=== PATIENT | female | born 1970 | race Two or more races ===

== ENCOUNTER 2017-07-06 12:29 | Emergency (ER) | payer BC, SELFPAY | END 2017-07-06 18:27 | disposition home or self-care (01) | PROVIDERS: Emergency Provider Emergency Medicine; Visit Provider Emergency Medicine | DX: R11.2 Nausea with vomiting, unspecified (principal); D64.9 Anemia, unspecified; K21.0 Gastro-esophageal reflux disease with esophagitis; I10 Essential (primary) hypertension; K44.9 Diaphragmatic hernia without obstruction or gangrene | CPT/HCPCS: 74176; 80053; 83690; 85025; 96374; 96375; 99284 ==

== ENCOUNTER 2017-07-18 12:38 | Day surgery (SDC) | payer BC, SELFPAY ==
[2017-07-15 12:12] VITALS: BMI 39.1
[2017-07-18] VITALS (9 sets, daily range): BP systolic 90–124; BP diastolic 47–79; PULSE 59–74; RESP 12–20; TEMP 36.7; O2SAT 95–100
--- NOTE | 2017-07-18 13:54 | P.PCN_ITS ---
- Procedure: Date: 07/18/17 Patient Date of :: 1970 Procedure Performed:: Esophagogastroduodenoscopy with cold biopsies and TTS balloon dilation Equipment: Olympus GIF 180 standard upper endoscope Indications:: Mrs. Perkins is a 46-year-old female with dysphagia and dyspepsia. She has a known hiatal hernia. She was having symptoms of heartburn which is well controlled with omeprazole. She reports epigastric and retrosternal abdominal pain and some left upper quadrant pain. She has noted bloating, belching, nausea and early satiety. She has some regurgitation and vomiting. Her weight is fluctuating. She does have alternating constipation with regular bowel movements and does have the feeling of incomplete bowel evacuation. The patient does state that her maternal aunt had stomach cancer. The patient also reports dysphagia to solids and sometimes liquid in the lower retrosternal region. Performing Provider:: Jessee Lester MD Referring Provider:: Naveed Reece MD/Will Rodriguez MD Sedation:: Fentanyl 200 mg IV/ Versed 9 mg IV Procedure:: Prior to the procedure, a history and physical exam was performed, and patient' s medications and allergies were reviewed. The risks, benefits and alternatives of the sedation and procedure were discussed with the patient. All questions were answered and informed consent was obtained. The patient was brought to the procedure room. Patient identification and proposed procedure were verified by the physician and the nurse. The patient was placed in a left lateral decubitus position and the scope was passed under direct vision. Throughout the procedure, the patient's blood pressure, pulse, and oxygen saturations were monitored continuously. The upper GI endoscopy was accomplished without difficulty. The patient tolerated the procedure well. Findings:: The scope was passed directly into the upper esophagus and advanced to the third portion of the duodenum. The post bulbar duodenum and duodenal bulb were normal with normal mucosa and conniventes. The scope was withdrawn through a normal duodenal bulb and pylorus into the stomach. The antrum and body of the stomach were normal. Upon retroflexion there was a very large 7-8 cm paraesophageal hernia/large hiatal hernia with long linear Carl's erosions/ Carl's ulcerations. There was some atrophy of the body of the stomach. Initially, it appeared that there was an organoaxial gastric volvulus tended to slide which was decompressed with the endoscope. After decompression, even the hernia itself lessened in size and was sliding to some degree. Cold biopsies were taken of the proximal body/greater curvature for histology. The scope was then withdrawn into the esophagus. There was a distal Schatzki's ring that did not appear to be too significant. There was mild tertiary contractions. There was no evidence of reflux esophagitis or Patel's. The entire esophagus was dilated to 60/20 mm TTS hydrostatic balloon. There was minimal resistance. The remainder of the esophageal mucosa was normal. Impression: 1. Large paraesophageal hiatal hernia (7 -8 cm) with initial appearance of organoaxial gastric volvulus status post endoscopic decompression 2. Long linear Carl's ulcerations/erosions related to the hiatal hernia 3. Mild esophageal dysmotility status post dilation to 20 mm Recommendations:: Plan: Based upon the endoscopic findings, the patient will require minimally invasive hiatal hernia repair. I would encourage a fiber bowel regimen and dietary measures. I would continue the omeprazole. Complications:: None Estimated blood obtained (mL): 0
== END 2017-07-18 14:30 | disposition hospice, home (50) ==
LOC: OUTP 12:39
PROVIDERS: PCP Nurse Practitioner Family; Visit Provider Internal Medicine Gastroenterology
PROC: 0DJ08ZZ Inspection of Upper Intestinal Tract, Via Natural or Artificial Opening Endoscopic (ICD-10-PCS; CPT 43235; principal; 2017-07-18 13:30)
DX: K44.9 Diaphragmatic hernia without obstruction or gangrene; K22.10 Ulcer of esophagus without bleeding; K22.4 Dyskinesia of esophagus
CPT/HCPCS: 43239; 43249; 99152; C1726

== ENCOUNTER → 2018-05-08 18:15 | Outpatient (CLI) | payer BC, SELFPAY | PROVIDERS: Visit Provider Nurse Practitioner Family | DX: R11.2 Nausea with vomiting, unspecified (principal) ==

== ENCOUNTER → 2018-05-10 08:22 | Outpatient (CLI) | payer BC, SELFPAY ==
[2018-05-10 09:21] LABS: Basophils % 0.7 % (0.1-2.0); Eosinophils # 0.2 K/mm3 (0.0-0.4); Eosinophils % 4.6 % (0.1-12.0); Hematocrit 33.3 % (37.0-47.0); Hemoglobin 10.5 g/dL (12.2-16.2); Lymphocytes # 1.2 K/mm3 (0.7-4.5); Lymphocytes % 32.9 K/mm3 (10-50); Mean Corpuscular HGB Conc 31.4 g/dL (31.8-35.4); Mean Corpuscular Hemoglobin 25.9 pg (27.0-31.2); Mean Corpuscular Volume 82.5 fl (81-99); Mean Platelet Volume 9.2 fl (7.4-10.4); Monocytes # 0.2 K/mm3 (0.1-1.0); Monocytes % 5.8 % (1.7-9.3); Neutrophils # 2.1 K/mm3 (1.8-7.8); Platelet Count 184 K/mm3 (142-424); Red Blood Count 4.04 M/mm3 (4.20-5.40); Red Cell Distribution Width 17.4 % (11.5-17.5); White Blood Count 3.7 K/mm3 (4.8-10.8)
[2018-05-10 09:53] LABS: Alanine Aminotransferase 20 U/L (12-78); Albumin Level 3.5 gm/dL (3.4-5.0); Alkaline Phosphatase 98 U/L (46-116); Anion Gap 12.2 mEq/L (5-15); Aspartate Amino Transferase 15 U/L (15-37); Bilirubin,Total 0.4 mg/dL (0.2-1.0); Blood Urea Nitrogen 15 mg/dL (7-18); Calcium 8.5 mg/dL (8.5-10.1); Carbon Dioxide 27 mmol/L (21.0-32.0); Chloride 107 mmol/L (98-107); Creatinine,Serum 1.01 mg/dL (0.55-1.02); Estimated Glomerular Filt Rate 59 ml/min (>60); GFR (African American) 71 ML/MIN (>60); Globulin 3.5 gm/dl (1.3-3.2); Glucose 90 mg/dL (74-106); Potassium 4.2 mmoL/L (3.5-5.1); Sodium 142 mmol/L (136-145); T4 (Thyroxine) 5.3 ug/dl (4.7-13.3); Thyroid Stimulating Hormone 11.92 uIU/ml (0.358-3.740)
== END ==
PROVIDERS: Visit Provider Nurse Practitioner Family
DX: E03.9 Hypothyroidism, unspecified (principal); R11.2 Nausea with vomiting, unspecified
CPT/HCPCS: 36415; 80053; 84436; 84443; 85025

== ENCOUNTER → 2018-05-19 11:35 | Outpatient (CLI) | payer BC, SELFPAY ==
[2018-05-19 15:18] LABS: Ferritin 5 ng/mL (8-388)
[2018-05-20 08:28] LABS: Iron 48 ug/dL (27-159); UIBC 432 ug/dL (131-425)
[2018-05-20 12:16] LABS: Folate 8.4 ng/mL (>3.0); Iron Saturation 10 % (15-55); Vitamin B12 223 pg/mL (232-1245)
== END ==
PROVIDERS: Nurse Practitioner Family; Visit Provider Emergency Medicine
DX: D64.9 Anemia, unspecified (principal)
CPT/HCPCS: 36415; 82607; 82652; 82728; 82746; 83540; 83550

== ENCOUNTER → 2018-05-19 17:46 | Outpatient (CLI) | payer BC, SELFPAY | PROVIDERS: Visit Provider Nurse Practitioner Family | DX: N39.0 Urinary tract infection, site not specified (principal); R30.9 Painful micturition, unspecified | CPT/HCPCS: 87086; 87088; 87186 ==

== ENCOUNTER → 2018-06-15 10:45 | Outpatient (CLI) | payer BC, SELFPAY ==
--- NOTE | 2018-06-15 10:47 | MM_ITS ---
MM Dig screening mamm BI w/CAD CAD Screening COMPARISON: Digital mammograms with CAD 07/07/2015 INDICATION: There is a history of breast cancer patient maternal aunt diagnosed at age 46 and another maternal aunt diagnosed at age 50 TECHNIQUE: Standard CC and MLO images were obtained. R2 CAD reviewed. FINDINGS: Moderate diffuse breast density is seen in each breast and the findings are bilateral and symmetrical. There is no suspicious lesion and there are no suspicious microcalcifications. There are couple of normal-appearing nodes in each axilla. IMPRESSION: Moderate breast density with no suspicious lesion seen BI-RADS Category: 1 Negative RECOMMENDED FOLLOW-UP: 1YR - 1 YEAR FOLLOW-UP (A letter has been sent to the patient regarding results of the study.)
== END ==
PROVIDERS: PCP Nurse Practitioner Family; Visit Provider Nurse Practitioner Family
DX: Z12.31 Encounter for screening mammogram for malignant neoplasm of breast (principal)
CPT/HCPCS: 77067

== ENCOUNTER → 2018-06-22 10:29 | Outpatient (CLI) | payer BC, SELFPAY ==
--- NOTE | 2018-06-22 10:32 | CT_ITS ---
CT abdomen wo/w con CLINICAL INDICATION: Follow-up adrenal mass ITS.REASON: adrenal gland protocol ORDERING PHYSICIAN: Radha Zavala PATIENT AGE: 47 years COMPARISON: 06/29/1717 TECHNIQUE: Axial images obtained without and with contrast. Unenhanced, 60 seconds postenhanced, and 15 minute delayed images are obtained Sagittal and coronal reformats. All CT scans at the facility use one or more dose reduction, viz: automated exposure control, ma/kV adjustment per patient size (including targeted exams where dose is matched to indication, i.e. head), or iterative reconstruction technique. PROCEDURE: Oral Contrast: None IV Contrast: 75 mL of Isovue-370. FINDINGS: No acute finding in the lung bases. There is a 9 mm isodensity in the right hepatic lobe and may represent hepatic cysts not significantly changed. There is a small hiatal hernia. There is a 1.6 cm right adrenal nodule. This measures negative Hounsfield units on the unenhanced exam 24 Hounsfield units on the immediate postenhanced images and 3 Hounsfield units on the washout images. This is consistent with an adenoma. This is unchanged in size 07/06/2017. The spleen, left adrenal gland, pancreas, and kidneys have an unremarkable appearance. There is some lobulation of the left kidney has a normal variant. No intestinal obstruction or free air. There is a small umbilical hernia containing fat. Mild amount of retained colonic feces. The colon. No acute bony anomalies are evident. IMPRESSION: 1. No change 1.6 cm right adrenal nodule consistent with an adenoma. 2. Probable hepatic cyst. 3. Hiatal hernia. 4. Constipation
--- NOTE | 2018-06-22 11:05 | HMH.ITSHM ---
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 []ASPIRIN,VIT D,LEVOTHYROXINE,
== END ==
PROVIDERS: PCP Emergency Medicine; Visit Provider Nurse Practitioner Family
DX: E27.9 Disorder of adrenal gland, unspecified (principal)
CPT/HCPCS: 74170; Q9967

== ENCOUNTER → 2019-05-09 14:10 | Outpatient (CLI) | payer BC, SELFPAY ==
[2019-05-09 14:24] LABS: Basophils % 0.4 % (0.1-2.0); Eosinophils # 0.2 K/mm3 (0.0-0.4); Eosinophils % 3.3 % (0.1-12.0); Hematocrit 40.1 % (37.0-47.0); Hemoglobin 13.1 g/dL (12.2-16.2); Lymphocytes # 1.6 K/mm3 (0.7-4.5); Lymphocytes % 31.9 % (10-50); Mean Corpuscular HGB Conc 32.6 g/dL (31.8-35.4); Mean Corpuscular Hemoglobin 29.6 pg (27.0-31.2); Mean Corpuscular Volume 90.9 fl (81-99); Mean Platelet Volume 10.6 fl (7.4-10.4); Monocytes # 0.2 K/mm3 (0.1-1.0); Monocytes % 4.4 % (1.7-9.3); Neutrophils # 2.9 K/mm3 (1.8-7.8); Neutrophils % 60.1 % (37.0-80.0); Platelet Count 212 K/mm3 (142-424); Red Blood Count 4.41 M/mm3 (4.20-5.40); Red Cell Distribution Width 14.7 % (11.5-17.5); White Blood Count 4.9 K/mm3 (4.8-10.8)
[2019-05-09 14:37] LABS: Alanine Aminotransferase 25 U/L (12-78); Albumin Level 3.9 gm/dL (3.4-5.0); Albumin/Globulin Ratio 1.1 (1.1-1.8); Alkaline Phosphatase 95 U/L (46-116); Anion Gap 12.4 mEq/L (5-15); Aspartate Amino Transferase 13 U/L (15-37); Bilirubin,Total 0.4 mg/dL (0.2-1.0); Blood Urea Nitrogen 26 mg/dL (7-18); Calcium 8.4 mg/dL (8.5-10.1); Carbon Dioxide 24 mmol/L (21.0-32.0); Chloride 109 mmol/L (98-107); Estimated Glomerular Filt Rate 59 ml/min (>60); Free T4 (Free Thyroxine) 0.81 ng/dl (0.76-1.46); GFR (African American) 72 ML/MIN (>60); Globulin 3.4 gm/dl (1.3-3.2); Glucose 81 mg/dL (74-106); Potassium 4.4 mmoL/L (3.5-5.1); Sodium 141 mmol/L (136-145); Thyroid Stimulating Hormone 8.77 uIU/ml (0.358-3.740); Total Protein,Serum 7.3 gm/dL (6.4-8.2)
[2019-05-09 14:42] LABS: Erythrocyte Sedimentation Rate 90 mm/hr (0-20)
[2019-05-09 17:27] LABS: Hemoglobin A1C 5.7 % (0.0-7.0)
== END ==
PROVIDERS: Visit Provider Emergency Medicine
DX: D64.9 Anemia, unspecified (principal); R11.2 Nausea with vomiting, unspecified; E03.9 Hypothyroidism, unspecified; E55.9 Vitamin D deficiency, unspecified
CPT/HCPCS: 80053; 82652; 83036; 84439; 84443; 85025; 85651

== ENCOUNTER 2019-05-17 20:15 | Observation (INO) ==
[2019-05-17 20:29] LABS: Basophils % 0.4 % (0.1-2.0); Eosinophils # 0.1 K/mm3 (0.0-0.4); Hemoglobin 13.3 g/dL (12.2-16.2); Lymphocytes # 1.4 K/mm3 (0.7-4.5); Lymphocytes % 17.8 % (10-50); Mean Corpuscular HGB Conc 31.8 g/dL (31.8-35.4); Mean Corpuscular Volume 93.1 fl (81-99); Mean Platelet Volume 9.6 fl (7.4-10.4); Monocytes # 0.2 K/mm3 (0.1-1.0); Neutrophils % 77.8 % (37.0-80.0); Platelet Count 208 K/mm3 (142-424); Red Blood Count 4.51 M/mm3 (4.20-5.40); Red Cell Distribution Width 14.6 % (11.5-17.5); White Blood Count 7.6 K/mm3 (4.8-10.8)
[2019-05-17 20:35] LABS: INR 0.92 (0.9-1.1); Prothrombin Time 9.6 seconds (9.4-11.8)
[2019-05-17 20:41] LABS: Anion Gap 13.9 mEq/L (5-15); Blood Urea Nitrogen 27 mg/dL (7-18); Calcium 8.5 mg/dL (8.5-10.1); Carbon Dioxide 25 mmol/L (21.0-32.0); Chloride 105 mmol/L (98-107); Glucose 160 mg/dL (74-106); Sodium 140 mmol/L (136-145)
--- NOTE | 2019-05-17 21:11 | Emergency Department Note ---
ED Disposition Clinical Impression: Obesity (BMI 30.0-34.9) Chest pain Qualifiers: Chest pain type: precordial pain Qualified Code(s): R07.2 - Precordial pain Disposition: Admitted as Observation Condition on Discharge: Good - Critical Care Critical Care Time: No Attestation: On 05/17/19, the high probability of a clinically significant, sudden or life threatening deterioration of the following system(s) required my full and direct attention, intervention and personal management. The time I documented below is in addition to time spent performing reported procedures but includes the following listed in this critical care notation. Medical Decision Making - Medical Records Medical records reviewed: Yes: I reviewed the patient's medical records. - Colin Inquiry Pt receiving controlled substance: No Vital Signs: 05/17/19 20:15 05/17/19 20:16 05/17/19 20:45 Temperature 98.1 F 98.1 F Temperature Source Oral Oral Pulse Rate [Right Brachial] 79 79 68 Respiratory Rate 18 18 18 Blood Pressure [Right Arm] 141/74 H 141/74 H 143/106 H Blood Pressure Mean [Right Arm] 96 96 118 Blood Pressure Source [Right Arm] Automatic Cuff Automatic Cuff Automatic Cuff Blood Pressure Position [Right Arm] Sitting Sitting Sitting 02 Sat by Pulse Oximetry 98 98 98 Oxygen Delivery Method Room Air Room Air Room Air 05/17/19 21:34 05/17/19 21:51 Temperature Temperature Source Pulse Rate [Right Brachial] 64 73 Respiratory Rate 18 18 Blood Pressure [Right Arm] 140/100 H 132/89 Blood Pressure Mean [Right Arm] 113 103 Blood Pressure Source [Right Arm] Automatic Cuff Automatic Cuff Blood Pressure Position [Right Arm] Sitting Sitting 02 Sat by Pulse Oximetry 98 98 Oxygen Delivery Method Room Air Room Air - Lab Data Lab results reviewed: Yes: I reviewed the patient's lab results. Lab Results 05/17/19 20:18: POC Glucose 186 H 05/17/19 20:20: WBC 7.6, RBC 4.51, Hgb 13.3, Hct 42.0, MCV 93.1, MCH 29.6, MCHC 31.8, RDW 14.6, Plt Count 208, MPV 9.6, Neut % (Auto) 77.8, Lymph % (Auto) 17.8, [place] % (Auto) 3.0, Eos % (Auto) 1.0, Baso % (Auto) 0.4, Neut # (Auto) 6.0, Lymph # (Auto) 1.4, [place] # (Auto) 0.2, Eos # (Auto) 0.1, Baso # (Auto) 0.0 05/17/19 20:20: PT 9.6, INR 0.92 05/17/19 20:20: Sodium 140, Potassium 3.9, Chloride 105, Carbon Dioxide 25, Anion Gap 13.9, BUN 27 H, Creatinine 1.19 H, Estimated Creat Clear 89, Estimated GFR 48 L, Est GFR ( Amer) 59, Glucose 160 H, Calcium 8.5, Troponin I < 0.02 Result diagrams: 05/17/19 20:20 05/17/19 20:20 Orders (Tests/Meds): ED MEDICATIONS Discontinued Medications Generic Name Dose Route Start Last Admin Trade Name Freq PRN Reason Stop Dose Admin Aspirin 324 mg 05/17/19 21:52 05/17/19 21:53 Aspirin 81mg Chewable Tablet PO 05/17/19 21:53 324 mg ONCE ONE Administration Nitroglycerin 1 gm 05/17/19 21:52 05/17/19 21:53 Nitroglycerin 1 Inch Oint Udp TD 05/17/19 21:53 1 gm ONCE ONE Administration ORDERS Category Date Time Status CT head/brain wo con Stat Cat Scan 05/17/19 20:18 Taken XR chest portable Stat Exams 05/17/19 20:20 Taken ECG Request by /Nse Stat Y 05/17/19 20:20 Ordered - Radiology Data #1 Image(s): Chest Image Reviewed: Yes I reviewed the patient's radiology image Preliminary Findings: Normal/NAD - CT Data CT Scan: Head Time Received: 22:[address] Reviewed: Yes: I have viewed the radiologist's interpretation Preliminary Findings: Normal/NAD - ECG Data Tracing #1 Normal Sinus Rhythm: Yes Ischemic changes: non-specific ST-T wave changes - AIDAN Score for Non-Stemi Age of Patient: 40-49 years old Heart Rate: 70-89 bpm Systolic Blood Pressure: 140-159 mmHg Serum Creatinine: 0.80-1.19 mg/dl CHF [place] Class: I-No CHF Other Risk Factors: None Non-Stemi Risk Score: 65 Neuro HPI - General Chief Complaint: Chest Pain Stated Complaint: CP Time Seen by Provider: 05/17/19 20:20 Mode of Arrival: Ambulatory Source of Information: Patient, Spouse, Medical Record Limitations: No Limitations Description of Symptoms (Recalled from ER Triage Doc. by RN): Pt c/o cp and right sided weakness that started around lunch 11-12 today. - History of Present Illness HPI Narrative: pt with new onset of chest pain described as tightness which started around lunch with rad to lt upper ext - - had 2 episodes - second lasted longer - had heart cath 2009- no stents - also has tia in 2017 and on asa - no speech or visual sx at this time Onset (ago): hour(s) Timing confirmed by: family member Location: left arm History of same: Yes Severity: mild Context: sudden onset On Anticoagulants: Yes (asa) Associated symptoms: chest pain Treatments Prior to Arrival: Aspirin - Related Data Home Medications: Home Medications Medication Instructions Recorded Confirmed aspirin 325 mg tablet,delayed 325 mg PO DAILY 05/09/19 05/17/19 release Cholecalciferol (Vitamin D3) 1,000 unit PO DAILY 05/17/19 05/17/19 [Vitamin D3 1,000 Unit Cap] Dicyclomine HCl [Bentyl 10mg 10 mg PO BID 05/17/19 05/17/19 capsule] Ergocalciferol (Vitamin D2) 50,000 unit PO QWEEK 05/17/19 05/17/19 [Drisdol] Gabapentin [Gabapentin 100mg Cap] 100 mg PO QHS 05/17/19 05/17/19 Gabapentin [Gabapentin 300mg Cap] 300 mg PO QHS 05/17/19 05/17/19 predniSONE [Deltasone 20mg 20 mg PO BID 05/17/19 05/17/19 tablet] Allergies/Adverse Reactions: Allergies Allergy/AdvReac Type Severity Reaction Status Date / Time azithromycin [AZITHROMYCIN] Allergy Intermediate NA-NAUSEA Verified 05/09/19 1 0:41 codeine [CODEINE] Allergy Intermediate S-SWELLS-OR Verified 05/09/19 10:41 AL/THROAT NUTS (FOOD) Allergy Intermediate I-HIVES Uncoded 05/09/19 10:41 tegaderm Allergy Mild Uncoded 05/09/19 10:41 Stroke Alert/NIH Score - LOC Stroke Alert: Yes Level of Consciousness: Alert LOC Questions: Answers both correctly LOC Commands: Obeys both correctly - Facial/Visual Best Gaze: Normal Visual: No visual loss Facial Palsy: Normal - Motor Motor Response, Left Arm: No drift/Amputation/Fused Motor Response, Right Arm: No drift/Amputation/Fused Motor Response, Left Leg: No drift/Amputation/Fused Motor Response, Right Leg: No drift/Amputation/Fused - Sensory/Language Limb Ataxia: Absent Sensory: Normal Best Language: No aphasia Dysarthria: Normal speech, Intubated or Barrier present - NIH Score Stroke Risk Score: 0 [facility] History - Hepatitis A Screen Drug use history?: No High risk sexual behaviors?: No History of sexually transmitted infection?: No Currently employed?: No Childcare worker?: No Do you have indoor plumbing?: Yes Do you have electricity?: Yes Attestation statement:: This patient has been screened for Hepatitis A risk factors. I have reviewed the patient's past medical history: Yes Medical History: Reports:: Deep Vein Thrombosis, Hypertension, Transient Ischemic Attacks (TIA) Denies:: Diabetes Mellitus Type 1, Diabetes Mellitus Type 2, Internal Pacemaker, Lung Disease Other Surgeries: Yes: Appendectomy, Cardiac Catheterization, Cholecystectomy, C- section, Hernia Repair, Tubal Ligation. No: Pacemaker Amputation: No Fractures: No - Social History Smoking Status: Never smoker Alcohol Intake: never Alcohol Intake Frequency:: holidays/special occasions only Substance Use Type: denies use Occupational Status: unemployed Housing: house Family Hx:: Heart Attack, Anemia, Cancer, Kidney Disease, Coronary Artery Disease, Diabetes, Asthma ROS Obtained: Yes All systems reviewed & no additional complaints - Constitutional Constitutional: Denies fever(s) - Eyes Eyes: Denies change in vision - ENT Ears, Nose, Mouth, and Throat: Denies sore throat - Cardiovascular Cardiovascular: Reports chest pain, Reports chest pain at rest, Denies dyspnea, Reports radiating jaw, neck or arm pain - Respiratory Respiratory: No cough - Gastrointestinal Gastrointestingal: Denies: abdominal pain - Genitourinary Female Genitourinary: Denies hematuria - Musculoskeletal Musculoskeletal: Denies joint pain - Integumentary/Breasts Skin/Breast: Denies rash - Neurologic Neurologic: Reports as per HPI, Denies abnormal speech, Denies confusion, Denies dizziness, Denies focal weakness, Denies headache(s), Denies seizure-like activity Physical Exam - General General appearance: alert, obese - Head Head exam: normocephalic - Eye Eye exam: Present: PERRL, EOMI. Absent: scleral icterus - ENT ENT exam: Present: mucous membranes dry - Neck Neck exam: Present: trachea midline - Respiratory Respiratory exam: Present: normal lung sounds bilaterally. Absent: respiratory distress - Cardiovascular Cardiovascular exam: Present: regular rate, systolic murmur, +S4 - Abdominal Exam Abdominal exam: Present: soft - Extremities Exam Extremities exam: Present: full ROM. Absent: calf tenderness - Neurological Exam Neurological exam: Present: alert, oriented X3, CN II-XII intact, normal gait. Absent: motor sensory deficit - Psychiatric Psychiatric exam: Present: anxious - Skin Skin exam: Absent: rash
[2019-05-18 05:04] LABS: Basophils % 0.3 % (0.1-2.0); Eosinophils # 0.1 K/mm3 (0.0-0.4); Eosinophils % 1.2 % (0.1-12.0); Hematocrit 37.6 % (37.0-47.0); Lymphocytes # 2.2 K/mm3 (0.7-4.5); Lymphocytes % 31.5 % (10-50); Mean Corpuscular HGB Conc 31.3 g/dL (31.8-35.4); Mean Corpuscular Volume 94.1 fl (81-99); Monocytes # 0.4 K/mm3 (0.1-1.0); Monocytes % 5.9 % (1.7-9.3); Neutrophils # 4.4 K/mm3 (1.8-7.8); Neutrophils % 61.1 % (37.0-80.0); Platelet Count 178 K/mm3 (142-424); Red Cell Distribution Width 14.9 % (11.5-17.5); White Blood Count 7.2 K/mm3 (4.8-10.8)
[2019-05-18 05:16] LABS: Hemoglobin 11.9 g/dL (12.2-16.2)
[2019-05-18 05:27] LABS: Anion Gap 11.7 mEq/L (5-15); Calcium 8.4 mg/dL (8.5-10.1)
--- NOTE | 2019-05-18 07:29 | Pharmacy Consult Notes ---
[facility] Pharmacy VTE Monitoring - Patient Demographics Admission date: 05/17/19 Report Date: 05/18/19 Time: 07:29 Allergies/Adverse Reactions: Patient Allergies azithromycin [AZITHROMYCIN] Allergy (Intermediate, Verified 05/09/19 10:41) NA-NAUSEA codeine [CODEINE] Allergy (Intermediate, Verified 05/09/19 10:41) U-[id number]-[id number]/THROAT NUTS (FOOD) Allergy (Intermediate, Uncoded 05/09/19 10:41) I-HIVES tegaderm Allergy (Mild, Uncoded 05/09/19 10:41) Height: 1.7 m Weight: 103.986 kg Patient Problems: Current Active Problems Chest pain (Acute) Obesity (BMI 30.0-34.9) (Acute) - VTE Risk Labs: VTE Related Lab Results Hgb 11.9 g/dL (12.2-16.2) L D 05/18/19 04:50 Hct 37.6 % (37.0-47.0) 05/18/19 04:50 Plt Count 178 K/mm3 (142-424) 05/18/19 04:50 PT 9.6 seconds (9.4-11.8) 05/17/19 20:20 INR 0.92 (0.9-1.1) 05/17/19 20:20 BUN 26 mg/dL (7-18) H 05/18/19 04:50 Creatinine 0.99 mg/dL (0.55-1.02) 05/18/19 04:50 Estimated Creat Clear 114 mL/min (50-200) 05/18/19 04:50 Was VTE Risk Assessment Performed: Yes VTE Score: 3 VTE Risk Level: Low Risk Clinical Trial Participant: No - Prophylaxis VTE Prophylaxis Ordered?: Yes Types of VTE Prophylaxis: TEDS Knee High Location of Applied Device: Bilateral Lower Extremeties
--- NOTE | 2019-05-18 07:38 | Consult Report ---
History of Present Illness Consult date: 05/18/19 Requesting physician: Will Rodriguez Consult reason: chest pain Chief complaint: chest pain Additional Medical History:: 1. History of negative cardiac catheterization, 2006 and 2009 2. Remote tobacco use discontinued approximately 8 years ago, previously 1 pack/day for 20 years 3. History of TIAs, hospitalizations in 08/2016 in [place], [place] ([facility]), 01/2017 in [place] ([facility]). Some residual "weakness" in left leg. 4. Patient has history of DVT in right in 1991 while . Patient was placed on heparin injections for 9 months. 5. ? history of Hypothyroidism 6. Family history of HLD,DM, Cancer, CAD, [place] A. Patient's mother passed at age 23 of [place] during a kidney transplant 7. History of chest pain related to hiatal hernia, status post repair early 2017 History of present illness: 48 yo HF presented to the emergency department for evaluation of 5 minutes of chest pain at rest. Patient had gone out to feed a baby Without exertion or trauma when she returned to the house and sat down symptoms began left-sided with radiation to the left arm. Denies any diaphoresis, shortness of breath, nausea or vomiting or diarrhea. Patient came to the emergency department for evaluation of chest pain with subsequent numbness in the left side as well. Patient has a history of TIA symptoms in 2016 but she had no neurologic symptoms other than numbness at this time. Evaluation in the ER included EKG showing sinus rhythm at 67 bpm with no acute ST segment changes. Initial troponin was normal with follow up troponins normal overnight. Patient denies diabetes, tobacco use, hypertension or hyperlipidemia. She reports a history of TIA approximately 2016 and is on ASA. [facility] History Medical History: Reports:: Deep Vein Thrombosis (1991), Hypertension, Transient Ischemic Attacks (TIA) Denies:: Cancer, Diabetes Mellitus Type 1, Diabetes Mellitus Type 2, Internal Pacemaker, Lung Disease, MRSA *Have you ever received a pneumonia vaccine?: No *Have you received a flu vaccine this season?: No (wants to get vaccinated) Other Medical History: Reports: Anemia (1990), Hypothyroidism Other Surgeries: Yes: Appendectomy, Cardiac Catheterization, Cholecystectomy, C- section, Hernia Repair, Hysterectomy-Partial, Tubal Ligation. No: Pacemaker Amputation: No Fractures: No - *Social History Educational Level: Attended High School Smoking Status: Never smoker Alcohol Intake: current Alcohol Intake Frequency:: holidays/special occasions only Substance Use Type: denies use *Occupational Status:: unemployed Housing: house Household Members: family *Travel in the last 8 weeks: None Family Hx:: Heart Attack, Anemia, Cancer, Kidney Disease, Coronary Artery Diseas e, Diabetes, Asthma Meds Home Medications Medication Instructions Recorded Confirmed Type aspirin 325 mg tablet,delayed 325 mg PO DAILY 05/09/19 05/17/19 History release Cholecalciferol (Vitamin D3) 1,000 unit PO DAILY 05/17/19 05/17/19 History [Vitamin D3 1,000 Unit Cap] Dicyclomine HCl [Bentyl 10mg 10 mg PO BID 05/17/19 05/17/19 History capsule] Ergocalciferol (Vitamin D2) 50,000 unit PO QWEEK 05/17/19 05/17/19 History [Drisdol] Gabapentin [Gabapentin 100mg Cap] 100 mg PO QHS 05/17/19 05/17/19 History Gabapentin [Gabapentin 300mg Cap] 300 mg PO QHS 05/17/19 05/17/19 History predniSONE [Deltasone 20mg 20 mg PO BID 05/17/19 05/17/19 History tablet] Allergies Allergy/AdvReac Type Severity Reaction Status Date / Time azithromycin [AZITHROMYCIN] Allergy Intermediate NA-NAUSEA Verified 05/09/19 10:41 codeine [CODEINE] Allergy Intermediate S-SWELLS-OR Verified 05/09/19 10:41 AL/THROAT NUTS (FOOD) Allergy Intermediate I-HIVES Uncoded 05/09/19 10:41 tegaderm Allergy Mild Uncoded 05/09/19 10:41 Review of Systems - *Cardiovascular Reports chest pain, Denies shortness of breath with activity - *Respiratory Denies cough, Denies shortness of breath with activity - *Gastrointestinal Denies abdominal pain, Denies nausea, Denies vomiting - *Genitourinary Denies blood in urine - *Musculoskeletal Denies joint pain, Denies back pain - *Neurologic Denies abnormal speech, Denies confusion, Denies dizziness, Denies localized weakness, Denies headache(s), Denies seizure-like activity Exam Vital signs and Labs for Last 24 Hours: Temp Pulse Resp BP Pulse Ox 97.7 F 42 L 16 126/73 97 05/18/19 04:00 05/18/19 04:00 05/18/19 04:00 05/18/19 04:00 05/18/19 04:00 Laboratory Results - last 24 hr 05/17/19 20:18: POC Glucose 186 H 05/17/19 20:20: WBC 7.6, RBC 4.51, Hgb 13.3, Hct 42.0, MCV 93.1, MCH 29.6, MCHC 31.8, RDW 14.6, Plt Count 208, MPV 9.6, Neut % (Auto) 77.8, Lymph % (Auto) 17.8, [place] % (Auto) 3.0, Eos % (Auto) 1.0, Baso % (Auto) 0.4, Neut # (Auto) 6.0, Lymph # (Auto) 1.4, [place] # (Auto) 0.2, Eos # (Auto) 0.1, Baso # (Auto) 0.0 05/17/19 20:20: PT 9.6, INR 0.92 05/17/19 20:20: Sodium 140, Potassium 3.9, Chloride 105, Carbon Dioxide 25, Anion Gap 13.9, BUN 27 H, Creatinine 1.19 H, Estimated Creat Clear 89, Estimated GFR 48 L, Est GFR ( Amer) 59, Glucose 160 H, Calcium 8.5, Troponin I < 0.02 05/17/19 20:20: Hemoglobin A1c 6.0 05/17/19 20:20: ESR 19 05/18/19 01:50: Troponin I < 0.02 05/18/19 04:50: Troponin I < 0.02 05/18/19 04:50: WBC 7.2, RBC 4.00 L, Hgb 11.9 L D, Hct 37.6, MCV 94.1, MCH 29.4, MCHC 31.3 L, RDW 14.9, Plt Count 178, MPV 10.0, Neut % (Auto) 61.1, Lymph % (Auto) 31.5, [place] % (Auto) 5.9, Eos % (Auto) 1.2, Baso % (Auto) 0.3, Neut # (Auto) 4.4, Lymph # (Auto) 2.2, [place] # (Auto) 0.4, Eos # (Auto) 0.1, Baso # (Auto) 0.0 05/18/19 04:50: Sodium 141, Potassium 3.7, Chloride 107, Carbon Dioxide 26, Anion Gap 11.7, BUN 26 H, Creatinine 0.99, Estimated Creat Clear 114, Estimated GFR 60, Est GFR ( Amer) 72 D, Glucose 104 D, Calcium 8.4 L, Magnesium 1.9, Triglycerides 107, Cholesterol 163, LDL Cholesterol 88, VLDL Cholesterol 21, HDL Cholesterol 54, Cholesterol/HDL Ratio 3.0 I & O for Last 24 hours: Intake & Output 05/15/19 05/16/19 05/17/19 05/18/19 11:59 11:59 11:59 11:59 Intake Total 495 / 495 Balance 495 / 495 Weight 229 lb 4 oz - *Routine HEENT Exam Head: Present: normocephalic Eye: Present: EOMI, PERRL ENT: Present: mucous membranes moist - *Routine Neck Exam Present: supple. Absent: JVD, carotid bruit - *Routine Respiratory Exam Present: CTA bilaterally. Absent: accessory muscle use, rales, rhonchi, wheezes - *Routine Cardiovascular Exam Present: RRR. Absent: murmur, gallop, rubs - *Routine Abdominal Exam Present: soft. Absent: tenderness, distended, guarding - *Routine Extremities Exam Absent: edema, calf tenderness - *Routine Neurological Exam Present: alert, oriented X3, moving all extremities Assessment and Plan (1) Chest pain Current visit: Yes Status: Acute Qualifiers: Chest pain type: precordial pain Qualified Code(s): R07.2 - Precordial pain Category: Medical Code(s): R07.9 - Chest pain, unspecified (2) History of repair of hiatal hernia Current visit: Yes Status: Acute Category: Surgical Code(s): Z98.890 - Other specified postprocedural states; Z87.19 - Personal history of other diseases of the digestive system (3) Obesity (BMI 30.0-34.9) Current visit: Yes Status: Acute Category: Medical Code(s): E66.9 - Obesity, unspecified (4) Anemia Current visit: No Status: Acute Qualifiers: Anemia type: unspecified type Qualified Code(s): D64.9 - Anemia, unspecified Category: Medical Code(s): D64.9 - Anemia, unspecified - Assessment and plan all Dx Assessment and Plan for all problems:: 1. Chest pain, atypical features with negative EKG and troponins. Recommend lexiscan myoview. If no ischemia then likely etiology is GI. 2. Echo has been performed with preliminary report OK. 3. Further recommendations to follow pending above results. 4.
--- NOTE | 2019-05-18 13:19 | Cardiology Report ---
APPROVED REPORT EXAM: Comprehensive 2D, Doppler, and color-flow Echocardiogram Technical Delivery Manager: Rasheeda Rodriguez RT(R) Ht: 5 ft 7 in Wt: 215lbs BSA: 2.09 BP: 141/74 mmHg Indications: CP, hx of TIA 2016 2D Dimensions LVOT 2.00 cm (M/F) 1.5-2.5 M-Mode Dimensions RVDd 2.32 cm (0.9-2.6)LVDd 4.88 cm (3.5-5.7) LVDs 3.60 cm (3.5-5.7)IVSd 1.08 cm (0.6-1.1) PWd 0.94 cm (0.6-1.1)EF (Teich) 51.30% FS 26.20% EDV (Teich) 111.70 mL ESV (Teich) 54.40 mL LV Diastology E/A Ratio 3.05 Mitral Valve MV A Velocity 19.00 (40-130 cm/s) Left Ventricle Left atrium is normal size, left ventricle is normal size, there is no concentric left ventricular hypertrophy, visually estimated ejection fraction 55% with no regional wall motion abnormality. Diastolic parameters are within normal range. Right Ventricle Right atrium and right ventricular normal size and contractility. Aortic Valve Aortic valve is grossly normal. There is no aortic stenosis aortic insufficiency. Mitral Valve Mitral valve is grossly normal, there is mild mitral regurgitation. Tricuspid Valve Tricuspid valve is grossly normal, there is mild tricuspid regurgitation, tricuspid regurgitation jet velocity is inadequate for calculation of the right ventricular systolic pressure. Pulmonic Valve Pulmonic valve is poorly visualized. Great Vessels Aortic root is normal size. Pericardium No significant pericardial effusion noted. Conclusion 1. Normal left ventricular size, preserved left ventricular systolic function, visually estimated ejection fraction 55% with no regional wall motion abnormality, diastolic parameters are within normal range. 2. Mild mitral and tricuspid regurgitation 3. No significant pericardial effusion noted. Electronically signed by : Gomez Butcher, 05/18/2019 13:18:31
--- NOTE | 2019-05-18 14:12 | H&P/Discharge Summary ---
General - General Admission date:: 05/17/19 Discharge date: 05/18/19 *Admission Date: 05/17/19 *Chief complaint: chest pain *History of present illness: 48 yo female presented to the emergency department for evaluation of 5 minutes of chest pain at rest. Patient had gone out to feed a baby Without exertion or trauma when she returned to the house and sat down symptoms began left-sided with radiation to the left arm. Denies any diaphoresis, shortness of breath, nausea or vomiting or diarrhea. Patient came to the emergency department for evaluation of chest pain with subsequent numbness in the left side as well. Admitted for cardiac work up and cardiology consult. [facility] History I have reviewed the patient's past medical history: Yes Medical History: Reports:: Deep Vein Thrombosis (1991), Hypertension, Transient Ischemic Attacks (TIA) Denies:: Cancer, Diabetes Mellitus Type 1, Diabetes Mellitus Type 2, Internal Pacemaker, Lung Disease, MRSA *Have you ever received a pneumonia vaccine?: No *Have you received a flu vaccine this season?: No (wants to get vaccinated) Other Medical History: Reports: Anemia (1990), Hypothyroidism Other Surgeries: Yes: Appendectomy, Cardiac Catheterization, Cholecystectomy, C- section, Hernia Repair, Hysterectomy-Partial, Tubal Ligation. No: Pacemaker Amputation: No Fractures: No - *Social History Educational Level: Attended High School Smoking Status: Never smoker Alcohol Intake: current Alcohol Intake Frequency:: holidays/special occasions only Substance Use Type: denies use *Occupational Status:: unemployed Housing: house Household Members: family *Travel in the last 8 weeks: None Family Hx:: Heart Attack, Anemia, Cancer, Kidney Disease, Coronary Artery Disease, Diabetes, Asthma Review of Systems - Review of Systems Review of systems:: pertinent systems reviewed and negative unless documented below - Constitutional Denies fever(s), Denies weight loss - Eyes Denies change in vision - ENT Denies change in voice - *Cardiovascular Reports chest pain, Reports chest pain at rest, Reports chest pain with activity - *Respiratory Denies chest congestion - *Gastrointestinal Denies nausea, Denies vomiting - *Genitourinary Denies urinary incontinence - *Musculoskeletal Denies joint pain, Denies body aches - Integumentary/Breasts Denies rash - *Neurologic Denies abnormal speech, Denies confusion, Denies dizziness, Denies localized weakness, Denies headache(s), Denies seizure-like activity - Psychiatric Denies anxiety, Denies panic attacks - Endocrine Denies flushing - Hematologic/Lymphatic Denies easy bruising - Allergic/Immunologic Denies itchy eyes Exam Vital signs and Labs for Last 24 Hours: Temp Pulse Resp BP Pulse Ox 97.8 F 35 L 16 123/71 100 05/18/19 11:54 05/18/19 12:00 05/18/19 11:54 05/18/19 11:54 05/18/19 11:54 Laboratory Results - last 24 hr 05/17/19 20:18: POC Glucose 186 H 05/17/19 20:20: WBC 7.6, RBC 4.51, Hgb 13.3, Hct 42.0, MCV 93.1, MCH 29.6, MCHC 31.8, RDW 14.6, Plt Count 208, MPV 9.6, Neut % (Auto) 77.8, Lymph % (Auto) 17.8, [place] % (Auto) 3.0, Eos % (Auto) 1.0, Baso % (Auto) 0.4, Neut # (Auto) 6.0, Lymph # (Auto) 1.4, [place] # (Auto) 0.2, Eos # (Auto) 0.1, Baso # (Auto) 0.0 05/17/19 20:20: PT 9.6, INR 0.92 05/17/19 20:20: Sodium 140, Potassium 3.9, Chloride 105, Carbon Dioxide 25, Anion Gap 13.9, BUN 27 H, Creatinine 1.19 H, Estimated Creat Clear 89, Estimated GFR 48 L, Est GFR ( Amer) 59, Glucose 160 H, Calcium 8.5, Troponin I < 0.02 05/17/19 20:20: Hemoglobin A1c 6.0 05/17/19 20:20: ESR 19 05/18/19 01:50: Troponin I < 0.02 05/18/19 04:50: Troponin I < 0.02 05/18/19 04:50: WBC 7.2, RBC 4.00 L, Hgb 11.9 L D, Hct 37.6, MCV 94.1, MCH 29.4, MCHC 31.3 L, RDW 14.9, Plt Count 178, MPV 10.0, Neut % (Auto) 61.1, Lymph % (Auto) 31.5, [place] % (Auto) 5.9, Eos % (Auto) 1.2, Baso % (Auto) 0.3, Neut # (Auto) 4.4, Lymph # (Auto) 2.2, [place] # (Auto) 0.4, Eos # (Auto) 0.1, Baso # (Auto) 0.0 05/18/19 04:50: Sodium 141, Potassium 3.7, Chloride 107, Carbon Dioxide 26, Anion Gap 11.7, BUN 26 H, Creatinine 0.99, Estimated Creat Clear 114, Estimated GFR 60, Est GFR ( Amer) 72 D, Glucose 104 D, Calcium 8.4 L, Magnesium 1.9, Triglycerides 107, Cholesterol 163, LDL Cholesterol 88, VLDL Cholesterol 21, HDL Cholesterol 54, Cholesterol/HDL Ratio 3.0 I & O for Last 24 hours: Intake & Output 05/16/19 05/17/19 05/18/19 05/19/19 11:59 11:59 11:59 11:59 Intake Total 495 / 495 Balance 495 / 495 Weight 229 lb 4 oz - Constitutional no acute distress - *Routine HEENT Exam Head: Present: normocephalic Eye: Present: PERRL ENT: Present: mucous membranes moist - *Routine Neck Exam Present: supple, full ROM. Absent: lymphadenopathy - *Routine Respiratory Exam Present: CTA bilaterally - *Routine Cardiovascular Exam Present: RRR - *Routine Abdominal Exam Present: soft, normoactive bowel sounds. Absent: tenderness - *Routine Extremities Exam Present: full ROM, normal capillary refill. Absent: cyanosis, clubbing, edema - *Routine Skin Exam Present: intact, warm. Absent: rash - *Routine Neurological Exam Present: alert, oriented X3 - Routine Psychiatric Exam Present: normal affect Hospital Course Hospital Course: echo:Conclusion 1. Normal left ventricular size, preserved left ventricular systolic function, visually estimated ejection fraction 55% with no regional wall motion abnormality, diastolic parameters are within normal range. 2. Mild mitral and tricuspid regurgitation 3. No significant pericardial effusion noted. stress test:Conclusion: 1. The EKG portion of the [employer] Myoview is nondiagnostic. 2. No scintigraphic evidence of reversible ischemia seen, computer derived ejection fraction is over 65% with no regional wall motion abnormality, right ventricle is normal size and contractility. 3. Normal Lexiscan Myoview study. chest x ray:IMPRESSION: Cardiomegaly otherwise negative today pt denies cp or pressure. will dc home follow up with cardiology in 1 week. Results Labs on day of discharge: Labs from last 24 hours 05/18/19 05/18/19 05/18/19 04:50 04:50 04:50 WBC 7.2 RBC 4.00 L Hgb 11.9 L D Hct 37.6 MCV 94.1 MCH 29.4 MCHC 31.3 L RDW 14.9 Plt Count 178 MPV 10.0 Neut % (Auto) 61.1 Lymph % (Auto) 31.5 [place] % (Auto) 5.9 Eos % (Auto) 1.2 Baso % (Auto) 0.3 Neut # (Auto) 4.4 Lymph # (Auto) 2.2 [place] # (Auto) 0.4 Eos # (Auto) 0.1 Baso # (Auto) 0.0 ESR PT INR Sodium 141 Potassium 3.7 Chloride 107 Carbon Dioxide 26 Anion Gap 11.7 BUN 26 H Creatinine 0.99 Estimated Creat Clear 114 Estimated GFR 60 Est GFR ( Amer) 72 D Glucose 104 D POC Glucose Hemoglobin A1c Calcium 8.4 L Magnesium 1.9 Troponin I < 0.02 Triglycerides 107 Cholesterol 163 LDL Cholesterol 88 VLDL Cholesterol 21 HDL Cholesterol 54 Cholesterol/HDL Ratio 3.0 05/18/19 05/17/19 05/17/19 01:50 20:20 20:20 WBC RBC Hgb Hct MCV MCH MCHC RDW Plt Count MPV Neut % (Auto) Lymph % (Auto) [place] % (Auto) Eos % (Auto) Baso % (Auto) Neut # (Auto) Lymph # (Auto) [place] # (Auto) Eos # (Auto) Baso # (Auto) ESR 19 PT INR Sodium Potassium Chloride Carbon Dioxide Anion Gap BUN Creatinine Estimated Creat Clear Estimated GFR Est GFR ( Amer) Glucose POC Glucose Hemoglobin A1c 6.0 Calcium Magnesium Troponin I < 0.02 Triglycerides Cholesterol LDL Cholesterol VLDL Cholesterol HDL Cholesterol Cholesterol/HDL Ratio 05/17/19 05/17/19 05/17/19 20:20 20:20 20:20 WBC 7.6 RBC 4.51 Hgb 13.3 Hct 42.0 MCV 93.1 MCH 29.6 MCHC 31.8 RDW 14.6 Plt Count 208 MPV 9.6 Neut % (Auto) 77.8 Lymph % (Auto) 17.8 [place] % (Auto) 3.0 Eos % (Auto) 1.0 Baso % (Auto) 0.4 Neut # (Auto) 6.0 Lymph # (Auto) 1.4 [place] # (Auto) 0.2 Eos # (Auto) 0.1 Baso # (Auto) 0.0 ESR PT 9.6 INR 0.92 Sodium 140 Potassium 3.9 Chloride 105 Carbon Dioxide 25 Anion Gap 13.9 BUN 27 H Creatinine 1.19 H Estimated Creat Clear 89 Estimated GFR 48 L Est GFR ( Amer) 59 Glucose 160 H POC Glucose Hemoglobin A1c Calcium 8.5 Magnesium Troponin I < 0.02 Triglycerides Cholesterol LDL Cholesterol VLDL Cholesterol HDL Cholesterol Cholesterol/HDL Ratio 05/17/19 20:18 WBC RBC Hgb Hct MCV MCH MCHC RDW Plt Count MPV Neut % (Auto) Lymph % (Auto) [place] % (Auto) Eos % (Auto) Baso % (Auto) Neut # (Auto) Lymph # (Auto) [place] # (Auto) Eos # (Auto) Baso # (Auto) ESR PT INR Sodium Potassium Chloride Carbon Dioxide Anion Gap BUN Creatinine Estimated Creat Clear Estimated GFR Est GFR ( Amer) Glucose POC Glucose 186 H Hemoglobin A1c Calcium Magnesium Troponin I Triglycerides Cholesterol LDL Cholesterol VLDL Cholesterol HDL Cholesterol Cholesterol/HDL Ratio - Additional Comments rounded with jackson all orders per jackson DS: Diagnosis - Discharge Diagnosis (1) Chest pain Status: Acute (2) History of repair of hiatal hernia Status: Acute (3) Obesity (BMI 30.0-34.9) Status: Acute (4) Anemia Status: Acute Discharge Plan - Patient Discharge Instructions ACTIVITY: Continue current activity DIET: continue same diet Patient Instructions: Angina, Echocardiogram, Heart-Healthy Diet, DI for Angina, Heart Healthy Physical Activity - Follow up Plan Follow up with: Naveed Reece MD [Staff Physician] - 1 week Will Rodriguez MD [Primary Care Provider] - 1 week Disposition: Home, Self-Intermediate Medications: Home Medications Medication Instructions Recorded Confirmed Type aspirin 325 mg tablet,delayed 325 mg PO DAILY 05/09/19 05/17/19 History release Cholecalciferol (Vitamin D3) 1,000 unit PO DAILY 05/17/19 05/17/19 History [Vitamin D3 1,000 Unit Cap] Dicyclomine HCl [Bentyl 10mg 10 mg PO BID 05/17/19 05/17/19 History capsule] Ergocalciferol (Vitamin D2) 50,000 unit PO WEEKLY 05/17/19 05/18/19 History [Drisdol] Gabapentin [Gabapentin 300mg Cap] 300 mg PO HS 05/17/19 05/18/19 History Prescriptions/Medication Reconciliation: Continued aspirin 325 mg tablet,delayed release 325 mg PO DAILY Ergocalciferol (Vitamin D2) [Drisdol] 50,000 unit PO WEEKLY Dicyclomine HCl [Bentyl 10mg capsule] 10 mg PO BID Cholecalciferol (Vitamin D3) [Vitamin D3 1,000 Unit Cap] 1,000 unit PO DAILY Gabapentin [Gabapentin 300mg Cap] 300 mg PO HS - Problem Reconciliation Problems Reviewed?: Yes
--- NOTE | 2019-05-18 15:33 | Cardiology Report ---
APPROVED REPORT Exam: Pharmacologic Technologist: Dorinda Mejia, Ht: 5 ft 7 in Wt: 215 lbs BSA: 2.09 m2 HR: 46 bpm BP: 127/76 mmHg Rhythm: SINUS BRADYCARDIA Medical History Medications: Asa,,,,, Vitamins,,,,, Allergies: Z-PAC,CODEINE,NUTS,TEGADERM Cardiac Risk Factors: FHX of CAD Stress Test Details Test: LEXISCAN HR Resting HR: 51 bpmMax Heart Rate (APMHR): 172 bpm Max HR Achieved: 106 bpmTarget HR (85% APMHR): 146 bpm % of APMHR: 61 Recovery HR: 71 bpm BP Resting BP: 127.0/76.0 mmHg Max BP: 143.0/91.0 mmHg Recovery BP: 129.0/88.0 mmHg ECG Resting ECG: SINUS BRADYCARDIA Clinical Exercise duration: 04:00 min Highest Stage Achieved: Exercise capacity: 1.0 METs Stress ECG Conclusion LEXISCAN PORTION COMPLETED. C/O NAUSEA AT PEAK INFUSION. RESOLVED IN RECOVERY. NO CHEST PAINOR SOA. POSITIVE FOR NAUSEA AT PEAK INFUSION. NO ECTOPY NOTED. LESS THAN 1.5MM ST DEPRESSION. IMAGES TO FOLLOW Electronically signed by : Gomez Butcher, 05/18/2019 15:33:45
--- NOTE | 2019-05-19 07:27 | Electrocardiograph Report ---
APPROVED REPORT Exam: Resting ECG HR:68 bpm ECG Measurements Heart Rate 68 AXES ME 140 P 38 QRSd 88 QRS 15 QT 392 T0 QTc 416 <Conclusion> Sinus rhythm with fusion complexes Otherwise normal ECG Electronically signed by : Quan Patel, 05/19/2019 07:27:11
== END 2019-05-18 17:21 | disposition home or self-care (01) ==
LOC: ER 20:15 → 2ND 20:15
PROVIDERS: ADMIT Emergency Medicine; ATTEND Emergency Medicine
CPT/HCPCS: 36415; 70450; 71010; 71045; 78452; 80048; 80061; 82962; 83036; 83735; 84484; 85025; 85610; 85651; 90686; 93005; 93017; 93306; 99285; A9502; G0378; J2785

== ENCOUNTER → 2019-06-01 13:53 | Outpatient (CLI) | payer BC, SELFPAY ==
--- NOTE | 2019-06-01 13:57 | XR_ITS ---
PROCEDURE: XR FOOT WT BEARING LT 3V CLINICAL INDICATION: comparison view COMPARISON: No exams were available for comparison FINDINGS: No fracture or dislocation. No lytic or blastic change. There is normal mineralization. There are minimal osteoarthritic changes of the talonavicular joint calcaneocuboid joint with pes planus. Other findings:None. IMPRESSION: Minimal degenerative changes with pes planus Dictated by: Feliberto Camara MD 06/01/2019 15:03 Electronically signed by Feliberto Camara MD in [place] 06/01/2019 15:03
--- NOTE | 2019-06-01 13:57 | XR_ITS ---
PROCEDURE: XR FOOT WT BEARING RT 3V CLINICAL INDICATION: pain in right foot Right pain COMPARISON: No exams were available for comparison FINDINGS: No fracture or dislocation. No lytic or blastic change. There is normal mineralization. Minimal osteoarthritic changes are present at the 1st metatarsophalangeal joint and at the talonavicular joint and calcaneal cuboid joint. There is also a minimal osteoarthritis at the cuboid metatarsal joint. There is pes planus. Other findings:None. IMPRESSION: Mild osteoarthritic change with pes planus Dictated by: Feliberto Camara MD 06/01/2019 14:49 Electronically signed by Feliberto Camara MD in [place] 06/01/2019 14:49
== END ==
PROVIDERS: PCP Emergency Medicine; Visit Provider Podiatrist
DX: M79.671 Pain in right foot (principal)
CPT/HCPCS: 73630

== ENCOUNTER → 2019-06-28 15:24 | Outpatient (CLI) | payer BC, SELFPAY ==
--- NOTE | 2019-06-28 15:24 | MM_ITS ---
PROCEDURE: MM DIG SCREENING MAMM BI W/CAD CLINICAL INDICATION: screening There is a history of breast cancer patient's maternal aunt diagnosed before menopause and other maternal aunt diagnosed after menopause. COMPARISON: [facility] DIG MAMM-SCREEN CYNTHIA from 07/07/2015 [facility] MM Dig screening mamm BI w/CAD from 06/15/2018 TECHNIQUE: Standard CC and MLO images were obtained. R2 CAD reviewed. FINDINGS: Moderate somewhat heterogenic fibroglandular densities are seen throughout both breast and the findings are bilateral and symmetrical. There is no new or suspicious lesion in either breast and no suspicious microcalcifications. IMPRESSION: Moderate breast density with no suspicious lesions seen BI-RAD Category: 1 Negative FOLLOW-UP: 1YR 1 Year Follow-up (A letter has been sent to the patient regarding results of the study.) Dictated by: Dr. Velasquez Winter MD 06/29/2019 16:[address] Velasquez Winter MD in [place] 06/29/2019 16:00
== END ==
PROVIDERS: PCP Emergency Medicine; Visit Provider Emergency Medicine
DX: Z12.31 Encounter for screening mammogram for malignant neoplasm of breast (principal)
CPT/HCPCS: 77067

== ENCOUNTER → 2019-06-29 13:20 | Outpatient (CLI) | payer BC, SELFPAY ==
[2019-06-29 14:18] LABS: T4 (Thyroxine) 7.8 ug/dl (4.7-13.3); Thyroid Stimulating Hormone 9.41 uIU/ml (0.358-3.740)
== END ==
PROVIDERS: Visit Provider Emergency Medicine
DX: E07.9 Disorder of thyroid, unspecified (principal)
CPT/HCPCS: 84436; 84443

== ENCOUNTER → 2020-03-03 10:30 | Outpatient (CLI) | payer BC, SELFPAY ==
--- NOTE | 2020-03-03 10:35 | XR_ITS ---
PROCEDURE: XR ANKLE WT BEARING LT MIN 3V CLINICAL INDICATION: pain COMPARISON: CR XR FOOT WT BEARING LT 3V from 03/03/2020 FINDINGS: No fracture or dislocation. No lytic or blastic change. There is normal mineralization. The joint spaces are well-preserved. No significant degenerative/arthritic changes. No erosive changes evident. Other findings:There is borderline pes planus. IMPRESSION: Borderline pes planus otherwise negative left foot and ankle Dictated by: Feliberto Camara MD 03/03/2020 13:16 Feliberto Camara MD in [place] 03/03/2020 13:16
--- NOTE | 2020-03-03 10:35 | XR_ITS ---
PROCEDURE: XR ANKLE WT BEARING RT MIN 3V CLINICAL INDICATION: pain COMPARISON: CR XR FOOT WT BEARING RT 3V from 03/03/2020 FINDINGS: No fracture or dislocation. No lytic or blastic change. There is normal mineralization. The joint spaces are well-preserved. No significant degenerative/arthritic changes. No erosive changes evident. Other findings:There is mild pes planus IMPRESSION: Mild pes planus otherwise negative right foot and ankle Dictated by: Feliberto Camara MD 03/03/2020 13:15 Feliberto Camara MD in [place] 03/03/2020 13:15
== END ==
PROVIDERS: PCP Emergency Medicine; Visit Provider Podiatrist
DX: M79.672 Pain in left foot (principal); M25.572 Pain in left ankle and joints of left foot; M79.671 Pain in right foot; M25.571 Pain in right ankle and joints of right foot
CPT/HCPCS: 73610; 73630

== ENCOUNTER 2020-03-17 04:10 | Emergency (ER) | payer BC, SELFPAY ==
[2020-03-17 04:16] VITALS: BP 123/88; PULSE 68; RESP 18; TEMP 37.2; O2SAT 100; BMI 33.6
--- NOTE | 2020-03-17 04:29 | HMH.EDGENADL ---
ED Disposition Clinical Impression: Headache Qualifiers: Headache type: unspecified Headache chronicity pattern: acute headache Intractability: not intractable Qualified Code(s): R51 - Headache Disposition: Home, Self-Care Condition on Discharge: Good Instructions: Migraine -- Adult Additional Instructions: Follow-up with your PCP if you have any new, changing, worsening, or concerning symptoms, come back to the emergency department immediately. Referrals: Will Rodriguez MD [Primary Care Provider] - Time of Disposition: 05:38 - Critical Care Critical Care Time: No Attestation: On 03/17/20, the high probability of a clinically significant, sudden or life threatening deterioration of the following system(s) required my full and direct attention, intervention and personal management. The time I documented below is in addition to time spent performing reported procedures but includes the following listed in this critical care notation. Medical Decision Making - Medical Records Medical records reviewed: Yes: I reviewed the patient's medical records. MR Comment: 49-year-old female presents the emergency department with headache. She arrives the ED hemodynamically stable, with reassuring vital signs, and looks well on exam. She has no history of trauma, she has not been altered, cranial nerves are intact, she has not had fever and there are no signs of meningitis on her exam. She has no weakness in the extremities, no vertigo, no concerning findings and she is entirely neuro intact. Her headache did not reach peak intensity until many hours after headache started. I doubt any intracranial pathology. Given this, I do not think CT scan would be helpful. Will treat with migraine cocktail and reassess. On reassessment, patient remains well. She states that she is feeling much better. Repeat exam remains unchanged. Given the patient is feeling better, she was given strict return precautions and discharge instructions and verbalized understanding and agreement to the plan. Safe to discharge. - Colin Inquiry Pt receiving controlled substance: No Vital Signs: 03/17/20 04:16 Temperature 98.9 F Temperature Source Oral Pulse Rate [Right Brachial] 68 Respiratory Rate 18 Blood Pressure [Right Arm] 123/88 Blood Pressure Mean [Right Arm] 99 Blood Pressure Source [Right Arm] Automatic Cuff Blood Pressure Position [Right Arm] Sitting 02 Sat by Pulse Oximetry 100 Oxygen Delivery Method Room Air Orders (Tests/Meds): ED MEDICATIONS Generic Name Dose Route Start Last Admin Trade Name Freq PRN Reason Stop Dose Admin Sodium Chloride 1,000 mls @ 999 mls/hr 03/17/20 04:45 03/17/20 04:39 Sod Chlor 0.9% 1000ml Bag IV 03/17/20 05:45 999 mls/hr .Q1H1M JOSE RAFAEL Administration Discontinued Medications Generic Name Dose Route Start Last Admin Trade Name Ronald PRN Reason Stop Dose Admin Diphenhydramine HCl 25 mg 03/17/20 04:35 03/17/20 04:40 Benadryl 50mg/1ml Vial IV 03/17/20 04:36 25 mg ONCE ONE Administration Ketorolac Tromethamine 15 mg 03/17/20 04:36 03/17/20 04:39 Toradol 30mg/Ml Vial IV 03/17/20 04:37 15 mg ONCE ONE Administration Metoclopramide HCl 10 mg 03/17/20 04:36 03/17/20 04:40 Reglan 10mg/2ml Vial IVP 03/17/20 04:37 10 mg ONCE ONE Administration General Adult HPI - General Stated complaint: Vomiting and headache Time Seen by Provider: 03/17/20 04:29 - History of Present Illness HPI narrative: 49yo F with hx of prior TIA, HTN presents to the emergency department with headache that is been ongoing since about 930 or 10:00 last night. She has not taken anything for pain at home. She states that about 630 yesterday evening she was open someone low tobacco they finished up about 830 or 9:00, where she went home took a shower, and she started to have headache, she is also had 2-3 episodes of vomiting. She denies any fever or chills. She has been eating and drinking
[2020-03-17 05:35] VITALS: BP 106/62; PULSE 52; RESP 16; TEMP 37.2; O2SAT 98
== END 2020-03-17 05:48 | disposition home or self-care (01) ==
PROVIDERS: Emergency Provider Emergency Medicine; PCP Emergency Medicine
DX: G43.909 Migraine, unspecified, not intractable, without status migrainosus (principal); I10 Essential (primary) hypertension; G45.8 Other transient cerebral ischemic attacks and related syndromes; E03.9 Hypothyroidism, unspecified; D64.9 Anemia, unspecified; Z79.899 Other long term (current) drug therapy; Z90.49 Acquired absence of other specified parts of digestive tract; Z90.710 Acquired absence of both cervix and uterus; Z88.1 Allergy status to other antibiotic agents; Z88.5 Allergy status to narcotic agent
CPT/HCPCS: 96365; 96375; 99282

== ENCOUNTER → 2020-05-02 13:54 | Outpatient (CLI) | payer BC, SELFPAY | PROVIDERS: Visit Provider Nurse Practitioner Family | DX: M54.5 Low back pain (principal); N39.0 Urinary tract infection, site not specified | CPT/HCPCS: 87086; 87088; 87186 ==

== ENCOUNTER 2020-05-15 15:00 | Outpatient (RCR) | payer BC, SELFPAY | END 2020-05-15 15:05 | disposition home or self-care (01) | LOC: PT 15:00 | PROVIDERS: PCP Emergency Medicine; Visit Provider Podiatrist | DX: M25.571 Pain in right ankle and joints of right foot (principal); M76.821 Posterior tibial tendinitis, right leg | CPT/HCPCS: 97010; 97014; 97033; 97035; 97110; 97163; 97760; G0283 ==

== ENCOUNTER → 2020-05-27 18:08 | Outpatient (CLI) | payer BC, SELFPAY | PROVIDERS: Visit Provider Nurse Practitioner Family | DX: M54.9 Dorsalgia, unspecified (principal) | CPT/HCPCS: 87086 ==

== ENCOUNTER 2020-06-12 22:54 | Emergency (ER) | payer BC, SELFPAY ==
[2020-06-12 22:55] VITALS: BP 119/94; PULSE 63; RESP 16; TEMP 36.7; O2SAT 99; BMI 36.8
[2020-06-12 22:56] VITALS: BMI 31.8
[2020-06-12 23:55] VITALS: PULSE 62; RESP 16; O2SAT 98
[2020-06-13 00:05] LABS: Basophils % 0.5 % (0.1-2.0); Eosinophils # 0.2 K/mm3 (0.0-0.4); Eosinophils % 2.7 % (0.1-12.0); Hemoglobin 13.8 g/dL (12.2-16.2); Lymphocytes # 2.6 K/mm3 (0.7-4.5); Lymphocytes % 36.7 % (10-50); Mean Corpuscular HGB Conc 32.1 g/dL (31.8-35.4); Mean Corpuscular Hemoglobin 29.7 pg (27.0-31.2); Mean Corpuscular Volume 92.6 fl (81-99); Mean Platelet Volume 10.2 fl (7.4-10.4); Monocytes # 0.3 K/mm3 (0.1-1.0); Monocytes % 3.9 % (1.7-9.3); Neutrophils % 56.1 % (37.0-80.0); Platelet Count 219 K/mm3 (142-424); Red Blood Count 4.64 M/mm3 (4.20-5.40); Red Cell Distribution Width 14.2 % (11.5-17.5); White Blood Count 7.1 K/mm3 (4.8-10.8)
[2020-06-13 00:11] LABS: Alanine Aminotransferase 16 U/L (12-78); Albumin Level 4.4 g/dl (3.5-5.0); Albumin/Globulin Ratio 1.3 (1.1-1.8); Alkaline Phosphatase 99 U/L (38-126); Anion Gap 9.7 mEq/L (5-15); Aspartate Amino Transferase 21 U/L (14-36); Bilirubin,Total 0.4 mg/dl (0.2-1.3); Blood Urea Nitrogen 25 mg/dl (7-17); Calcium 9.1 mg/dl (8.4-10.2); Carbon Dioxide 28 mmol/L (22.0-30.0); Chloride 104 mmol/L (98-107); Creatinine Clearance Estimated 88 mL/min (50-200); Estimated Glomerular Filt Rate 59 ml/min (>60); GFR (African American) 71 ML/MIN (>60); Globulin 3.3 g/dL (1.3-3.2); Glucose 121 mg/dl (74-100); Potassium 3.7 mmoL/L (3.5-5.1); Sodium 138 mmol/L (136-145); Total Protein,Serum 7.7 g/dl (6.3-8.2)
--- NOTE | 2020-06-13 00:46 | HMH.EDHA ---
ED Disposition Clinical Impression: Migraine Qualifiers: Migraine type: unspecified Status migrainosus presence: without status migrainosus Intractability: not intractable Qualified Code(s): G43.909 - Migraine, unspecified, not intractable, without status migrainosus Disposition: Home, Self-Care Condition on Discharge: Good Instructions: DI for Migraine Additional Instructions: call pcp for follow up Referrals: Will Rodriguez MD [Primary Care Provider] - - Critical Care Critical Care Time: No Attestation: On 06/12/20, the high probability of a clinically significant, sudden or life threatening deterioration of the following system(s) required my full and direct attention, intervention and personal management. The time I documented below is in addition to time spent performing reported procedures but includes the following listed in this critical care notation. Medical Decision Making - Medical Records Medical records reviewed: Yes: I reviewed the patient's medical records. - Colin Inquiry Pt receiving controlled substance: No Vital Signs: 06/12/20 22:55 06/12/20 23:55 Temperature 98.1 F Temperature Source Oral Pulse Rate [Right Radial] 63 62 Respiratory Rate 16 16 Blood Pressure [Right Arm] 119/94 H Blood Pressure Mean [Right Arm] 102 Blood Pressure Source [Right Arm] Automatic Cuff Blood Pressure Position [Right Arm] Supine 02 Sat by Pulse Oximetry 99 98 Oxygen Delivery Method Room Air Room Air - Lab Data Lab results reviewed: Yes: I reviewed the patient's lab results. Lab Results 06/12/20 23:21: WBC 7.1, RBC 4.64, Hgb 13.8, Hct 43.0, MCV 92.6, MCH 29.7, MCHC 32.1, RDW 14.2, Plt Count 219, MPV 10.2, Neut % (Auto) 56.1, Lymph % (Auto) 36.7, [place] % (Auto) 3.9, Eos % (Auto) 2.7, Baso % (Auto) 0.5, Neut # (Auto) 4.0, Lymph # (Auto) 2.6, [place] # (Auto) 0.3, Eos # (Auto) 0.2, Baso # (Auto) 0.0 06/12/20 23:21: Sodium 138, Potassium 3.7, Chloride 104, Carbon Dioxide 28, Anion Gap 9.7, BUN 25 H, Creatinine 1.00, Estimated Creat Clear 88, Estimated GFR 59, Est GFR ( Amer) 71, Glucose 121 H, Calcium 9.1, Total Bilirubin 0.4, AST 21, ALT 16, Alkaline Phosphatase 99, Total Protein 7.7, Albumin 4.4, Globulin 3.3 H, Albumin/Globulin Ratio 1.3 Result diagrams: 06/12/20 23:21 06/12/20 23:21 Orders (Tests/Meds): ED MEDICATIONS Generic Name Dose Route Start Last Admin Trade Name Freq PRN Reason Stop Dose Admin Sodium Chloride 1,000 mls @ 999 mls/hr 06/12/20 23:00 06/12/20 22:56 Sod Chlor 0.9% 1000ml Bag IV 06/13/20 00:00 999 mls/hr .Q1H1M JOSE RAFAEL Administration Discontinued Medications Generic Name Dose Route Start Last Admin Trade Name Freq PRN Reason Stop Dose Admin Diphenhydramine HCl 50 mg 06/12/20 22:56 06/12/20 22:56 Diphenhydramine 50mg/Ml Vial IV 06/12/20 22:57 50 mg ONCE ONE Administration Ketorolac Tromethamine 30 mg 06/12/20 22:56 06/12/20 22:56 Ketorolac 30mg/Ml Vial IV 06/12/20 22:57 30 mg ONCE ONE Administration Metoclopramide HCl 10 mg 06/12/20 22:56 06/12/20 22:56 Metoclopramide Hcl 10mg/2ml Vial IVP 06/12/20 22:57 10 mg ONCE ONE Administration ORDERS Category Date Time Status CT head/brain wo con Stat Cat Scan 06/13/20 00:19 Stop Req - Reevaluation(s) Time: 00:51 Reevaluation #1: much improved Headache HPI - General Chief Complaint: Headache Stated Complaint: Headache Time Seen by Provider: 06/12/20 23:35 Mode of Arrival: Ambulatory Source of Information: Patient, Spouse, Medical Record Limitations: No Limitations Description of Symptoms (Recalled from ER Triage Doc. by RN): Pt c/o STRAUSS since 4pm. Pt reports hx of STRAUSS and it feels like there is a band around my forehead . No N/V, blurred vision, or dizziness reported. Pt is sensitive to light. - History of Present Illness HPI Narrative: pt with frontal strauss which started today - has photophobia - no fever/rash or trauma - has hx of tamia - Com
[2020-06-13 01:01] VITALS: BP 97/65; PULSE 57; RESP 16; TEMP 36.7; O2SAT 99
== END 2020-06-13 01:03 | disposition home or self-care (01) ==
PROVIDERS: Emergency Provider Emergency Medicine; PCP Emergency Medicine
DX: G43.909 Migraine, unspecified, not intractable, without status migrainosus (principal); I10 Essential (primary) hypertension; E03.9 Hypothyroidism, unspecified; Z87.891 Personal history of nicotine dependence
CPT/HCPCS: 80053; 85025; 96365; 96375; 99282

== ENCOUNTER → 2020-06-13 15:11 | Outpatient (CLI) | payer BC, SELFPAY ==
--- NOTE | 2020-06-13 15:11 | MR_ITS ---
PROCEDURE: MR LUMBAR SPINE WO CON CLINICAL INDICATION: Low back pain LBP WORSE ON RT SIDE. PAIN, NUMBNESS, AND TINGLING DOWN RT LEG. X1YR. NO INJURY. NO PRIOR. COMPARISON: CT ABDWW CT abdomen wo/w con from 06/22/2018 TECHNIQUE: Standard multiplanar multiecho sequences are performed without contrast. 3-D MIP and myelographic images are also rendered and reviewed FINDINGS: There is normal alignment. The spinal cord ends at the T12-L1 level. T11-T12: Mild degenerative disc disease with minimal bulging disc. T12-L1: Unremarkable. L1-L2: Unremarkable. L2-L3: Minimal bulging disc. L3-L4: Minimal bulging disc. Mild facet hypertrophy. L4-5: There is mild anterolisthesis of L4 of approximately 6 mm with bulging disc with facet and ligamentum hypertrophy. There is canal stenosis with mild bilateral foraminal narrowing and moderate bilateral lateral recess narrowing.. L5-S1: There is mild concentric bulging disc. There is a small right paracentral disc protrusion which abuts the medial aspect of the right S1 nerve root. There is mild facet and ligamentum hypertrophy. No extruded herniated disc is apparent. There are bilateral parapelvic renal cysts. IMPRESSION: 1. Mild multilevel lumbar spondylosis. Please see above for detailed description at each level. 2. L4-5: There is mild anterolisthesis of L4 of approximately 6 mm with bulging disc with facet and ligamentum hypertrophy. There is canal stenosis with mild bilateral foraminal narrowing and moderate bilateral lateral recess narrowing.. 3. L5-S1: There is mild concentric bulging disc. There is a small right paracentral disc protrusion which abuts the medial aspect of the right S1 nerve root. There is mild facet and ligamentum hypertrophy. Dictated by: Feliberto Camara MD 06/15/2020 07:56 Feliberto Camara MD in [place] 06/15/2020 07:56
== END ==
PROVIDERS: PCP Nurse Practitioner Family; Visit Provider Nurse Practitioner Family
DX: M54.5 Low back pain (principal)
CPT/HCPCS: 72148; 76376

== ENCOUNTER 2020-07-23 12:39 | Emergency (ER) | payer BC, SELFPAY ==
[2020-07-23 12:40] VITALS: BP 121/87; PULSE 74; RESP 16; TEMP 36.6; O2SAT 98; BMI 36.0
--- NOTE | 2020-07-23 13:29 | HMH.EDBACK ---
ED Disposition Clinical Impression: Strain of lumbar region Disposition: Home, Self-Care Condition on Discharge: Good Instructions: DI for Low Back Pain Prescriptions: Lidocaine [Lidocaine Pain Relief] 1 each TP DAILY PRN 7 Days #7 adh..patch PRN Reason: Mild To Moderate Pain Transmission Status: Pending to [id number] methocarbamoL [Robaxin 750mg Tab] 750 mg PO TID PRN 5 Days #15 tab PRN Reason: Mild Pain Transmission Status: Pending to [id number] Referrals: Will Rodriguez MD [Primary Care Provider] - - Critical Care Critical Care Time: No Attestation: On 07/23/20, the high probability of a clinically significant, sudden or life threatening deterioration of the following system(s) required my full and direct attention, intervention and personal management. The time I documented below is in addition to time spent performing reported procedures but includes the following listed in this critical care notation. Medical Decision Making - Medical Records Medical records reviewed: Yes: I reviewed the patient's medical records. - Colin Inquiry Pt receiving controlled substance: No Vital Signs: 07/23/20 12:40 Temperature 98 F Temperature Source Oral Pulse Rate [Radial] 74 Respiratory Rate 16 Blood Pressure [Right Arm] 121/87 Blood Pressure Mean [Right Arm] 98 Blood Pressure Position [Right Arm] Sitting 02 Sat by Pulse Oximetry 98 Oxygen Delivery Method Room Air Orders (Tests/Meds): ED MEDICATIONS Generic Name Dose Route Start Last Admin Trade Name Freq PRN Reason Stop Dose Admin Methocarbamol 1,000 mg 07/23/20 21:00 07/23/20 13:23 Methocarbamol 500mg Tablet PO 08/22/20 20:59 1,000 mg BID JOSE RAFAEL Administration Discontinued Medications Generic Name Dose Route Start Last Admin Trade Name Freq PRN Reason Stop Dose Admin Ketorolac Tromethamine 60 mg 07/23/20 13:02 07/23/20 13:23 Ketorolac 60mg/2ml Vial IM 07/23/20 13:03 60 mg ONCE ONE Administration Lidocaine 1 each 07/23/20 13:02 07/23/20 13:29 Lidocaine 5% Transdermal Patch TP 07/23/20 13:03 1 each ONCE ONE Administration Medical Decision Narrative: 49-year-old female presented with back pain. She was neurologically intact and no concern for cauda equina syndrome. Requested symptomatic treatment today and has referral to pain management in the outpatient setting. I have discussed her MRI results from recent MRI as well. After Toradol lidocaine patch and Robaxin she was feeling better and requesting be discharged home Back Pain HPI - General Chief Complaint: Back Pain/Injury Stated Complaint: pain lower right back Time Seen by Provider: 07/23/20 12:40 Mode of Arrival: Ambulatory Limitations: No Limitations Description of Symptoms (Recalled from ER Triage Doc. by RN): TO ED PER [employer] [facility] WITH C/O RT SIDE LOWER BACK PAIN RADIATING DOWN RT LEG X 1 MONTH. PT STATES SHE HAD A MRI SEVERAL DAYS AGO STATES PAIN, WEAKNESS IS GETTING PROGRESSIVELY WORSE. PT WAS GIVEN ROBAXIN, MOTRIN AND PREDNISONE PER PCP WITH NO RELIEF. PT DENIES ANY LOSS OF BOWEL OR BLADDER. PT HAS AN APPT WITH [facility]. TOMORROW. - History of Present Illness HPI Narrative: 49-year-old female with history of lumbar disc bulging presents with continued pain on the right side of her lower back and right lower leg. She says that she has had worsening pain today dull constant in nature. No urinary or bowel incontinence or groin numbness. No fever chills dysuria flank pain or abdominal pain. She says she has follow-up with pain management arranged. Location: lumbar spine Severity: moderate Quality: dull Relieving factors: immobilization Exacerbating factors: movement - Related Data Home Medications Medication Instructions Recorded Confirmed aspirin 325 mg tablet,delayed 325 mg PO DAILY 05/09/19 06/12/20 release Previous Rx's Medication Instructions Recorded Lidocaine [Lidocaine Pain Relief] 1 each TP
[2020-07-23 13:53] VITALS: BP 121/74; PULSE 78; RESP 16; TEMP 36.6; O2SAT 98
== END 2020-07-23 13:54 | disposition home or self-care (01) ==
PROVIDERS: Emergency Provider Emergency Medicine; PCP Emergency Medicine
DX: S33.5XXA Sprain of ligaments of lumbar spine, initial encounter (principal); I10 Essential (primary) hypertension; E03.9 Hypothyroidism, unspecified; D64.9 Anemia, unspecified; Z86.718 Personal history of other venous thrombosis and embolism; Z87.891 Personal history of nicotine dependence; Z88.1 Allergy status to other antibiotic agents; Z88.5 Allergy status to narcotic agent
CPT/HCPCS: 96372; 99281

== ENCOUNTER → 2020-07-24 15:15 | Outpatient (POV) | payer BC, SELFPAY ==
[2020-07-24 15:18] VITALS: BP 122/74; PULSE 74; RESP 18; TEMP 36.8; O2SAT 98; BMI 36.2
--- NOTE | 2020-07-24 15:49 | HMH.PMCON ---
Assessment and Plan (1) Sacroiliitis Status: Chronic Category: Medical Code(s): M46.1 - Sacroiliitis, not elsewhere classified (2) Degenerative disc disease Status: Chronic Category: Medical - Assessment and plan all Dx Assessment and Plan for all problems:: We will schedule the patient for right SI joint injection. Patient has been instructed to call the office if she has any issues prior to her next appointment if she does not get relief from this she may need a lumbar epidural steroid injection. We will start her on diclofenac 75 mg 1 tab p.o. twice daily and we will continue to take gabapentin 100 mg [address] Marie has reviewed this note and agrees with this plan of care. This note was dictated using voice recognition software and may contain errors or omissions HPI - Data of Consult Consult date: 07/24/20 Requesting Physician: Randa Ledesma APRN Primary Care Provider: Cristian Torres APRN - Consult Narrative Reason for consult: Back pain right SI joint pain History of present illness: Ms. Perkins is a 49 year old female who presents today for consultation regards to her low back pain. Patient has had pain for quite some time. She rates her pain a 6 out of 10. Patient has extreme pain over the right SI joint. She states that ice, increased activity increases pain will lidocaine patches rest and Motrin decrease pain. She is failed over 6 months of medication management. CC: Randa Ledesma APRN [facility] History I have reviewed the patient's past medical history: Yes Medical History: Reports:: Deep Vein Thrombosis, Hypertension, Transient Ischemic Attacks (TIA) Denies:: Cancer, Diabetes Mellitus Type 1, Diabetes Mellitus Type 2, Internal Pacemaker, Lung Disease, MRSA *Have you ever received a pneumonia vaccine?: Yes *Have you received a flu vaccine this season?: Yes Other Medical History: Reports: Anemia, Hypothyroidism Other Surgeries: Yes: Appendectomy, Cardiac Catheterization, Cholecystectomy, Colonoscopy, , Hernia Repair, Hysterectomy-Partial, Tubal Ligation. No: Pacemaker Amputation: No Fractures: No - *Social History Smoking Status: Former smoker Tobacco Type: cigarettes # Packs/Day (cigarettes): 1 Smoking End Date: 2019 Alcohol Intake: never Alcohol Intake Frequency:: holidays/special occasions only Substance Use Type: denies use *Occupational Status:: employed Housing: house Household Members: spouse *Travel in the last 8 weeks: None Family Hx:: Unable to obtain Review of Systems - Review of Systems ROS General: no recent weight change, no fever, no sleep disturbances Respiratory: no cough, no shortness of air, no recurring pulmonary infections Cardiovascular/Peripheral Vascular: No chest pain, No palpitations, no edema, no shortness of breath. Gastrointestinal: no new onset incontinence, normal bowel movements reported Genitourinary: no new onset incontinence Musculoskeletal: SI joint pain, back pain Psychiatric: normal mood/ affect Neurological: [denies new onset weakness in extremities], [denies new onset balance issues] Meds Home Medications Medication Instructions Recorded Confirmed Type aspirin 325 mg tablet,delayed 325 mg PO DAILY 05/09/19 06/12/20 History release Lidocaine [Lidocaine Pain Relief] 1 each TP DAILY PRN 7 Days #7 07/23/20 Rx adh..patch methocarbamoL [Robaxin 750mg Tab] 750 mg PO TID PRN 5 Days #15 tab 07/23/20 Rx Diclofenac Sodium [Diclofenac 75mg 75 mg PO BID #60 tab 07/24/20 Rx Tab] Gabapentin [Neurontin 100mg 100 mg PO TID #90 cap 07/24/20 Rx cap] Allergies Allergy/AdvReac Type Severity Reaction Status Date / Time azithromycin [AZITHROMYCIN] Allergy Intermediate NA-NAUSEA Verified 05/22/20 10:37 codeine [CODEINE] Allergy Intermediate S-SWELLS-OR Verified 05/22/20 10:37 AL/THROAT NUTS (FOOD) Allergy Intermediate I-HIVES Uncoded 05/02/20 11:06 tegaderm Allergy Mild Un
== END ==
PROVIDERS: PCP Nurse Practitioner Family; Visit Provider Clinical Nurse Specialist Family Health
DX: M46.1 Sacroiliitis, not elsewhere classified (principal)
CPT/HCPCS: 99202; G0463

== ENCOUNTER 2020-08-01 10:55 | Day surgery (SDC) | payer BC, SELFPAY ==
[2020-08-01 11:15] VITALS: BP 124/73; PULSE 61; RESP 18; TEMP 35.9; O2SAT 98; BMI 36.0
[2020-08-01 11:28] VITALS: BP 132/78; PULSE 74; RESP 18; O2SAT 99
[2020-08-01 11:29] VITALS: BP 132/79; PULSE 75; RESP 18; O2SAT 99
[2020-08-01 11:42] VITALS: BP 132/65; PULSE 51; RESP 20; O2SAT 98
--- NOTE | 2020-08-01 11:52 | HMH.PMPROC ---
- Procedure Date: 08/01/20 Time: 11:52 Anesthesiologist:: Derrick Marie MD Complications:: None Pre-procedure Diagnosis:: Sacroiliitis Post-procedure Diagnosis:: Same Indications for Procedure:: This patient is a pleasant female who we are treating for right hip pain. She is tender over her right SI joint. She has a positive Ashwini's test on the right side. She is positive Jerry test on the right side. She has positive SI joint compression test on the right side. She has a positive distraction test on the right side. She is on diclofenac 75 mg twice a day and gabapentin 100 mg 3 times a day. She still continues to have increasing right hip pain over the SI joint. We will do a right SI joint junction today to help her with her pain symptoms. Procedure Details:: Right SI joint injection under fluoroscopy Informed consent was obtained and the risks and benefits of the procedure was going to the patient. Patient was taken to the procedure room. Patient was placed prone on the procedure table. The right hip was prepped using ChloraPrep. The skin and subcutaneous tissues were anesthetized using lidocaine. I placed a 22-gauge spinal needle into the inferior aspect of the right SI joint. Needle placement was confirmed with dye. After this we injected 5 mL bupivacaine 0.25% and Depo-Medrol 40 mg into the right SI joint. The patient tolerated the procedure well with no complication. Plan and Disposition:: We will follow-up with her in 2 weeks. Will reevaluate her symptoms at that time.
== END 2020-08-01 11:43 | disposition home or self-care (01) ==
LOC: SC.PAINP 10:57
PROVIDERS: PCP Nurse Practitioner Family; Visit Provider Anesthesiology
DX: M46.1 Sacroiliitis, not elsewhere classified (principal); M54.9 Dorsalgia, unspecified; Z82.49 Family history of ischemic heart disease and other diseases of the circulatory system; I82.409 Acute embolism and thrombosis of unspecified deep veins of unspecified lower extremity; Z86.73 Personal history of transient ischemic attack (TIA), and cerebral infarction without residual deficits; Z88.6 Allergy status to analgesic agent; Z88.1 Allergy status to other antibiotic agents; Z91.018 Allergy to other foods
CPT/HCPCS: 27096; G0260; J1040; Q9966

== ENCOUNTER 2020-12-18 03:53 | Emergency (ER) | payer BC, SELFPAY ==
[2020-12-18 04:06] VITALS: BP 119/82; PULSE 53; RESP 16; TEMP 36.9; O2SAT 100
== END 2020-12-18 04:06 | disposition left against medical advice (07) ==
PROVIDERS: Emergency Provider Emergency Medicine; PCP Emergency Medicine
DX: Z53.21 Procedure and treatment not carried out due to patient leaving prior to being seen by health care provider (principal)

== ENCOUNTER 2020-12-29 10:09 | Emergency (ER) | payer BC, SELFPAY ==
[2020-12-29 10:40] VITALS: BP 133/91; PULSE 72; RESP 19; TEMP 36.8; O2SAT 98; BMI 38.2
--- NOTE | 2020-12-29 10:59 | CA_ITS ---
APPROVED REPORT Bilateral Lower Extremity Venous Study for Sales Account Coordinator: CN Indications Lower Extremity Pain: Bilateral PAIN IN LEGS X2days, Previous DVT 20 years ago with Vein Imaging CFV (R): compressive, spontaneous, phasic, augmentation SFJ (R): compressive, spontaneous, phasic, augmentation FEM (R): compressive, spontaneous, phasic, augmentation POP (R): compressive, spontaneous, phasic, augmentation DFV (R): compressive, spontaneous, phasic, augmentation PTV (R): compressive, spontaneous, phasic, augmentation GSV (R): compressive, spontaneous, phasic, augmentation SSV (R): compressive, spontaneous, phasic, augmentation Peroneals (R):compressive, spontaneous, phasic, augmentation GAS (R): compressive, spontaneous, phasic, augmentation CFV (L): compressive, spontaneous, phasic, augmentation SFJ (L): compressive, spontaneous, phasic, augmentation FEM (L): compressive, spontaneous, phasic, augmentation POP (L): compressive, spontaneous, phasic, augmentation DFV (L): compressive, spontaneous, phasic, augmentation PTV (L): compressive, spontaneous, phasic, augmentation GSV (L): compressive, spontaneous, phasic, augmentation SSV (L): compressive, spontaneous, phasic, augmentation Peroneals (L):compressive, spontaneous, phasic, augmentation GAS (L): compressive, spontaneous, phasic, augmentation Findings Color flow duplex demonstrates no evidence of DVT of the following bilateral lower extremity Veins:Common Femoral Vein, Femoral Vein, Popliteal Vein, Posterior Tibial Veins, Peroneal Veins, Deep Femoral Vein. Negative for DVT at this time. Stagnant flow oberved in Left GSV, Dupication of distal Fem v. Conclusion Negative for DVT at this time. Electronically signed by : Feliberto Camara MD 12/29/2020 16:25:02
--- NOTE | 2020-12-29 11:07 | HMH.EDUTC ---
[facility] [place] Disposition Clinical Impression: Muscle strain Disposition: Home, Self-Care Condition on Discharge: Good Instructions: Hamstrings Strain, DI for Hamstring Strain, DI for Muscle Strain Additional Instructions: *Ibuprofen 600mg zelalem 6 hours with meal as needed for pain/inflammation *Not additional anti-inflammatory like motrin, aleve, advil with the above amount of ibuprofen. You can still take Tylenol every 4 hours as needed if you need something else for pain *Ice 20 minutes every 2 hours for the first 48 hours after the initial injury followed by moist heat every 20 minutes 3-4 times a day to affected area *Muscle relaxer as prescribed as needed for muscle spasms but remember, it WILL cause drowsiness You cannot take it and drive, operate machinery or care for small children. Over the counter muscle rubs may help with pain and wearing compression shorts may help with pain and soreness in muscles *Keep this area active, no movement leads to more stiffness, However take it easy and avoid heavy lifting pushing or pulling *Follow up with you family doctor if no improvement for further treatment Prescriptions: methocarbamoL [Methocarbamol] 750 mg PO BID PRN #10 tab PRN Reason: Muscle Spasm Transmission Status: Received by [id number] Referrals: Will Rodriguez MD [Primary Care Provider] - As needed Medical Decision Making - Colin Inquiry Pt receiving controlled substance: No Colin was queried for this patient: No Vital Signs: 12/29/20 10:40 12/29/20 11:36 Temperature 98.2 F 98.2 F Temperature Source Oral Pulse Rate 72 Pulse Rate [Right Brachial] 72 Respiratory Rate 19 19 Blood Pressure 133/91 H Blood Pressure [Right Arm] 133/91 H Blood Pressure Mean [Right Arm] 105 Blood Pressure Source [Right Arm] Automatic Cuff Blood Pressure Position [Right Arm] Sitting 02 Sat by Pulse Oximetry 98 Oxygen Delivery Method Room Air Orders (Tests/Meds): ED MEDICATIONS Discontinued Medications Generic Name Dose Route Start Last Admin Trade Name Freq PRN Reason Stop Dose Admin Ketorolac Tromethamine 30 mg 12/29/20 12:17 12/29/20 12:25 Ketorolac 60mg/2ml Vial IM 12/29/20 12:18 30 mg ONCE ONE Administration - US Data US Images: Lower Extremity ED US Reviewed: Yes: I have reviewed the patient's US results Preliminary Findings: Normal/NAD Findings Narrative: Negative for DVT at this time. Medical Decision Narrative: Patient requesting shot for pain States that she has not taken her 81mg of asprin for the last couple of days and no longer taking Diclofenac [facility] [place] HPI - General Stated complaint: pain behind both legs Time Seen by Provider: 12/29/20 11:08 Mode of Arrival: Ambulatory Source of Information: Patient Limitations: No Limitations Description of Symptoms (Recalled from Triage Doc. by RN): PATIENT C/O PAIN TO BACK OF BILATERAL LEGS X 3 DAYS. STATES IT STARTED AFTER SHE HAD PLANTED KILPATRICK ALL DAY HEENT Symptoms (Recalled from RN notes): No Resp Symptoms (Recalled from RN notes): No Skin Symptoms (Recalled from RN notes): No MS Symptoms (Recalled from RN notes): Yes Functional Status (Recalled from RN notes): WNL - History of Present Illness Provider Complaint: Patient states that she planted kilpatrick all day on Tuesday and was bending over alot State that after that she started having burning like pain in the back of both upper legs to behind her knees State that pain is worse with movement States that she has a history of DVT and feels similar to that States that she was concerned she may have a DVT or pulled some muscles - Related Data Home Medications Medication Instructions Recorded Confirmed aspirin 325 mg tablet,delayed 325 mg PO DAILY 05/09/19 08/01/20 release Diclofenac Sodium [Diclofenac 75mg 75 mg PO BID 08/01/20 08/01/20 Tab] Gabapentin [Neurontin 100mg 100 mg PO TID 08/01/20 08/01/20 cap] Previous Rx's Medication Instructio
[2020-12-29 11:36] VITALS: BP 133/91; PULSE 72; RESP 19; TEMP 36.8; O2SAT 98
== END 2020-12-29 12:38 | disposition home or self-care (01) ==
PROVIDERS: Emergency Provider Nurse Practitioner; PCP Emergency Medicine
DX: S86.912A Strain of unspecified muscle(s) and tendon(s) at lower leg level, left leg, initial encounter (principal); S86.911A Strain of unspecified muscle(s) and tendon(s) at lower leg level, right leg, initial encounter; X50.3XXA Overexertion from repetitive movements, initial encounter; Y92.017 Garden or yard in single-family (private) house as the place of occurrence of the external cause; I10 Essential (primary) hypertension; E03.9 Hypothyroidism, unspecified; Z86.718 Personal history of other venous thrombosis and embolism
CPT/HCPCS: 93970; 96372; 99202; G0463

== ENCOUNTER → 2021-01-29 13:43 | Outpatient (POV) | payer BC, SELFPAY ==
[2021-01-29 14:00] VITALS: BP 129/93; PULSE 85; RESP 18; O2SAT 96; BMI 37.8
--- NOTE | 2021-01-30 07:23 | HMH.PAINSOAP ---
[facility] Pain Management SOAP Note Subjective:: Patient is a pleasant 50-year-old female who presents today for follow-up. Patient was seen in the clinic on 08/01/2020 and underwent a right SI joint injection. Patient is being treated for sacroiliitis right side. Patient says that she got excellent relief with the injection until the last month. Patient got 100% relief until recently she says that she was much more functional and able to walk without pain. Her pain has returned. She is having pain in her low back area with radiation into her right hip and right lateral thigh. She also has pain in her right buttock. She says walking and standing worsen the pain. Morning time seem to be when she has the most pain. She rates her pain an 8 out of 10. She would like to proceed with repeat injection. She has had physical therapy in the past and continues with home stretching. She was previously taking diclofenac and would like a refill on this. She was given diclofenac in the past, however, says that it did not give her much relief. Patient does not feel that she wants to refill her gabapentin. Review of Systems General: No recent weight changes, no fever, no sleep disturbances Respiratory: No cough, [no shortness of air], no recurring pulmonary infections Cardiovascular/peripheral vascular: No chest pain, no palpitations, [no edema], no shortness of breath Gastrointestinal: No new onset incontinence, normal bowel movements reported Genitourinary: No new onset incontinence Musculoskeletal: [] Right low back pain with radiation into right buttock, right lateral thigh, right hip Psychiatric: [Normal mood/affect] Neurological: [Denies weakness in extremities], [denies balance issues] Objective:: Physical exam General: Alert and oriented x3, no acute distress, pleasant and cooperative, [on room air] Lungs: Respirations even and unlabored, symmetrical chest expansion Eyes: PERRL Musculoskeletal: Flexion and extension of [] lumbar [spine] somewhat guarded secondary to pain, strength in upper and lower extremities [5/5], [antalgic gait noted], positive Ashwini's test, positive compression test, positive distraction test Neurological: Speech clear, [air motor repairer equal], no gross sensory deficit Assessment:: Sacroiliitis right, low back pain Plan:: We will schedule the patient for a right SI joint injection. The patient did get excellent relief with her previous injection, 100% relief until the last month. Her injection was performed on 08/01/2020. She is continue with home stretching and ice and heat therapies. She will continue with diclofenac 75 mg 1 tablet p.o. twice daily. We will give her 3 months medication of her diclofenac. We will see her back after her injection for reevaluation of symptoms. Risks and benefits of the procedure have been explained to the patient. Patient would like to proceed with the procedure. Possible side effects of corticosteroids have been discussed with the patient. Patient has been instructed to contact the clinic with any concerns before the next appointment. Dr. Marie has reviewed this note and agrees with this plan of care. This note was dictated using voice recognition software and make contain errors or omissions. [facility] History Medical History: Reports:: Deep Vein Thrombosis, Hypertension, Transient Ischemic Attacks (TIA) Denies:: Cancer, Diabetes Mellitus Type 1, Diabetes Mellitus Type 2, Internal Pacemaker, Lung Disease, MRSA, Seizures *Have you ever received a pneumonia vaccine?: No *Have you received a flu vaccine this season?: Yes Other Medical History: Reports: Anemia, Hypothyroidism. Denies: Blood Transfusion Reaction Other Surgeries: Yes: Appendectomy, Cardiac Catheterization, Cholecystectomy, Colonoscopy, , Hernia Repair, Hysterectomy-Partial, Tubal Ligation, Other. No: Pacemaker Amputation: No Fractures: No - *Social History Smoking Status: Former smoker Tobacco Type:
== END ==
PROVIDERS: PCP Nurse Practitioner Family; Visit Provider Clinical Nurse Specialist Family Health
DX: M46.1 Sacroiliitis, not elsewhere classified (principal); M54.5 Low back pain
CPT/HCPCS: 99212; G0463

== ENCOUNTER → 2021-02-02 10:07 | Outpatient (CLI) | payer BC, SELFPAY ==
[2021-02-02 10:53] LABS: Basophils % 0.5 % (0.1-2.0); Eosinophils # 0.2 K/mm3 (0.0-0.4); Eosinophils % 4.5 % (0.1-12.0); Hematocrit 37.3 % (37.0-47.0); Hemoglobin 11.8 g/dL (12.2-16.2); Lymphocytes # 1.7 K/mm3 (0.7-4.5); Lymphocytes % 31.6 % (10-50); Mean Corpuscular HGB Conc 31.7 g/dL (31.8-35.4); Mean Corpuscular Hemoglobin 29.2 pg (27.0-31.2); Mean Corpuscular Volume 92.2 fl (81-99); Mean Platelet Volume 10.3 fl (7.4-10.4); Monocytes # 0.4 K/mm3 (0.1-1.0); Monocytes % 8.2 % (1.7-9.3); Neutrophils # 2.9 K/mm3 (1.8-7.8); Neutrophils % 55.2 % (37.0-80.0); Platelet Count 164 K/mm3 (142-424); Red Blood Count 4.05 M/mm3 (4.20-5.40); Red Cell Distribution Width 13.9 % (11.5-17.5); White Blood Count 5.3 K/mm3 (4.8-10.8)
[2021-02-02 11:59] LABS: Alanine Aminotransferase 16 U/L (12-78); Albumin Level 3.8 g/dl (3.5-5.0); Alkaline Phosphatase 87 U/L (38-126); Anion Gap 9.3 mEq/L (5-15); Aspartate Amino Transferase 23 U/L (14-36); Bilirubin,Direct 0.5 mg/dl (0.0-0.4); Bilirubin,Total 0.5 mg/dl (0.2-1.3); Blood Urea Nitrogen 27 mg/dl (7-17); Calcium 8.6 mg/dl (8.4-10.2); Carbon Dioxide 26 mmol/L (22.0-30.0); Chloride 109 mmol/L (98-107); Chol/HDL Ratio 3.7 (1-3.5); Cholesterol 152 mg/dl (140-200); Estimated Glomerular Filt Rate 59 ml/min (>60); GFR (African American) 71 ML/MIN (>60); Glucose 85 mg/dl (74-100); HDL Cholesterol 41 mg/dl (40-60); Potassium 4.3 mmoL/L (3.5-5.1); Sodium 140 mmol/L (136-145); Total Protein,Serum 6.7 g/dl (6.3-8.2); Triglycerides 132 mg/dl (30-150); VLDL Cholesterol 26 mg/dL (0-40)
[2021-02-02 12:28] LABS: Thyroid Stimulating Hormone 6.34 uIU/mL (0.465-4.68)
[2021-02-02 13:18] LABS: Free T4 (Free Thyroxine) 0.59 ng/dl (0.78-2.19)
== END ==
PROVIDERS: PCP Emergency Medicine; Visit Provider Physician Assistant
DX: R06.00 Dyspnea, unspecified (principal); R07.2 Precordial pain; I63.9 Cerebral infarction, unspecified; I11.9 Hypertensive heart disease without heart failure; E11.9 Type 2 diabetes mellitus without complications
CPT/HCPCS: 36415; 80048; 80061; 80076; 84439; 84443; 85025; 93270

== ENCOUNTER → 2021-02-10 13:05 | Outpatient (CLI) | payer BC, SELFPAY ==
--- NOTE | 2021-02-10 13:10 | CA_ITS ---
APPROVED REPORT EXAM: Comprehensive 2D, Doppler, and color-flow Echocardiogram Director Of Media: Nini Redd RVT Ht: 5 ft 4 in Wt: 220lbs BSA: 2.04 BP: 117/76 mmHg Indications: SOA,TIA,ABN EKG,EX SMOKER,PALPS,HTN,CP 2D Dimensions LVOT 2.16 cm (M/F) 1.5-2.5 M-Mode Dimensions RVDd 2.29 cm (0.9-2.6) LA Diam 3.12 cm (1.9-4.0) LVDd 4.58 cm (3.5-5.7) Ao Diam 3.52 cm (2.0-3.7) LVDs 2.97 cm (3.5-5.7) IVSd 1.18 cm (0.6-1.1) PWd 0.93 cm (0.6-1.1) EF (Teich) 64.50% FS 35.20% EDV (Teich) 96.30 mL ESV (Teich) 34.20 mL LV Diastology E Decel Time 180.00 (160-240 msec) E/A Ratio 0.9 MED E' 7.40 (< 7 cm/sec) E'/MED E' Ratio 6.70 (>14) LAT E' 6.00 (<10 cm/sec) E/LAT E' Ratio 8.27 (>14) Aortic Valve AO Peak GR. 3.00 mmHg Mitral Valve MV E Max Dave. 50.00 (40-130 cm/s) MV A Velocity 55.00 (40-130 cm/s) E/A Ratio 0.90 MV Decel. Time 180.00 (160-240 ms) MV PHT 53.00 ms Pulmonary Valve PV Peak Velocity 55.00 (50-150 cm/s) Tricuspid Valve TR P. Velocity 178.00 cm/s RAP Estimate 10.00 mmHg RVSP 22.70 mmHg Left Ventricle Left atrium is normal size, left ventricle is normal size, there is no concentric left ventricular hypertrophy, visually estimated ejection fraction 50% with no regional wall motion abnormality, diastolic parameters are inconclusive. Right Ventricle Right atrium and right ventricle are normal size and contractility. Aortic Valve Aortic valve is minimally thickened and fibrosed, there is no aortic stenosis or aortic insufficiency. Mitral Valve Mitral valve is grossly normal, there is trace mitral regurgitation. Tricuspid Valve Tricuspid valve grossly normal, there is trace tricuspid regurgitation, tricuspid regurgitation jet velocity is inadequate for calculation of the right ventricular systolic pressure. Pulmonic Valve Pulmonic valve is poorly visualized. Great Vessels Aortic root is normal size. Pericardium No significant pericardial effusion noted. Conclusion 1. Normal left ventricular size, visually estimated ejection fraction 50% with no regional wall motion abnormality, diastolic parameters are inconclusive. 2. Trace mitral and tricuspid regurgitation. 3. No significant pericardial effusion noted. Electronically signed by : Gomez Butcher, 02/10/2021 20:55:23
--- NOTE | 2021-02-10 13:45 | CT_ITS ---
PROCEDURE: CT HEAD/BRAIN WO/W CON CLINICAL INDICATION: visual disturbances COMPARISON: CT CT HEAD/BRAIN WO CON from 05/17/2019 TECHNIQUE: IV Contrast: 100ML Isovue 370 Axial images obtained. All CT scans at the facility use one or more dose reduction, viz: automated exposure control, ma/kV adjustment per patient size (including targeted exams where dose is matched to indication, i.e. head), or iterative reconstruction technique. FINDINGS: No midline shift, mass effect, intracranial hemorrhage, hydrocephalus, or extra-axial fluid collection is evident. No enhancing lesions are evident. The calvarium has an unremarkable appearance. No mastoid effusion. No sinus air-fluid level IMPRESSION: Negative CT head without and with contrast Dictated by: Feliberto Camara MD 02/10/2021 16:31 Feliberto Camara MD in [place] 02/10/2021 16:31
== END ==
PROVIDERS: PCP Emergency Medicine; Visit Provider Physician Assistant
DX: H53.8 Other visual disturbances (principal); H53.9 Unspecified visual disturbance
CPT/HCPCS: 70470; 93306; Q9967

== ENCOUNTER 2021-02-20 10:49 | Day surgery (SDC) | payer BC, SELFPAY ==
[2021-02-20 11:02] VITALS: BP 145/88; PULSE 64; RESP 18; TEMP 36.6; O2SAT 98; BMI 36.0
[2021-02-20 11:24] VITALS: BP 128/85; PULSE 56; RESP 18; O2SAT 98
[2021-02-20 11:25] VITALS: BP 128/85; PULSE 50; RESP 18; O2SAT 98
[2021-02-20 11:32] VITALS: BP 130/71; PULSE 55; RESP 20; O2SAT 98
--- NOTE | 2021-02-20 11:34 | P.PCN_ITS ---
- Procedure Date: 02/20/21 Time: 11:34 Anesthesiologist:: Derrick Marie MD Complications:: None Pre-procedure Diagnosis:: Sacroiliitis Post-procedure Diagnosis:: Same Indications for Procedure:: Patient is a pleasant 50-year-old female who we are treating for right- sided hip pain. She did very well from a previous right SI joint injection back in July. She got several months pain relief. Her pain is now starting to return. She is tender over the right SI joint. She does have a positive Ashwini's test on the right side. She has a positive Jerry test on the right side. She has positive SI joint compression test on the right side. She has a positive distraction test on the right side. We will do a right SI joint injection under fluoroscopy today to help with her returning pain symptoms. Procedure Details:: Right SI joint injection under fluoroscopy Informed consent was obtained and the risks and benefits of the procedure was going to the patient. Patient was taken to the procedure room. Patient was placed prone on the procedure table. The right hip was prepped using ChloraPrep. The skin and subcutaneous tissues were anesthetized using lidocaine. I placed a 22-gauge spinal needle into the inferior aspect of the right SI joint. Needle placement was confirmed with dye. After this we injected 5 mL bupivacaine 0.25% and Depo-Medrol 40 mg into the right SI joint. The patient tolerated the procedure well with no complication. Plan and Disposition:: We will follow-up with her in 2 weeks. Will reevaluate symptoms at that time.
== END 2021-02-20 11:32 | disposition home or self-care (01) ==
LOC: SC.PAINP 10:50
PROVIDERS: PCP Emergency Medicine; Visit Provider Anesthesiology
DX: M46.1 Sacroiliitis, not elsewhere classified (principal); I10 Essential (primary) hypertension; E03.9 Hypothyroidism, unspecified; D64.9 Anemia, unspecified; Z86.73 Personal history of transient ischemic attack (TIA), and cerebral infarction without residual deficits; Z86.718 Personal history of other venous thrombosis and embolism; Z87.891 Personal history of nicotine dependence; Z88.1 Allergy status to other antibiotic agents; Z88.6 Allergy status to analgesic agent; Z88.8 Allergy status to other drugs, medicaments and biological substances
CPT/HCPCS: 27096; G0260; J1040; Q9966

== ENCOUNTER → 2021-03-26 10:44 | Outpatient (POV) | payer BC, SELFPAY ==
[2021-03-26 10:50] VITALS: BP 119/90; PULSE 85; RESP 18; O2SAT 97; BMI 36.0
--- NOTE | 2021-03-26 12:31 | HMH.PAINSOAP ---
[facility] Pain Management SOAP Note Subjective:: Patient is a pleasant female who presents today for follow-up after a right SI joint injection. Patient did undergo a right SI joint injection in July. She got several months of relief following the injection, however, the pain did return. She did undergo a repeat injection on 02/20/2021. Patient says she got no relief with this injection. She is having pain in her right low back area with radiation into her right leg. She says that upon standing, she has to use great caution before walking due to significant pain. She is unable to lay on her back or stomach due to his extensive pain. She does rate her pain a 9 out of 10. The pain is sharp in nature. Patient does get significant relief with diclofenac. She does take diclofenac 75 mg 1 tablet p.o. twice daily. She has tried physical therapy for greater than 6 weeks with no relief. She is also tried home stretching with no significant relief. The patient has not had any recent imaging of her lumbar spine. Review of Systems General: No recent weight changes, no fever, no sleep disturbances Respiratory: No cough, no shortness of air, no recurring pulmonary infections Cardiovascular/peripheral vascular: No chest pain, no palpitations, no edema, no shortness of breath Gastrointestinal: No new onset incontinence, normal bowel movements reported Genitourinary: No new onset incontinence Musculoskeletal: Low back pain with radiation into right leg, worse with standing or walking Psychiatric: [Normal mood/affect] Neurological: [Denies weakness in extremities], [denies balance issues] Objective:: Physical exam General: Alert and oriented x3, no acute distress, pleasant and cooperative, [on room air] Lungs: Respirations even and unlabored, symmetrical chest expansion Eyes: PERRL Musculoskeletal: Flexion and extension of lumbar [spine] somewhat guarded secondary to pain, strength in upper and lower extremities [5/5], [antalgic gait noted] Neurological: Speech clear, [application integration engineer equal], no gross sensory deficit Assessment:: Chronic low back pain with lumbar radiculopathy symptoms Plan:: We will schedule the patient for an MRI of her lumbar spine. She has tried SI injection with no significant relief. She has tried physical therapy for more than 6 weeks and continues with home stretching. She is taking diclofenac 75 mg 1 tablet p.o. twice daily. We will get the imaging and plan to review her MRI and discuss a further plan of care at that time. Patient is having numbness and tingling in her right leg to her foot. We will order the patient Cymbalta 30 mg 1 tablet p.o. daily along with her diclofenac to see if this relieves her pain. She has tried gabapentin in the past with no relief. Risks and benefits of the medication have been explained in detail to the patient. The patient has been advised to consult with his/her primary care provider and pharmacist regarding drug-drug interaction of medications currently prescribed. Patient has been instructed to contact the clinic with any concerns before the next appointment. Dr. Marie has reviewed this note and agrees with this plan of care. This note was dictated using voice recognition software and make contain errors or omissions. [facility] History I have reviewed the patient's past medical history: Yes Medical History: Reports:: Deep Vein Thrombosis, Hypertension, Transient Ischemic Attacks (TIA) Denies:: Cancer, Diabetes Mellitus Type 1, Diabetes Mellitus Type 2, Internal Pacemaker, Lung Disease, MRSA, Seizures *Have you ever received a pneumonia vaccine?: No *Have you received a flu vaccine this season?: Yes Other Medical History: Reports: Anemia, Hypothyroidism. Denies: Blood Transfusion Reaction Other Surgeries: Yes: Appendectomy, Cardiac Catheterization, Cholecystectomy, Colonoscopy, (x3), Hernia Repair, Hysterectomy-Partial, Tubal Ligation, Other. No: Pacemaker Amputation: No Fractures: No
== END ==
PROVIDERS: Visit Provider Clinical Nurse Specialist Family Health
DX: M54.5 Low back pain (principal); M54.16 Radiculopathy, lumbar region
CPT/HCPCS: 99212; G0463

== ENCOUNTER → 2021-04-02 15:57 | Outpatient (CLI) | payer BC, SELFPAY ==
--- NOTE | 2021-04-02 16:00 | MR_ITS ---
PROCEDURE: MR LUMBAR SPINE WO CON CLINICAL INDICATION: BACK PAIN COMPARISON: MR MR LUMBAR SPINE WO CON from 06/13/2020 TECHNIQUE: Standard multiplanar multiecho sequences are performed without contrast. 3-D MIP and myelographic images are also rendered and reviewed FINDINGS: The spinal cord ends at the T12-L1 level. There is degenerative disc disease at T11-T12 with minimal bulging disc. Not significantly changed. T12-L1: Unremarkable. Small anterior osteophytes. L1-L2: Unremarkable. L2-L3: Unremarkable. L3-L4: Mild facet hypertrophic change. Minimal concentric bulging disc. L4-5: 7 mm anterolisthesis of L4 with bulging disc along with severe facet and ligamentum hypertrophy with severe canal stenosis. The facet hypertrophic changes and ligamentum hypertrophy has slightly increased with slightly greater transverse narrowing of the canal compared to the previous exam. Severe bilateral lateral recess narrowing with impingement upon both L5 nerve roots which is increased from the previous study. Mild bilateral foraminal narrowing L5-S1: Right paracentral disc protrusion has increased in size with impingement upon the right S1 nerve root. There is increased right lateral recess narrowing with mild bilateral foraminal narrowing. IMPRESSION: 1. L4-5: 7 mm anterolisthesis of L4 with bulging disc along with severe facet and ligamentum hypertrophy with severe canal stenosis. The facet hypertrophic changes and ligamentum hypertrophy has slightly increased with slightly greater transverse narrowing of the canal compared to the previous exam. Severe bilateral lateral recess narrowing with impingement upon both L5 nerve roots which is increased from the previous study. Mild bilateral foraminal narrowing 2. L5-S1: Right paracentral disc protrusion has increased in size with impingement upon the right S1 nerve root. There is increased right lateral recess narrowing with mild bilateral foraminal narrowing Dictated by: Feliberto Camara MD 04/03/2021 08:45 Feliberto Camara MD in [place] 04/03/2021 08:45
== END ==
PROVIDERS: PCP Emergency Medicine; Visit Provider Clinical Nurse Specialist Family Health
DX: M54.5 Low back pain (principal)
CPT/HCPCS: 72148; 76376

== ENCOUNTER → 2021-04-09 10:25 | Outpatient (POV) | payer BC, SELFPAY ==
[2021-04-09 10:41] VITALS: BP 126/70; PULSE 63; RESP 18; O2SAT 97; BMI 36.0
--- NOTE | 2021-04-09 12:41 | HMH.PAINSOAP ---
[facility] Pain Management SOAP Note Subjective:: Patient is a 50-year-old female who presents today for follow-up. She is here today to review her MRI. She has undergone 2 SI injections. With the initial injection she got several months of relief. She did undergo a repeat injection on 02/20/2021. She got no relief with the second injection. Patient does have pain in her low back area with radiation into the right leg. Upon standing, she feels as though she is going to lose her balance. She has significant pain with walking. She is unable to lay on her back or stomach due to pain. The patient's pain is an 8 out of 10 today. We have been managing the patient with diclofenac. She did do physical therapy for more than 6 weeks and did not get relief. She also tried anti-inflammatories which she is continuing to take along with home stretching. Ice and heat therapy have not helped the patient. She is limited with mobility and with activity due to pain. Review of Systems General: No recent weight changes, no fever, no sleep disturbances Respiratory: No cough, no shortness of air, no recurring pulmonary infections Cardiovascular/peripheral vascular: No chest pain, no palpitations, no edema, no shortness of breath Gastrointestinal: No new onset incontinence, normal bowel movements reported Genitourinary: No new onset incontinence Musculoskeletal: Low back pain with radiation into right leg and foot, worse with standing, walking, and inability to lay flat Psychiatric: [Normal mood/affect] Neurological: [Denies weakness in extremities], [denies balance issues] Objective:: Physical exam General: Alert and oriented x3, no acute distress, pleasant and cooperative, [on room air] Lungs: Respirations even and unlabored, symmetrical chest expansion Eyes: PERRL Musculoskeletal: Flexion and extension of lumbar [spine] somewhat guarded secondary to pain, strength in upper and lower extremities [5/5], [antalgic gait noted] Neurological: Speech clear, [screen tender equal], no gross sensory deficit Assessment:: Degenerative disc disease lumbar spine with lumbar radiculopathy symptoms Plan:: Patient does have nerve root impingement at the L5 area. We will schedule her for lumbar epidural steroid injection at L4-L5 area. She is not on any anticoagulation therapy. We will also start the patient on Lyrica 75 mg 1 tablet p.o. twice daily. The patient has tried gabapentin in the past with no relief and with symptoms of head fogginess and feeling loopy. We will continue the patient on diclofenac. We will see her back in the clinic after injection for reevaluation symptoms. She has been instructed to contact the clinic if she has any concerns before next appointment. Possible side effects of corticosteroids have been discussed with the patient. Risks and benefits of the procedure have been explained to the patient. Patient would like to proceed with the procedure. Risks and benefits of the medication have been explained in detail to the patient. The patient has been advised to consult with his/her primary care provider and pharmacist regarding drug-drug interaction of medications currently prescribed. Patient has been prescribed a controlled substance after being counseled on the medication, medication safety, and possible side effects. DAVIN report has been obtained and reviewed prior to prescription and found to be appropriate. Opioid contract was reviewed and signed by the patient, and that they have agreed to all of the terms set forth by our compliance program. Patient has been instructed to contact the clinic with any concerns before the next appointment. Dr. Marie has reviewed this note and agrees with this plan of care. This note was dictated using voice recognition software and make contain errors or omissions. [facility] History I have reviewed the patient's past medical history: Yes Medical History: Reports:: Deep Vein Thrombosis,
== END ==
PROVIDERS: Visit Provider Clinical Nurse Specialist Family Health
DX: M51.16 Intervertebral disc disorders with radiculopathy, lumbar region (principal)
CPT/HCPCS: 99212; G0463

== ENCOUNTER → 2021-05-28 13:03 | Outpatient (POV) | payer BC, SELFPAY ==
[2021-05-28 13:22] VITALS: BP 148/87; PULSE 66; RESP 18; O2SAT 100; BMI 36.8
--- NOTE | 2021-05-28 14:10 | HMH.PAINSOAP ---
[facility] Pain Management SOAP Note Subjective:: Patient is a 50-year-old female who presents today for follow-up. She has had bilateral SI joint injections. The patient got significant relief with her SI injection, however, with the second injection she got minimal relief. She is having significant pain standing walking and sitting. The pain is in her bilateral buttock and radiating to posterior thigh area. She is now experiencing new onset pain with bending forward and turning twisting as well. She does say that this pain is intermittent, however the pain in her low back with bilateral buttock and leg pain is constant. She has tried anti-inflammatories and continues with diclofenac. She is also tried ice and heat therapies with minimal relief. She did not get significant relief with physical therapy in the past but is willing to undergo another round of physical therapy to see if this helps. She does rate her pain a 9 out of 10 today. She does continue to work and is having significant pain. The patient's imaging does note the patient to have significant stenosis along with nerve root impingement. She would like to proceed with a lumbar epidural steroid injection as well. We did discuss this at last visit. She has tried gabapentin for numbness and tingling in lower extremities but had side effects to the medication. We did attempt to order Lyrica however, the medicine was not approved by her insurance. Patient does have significant pain to bilateral lower extremities. Review of Systems General: No recent weight changes, no fever, no sleep disturbances Respiratory: No cough, no shortness of air, no recurring pulmonary infections Cardiovascular/peripheral vascular: No chest pain, no palpitations, no edema, no shortness of breath Gastrointestinal: No new onset incontinence, normal bowel movements reported Genitourinary: No new onset incontinence Musculoskeletal: Low back pain, bilateral lower extremity pain with numbness and tingling Psychiatric: [Normal mood/affect] Neurological: [Denies weakness in extremities], [denies balance issues] Objective:: Physical exam General: Alert and oriented x3, no acute distress, pleasant and cooperative Lungs: Respirations even and unlabored, symmetrical chest expansion Eyes: PERRL Musculoskeletal: Flexion and extension of lumbar [spine] somewhat guarded secondary to pain, [antalgic gait noted] Neurological: Speech clear, no gross sensory deficit Assessment:: Degenerative disc disease lumbar spine, lumbar spine spinal stenosis Plan:: We will schedule patient for lumbar epidural steroid injection, #1 injection. We will schedule at the L4-L5 area. Patient is not on any anticoagulation therapy. She will continue with home stretching. We will also send her for another round of physical therapy. We will plan to see her back in the clinic after her injection for further evaluation of symptoms. If the patient does not get significant relief with the epidural, she may be a candidate for facet injections in the future. Possible side effects of corticosteroids have been discussed with the patient. Risks and benefits of the procedure have been explained to the patient. Patient would like to proceed with the procedure. Patient has been instructed to contact the clinic with any concerns before the next appointment. Dr. Marie has reviewed this note and agrees with this plan of care. This note was dictated using voice recognition software and make contain errors or omissions. [facility] History I have reviewed the patient's past medical history: Yes Medical History: Reports:: Deep Vein Thrombosis, Hypertension, Transient Ischemic Attacks (TIA) Denies:: Cancer, Diabetes Mellitus Type 1, Diabetes Mellitus Type 2, Internal Pacemaker, Lung Disease, MRSA, Seizures *Have you ever received a pneumonia vaccine?: No *Have you received a flu vaccine this season?: No Other Medical History: Reports: A
== END ==
PROVIDERS: Visit Provider Clinical Nurse Specialist Family Health
DX: M51.36 Other intervertebral disc degeneration, lumbar region (principal); M48.061 Spinal stenosis, lumbar region without neurogenic claudication
CPT/HCPCS: 99212; G0463

== ENCOUNTER → 2021-06-10 14:55 | Outpatient (CLI) | payer BC, SELFPAY ==
[2021-06-10 15:20] LABS: Anion Gap 9.4 mEq/L (5-15); Blood Urea Nitrogen 19 mg/dl (7-17); Calcium 9.7 mg/dl (8.4-10.2); Carbon Dioxide 30 mmol/L (22.0-30.0); Chloride 104 mmol/L (98-107); Estimated Glomerular Filt Rate 59 ml/min (>60); GFR (African American) 71 ML/MIN (>60); Glucose 86 mg/dl (74-100); Potassium 4.4 mmoL/L (3.5-5.1); Sodium 139 mmol/L (136-145)
[2021-06-10 15:36] LABS: T4 (Thyroxine) 8.6 ug/dl (5.53-11.0)
[2021-06-10 15:50] LABS: Thyroid Stimulating Hormone 4.57 uIU/mL (0.465-4.68)
== END ==
PROVIDERS: Visit Provider Nurse Practitioner Family
DX: Z00.00 Encounter for general adult medical examination without abnormal findings (principal); Z79.899 Other long term (current) drug therapy
CPT/HCPCS: 80048; 84436; 84443

== ENCOUNTER 2021-06-19 09:41 | Day surgery (SDC) | payer BC, SELFPAY ==
[2021-06-19 09:58] VITALS: BP 129/88; PULSE 58; RESP 18; TEMP 36.2; O2SAT 99; BMI 36.0
[2021-06-19 10:12] VITALS: BP 129/73; PULSE 49; RESP 18; O2SAT 100
[2021-06-19 10:14] VITALS: BP 145/80; PULSE 77; RESP 18; O2SAT 99
--- NOTE | 2021-06-19 10:18 | P.PCN_ITS ---
- Procedure Date: 06/19/21 Time: 10:18 Anesthesiologist:: Derrick Marie MD Complications:: None Pre-procedure Diagnosis:: Degenerative disc disease of lumbar spine with lumbar radiculopathy symptoms Post-procedure Diagnosis:: Same Indications for Procedure:: Patient is a pleasant 50-year-old female who we are treating for low back pain with lumbar radiculopathy symptoms. She did have significant relief from a previous SI joint injection. Her last SI joint injection did not give her any relief. She presents for lumbar pleural steroid injection under fluoroscopy today. Procedure Details:: Informed consent was obtained and the risk and benefits of the procedure was explained to the patient. The patient was taken to the procedure room. The pat ient was placed prone on the procedure table. The patient was prepped and draped in sterile fashion. C-arm fluoroscopy was used to view the lumbar spine. Skin and subcutaneous tissues were anesthetized using lidocaine. I placed an 18-gauge epidural needle and advanced into the L4-L5 interspace using fluoroscopic guidance and [id number] to air. After confirmation of needle placement in the epidural space with dye I injected 2 mL of lidocaine 1.5% with Depo-Medrol 80 mg. Patient tolerated the procedure well with no complications. Plan and Disposition:: We will follow-up with her in 2 weeks. Will reevaluate her symptoms at that time.
[2021-06-19 10:33] VITALS: BP 127/79; PULSE 74; RESP 20; O2SAT 100
== END 2021-06-19 10:33 | disposition home or self-care (01) ==
LOC: SC.PAINP 09:42
PROVIDERS: PCP Nurse Practitioner Family; Visit Provider Anesthesiology
DX: M51.16 Intervertebral disc disorders with radiculopathy, lumbar region (principal); I10 Essential (primary) hypertension; E03.9 Hypothyroidism, unspecified; D64.9 Anemia, unspecified; Z86.73 Personal history of transient ischemic attack (TIA), and cerebral infarction without residual deficits; Z86.718 Personal history of other venous thrombosis and embolism
CPT/HCPCS: 62323; J1040; Q9966

== ENCOUNTER 2021-06-26 15:00 | Outpatient (RCR) | payer BC, SELFPAY ==
--- NOTE | 2021-06-02 16:18 | HMH.PTOPEV ---
PT Outpatient Evaluation Rehab PT Outpatient Evaluation Start: 06/02/21 15:18 Freq: Status: Active Protocol: Document 06/02/21 15:35 KRISTI (Rec: 06/02/21 16:18 KRISTI [id number]) Electronically Signed By Ashutosh Cerrato, PT 06/02/21 15:35 Outpatient Therapy Subjective History Subjective History Pt reports insidious onset LBP beginning in February 2021. Pt reports pain has since progressed not with severe right sided LBP, referred pain into right hip, radicular s/s into RLE from hip to foot. Recent MRI of lumbar spine has revealed L4 anterolisthesis on L5, as well as disc protrusion @L4-5. L5-S1. Chief Complaint Pain,Stiff,Gives out/Unstable, Paresthesia,Weakness Symptom Type Ache,Sharp,Dull,Stabbing, Burning,Numbness,Tingling Symptoms Relieved By Rest/Positioning,OTC Meds, Prescription Meds Symptoms Aggravated By Bending/Stooping,Physical Activity,Twisting,Lifting Prior Functional Limitations Lifting,Standing,Walking Current Functional Limitations Lifting,Housework,Sleeping, Standing,Walking,Bending/ Stooping Symptom Description Constant but Variable Level of pain today (0-10) 8 Pain scale - at its best (0-10) 8 Pain scale - at its worst (0-10) 10 Lumbopelvic Eval Posture Thoracic Spine Posture Standing Position Flattened Lumbar Spine Posture Standing Position Flattened Assistive device Assistive Devices None / NA Gait Observation General Gait Pattern Observation Antalgic Gait Palapation tenderness right lumbar spinal tenderness Yes: 3/4 paraspinal tenderness Yes: 3/4 buttock tenderness Yes: 3/4 Lumbar/Sacral Palpation Findings Tenderness,Trigger Point, Muscle Guarding Accessory Movement L-spine Vertebrae Accessory Movements [place] that [place] Symptoms L3 right L4 right L5 right Range of Motion Lumbar Spine Active Flexion Range of 0-65 Motion (degrees) Lumbar Spine Active Extension Range of 0-20 Motion (degrees) Left Lumbar Spine Lateral Flexion Active 0-15 Range of Motion (degrees) Right Lumbar Spine Lateral Flexion 0-15 Active Range of Motion (degrees) Lumbar Spine ROM Limitations Pain Manual Muscle Test Left
== END 2021-06-26 15:05 | disposition home or self-care (01) ==
LOC: PT 15:00
PROVIDERS: PCP Emergency Medicine; Visit Provider Clinical Nurse Specialist Family Health
DX: M54.50 Low back pain, unspecified (principal); M79.604 Pain in right leg; M79.605 Pain in left leg
CPT/HCPCS: 97010; 97014; 97035; 97110; 97163; G0283

== ENCOUNTER → 2021-07-02 09:31 | Outpatient (POV) | payer BC, SELFPAY ==
[2021-07-02 09:40] VITALS: BP 143/86; PULSE 71; RESP 18; O2SAT 98; BMI 34.3
--- NOTE | 2021-07-02 10:52 | P.CONS_ITS ---
[facility] Pain Management SOAP Note Subjective:: Patient is a 50-year-old female who presents today for follow-up. The patient recently underwent a lumbar epidural steroid injection at L4-L5. She got significant relief. She has no pain today. She does report, however, to have had new onset incontinence. She says that she is having bladder incontinence which is new for her. She does have impingement L5 nerve root per MRI. She has severe spinal stenosis as well. We did discuss her MRI. She says that she did undergo physical therapy which gave her minimal relief. As a result she has since stopped physical therapy and continues with home stretching. Overall, the patient says she is doing much better since the injection, other than the new onset incontinence. Review of Systems General: No recent weight changes, no fever, no sleep disturbances Respiratory: No cough, no shortness of air, no recurring pulmonary infections Cardiovascular/peripheral vascular: No chest pain, no palpitations, no edema, no shortness of breath Gastrointestinal: No new onset incontinence, normal bowel movements reported Genitourinary: No new onset incontinence Musculoskeletal: No pain at this time Psychiatric: [Normal mood/affect] Neurological: [Denies weakness in extremities], [denies balance issues] Objective:: Physical exam General: Alert and oriented x3, no acute distress, pleasant and cooperative Lungs: Respirations even and unlabored, symmetrical chest expansion Eyes: PERRL Musculoskeletal: Flexion and extension of [] [spine] nonguarded, normal gait noted Neurological: Speech clear, no gross sensory deficit Assessment:: Degenerative disc disease lumbar spine with lumbar radiculopathy symptoms, spinal stenosis, new onset incontinence?bladder Plan:: Patient I did discuss her new onset incontinence. This is a new symptom for the patient and concerning for the patient. We did discuss her MRI once again. I did discuss with the patient a neurosurgical evaluation may be warranted, but the patient has deferred. She would like to see if the incontinence continues. If it does, she will contact the clinic for a neurosurgical referral. She is not having any pain at this time. Again, she has been advised that she will likely need a referral if her symptoms continue. [facility] History I have reviewed the patient's past medical history: Yes Medical History: Reports:: Deep Vein Thrombosis, Hypertension, Transient Ischemic Attacks (TIA) Denies:: Cancer, Diabetes Mellitus Type 1, Diabetes Mellitus Type 2, Internal Pacemaker, Lung Disease, MRSA, Seizures *Have you ever received a pneumonia vaccine?: No *Have you received a flu vaccine this season?: Yes Other Medical History: Reports: Anemia, Hypothyroidism. Denies: Blood Transfusion Reaction Other Surgeries: Yes: Appendectomy, Cardiac Catheterization, Cholecystectomy, Colonoscopy, , Hernia Repair, Hysterectomy-Partial, Tubal Ligation, Other. No: Pacemaker Amputation: No Fractures: No - *Social History Smoking Status: Former smoker Tobacco Type: cigarettes # Packs/Day (cigarettes): 1 Alcohol Intake: never Alcohol Intake Frequency:: holidays/special occasions only Substance Use Type: denies use *Occupational Status:: employed Housing: house Household Members: spouse *Travel in the last 8 weeks: None Family Hx:: Unable to obtain
== END ==
PROVIDERS: Visit Provider Clinical Nurse Specialist Family Health
DX: M51.16 Intervertebral disc disorders with radiculopathy, lumbar region (principal); M48.00 Spinal stenosis, site unspecified; R32 Unspecified urinary incontinence
CPT/HCPCS: 99212; G0463

== ENCOUNTER → 2021-11-12 09:30 | Outpatient (POV) | payer BC, SELFPAY ==
[2021-11-12 09:41] VITALS: BP 136/93; PULSE 72; RESP 18; TEMP 36; O2SAT 99; BMI 36.8
--- NOTE | 2021-11-12 10:07 | HMH.PAINSOAP ---
[facility] Pain Management SOAP Note Subjective:: Patient is a pleasant 50-year-old female who presents today for follow-up. Patient is currently being treated for degenerative disc disease of lumbar spine with lumbar radiculopathy symptoms. We have been managing this patient with lumbar epidural steroid injection. We last did her injection in June. At her follow-up, patient was complaining of urinary incontinence. We did refer her to neurology for this. Today, patient presents with worsening low back pain. She states that she did not go to her neurology appointment. She says that she has had urinary incontinence even before the injection. She says that this has gotten better and she is not having as much accident. 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 She does see Dr. Rodriguez but she has not told him about her urinary incontinence. She rates her pain today as 10 out of 10. She takes [id number] Advil for pain. She takes about 600 mg 2-3 times a day. She is not on any scheduled medications. Review of Systems: General: No recent weight changes, no fever, no sleep disturbances Respiratory: No cough, no shortness of air, no recurring pulmonary infections Cardiovascular/peripheral vascular: No chest pain, no palpitations, no edema, no shortness of breath Gastrointestinal: No new onset incontinence, normal bowel movements reported Genitourinary: No new onset incontinence Musculoskeletal: Low back pain Psychiatric: [Normal mood/affect] Neurological: [Denies weakness in extremities], [denies balance issues] Objective:: Physical Exam: General: Alert and oriented x3, no acute distress, pleasant and cooperative Lungs: Respirations even and unlabored, symmetrical chest expansion Eyes: PERRL Musculoskeletal: Flexion and extension of lumbar [spine] somewhat guarded secondary to pain, [antalgic gait noted] Neurological: Speech clear, no gross sensory deficit Assessment:: Degenerative disc disease of lumbar spine with lumbar radiculopathy symptoms, spinal stenosis with neurogenic claudication Plan:: Ordering Physician: Anahi Henderson APRN Date of Service: 04/02/21 Procedure(s): MR lumbar spine wo con Accession Number(s): [id number] cc: Feliberto Camara MD; Will Rodriguez MD~ PROCEDURE: MR LUMBAR SPINE WO CON CLINICAL INDICATION: BACK PAIN COMPARISON: MR MR LUMBAR SPINE WO CON from 06/13/2020 TECHNIQUE: Standard multiplanar multiecho sequences are performed without contrast. 3-D MIP and myelographic images are also rendered and reviewed FINDINGS: The spinal cord ends at the T12-L1 level. There is degenerative disc disease at T11-T12 with minimal bulging disc. Not significantly changed. T12-L1: Unremarkable. Small anterior osteophytes. L1-L2: Unremarkable. L2-L3: Unremarkable. L3-L4: Mild facet hypertrophic change. Minimal concentric bulging disc. L4-5: 7 mm anterolisthesis of L4 with bulging disc along with severe facet and ligamentum hypertrophy with severe canal stenosis. The facet hypertrophic changes and ligamentum hypertrophy has slightly increased with slightly greater transverse narrowing of the canal compared to the previous exam. Severe bilateral lateral recess narrowing with impingement upon both L5 nerve roots which is increased from the previous study. Mild bilateral foraminal narrowing L5-S1: Right paracentral disc protrusion has increased in size with impingement upon the right S1 nerve root. There is increased right lateral recess narrowing with mild bilateral foraminal narrowing. IMPRESSION: 1. L4-5: 7 mm anterolisthesis of L4 with bulging disc along with severe facet and ligamentum hypertrophy with severe canal stenosis. The facet hypertrophic changes and ligamentum hypertrophy has slightly increased with slightly greater transverse narrowing of the canal compared to the previous exam. Severe bilateral lateral recess narrowing with impingement upon both
== END ==
PROVIDERS: Visit Provider Student in an Organized Health Care Education/Training Program
DX: M51.16 Intervertebral disc disorders with radiculopathy, lumbar region (principal); M48.062 Spinal stenosis, lumbar region with neurogenic claudication
CPT/HCPCS: 99212; G0463

== ENCOUNTER → 2021-11-16 10:53 | Outpatient (CLI) | payer BC, SELFPAY ==
--- NOTE | 2021-11-16 10:56 | MR_ITS ---
FINAL REPORT CLINICAL HISTORY: BACK,LEG PAIN. lbp with pain worse on rt side. pain, numbness, and tingling down rt leg. symptoms x1yr. no injury or trauma. urinary incontinence. COMPARISON: April 02, 2021 FINDINGS: Multiplanar MR imaging of the lumbar spine was performed without contrast. On the sagittal T2-weighted images, disc degeneration is seen at multiple levels. The vertebral alignment is normal. There is no evidence of fracture. No bony mass is identified. The conus has an unremarkable appearance. T10-11: An annular bulge is present. T11-12: An annular bulge is present. There are anterior osteophytes. T12-L1: No significant central canal stenosis or neural foraminal narrowing. L1-2: No significant central canal stenosis or neuroforaminal narrowing. L2-3: An annular bulge is present. L3-4: An annular bulge is present. There is mild right neural foraminal narrowing. L4-5: There is an annular disc bulge with facet arthropathy. There is mild right and moderate left neural foraminal narrowing. There is bilateral lateral recess stenosis. There is mild central canal stenosis with and AP diameter of the thecal sac of 7 mm. This level is visually stable. L5-S1: There is an annular disc bulge with facet arthropathy. There has been significant interval improvement in the right foraminal disc protrusion with improved right S1 nerve root impingement. There is mild bilateral neural foraminal narrowing. IMPRESSION: Multilevel degenerative disc disease and spondylosis with neural foraminal narrowing at L3-L4 through L5-S1. L4-5 is visually stable from the previous exam. L5-S1 shows significant improvement in right foraminal disc protrusion with improved right S1 nerve root impingement. Reviewed, Interpreted and Dictated by Dominguez Calderon III, MD Transcribed by Luz Mcclellan Authenticated by Dominguez Calderon III, MD on 11/16/2021 01:24:06 PM [facility]
== END ==
PROVIDERS: PCP Emergency Medicine; Visit Provider Student in an Organized Health Care Education/Training Program
DX: M54.50 Low back pain, unspecified (principal); M79.604 Pain in right leg
CPT/HCPCS: 72148; 76376

== ENCOUNTER 2021-11-20 20:48 | Emergency (ER) | payer BC, SELFPAY ==
[2021-11-20 20:51] VITALS: BP 132/86; PULSE 87; RESP 16; TEMP 36.9; O2SAT 97; BMI 27.4
[2021-11-20 21:14] LABS: Microscopic, Urine URINE MICROSCOPIC (MICROSCOPIC)
[2021-11-20 21:15] LABS: Basophils # 0.2 K/mm3 (0-0.2); Basophils % 2.1 % (0.1-2.0); Eosinophils # 0.2 K/mm3 (0.0-0.4); Eosinophils % 3.1 % (0.1-12.0); Hematocrit 40.5 % (37.0-47.0); Lymphocytes % 26.3 % (10-50); Mean Corpuscular HGB Conc 32.2 g/dL (31.8-35.4); Mean Corpuscular Volume 93.3 fl (81-99); Mean Platelet Volume 9.6 fl (7.4-10.4); Monocytes # 0.4 K/mm3 (0.1-1.0); Monocytes % 4.8 % (1.7-9.3); Neutrophils # 4.8 K/mm3 (1.8-7.8); Neutrophils % 63.7 % (37.0-80.0); Platelet Count 246 K/mm3 (142-424); Red Blood Count 4.34 M/mm3 (4.20-5.40); Red Cell Distribution Width 14.2 % (11.5-17.5); White Blood Count 7.5 K/mm3 (4.8-10.8)
[2021-11-20 21:16] LABS: Appearance,Urine CLEAR (Clear); Bilirubin,Urine Negative (Negative); Blood, Urine 1+ (Negative); Color,Urine YELLOW (Yellow); Glucose,Urine (UA) Negative (Negative); Ketones,Urine Negative (Negative); Leukocyte Esterase,Urine Negative (Negative); Nitrate,Urine Negative (Negative); Protein,Urine TRACE (Negative); Specific Gravity, Urine >= 1.030 (1.005-1.030); Urobilinogen,Urine 0.2 EU/dl (0.2)
[2021-11-20 21:17] LABS: Chloride 108 mmol/L (98-107); Potassium 3.5 mmoL/L (3.5-5.1); Sodium 140 mmol/L (136-145)
[2021-11-20 21:19] LABS: Alanine Aminotransferase 33 U/L (12-78); Amylase 74 U/L (30-110); Aspartate Amino Transferase 32 U/L (14-36); Blood Urea Nitrogen 24 mg/dl (7-17); Creatinine Clearance Estimated 45 mL/min (50-200); Estimated Glomerular Filt Rate 30 ml/min (>60); GFR (African American) 36 ML/MIN (>60)
[2021-11-20 21:20] LABS: Albumin Level 4.3 g/dl (3.5-5.0); Albumin/Globulin Ratio 1.2 (1.1-1.8); Alkaline Phosphatase 102 U/L (38-126); Anion Gap 11.5 mEq/L (5-15); Bilirubin,Total 0.6 mg/dl (0.2-1.3); Calcium 9.3 mg/dl (8.4-10.2); Carbon Dioxide 24 mmol/L (22.0-30.0); Globulin 3.6 g/dL (1.3-3.2); Glucose 121 mg/dl (74-100); Lipase 81 U/L (23-300); Total Protein,Serum 7.9 g/dl (6.3-8.2)
--- NOTE | 2021-11-20 21:29 | PC.NURSE ---
Updated pt on POC. Warm blanket given.
[2021-11-20 21:30] VITALS: BP 123/77; PULSE 65; O2SAT 98
[2021-11-20 21:36] LABS: Bacteria,Urine 1+ /lpf; WBC,Urine Occasional #/hpf (0-3)
--- NOTE | 2021-11-20 21:47 | HMH.EDGENADL ---
ED Disposition Clinical Impression: MARKIE (acute kidney injury) Disposition: Home, Self-Care Condition on Discharge: Good Instructions: DI for Acute Abdominal Pain Additional Instructions: Please return to urgent treatment center tomorrow for repeat BMP and call Dr. Rodriguez as soon as possible to discuss results with him. Please stay hydrated and please return to the emergency department with any new or worsening symptoms including fainting, decreased urine output, abdominal pain, fevers, vomiting, diarrhea or any other new or concerning symptoms. Referrals: Will Rodriguez MD [Primary Care Provider] - - Critical Care Critical Care Time: No Attestation: On 11/20/21, the high probability of a clinically significant, sudden or life threatening deterioration of the following system(s) required my full and direct attention, intervention and personal management. The time I documented below is in addition to time spent performing reported procedures but includes the following listed in this critical care notation. Medical Decision Making - Colin Inquiry Pt receiving controlled substance: No Vital Signs: 11/20/21 20:51 11/20/21 21:30 11/20/21 22:01 Temperature 98.5 F Temperature Source Oral Pulse Rate 65 64 Pulse Rate [Left Radial] 87 Respiratory Rate 16 Blood Pressure 123/77 115/70 Blood Pressure [Right Arm] 132/86 Blood Pressure Mean [Right Arm] 101 Blood Pressure Source [Right Arm] Automatic Cuff Blood Pressure Position [Right Arm] Sitting 02 Sat by Pulse Oximetry 97 98 95 Oxygen Delivery Method Room Air Room Air Room Air 11/20/21 22:31 11/20/21 23:00 11/20/21 23:31 Temperature Temperature Source Pulse Rate 62 58 L 70 Pulse Rate [Left Radial] Respiratory Rate Blood Pressure 126/78 125/84 125/82 Blood Pressure [Right Arm] Blood Pressure Mean [Right Arm] Blood Pressure Source [Right Arm] Blood Pressure Position [Right Arm] 02 Sat by Pulse Oximetry 97 100 98 Oxygen Delivery Method Room Air Room Air Room Air - Lab Data Lab Results 11/20/21 20:58: Urine Color Yellow, Urine Appearance Clear, Urine pH 5.0, Ur Specific [place] >= 1.030, Urine Protein Trace, Urine Glucose (UA) Negative, Urine Ketones Negative, Urine Blood 1+, Urine Nitrate Negative, Urine Bilirubin Negative, Urine Urobilinogen 0.2, Ur Leukocyte Esterase Negative, Urine RBC 3-5, Urine WBC Occasional, Ur Squamous Epith Cells 3-5, Urine Bacteria 1+ 11/20/21 21:02: WBC 7.5, RBC 4.34, Hgb 13.0, Hct 40.5, MCV 93.3, MCH 30.0, MCHC 32.2, RDW 14.2, Plt Count 246, MPV 9.6, Neut % (Auto) 63.7, Lymph % (Auto) 26.3, [place] % (Auto) 4.8, Eos % (Auto) 3.1, Baso % (Auto) 2.1 H, Neut # (Auto) 4.8, Lymph # (Auto) 2.0, [place] # (Auto) 0.4, Eos # (Auto) 0.2, Baso # (Auto) 0.2 11/20/21 21:02: Sodium 140, Potassium 3.5, Chloride 108 H, Carbon Dioxide 24, Anion Gap 11.5, BUN 24 H, Creatinine 1.80 H, Estimated Creat Clear 45, Estimated GFR 30 L, Est GFR ( Amer) 36 L, Glucose 121 H, Calcium 9.3, Total Bilirubin 0.6, AST 32, ALT 33, Alkaline Phosphatase 102, Total Protein 7.9, Albumin 4.3, Globulin 3.6 H, Albumin/Globulin Ratio 1.2, Amylase 74, Lipase 81 Result diagrams: 11/20/21 21:02 11/20/21 21:02 Orders (Tests/Meds): ED MEDICATIONS Generic Name Dose Route Start Last Admin Trade Name Freq PRN Reason Stop Dose Admin Lactated Ringer's 1,000 mls @ 999 mls/hr 11/20/21 21:30 11/20/21 21:30 Lactated Ringer's 1000 Ml Bag IV 11/20/21 22:30 999 mls/hr .[id number] JOSE RAFAEL Administration Discontinued Medications Generic Name Dose Route Start Last Admin Trade Name Freq PRN Reason Stop Dose Admin Belladonna Alkaloids 60 ml 11/20/21 21:26 11/20/21 21:30 Gi Cocktail 60ml Udc PO 11/20/21 21:27 60 ml ONCE ONE Administration Medical Decision Narrative: 51-year-old female presented to the emergency department with epigastric cramping which had resolved at presentation with mild tenderness to palpation wit
[2021-11-20 22:01] VITALS: BP 115/70; PULSE 64; O2SAT 95
[2021-11-20 22:31] VITALS: BP 126/78; PULSE 62; O2SAT 97
[2021-11-20 23:00] VITALS: BP 125/84; PULSE 58; O2SAT 100
[2021-11-20 23:31] VITALS: BP 125/82; PULSE 70; O2SAT 98
[2021-11-21 01:12] VITALS: BP 125/82; PULSE 70; RESP 18; TEMP 36.8; O2SAT 98
== END 2021-11-21 01:14 | disposition home or self-care (01) ==
PROVIDERS: Emergency Provider Student in an Organized Health Care Education/Training Program; PCP Emergency Medicine
DX: R07.9 Chest pain, unspecified (principal); I25.2 Old myocardial infarction; R94.31 Abnormal electrocardiogram [ECG] [EKG]; R10.9 Unspecified abdominal pain; R11.0 Nausea; Z53.21 Procedure and treatment not carried out due to patient leaving prior to being seen by health care provider; Z79.82 Long term (current) use of aspirin; Z88.0 Allergy status to penicillin; Z88.1 Allergy status to other antibiotic agents; Z88.3 Allergy status to other anti-infective agents; Z88.5 Allergy status to narcotic agent; Z88.8 Allergy status to other drugs, medicaments and biological substances; Z91.018 Allergy to other foods
CPT/HCPCS: 80053; 81001; 82150; 83690; 85025; 99283

== ENCOUNTER → 2021-11-21 08:14 | Outpatient (CLI) | payer BC, SELFPAY ==
[2021-11-21 09:17] LABS: Anion Gap 12.8 mEq/L (5-15); Blood Urea Nitrogen 27 mg/dl (7-17); Calcium 8.9 mg/dl (8.4-10.2); Carbon Dioxide 22 mmol/L (22.0-30.0); Chloride 110 mmol/L (98-107); Estimated Glomerular Filt Rate 52 ml/min (>60); GFR (African American) 63 ML/MIN (>60); Glucose 108 mg/dl (74-100); Potassium 3.8 mmoL/L (3.5-5.1); Sodium 141 mmol/L (136-145)
== END ==
PROVIDERS: Visit Provider Student in an Organized Health Care Education/Training Program
DX: N17.9 Acute kidney failure, unspecified (principal)
CPT/HCPCS: 36415; 80048

== ENCOUNTER 2021-11-27 09:02 | Day surgery (SDC) | payer BC, SELFPAY ==
[2021-11-27 09:19] VITALS: BP 120/83; PULSE 61; RESP 20; TEMP 36.5; O2SAT 99; BMI 40.1
[2021-11-27 09:21] LABS: Chloride 106 mmol/L (98-107); Potassium 4.6 mmoL/L (3.5-5.1); Sodium 139 mmol/L (136-145)
[2021-11-27 09:24] LABS: Anion Gap 7.6 mEq/L (5-15); Blood Urea Nitrogen 18 mg/dl (7-17); Calcium 9.2 mg/dl (8.4-10.2); Carbon Dioxide 30 mmol/L (22.0-30.0); Estimated Glomerular Filt Rate 52 ml/min (>60); GFR (African American) 63 ML/MIN (>60); Glucose 104 mg/dl (74-100)
[2021-11-27 09:59] VITALS: BP 148/91; PULSE 72; RESP 18; O2SAT 98
[2021-11-27 10:01] VITALS: BP 142/85; PULSE 62; RESP 18; O2SAT 99
--- NOTE | 2021-11-27 10:03 | HMH.PMPROC ---
- Procedure Date: 11/27/21 Time: 10:03 Anesthesiologist:: Angelo Torres CRNA Complications:: None Pre-procedure Diagnosis:: Degenerative disc disease lumbar spine multilevels. Lumbar radiculopathy symptoms. Post-procedure Diagnosis:: Same Indications for Procedure:: Very pleasant 50-year-old female that comes to our injection clinic today for lumbar epidural steroid injection at the L4-5 level. Patient has had this injection in the past with significant improvement terms of low back pain as well as bilateral hip and leg radicular symptoms. Patient describes her low back pain is constant, dull, aching. She rates the pain 7/10. Procedure Details:: Procedure: Lumbar epidural steroid injection under fluoroscopy Informed consent was obtained and the risks and benefits of the procedure were explained to the patient. The patient was taken to the procedure room and noninvasive monitors placed, including noninvasive blood pressure cuff and pulse oximeter. The back was viewed using C-arm Fluoroscopy and prepped using Betadine as a cleansing solution and the L4-L5 interspace was palpated. Skin and subcutaneous tissues were anesthetized using lidocaine 1.5% and a 25-gauge needle. After this, an 18-gauge Touhy epidural needle was placed into the L4-L5 interspace and advanced using fluoroscopic guidance and loss of resistance to air until the epidural space was encountered. After confirmation of needle placement in the epidural space, with dye, a solution containing lidocaine 1.5%, 4 mL and Depo-Medrol 80 mg were incrementally injected into the lumbar epidural space. The patient tolerated the procedure well with no complications. The patient was observed in the Pain Clinic and then discharged home neurologically intact. Plan and Disposition:: Patient was discharged without incident.
[2021-11-27 10:15] VITALS: BP 131/82; PULSE 52; RESP 20; O2SAT 100
== END 2021-11-27 10:15 | disposition home or self-care (01) ==
LOC: SC.PAINP 09:04
PROVIDERS: Nurse Practitioner Family; PCP Emergency Medicine; Visit Provider Nurse Anesthetist, Certified Registered
DX: M51.16 Intervertebral disc disorders with radiculopathy, lumbar region (principal); M19.90 Unspecified osteoarthritis, unspecified site; G43.909 Migraine, unspecified, not intractable, without status migrainosus; Z86.718 Personal history of other venous thrombosis and embolism; Z88.1 Allergy status to other antibiotic agents; Z88.6 Allergy status to analgesic agent; Z79.82 Long term (current) use of aspirin
CPT/HCPCS: 36415; 62323; 80048; J1040

== ENCOUNTER → 2021-12-03 11:04 | Outpatient (POV) | payer BC, SELFPAY ==
[2021-12-03 11:16] VITALS: BP 153/88; PULSE 66; RESP 18; TEMP 36.1; O2SAT 99; BMI 36.8
--- NOTE | 2021-12-03 12:39 | HMH.PAINSOAP ---
[facility] Pain Management SOAP Note Subjective:: Patient is a pleasant 51-year-old female who presents today for follow-up. Patient is currently being treated for degenerative disc disease of lumbar spine with lumbar radiculopathy symptoms. We have been managing this patient with lumbar epidural steroid injection. She typically gets 2 to 3 months of relief after each injection. More recently, patient had a lumbar epidural steroid injection on November 27, 2021. She states that her pain is starting to get better but it is only been a week since her injection so she cannot fully say that it is helping yet. She rates her pain today as 8 out of 10. Denies any issues after this injection. Additionally, when I last saw this patient, she was complaining of urinary leakage. We have referred this patient to urology in the past but she canceled her appointment. She says that this urinary leakage has been going on even before her first injection in June 2021. She feels like she is having less episodes of leakage now. She does not have any social work administrator. I have recommended the patient to see Dr. Rodriguez in regards to this. She has an appointment with him in December 11, 2021. I also ordered a lumbar MRI which shows multilevel degenerative disc changes. It also states that the impingement on the S1 nerve root has gotten better since March 2021. For pain, she takes [id number] medications. Review of Systems: General: No recent weight changes, no fever, no sleep disturbances Respiratory: No cough, no shortness of air, no recurring pulmonary infections Cardiovascular/peripheral vascular: No chest pain, no palpitations, no edema, no shortness of breath Gastrointestinal: No new onset incontinence, normal bowel movements reported Genitourinary: No new onset incontinence Musculoskeletal: Low back pain Psychiatric: [Normal mood/affect] Neurological: [Denies weakness in extremities], [denies balance issues] Objective:: Physical Exam: General: Alert and oriented x3, no acute distress, pleasant and cooperative Lungs: Respirations even and unlabored, symmetrical chest expansion Eyes: PERRL Musculoskeletal: Flexion and extension of lumbar [spine] somewhat guarded secondary to pain, [antalgic gait noted] Neurological: Speech clear, no gross sensory deficit Imaging: Ordering Physician: Deng Amador Date of Service: 11/16/21 Procedure(s): MR lumbar spine wo con Accession Number(s): [id number] cc: Will Rodriguez MD; Dominguez Calderon MD~ FINAL REPORT CLINICAL HISTORY: BACK,LEG PAIN. lbp with pain worse on rt side. pain, numbness, and tingling down rt leg. symptoms x1yr. no injury or trauma. urinary incontinence. COMPARISON: April 02, 2021 FINDINGS: Multiplanar MR imaging of the lumbar spine was performed without contrast. On the sagittal T2-weighted images, disc degeneration is seen at multiple levels. The vertebral alignment is normal. There is no evidence of fracture. No bony mass is identified. The conus has an unremarkable appearance. T10-11: An annular bulge is present. T11-12: An annular bulge is present. There are anterior osteophytes. T12-L1: No significant central canal stenosis or neural foraminal narrowing. L1-2: No significant central canal stenosis or neuroforaminal narrowing. L2-3: An annular bulge is present. L3-4: An annular bulge is present. There is mild right neural foraminal narrowing. L4-5: There is an annular disc bulge with facet arthropathy. There is mild right and moderate left neural foraminal narrowing. There is bilateral lateral recess stenosis. There is mild central canal stenosis with and AP diameter of the thecal sac of 7 mm. This level is visually stable. L5-S1: There is an annular disc bulge with facet arthropathy. There has been significant interval improvement in the right foraminal disc protrusion with improved right S1 nerve root impingement. There is mild bilateral neural foramin
== END ==
PROVIDERS: Visit Provider Nurse Anesthetist, Certified Registered
DX: M51.16 Intervertebral disc disorders with radiculopathy, lumbar region (principal)
CPT/HCPCS: 99212; G0463

== ENCOUNTER 2021-12-18 23:05 | Emergency (ER) | payer BC, SELFPAY ==
--- NOTE | 2021-12-18 23:02 | ECG_ITS ---
APPROVED REPORT Exam: Resting ECG HR:62 bpm ECG Measurements Heart Rate 62 AXES ID 167 P 45 QRSd 98 QRS -4 QT 393 T 14 QTc 398 Conclusion SINUS RHYTHM LOW QRS VOLTAGE IN PRECORDIAL LEADS [QRS DEFLECTION < 1.0 mV IN CHEST LEADS] BORDERLINE ECG UNCONFIRMED REPORT Electronically signed by : Quan Patel MD 12/19/2021 20:16:43
[2021-12-18 23:05] VITALS: BP 135/55; PULSE 68; RESP 18; TEMP 36.7; O2SAT 98; BMI 36.8
--- NOTE | 2021-12-18 23:18 | XR_ITS ---
PROCEDURE INFORMATION: Exam: XR Chest Exam date and time: 12/18/2021 11:25 PM Age: 51 years old Clinical indication: Pain; Chest pressure; Additional info: Chest pain TECHNIQUE: Imaging protocol: XR of the chest. Views: 1 view. COMPARISON: CR XR CHEST PORTABLE 05/17/2019 8:42 PM FINDINGS: Lungs: Relative lucency within the upper lung zones. No consolidation. Pleural spaces: No pneumothorax. Heart/Mediastinum: Prominent cardiac contour which is stable. Bones/joints: Degenerative changes of the shoulders. IMPRESSION: Chronic changes without acute process.
[2021-12-18 23:24] LABS: Basophils # 0.1 K/mm3 (0-0.2); Basophils % 1.7 % (0.1-2.0); Eosinophils # 0.2 K/mm3 (0.0-0.4); Eosinophils % 3.6 % (0.1-12.0); Hematocrit 38.1 % (37.0-47.0); Hemoglobin 12.8 g/dL (12.2-16.2); Lymphocytes % 35.1 % (10-50); Mean Corpuscular HGB Conc 33.4 g/dL (31.8-35.4); Mean Corpuscular Hemoglobin 31.3 pg (27.0-31.2); Mean Corpuscular Volume 93.8 fl (81-99); Mean Platelet Volume 10.1 fl (7.4-10.4); Monocytes # 0.2 K/mm3 (0.1-1.0); Neutrophils # 3.2 K/mm3 (1.8-7.8); Neutrophils % 55.6 % (37.0-80.0); Platelet Count 216 K/mm3 (142-424); Red Blood Count 4.07 M/mm3 (4.20-5.40); Red Cell Distribution Width 14.5 % (11.5-17.5); White Blood Count 5.8 K/mm3 (4.8-10.8)
[2021-12-18 23:30] VITALS: BP 117/78; PULSE 66; O2SAT 98
[2021-12-18 23:30] LABS: Prothrombin Time 10.2 seconds (10.1-12.5)
[2021-12-18 23:31] LABS: Alanine Aminotransferase 21 U/L (12-78); Albumin Level 3.8 g/dl (3.5-5.0); Albumin/Globulin Ratio 1.1 (1.1-1.8); Alkaline Phosphatase 114 U/L (38-126); Anion Gap 7.9 mEq/L (5-15); Aspartate Amino Transferase 24 U/L (14-36); Blood Urea Nitrogen 23 mg/dl (7-17); Calcium 8.9 mg/dl (8.4-10.2); Carbon Dioxide 28 mmol/L (22.0-30.0); Chloride 106 mmol/L (98-107); Creatinine Clearance Estimated 93 mL/min (50-200); Estimated Glomerular Filt Rate 52 ml/min (>60); GFR (African American) 63 ML/MIN (>60); Globulin 3.6 g/dL (1.3-3.2); Glucose 94 mg/dl (74-100); Lipase 166 U/L (23-300); Potassium 3.9 mmoL/L (3.5-5.1); Sodium 138 mmol/L (136-145); Total Protein,Serum 7.4 g/dl (6.3-8.2)
[2021-12-18 23:32] LABS: Bilirubin,Total < 0.1 mg/dl (0.2-1.3)
--- NOTE | 2021-12-18 23:33 | PC.NURSE ---
pt refused gi cocktail. states her pain is not acid reflux and I've had this before and it didn't help . pt educated, still refuses.
[2021-12-18 23:47] LABS: Troponin I < 0.01 ng/ml (0.00-0.034)
[2021-12-19] VITALS: BP 118/72; PULSE 63; O2SAT 96
--- NOTE | 2021-12-19 00:13 | HMH.EDCP ---
ED Disposition Clinical Impression: Atypical chest pain Disposition: Home, Self-Care Condition on Discharge: Good Instructions: DI for Atypical Chest Pain Additional Instructions: Primary care and return to the ER for any new or worsening symptoms. Recommend touching base and following up with Dr. Reece as well. Referrals: Will Rodriguez MD [Primary Care Provider] - - Critical Care Critical Care Time: No Attestation: On 12/18/21, the high probability of a clinically significant, sudden or life threatening deterioration of the following system(s) required my full and direct attention, intervention and personal management. The time I documented below is in addition to time spent performing reported procedures but includes the following listed in this critical care notation. Medical Decision Making - Medical Records Medical records reviewed: Yes: I reviewed the patient's medical records. - Colin Inquiry Pt receiving controlled substance: No Vital Signs: 12/18/21 23:05 12/18/21 23:30 12/19/21 00:00 Temperature 98.1 F Temperature Source Oral Pulse Rate 66 63 Pulse Rate [Right] 68 Respiratory Rate 18 Blood Pressure 117/78 118/72 Blood Pressure [Right Arm] 135/55 L Blood Pressure Mean [Right Arm] 81 Blood Pressure Source [Right Arm] Automatic Cuff 02 Sat by Pulse Oximetry 98 98 96 Oxygen Delivery Method Room Air 12/19/21 00:30 12/19/21 01:00 12/19/21 01:27 Temperature Temperature Source Pulse Rate 61 59 L 55 L Pulse Rate [Right] Respiratory Rate Blood Pressure 111/77 122/77 121/51 L Blood Pressure [Right Arm] Blood Pressure Mean [Right Arm] Blood Pressure Source [Right Arm] 02 Sat by Pulse Oximetry 95 96 98 Oxygen Delivery Method - Lab Data Lab Results 12/18/21 23:05: WBC 5.8, RBC 4.07 L, Hgb 12.8, Hct 38.1, MCV 93.8, MCH 31.3 H, MCHC 33.4, RDW 14.5, Plt Count 216, MPV 10.1, Neut % (Auto) 55.6, Lymph % (Auto) 35.1, [place] % (Auto) 4.0, Eos % (Auto) 3.6, Baso % (Auto) 1.7, Neut # (Auto) 3.2, Lymph # (Auto) 2.0, [place] # (Auto) 0.2, Eos # (Auto) 0.2, Baso # (Auto) 0.1 12/18/21 23:05: PT 10.2, INR 0.90 12/18/21 23:05: Sodium 138, Potassium 3.9, Chloride 106, Carbon Dioxide 28, Anion Gap 7.9, BUN 23 H, Creatinine 1.10 H, Estimated Creat Clear 93, Estimated GFR 52 L, Est GFR ( Amer) 63, Glucose 94, Calcium 8.9, Total Bilirubin < 0.1 L, AST 24, ALT 21, Alkaline Phosphatase 114, Troponin I < 0.01, Total Protein 7.4, Albumin 3.8, Globulin 3.6 H, Albumin/Globulin Ratio 1.1, Lipase 166 12/18/21 23:05: D-Dimer 0.72 H Result diagrams: 12/18/21 23:05 12/18/21 23:05 Orders (Tests/Meds): ED MEDICATIONS Generic Name Dose Route Start Last Admin Trade Name Freq PRN Reason Stop Dose Admin Sodium Chloride 1,000 mls @ 999 mls/hr 12/18/21 23:30 12/18/21 23:25 Sod Chlor 0.9% 1000ml Bag IV 12/19/21 00:30 999 mls/hr .Q1H1M JOSE RAFAEL Administration Discontinued Medications Generic Name Dose Route Start Last Admin Trade Name Freq PRN Reason Stop Dose Admin Aspirin 325 mg 12/18/21 23:18 12/18/21 23:25 Aspirin 325mg Tablet PO 12/18/21 23:19 325 mg ONCE ONE Administration Belladonna Alkaloids 60 ml 12/18/21 23:18 12/18/21 23:32 Gi Cocktail 60ml Udc PO 12/18/21 23:19 Not Given ONCE ONE Ketorolac Tromethamine 15 mg 12/18/21 23:18 12/18/21 23:25 Ketorolac 30mg/Ml Vial IV 12/18/21 23:19 15 mg ONCE ONE Administration ORDERS Category Date Time Status Troponin I Q3H Lab 12/19/21 02:10 Received Troponin I Q3H Lab 12/19/21 05:30 Ordered - Radiology Data #1 Image(s): Chest Image Reviewed: Yes I have reviewed radiologist's interpretation Preliminary Findings: Normal/NAD Patient: Melanie Perkins MR#: [id number] : 1970 Acct:[id number] Age/Sex: 51 / F ADM Date: 12/18/21 Loc: ER Attending Dr: Ordering Physician: Roland Henriquez MD Date of Service:
[2021-12-19 00:27] LABS: D-Dimer 0.72 ug/mL (0.0-0.5)
[2021-12-19 00:30] VITALS: BP 111/77; PULSE 61; O2SAT 95
[2021-12-19 01:00] VITALS: BP 122/77; PULSE 59; O2SAT 96
[2021-12-19 01:27] VITALS: BP 121/51; PULSE 55; O2SAT 98
[2021-12-19 02:36] LABS: Troponin I < 0.01 ng/ml (0.00-0.034)
[2021-12-19 02:40] VITALS: BP 121/77; PULSE 58; RESP 16; TEMP 36.7; O2SAT 98
== END 2021-12-19 02:42 | disposition home or self-care (01) ==
PROVIDERS: Emergency Provider Student in an Organized Health Care Education/Training Program; PCP Emergency Medicine
DX: R07.89 Other chest pain (principal); Z88.1 Allergy status to other antibiotic agents; Z88.6 Allergy status to analgesic agent; I73.9 Peripheral vascular disease, unspecified; I10 Essential (primary) hypertension; Z86.73 Personal history of transient ischemic attack (TIA), and cerebral infarction without residual deficits; D64.9 Anemia, unspecified; E03.9 Hypothyroidism, unspecified; M19.90 Unspecified osteoarthritis, unspecified site; Z87.891 Personal history of nicotine dependence
CPT/HCPCS: 71045; 80053; 83690; 84484; 85025; 85378; 85610; 93005; 96365; 96375; 99284

== ENCOUNTER → 2022-01-01 13:47 | Outpatient (CLI) | payer BC, SELFPAY ==
--- NOTE | 2022-01-01 13:48 | US_ITS ---
FINAL REPORT CLINICAL HISTORY: Pelvic and Abdominal Pain FINDINGS: Transvaginal sonographic images of the pelvis were obtained. The uterus is not visualized. The patient gives history of prior hysterectomy. The ovaries are not visualized. There is no mass or abnormal fluid collection. Small follicles are present. There is no evidence of free fluid. IMPRESSION: No acute abnormality identified. Reviewed, Interpreted and Dictated by Dominguez Calderon III, MD Transcribed by Lisandra Solomon Authenticated and [facility]
--- NOTE | 2022-01-01 13:48 | MM_ITS ---
PROCEDURE INFORMATION: Exam: MG Bilateral Screening 3D Mammography Exam date and time: 01/01/2022 1:42 PM Age: 51 years old Clinical indication: Screening examination TECHNIQUE: Imaging protocol: Bilateral Screening tomosynthesis and 2D mammography including computer-aided detection (CAD) when performed. COMPARISON: 1. MG MM DIG SCREENING MAMM BI W/CAD 06/28/2019 3:47 PM 2. MG SCBI MM Dig screening mamm BI w/CAD 06/15/2018 10:59 AM FINDINGS: MAMMOGRAPHY: Breast composition: There are scattered areas of fibroglandular density. Mass: None. Architectural distortion: None. Calcifications: No suspicious calcifications. Asymmetric density: None. Skin thickening: None. Axillary adenopathy: None. IMPRESSION: No mammographic evidence of malignancy. Annual screening is recommended unless otherwise clinically indicated. ASSESSMENT: BI-RADS Category 1: Negative
== END ==
PROVIDERS: PCP Emergency Medicine; Visit Provider Obstetrics & Gynecology
DX: Z12.31 Encounter for screening mammogram for malignant neoplasm of breast (principal); R10.2 Pelvic and perineal pain; R10.9 Unspecified abdominal pain
CPT/HCPCS: 76830; 77063; 77067

== ENCOUNTER → 2022-01-12 09:26 | Outpatient (CLI) | payer BC, SELFPAY ==
--- NOTE | 2022-01-12 09:26 | CT_ITS ---
FINAL REPORT TECHNIQUE: Axial CT images of the abdomen and pelvis were obtained before and after the administration of IV contrast. This study was performed with techniques to keep radiation doses as low as reasonably achievable (ALARA). Individualized dose reduction techniques using automated exposure control or adjustment of mA and/or kV according to the patient''s size were employed. CLINICAL HISTORY: low pelvic pain. FINDINGS: Abdomen: There are patchy ground-glass opacities in the lung bases. The heart is normal in size. A 10 mm cyst is seen in the right liver dome. There is a small hiatal hernia versus postoperative change. There has been cholecystectomy.. The spleen is unremarkable. There is a 2.2 cm right adrenal nodule consistent with an adenoma. The pancreas has an unremarkable appearance. There are left renal parapelvic cysts. The aorta is normal in caliber. There is no free fluid or adenopathy. There is a small umbilical hernia containing fat. Precontrast images demonstrate no evidence of nephrolithiasis. Pelvis: The appendix is not well visualized. The urinary bladder is unremarkable. There has been hysterectomy. There are small inguinal hernias containing fat. No inflammatory process is seen. There is no evidence of mass or adenopathy. There is no evidence of bowel obstruction. IMPRESSION: Patchy ground-glass opacities in the lung bases. Small hiatal hernia versus postoperative change. No acute intra-abdominal process. Reviewed, Interpreted and Dictated by Dominguez Calderon III, MD Transcribed by Adam Farmer Authenticated and [facility]
== END ==
PROVIDERS: PCP Emergency Medicine; Visit Provider Obstetrics & Gynecology
DX: R10.9 Unspecified abdominal pain (principal)
CPT/HCPCS: 74178; Q9967

== ENCOUNTER 2022-02-08 09:15 | Inpatient (IN) | payer BC, SELFPAY ==
[2022-02-08] VITALS (16 sets, daily range): BP systolic 122–157; BP diastolic 72–88; PULSE 40–68; RESP 16–18; TEMP 36.6–37; O2SAT 96–100; BMI 36.8; BMI 39.9
--- NOTE | 2022-02-08 09:31 | CT_ITS ---
FINAL REPORT CLINICAL HISTORY: upper abd pain, appendectomy, partial hysterectomy COMPARISON: 01/12/2022 FINDINGS: CT OF THE ABDOMEN AND PELVIS WITH CONTRAST Axial CT images of the abdomen and pelvis were obtained after the administration of oral and iv contrast. Coronal reformatted images were also obtained and reviewed.This study was performed with techniques to keep radiation doses as low as reasonably achievable (ALARA). Individualized dose reduction techniques using automated exposure control or adjustment of mA and/or kV according to the patient's size were employed. Abdomen: There is mild bibasilar atelectasis or scarring. There are persistent mild patchy ground-glass opacities. Postoperative changes are seen at the GE junction versus a small hiatal hernia. This appears stable. The patient is status post cholecystectomy. There is a stable 11 mm cyst in the posterior right liver dome. The spleen is unremarkable. A right adrenal nodule is stable consistent with an adenoma. The left adrenal gland is unremarkable. The pancreas has an unremarkable appearance. The kidneys are normal, without evidence of mass or hydronephrosis. The aorta is normal in caliber. There is no free fluid or adenopathy. Pelvis: The patient is status post hysterectomy. The appendix is not well-visualized. The urinary bladder is unremarkable. No inflammatory process is seen. There are small inguinal hernias containing fat. There is no evidence of bowel obstruction. IMPRESSION: Stable findings as compared to the prior exam. Reviewed, Interpreted and Dictated by Dominguez Calderon III, MD Transcribed by Juliana Amaro Authenticated and [facility]
[2022-02-08 09:54] LABS: Microscopic, Urine URINE MICROSCOPIC (MICROSCOPIC)
[2022-02-08 09:56] LABS: Appearance,Urine SL CLOUDY (Clear); Bilirubin,Urine Negative (Negative); Blood, Urine TRACE-I (Negative); Color,Urine YELLOW (Yellow); Glucose,Urine (UA) Negative (Negative); Ketones,Urine Negative (Negative); Leukocyte Esterase,Urine 1+ (Negative); Nitrate,Urine Negative (Negative); Protein,Urine Negative (Negative); Urobilinogen,Urine 0.2 EU/dl (0.2)
--- NOTE | 2022-02-08 10:05 | PC.NURSE ---
pt's heart rate 41. ekg performed
--- NOTE | 2022-02-08 10:09 | PC.NURSE ---
LAB HERE FOR BLOOD DRAW
[2022-02-08 10:14] LABS: Bacteria,Urine 2+ /lpf
[2022-02-08 10:20] LABS: Basophils # 0.1 K/mm3 (0-0.2); Basophils % 1.4 % (0.1-2.0); Eosinophils # 0.3 K/mm3 (0.0-0.4); Eosinophils % 5.2 % (0.1-12.0); Hematocrit 42.8 % (37.0-47.0); Hemoglobin 13.7 g/dL (12.2-16.2); Lymphocytes # 1.4 K/mm3 (0.7-4.5); Lymphocytes % 28.8 % (10-50); Mean Corpuscular HGB Conc 32.1 g/dL (31.8-35.4); Mean Corpuscular Hemoglobin 29.9 pg (27.0-31.2); Mean Corpuscular Volume 93.3 fl (81-99); Mean Platelet Volume 10.2 fl (7.4-10.4); Monocytes # 0.3 K/mm3 (0.1-1.0); Monocytes % 5.5 % (1.7-9.3); Neutrophils # 2.9 K/mm3 (1.8-7.8); Neutrophils % 59.1 % (37.0-80.0); Platelet Count 210 K/mm3 (142-424); Red Blood Count 4.59 M/mm3 (4.20-5.40); Red Cell Distribution Width 14.4 % (11.5-17.5); White Blood Count 4.9 K/mm3 (4.8-10.8)
--- NOTE | 2022-02-08 10:24 | PC.NURSE ---
PT GONE TO CT
[2022-02-08 10:27] LABS: Chloride 109 mmol/L (98-107); Sodium 139 mmol/L (136-145)
[2022-02-08 10:28] LABS: Potassium 4.2 mmoL/L (3.5-5.1)
[2022-02-08 10:30] LABS: Alanine Aminotransferase 21 U/L (12-78); Alkaline Phosphatase 123 U/L (38-126); Anion Gap 8.2 mEq/L (5-15); Aspartate Amino Transferase 32 U/L (14-36); Bilirubin,Total 0.9 mg/dl (0.2-1.3); Blood Urea Nitrogen 20 mg/dl (7-17); Carbon Dioxide 26 mmol/L (22.0-30.0); Creatinine Clearance Estimated 102 mL/min (50-200); Estimated Glomerular Filt Rate 58 ml/min (>60); GFR (African American) 71 ML/MIN (>60)
--- NOTE | 2022-02-08 10:30 | PC.NURSE ---
pt returned from ct. pt provided with warm blankets. SO at bedside
[2022-02-08 10:31] LABS: Albumin Level 4.4 g/dl (3.5-5.0); Albumin/Globulin Ratio 1.3 (1.1-1.8); Calcium 9.3 mg/dl (8.4-10.2); Globulin 3.5 g/dL (1.3-3.2); Glucose 102 mg/dl (74-100); Lipase 57 U/L (23-300); Total Protein,Serum 7.9 g/dl (6.3-8.2)
--- NOTE | 2022-02-08 10:40 | HMH.EDGENADL ---
ED Disposition Clinical Impression: Gastroenteritis, Epigastric pain, Sinus bradycardia Disposition: Admitted as Observation Condition on Discharge: Fair Referrals: Will Rodriguez MD [Primary Care Provider] - - Critical Care Critical Care Time: No Attestation: On 02/08/22, the high probability of a clinically significant, sudden or life threatening deterioration of the following system(s) required my full and direct attention, intervention and personal management. The time I documented below is in addition to time spent performing reported procedures but includes the following listed in this critical care notation. Medical Decision Making - Colin Inquiry Pt receiving controlled substance: No Vital Signs: 02/08/22 09:16 02/08/22 09:27 02/08/22 10:30 Temperature 98.6 F Temperature Source Oral Pulse Rate 68 62 Pulse Rate [Radial] 66 Respiratory Rate 16 18 18 Blood Pressure 122/88 140/82 Blood Pressure [Right Arm] 122/88 Blood Pressure Mean 99 103 Blood Pressure Mean [Right Arm] 99 Blood Pressure Position [Right Arm] Sitting 02 Sat by Pulse Oximetry 96 96 98 Oxygen Delivery Method Room Air 02/08/22 11:01 02/08/22 11:31 02/08/22 11:50 Temperature Temperature Source Pulse Rate 62 42 L 44 L Pulse Rate [Radial] Respiratory Rate 18 18 18 Blood Pressure 143/80 H 157/76 H 139/77 Blood Pressure [Right Arm] Blood Pressure Mean 103 103 89 Blood Pressure Mean [Right Arm] Blood Pressure Position [Right Arm] 02 Sat by Pulse Oximetry 98 98 98 Oxygen Delivery Method 02/08/22 12:02 02/08/22 12:31 Temperature Temperature Source Pulse Rate 43 L 47 L Pulse Rate [Radial] Respiratory Rate 18 18 Blood Pressure 128/83 134/79 Blood Pressure [Right Arm] Blood Pressure Mean 92 97 Blood Pressure Mean [Right Arm] Blood Pressure Position [Right Arm] 02 Sat by Pulse Oximetry 98 98 Oxygen Delivery Method - Lab Data Lab Results 02/08/22 09:25: Urine Color Yellow, Urine Appearance Sl cloudy, Urine pH 7.0, Ur Specific [place] 1.020, Urine Protein Negative, Urine Glucose (UA) Negative, Urine Ketones Negative, Urine Blood Trace-i, Urine Nitrate Negative, Urine Bilirubin Negative, Urine Urobilinogen 0.2, Ur Leukocyte Esterase 1+ A, Urine RBC 3-5, Urine WBC 3-5, Ur Squamous Epith Cells 5-10, Urine Bacteria 2+ 08/01/22 10:08: WBC 4.9, RBC 4.59, Hgb 13.7, Hct 42.8, MCV 93.3, MCH 29.9, MCHC 32.1, RDW 14.4, Plt Count 210, MPV 10.2, Neut % (Auto) 59.1, Lymph % (Auto) 28.8, [place] % (Auto) 5.5, Eos % (Auto) 5.2, Baso % (Auto) 1.4, Neut # (Auto) 2.9, Lymph # (Auto) 1.4, [place] # (Auto) 0.3, Eos # (Auto) 0.3, Baso # (Auto) 0.1 02/08/22 10:08: Sodium 139, Potassium 4.2, Chloride 109 H, Carbon Dioxide 26, Anion Gap 8.2, BUN 20 H, Creatinine 1.00, Estimated Creat Clear 102, Estimated GFR 58 L, Est GFR ( Amer) 71, Glucose 102 H, Calcium 9.3, Total Bilirubin 0.9, AST 32, ALT 21, Alkaline Phosphatase 123, Total Protein 7.9, Albumin 4.4, Globulin 3.5 H, Albumin/Globulin Ratio 1.3, Lipase 57 02/08/22 10:08: Troponin I < 0.01 02/08/22 10:08: TSH 5.30 H, Free T4 Index 2.3 L, Thyroxine (T4) 7.8, T3 Uptake 30 02/08/22 10:08: Magnesium 1.9 02/08/22 12:37: SARS-CoV-2 (PCR) Not detected, Influenza A Untype (PCR) Not detected, Influenza Type B (PCR) Not detected Result diagrams: 02/08/22 10:08 02/08/22 10:08 Orders (Tests/Meds): ED MEDICATIONS Discontinued Medications Generic Name Dose Route Start Last Admin Trade Name Freq PRN Reason Stop Dose Admin Sodium Chloride 1,000 mls @ 999 mls/hr 02/08/22 10:15 02/08/22 10:29 Sod Chlor 0.9% 1000ml Bag IV 02/08/22 11:15 999 mls/hr .Q1H1M JOSE RAFAEL Administration Iopamidol 75 ml 02/08/22 10:37 02/08/22 11:19 Iopamidol-370 (76%);100ml Bottle IV 02/08/22 10:38 75 ml ONCE ONE Administration Ondansetron HCl 4 mg 02/08/22 10:46 02/08/22 11:30 Ondansetron 4mg/2ml Vial IV 02/08/22 10:47 4 mg ONCE ONE Administration S
--- NOTE | 2022-02-08 10:47 | PC.NURSE ---
DR WRIGHT IN WITH PT
--- NOTE | 2022-02-08 10:54 | ECG_ITS ---
APPROVED REPORT Exam: Resting ECG HR:44 bpm ECG Measurements Heart Rate 44 AXES ND 177 P 56 QRSd 97 QRS 18 QT 484 T 40 QTc 433 Conclusion SINUS BRADYCARDIA LOW QRS VOLTAGE IN PRECORDIAL LEADS [QRS DEFLECTION < 1.0 mV IN CHEST LEADS] BORDERLINE ECG UNCONFIRMED REPORT Electronically signed by : Quan Patel MD 02/08/2022 20:35:32
[2022-02-08 11:13] LABS: Magnesium 1.9 mg/dl (1.6-2.3)
[2022-02-08 11:38] LABS: Troponin I < 0.01 ng/ml (0.00-0.034)
[2022-02-08 11:42] LABS: Triiodothryronine (T3) Uptake 30 % (23.5-40.5)
[2022-02-08 11:43] LABS: Free Thyroxine Index 2.3 ug/dL (5.93-13.13); T4 (Thyroxine) 7.8 ug/dl (5.53-11.0)
--- NOTE | 2022-02-08 11:53 | PC.NURSE ---
Per MD request d/t HR in the 40's, pt moved from room 11 to room 2 and placed on athletic monitor.
--- NOTE | 2022-02-08 12:32 | PC.NURSE ---
checked on pt at this time, pt resting in bed, family member at BS. Pt oriented to call light. Pt states no needs at this time, will continue to monitor
[2022-02-08 12:42] LABS: Coronavirus 19, PCR Not Detected (NotDetected); Influenza A, PCR Not Detected (NotDetected); Influenza B, PCR Not Detected (NotDetected)
--- NOTE | 2022-02-08 12:57 | PC.NURSE ---
family at bedside. call light with in reach
--- NOTE | 2022-02-08 14:05 | PC.NURSE ---
john dupont at pt bedside performing her assessment
--- NOTE | 2022-02-08 14:10 | PC.NURSE ---
notified care management of admission, spoke with dana
--- NOTE | 2022-02-08 14:15 | PC.NURSE ---
per housekeeper cleaning cooking pt assigned to room 209
--- NOTE | 2022-02-08 14:36 | PC.NURSE ---
report called to floor
--- NOTE | 2022-02-08 14:41 | PC.NURSE ---
Ambulated pt to bathroom at this time.
--- NOTE | 2022-02-08 14:41 | HMH.CNCARD ---
History of Present Illness Consult date: 02/08/22 Requesting physician: Ulysses Briones Chief complaint: bradycardia History of present illness: This is a 51-year-old female who presented to the emergency department with nausea, vomiting and diarrhea. The patient states that she started feeling ill yesterday and just has progressively worsened. She states that she has had nausea and vomiting all day yesterday and had about 4 episodes of diarrhea. She states that she is still really nauseated today but has not had any vomiting or diarrhea today because she has not eaten anything. She states that her body feels really heavy and she has epigastric discomfort as well. She states that she just does not feel well. She denies fever or chills. She denies any chest pain or pressure. She denies any shortness of breath or edema. She denies any PND or orthopnea. The patient states that her nausea and vomiting is associated with some generalized abdominal pain and fatigue as well. While in the emergency department being worked up for her abdominal pain, nausea, vomiting and diarrhea the patient had sudden onset of sinus bradycardia and not feeling well. The patient reports that she does have intermittent dizziness but has never passed out. She just continues to complain of fatigue and not feeling well. During my examination the patient's heart rate is around 44 bpm. [facility] History I have reviewed the patient's past medical history: Yes Medical History: Reports:: Deep Vein Thrombosis, Gall Bladder Disease, Hypertension, Transient Ischemic Attacks (TIA) Denies:: Cancer, Diabetes Mellitus Type 1, Diabetes Mellitus Type 2, Internal Pacemaker, Lung Disease, MRSA, Seizures *Have you ever received a pneumonia vaccine?: No *Have you received a flu vaccine this season?: Yes Other Medical History: Reports: Anemia, Arthritis, Hypothyroidism, Other. Denies: Blood Transfusion Reaction Other Surgeries: Yes: No Previous Surgery, Appendectomy, Cardiac Catheterization, Cholecystectomy, Colonoscopy, (x 2), Hernia Repair, Hysterectomy-Total, Hysterectomy-Partial, Tubal Ligation, Other. No: Pacemaker Amputation: No Fractures: No - *Social History Smoking Status: Former smoker Tobacco Type: cigarettes # Packs/Day (cigarettes): 1 Alcohol Intake: never Alcohol Intake Frequency:: holidays/special occasions only Substance Use Type: denies use *Occupational Status:: unemployed Housing: house Household Members: spouse *Travel in the last 8 weeks: None Family Hx:: Unable to obtain Meds Home Medications Medication Instructions Recorded Confirmed Type aspirin 325 mg tablet,delayed 325 mg PO DAILY 05/09/19 02/08/22 History release Allergies Allergy/AdvReac Type Severity Reaction Status Date / Time azithromycin [AZITHROMYCIN] Allergy Intermediate NA-NAUSEA Verified 01/29/22 14:10 codeine [CODEINE] Allergy Intermediate S-SWELLS-OR Verified 01/29/22 14:10 AL/THROAT NUTS (FOOD) Allergy Intermediate I-HIVES Uncoded 01/29/22 14:10 tegaderm Allergy Intermediate Blister Uncoded 01/29/22 14:10 Exam Vital signs and Labs for Last 24 Hours: Temp Pulse Resp BP Pulse Ox 98.6 F 53 L 18 132/80 100 02/08/22 09:16 02/08/22 14:01 02/08/22 14:01 02/08/22 14:01 02/08/22 14:01 Laboratory Results - last 24 hr 02/08/22 09:25: Urine Color Yellow, Urine Appearance Sl cloudy, Urine pH 7.0, Ur Specific [place] 1.020, Urine Protein Negative, Urine Glucose (UA) Negative, Urine Ketones Negative, Urine Blood Trace-i, Urine Nitrate Negative, Urine Bilirubin Negative, Urine Urobilinogen 0.2, Ur Leukocyte Esterase 1+ A, Urine RBC 3-5, Urine WBC 3-5, Ur Squamous Epith Cells 5-10, Urine Bacteria 2+ 02/08/22 10:08: WBC 4.9, RBC 4.59, Hgb 13.7, Hct 42.8, MCV 93.3, MCH 29.9, MCHC 32.1, RDW 14.4, Plt Count 210, MPV 10.2, Neut % (Auto) 59.1, Lymph % (Auto) 28.8, [place] % (Auto) 5.5, Eos % (Auto) 5.2, Baso % (Auto) 1.4, Neut # (Auto) 2.9, Lymph # (Auto) 1.4, Mo
[2022-02-08 14:47] LABS: Troponin I < 0.01 ng/ml (0.00-0.034)
--- NOTE | 2022-02-08 15:03 | CA_ITS ---
APPROVED REPORT EXAM: Comprehensive 2D, Doppler, and color-flow Echocardiogram Commercial Roofer: Nini Redd RVT Ht: 5 ft 4 in Wt: 215lbs BSA: 2.02 BP: 132/80 mmHg Indications: BRADYCARDIA,HTN,EX SMOKER 2D Dimensions LVOT 2.20 cm (M/F) 1.5-2.5 M-Mode Dimensions RVDd 2.74 cm (0.9-2.6) LA Diam 3.03 cm (1.9-4.0) LVDd 5.13 cm (3.5-5.7) Ao Diam 3.60 cm (2.0-3.7) LVDs 3.76 cm (3.5-5.7) IVSd 0.99 cm (0.6-1.1) PWd 0.61 cm (0.6-1.1) EF (Teich) 51.90% FS 26.70% EDV (Teich) 125.50 mL ESV (Teich) 60.40 mL LV Diastology E Decel Time 120.00 (160-240 msec) E/A Ratio 0.8 MED E' 6.00 (< 7 cm/sec) E'/MED E' Ratio 7.42 (>14) LAT E' 6.40 (<10 cm/sec) E/LAT E' Ratio 6.95 (>14) Aortic Valve AO Peak GR. 2.50 mmHg Mitral Valve MV E Max Dave. 44.00 (40-130 cm/s) MV A Velocity 52.00 (40-130 cm/s) E/A Ratio 0.86 MV Decel. Time 120.00 (160-240 ms) MV PHT 35.00 ms Pulmonary Valve PV Peak Velocity 57.00 (50-150 cm/s) Tricuspid Valve TR P. Velocity 159.00 cm/s RAP Estimate 10.00 mmHg RVSP 20.10 mmHg Left Ventricle Left atrium is mildly enlarged, left ventricle is normal size mild concentric left ventricular hypertrophy, estimated ejection fraction 55% with no regional wall motion abnormality, diastolic parameters are inconclusive. Right Ventricle Right atrium and right ventricle are mildly enlarged with normal contractility. Aortic Valve Aortic valve is minimally thickened and fibrosed there is no aortic stenosis or aortic insufficiency. Mitral Valve Mitral valve grossly normal, there is trace mitral regurgitation. Tricuspid Valve Tricuspid valve grossly normal, there is trace tricuspid regurgitation, tricuspid regurgitation jet velocity is inadequate for calculation of the right ventricular systolic pressure. Pulmonic Valve Pulmonic valve is poorly visualized. Great Vessels Aortic root is normal size. Inferior vena cava is poorly visualized. Pericardium No significant pericardial effusion noted. Conclusion 1. Technically difficult study because of the patient factors and poor acoustic windows. 2. Mild biatrial enlargement, normal left ventricular size, mild concentric left ventricular hypertrophy, estimated ejection fraction 55% with no regional wall motion abnormality, diastolic parameters are inconclusive. 3. Trace mitral and tricuspid regurgitation. 4. No significant pericardial effusion noted. 5. Inferior vena cava is poorly visualized. Electronically signed by : Gomez Butcher MD 02/08/2022 18:49:05
--- NOTE | 2022-02-08 17:00 | PC.NURSE ---
Patient resting comfortably in bed, new admit this afternoon from ED with symptomatic bradycardia, gastroenteritis, and epigastric pain. Has not c/o nvd since arrival to the floor, alert and oriented x4, perrla, HR reg, SB per telemetry, HR remains 40-45, lungs cta, on RA, abd soft and nontender with active bowel sounds in all quads, no peripheral edema noted, peripheral pulses 2+, voids per BR, ambulates with standby assist, denies any cp or soa, vss.
--- NOTE | 2022-02-08 17:38 | HMH.PHAVTE ---
[facility] Pharmacy VTE Monitoring - Patient Demographics Admission date: 02/08/22 Report Date: 02/08/22 Time: 17:38 Allergies/Adverse Reactions: Patient Allergies azithromycin [AZITHROMYCIN] Allergy (Intermediate, Verified 01/29/22 14:10) NA-NAUSEA codeine [CODEINE] Allergy (Intermediate, Verified 01/29/22 14:10) I-MAQCDL-HPGP/THROAT NUTS (FOOD) Allergy (Intermediate, Uncoded 01/29/22 14:10) I-HIVES tegaderm Allergy (Intermediate, Uncoded 01/29/22 14:10) Blister Height: 1.63 m Weight: 105.375 kg Patient Problems: Current Active Problems (Last Updated 12/24/21 @ 16:45 by Mariel Forbes DO) Gastroenteritis (Acute) Epigastric pain (Acute) Sinus bradycardia (Acute) Symptomatic bradycardia (Acute) Sick sinus syndrome (Acute) Nausea and vomiting (Acute) Diarrhea (Acute) Hypertension (Acute) Hypothyroidism (Acute) Fatigue (Chronic) - VTE Risk Labs: VTE Related Lab Results Hgb 13.7 g/dL (12.2-16.2) 02/08/22 10:08 Hct 42.8 % (37.0-47.0) 02/08/22 10:08 Plt Count 210 K/mm3 (142-424) 02/08/22 10:08 BUN 20 mg/dl (7-17) H 02/08/22 10:08 Creatinine 1.00 mg/dl (0.52-1.04) 02/08/22 10:08 Estimated Creat Clear 102 mL/min (50-200) 02/08/22 10:08 Was VTE Risk Assessment Performed: Yes VTE Score: 2 Clinical Trial Participant: No - Prophylaxis VTE Prophylaxis Ordered?: Yes Types of VTE Prophylaxis: TEDS Knee High Location of Applied Device: Bilateral Lower Extremeties
--- NOTE | 2022-02-08 17:42 | HMH.PHAINT ---
home medication list verified with pt interview
[2022-02-08 19:05] LABS: Troponin I < 0.01 ng/ml (0.00-0.034)
[2022-02-09] VITALS (22 sets, daily range): BP systolic 62–150; BP diastolic 35–99; PULSE 52–138; RESP 12–22; TEMP 36.1–37; O2SAT 88–100; BMI 40.3
--- NOTE | 2022-02-09 06:14 | PC.NURSE ---
Pt has rested intermittently throughout shift. Pt voiced no c/o of pain. Pt's HR has been 52-58 throughout shift. Lungs are CTA. Pt can ambulate to bathroom independently to void. Family at bedside all night.
[2022-02-09 06:46] LABS: Basophils # 0.1 K/mm3 (0-0.2); Basophils % 0.8 % (0.1-2.0); Eosinophils # 0.2 K/mm3 (0.0-0.4); Eosinophils % 4.2 % (0.1-12.0); Hematocrit 40.3 % (37.0-47.0); Hemoglobin 12.9 g/dL (12.2-16.2); Lymphocytes # 1.5 K/mm3 (0.7-4.5); Lymphocytes % 26.6 % (10-50); Mean Corpuscular Hemoglobin 30.2 pg (27.0-31.2); Mean Corpuscular Volume 94.5 fl (81-99); Mean Platelet Volume 10.4 fl (7.4-10.4); Monocytes # 0.3 K/mm3 (0.1-1.0); Monocytes % 5.6 % (1.7-9.3); Neutrophils # 3.6 K/mm3 (1.8-7.8); Neutrophils % 62.8 % (37.0-80.0); Platelet Count 194 K/mm3 (142-424); Red Blood Count 4.27 M/mm3 (4.20-5.40); Red Cell Distribution Width 14.6 % (11.5-17.5); White Blood Count 5.8 K/mm3 (4.8-10.8)
[2022-02-09 07:08] LABS: Chloride 112 mmol/L (98-107); Sodium 139 mmol/L (136-145)
[2022-02-09 07:10] LABS: Bilirubin,Unconjugated 0.3 mg/dL (0.0-1.1); Blood Urea Nitrogen 17 mg/dl (7-17); Creatinine Clearance Estimated 125 mL/min (50-200); Estimated Glomerular Filt Rate 66 ml/min (>60); GFR (African American) 80 ML/MIN (>60)
[2022-02-09 07:11] LABS: Alanine Aminotransferase 18 U/L (12-78); Albumin Level 3.6 g/dl (3.5-5.0); Alkaline Phosphatase 95 U/L (38-126); Aspartate Amino Transferase 44 U/L (14-36); Bilirubin,Direct 0.5 mg/dl (0.0-0.4); Bilirubin,Indirect 0.3 mg/dL (0.0-0.9); Bilirubin,Total 0.8 mg/dl (0.2-1.3); Calcium 9.3 mg/dl (8.4-10.2); Carbon Dioxide 21 mmol/L (22.0-30.0); Cholesterol 165 mg/dl (140-200); Glucose 122 mg/dl (74-100); HDL Cholesterol 41 mg/dl (40-60); Total Protein,Serum 6.7 g/dl (6.3-8.2); Triglycerides 98 mg/dl (30-150); VLDL Cholesterol 20 mg/dL (0-40)
[2022-02-09 07:22] LABS: Direct LDL Cholesterol 101.04 mg/dL (100-129)
--- NOTE | 2022-02-09 08:45 | P.PN_ITS ---
[facility] Anesthesia Checklist - Patient Identification Patient Identification: Arm Band - Structural Data Admitted From: Inpatient Planned Operative Procedure/s: Pacemaker Consent for Planned Operative Procedure(s) Verified: Yes - NPO Status Verified Time NPO: 08:00 - Additional verifications Anesthesia Reactions: No Hx Blood Transfusions: No Blood Transfusion Reaction: No - Airway Assessment C-Spine Mobility Assessed: Yes TMJ Mobility Assessed: Yes Dentition: Good Dentition - Neurological Assessment Level of Consciousness: Awake Hx Seizures: No Numbness or tingling in extremities: No - Anesthesia Plan Anesthesia Risk discussed: Yes Anesthesia Plan: Verified ASA Class: III Anesthesia Type: MAC [facility] History I have reviewed the patient's past medical history: Yes Medical History: Reports:: Deep Vein Thrombosis, Gall Bladder Disease, Hypertension, Transient Ischemic Attacks (TIA) Denies:: Cancer, Diabetes Mellitus Type 1, Diabetes Mellitus Type 2, Internal Pacemaker, Lung Disease, MRSA, Seizures *Have you ever received a pneumonia vaccine?: No *Have you received a flu vaccine this season?: Yes Other Medical History: Reports: Anemia, Arthritis, Hypothyroidism, Other. Denies: Blood Transfusion Reaction Anesthesia experience/problems:: None Other Surgeries: Yes: No Previous Surgery, Appendectomy, Cardiac Catheterization, Cholecystectomy, Colonoscopy, (x 2), Hernia Repair, Hysterectomy-Total, Hysterectomy-Partial, Tubal Ligation, Other. No: Pacemaker Amputation: No Fractures: No - *Social History Last grade of school completed: 9th or 10th Smoking Status: Former smoker Tobacco Type: cigarettes # Packs/Day (cigarettes): 1 Alcohol Intake: current Alcohol Intake Frequency:: holidays/special occasions only Substance Use Type: denies use *Occupational Status:: unemployed Housing: house Household Members: family *Travel in the last 8 weeks: None Family Hx:: Cancer, Coronary Artery Disease, Diabetes, Hyperlipidemia, Hypertension, Other
--- NOTE | 2022-02-09 09:04 | HMH.HP ---
*Admission Date: 02/08/22 *Chief complaint: Nausea/vomiting and weakness *History of present illness: 51-year-old female patient presents to the [facility] emergency department for reports of abdominal pain, fatigue, nausea/vomiting/diarrhea starting yesterday. She denies fever/chills or body aches, and has taste/smell. she denies any blood in her emesis or stools. She denies any contact with illness. She does work a very physical job outside. In the ER EKG showed sinus bradycardia with heart rate of 44 [facility] History I have reviewed the patient's past medical history: Yes Medical History: Reports:: Deep Vein Thrombosis, Gall Bladder Disease, Hypertension, Transient Ischemic Attacks (TIA) Denies:: Cancer, Diabetes Mellitus Type 1, Diabetes Mellitus Type 2, Internal Pacemaker, Lung Disease, MRSA, Seizures *Have you ever received a pneumonia vaccine?: No *Have you received a flu vaccine this season?: Yes Other Medical History: Reports: Anemia, Arthritis, Hypothyroidism, Other. Denies: Blood Transfusion Reaction Anesthesia experience/problems:: None Other Surgeries: Yes: No Previous Surgery, Appendectomy, Cardiac Catheterization, Cholecystectomy, Colonoscopy, (x 2), Hernia Repair, Hysterectomy-Total, Hysterectomy-Partial, Tubal Ligation, Other. No: Pacemaker Amputation: No Fractures: No - *Social History Last grade of school completed: 9th or 10th Smoking Status: Former smoker Tobacco Type: cigarettes # Packs/Day (cigarettes): 1 Alcohol Intake: current Alcohol Intake Frequency:: holidays/special occasions only Substance Use Type: denies use *Occupational Status:: unemployed Housing: house Household Members: family *Travel in the last 8 weeks: None Family Hx:: Cancer, Coronary Artery Disease, Diabetes, Hyperlipidemia, Hypertension, Other Review of Systems - Review of Systems Review of systems:: pertinent systems reviewed and negative unless documented below - Constitutional Reports fatigue, Reports weakness, Denies fever(s) - Eyes Denies blurry vision, Denies loss of vision - ENT Denies dizziness, Denies difficulty swallowing, Denies nasal discharge - *Cardiovascular Denies chest pain, Denies shortness of breath with activity - *Respiratory Denies chest congestion, Denies shortness of breath - *Gastrointestinal Reports abdominal pain, Reports change in bowel habits, Reports change in stools, Reports loose stools, Reports loose stools, Reports nausea, Reports vomiting, Denies vomiting blood, Denies bright, red blood in stools, Denies black, tarry stools - *Musculoskeletal Denies abnormal walking, Denies decreased muscle mass, Denies muscle cramps - Integumentary/Breasts Denies bleeding lesions, Denies change in skin color - *Neurologic Reports weakness, Denies abnormal walking, Denies abnormal speech, Denies confusion - Psychiatric Denies lack of enjoyment, Denies anxiety, Denies confusion - Endocrine Denies cold intolerance, Denies excessive sweating, Denies heat intolerance - Hematologic/Lymphatic Denies easy bleeding, Denies easy bruising - Allergic/Immunologic Denies GI upset with certain foods, Denies tongue swelling Meds Home Medications Medication Instructions Recorded Confirmed Type aspirin 325 mg tablet,delayed 325 mg PO DAILY 05/09/19 02/08/22 History release Allergies Allergy/AdvReac Type Severity Reaction Status Date / Time azithromycin [AZITHROMYCIN] Allergy Intermediate NA-NAUSEA Verified 01/29/22 14:10 codeine [CODEINE] Allergy Intermediate S-SWELLS-OR Verified 01/29/22 14:10 AL/THROAT NUTS (FOOD) Allergy Intermediate I-HIVES Uncoded 01/29/22 14:10 tegaderm Allergy Intermediate Blister Uncoded 01/29/22 14:10 Exam Vital signs and Labs for Last 24 Hours: Temp Pulse Resp BP Pulse Ox 97.0 F L 121 H 16 62/36 L 92 L 02/09/22 17:00 02/09/22 16:45 02/09/22 17:00 02/09/22 17:00 02/09/22 17:00 Laboratory Results - last 24 hr 08
--- NOTE | 2022-02-09 10:49 | HMH.PNCARD ---
Subjective Date: 02/09/22 Time: 10:00 Principal diagnosis: symptomatic bradycardia, sss Interval history: This is a 51-year-old female who presented to the emergency department with complaints of nausea, vomiting and diarrhea. The patient states that she just felt very ill and it progressively worsened. She also had episodes of dizziness and just did not feel like herself. She denied any syncope. The patient denies any chest pain or pressure. She denies any shortness of breath or edema. She denies any fever, chills, PND or orthopnea. When the patient got to the emergency department she was being worked up for GI issues. The patient became tachycardic and did not feel well. The patient was bradycardic with a heart rate in the 40s for most of the day yesterday. Her heart rate did get as low as 38 bpm when she was admitted to the hospital. She states that she just does not feel well and is very fatigued. She also has some intermittent dizziness as well. She states that she still feels very nauseated. She has had no more vomiting or diarrhea. Exam Vital signs and Labs for Last 24 Hours: Temp Pulse Resp BP Pulse Ox 98.2 F 58 L 16 133/84 96 02/09/22 08:00 02/09/22 08:00 02/09/22 08:00 02/09/22 08:00 02/09/22 08:00 Laboratory Results - last 24 hr 02/08/22 09:25: Urine Color Yellow, Urine Appearance Sl cloudy, Urine pH 7.0, Ur Specific [place] 1.020, Urine Protein Negative, Urine Glucose (UA) Negative, Urine Ketones Negative, Urine Blood Trace-i, Urine Nitrate Negative, Urine Bilirubin Negative, Urine Urobilinogen 0.2, Ur Leukocyte Esterase 1+ A, Urine RBC 3-5, Urine WBC 3-5, Ur Squamous Epith Cells 5-10, Urine Bacteria 2+ 02/08/22 10:08: Troponin I < 0.01 02/08/22 10:08: TSH 5.30 H, Free T4 Index 2.3 L, Thyroxine (T4) 7.8, T3 Uptake 30 02/08/22 10:08: Magnesium 1.9 02/08/22 12:37: SARS-CoV-2 (PCR) Not detected, Influenza A Untype (PCR) Not detected, Influenza Type B (PCR) Not detected 02/08/22 13:58: Troponin I < 0.01 02/08/22 17:50: Troponin I < 0.01 02/09/22 06:38: WBC 5.8, RBC 4.27, Hgb 12.9, Hct 40.3, MCV 94.5, MCH 30.2, MCHC 32.0, RDW 14.6, Plt Count 194, MPV 10.4, Neut % (Auto) 62.8, Lymph % (Auto) 26.6, [place] % (Auto) 5.6, Eos % (Auto) 4.2, Baso % (Auto) 0.8, Neut # (Auto) 3.6, Lymph # (Auto) 1.5, [place] # (Auto) 0.3, Eos # (Auto) 0.2, Baso # (Auto) 0.1 02/09/22 06:38: Sodium 139, Potassium 5.0, Chloride 112 H, Carbon Dioxide 21 L, Anion Gap 11.0, BUN 17, Creatinine 0.90, Estimated Creat Clear 125, Estimated GFR 66, Est GFR ( Amer) 80, Glucose 122 H, Calcium 9.3, Total Bilirubin 0.8, Direct Bilirubin 0.5 H, Conjugated Bilirubin 0.0, Indirect Bilirubin 0.3, Unconjugated Bilirubin 0.3, AST 44 H D, ALT 18, Alkaline Phosphatase 95, Total Protein 6.7, Albumin 3.6 D, Triglycerides 98, Cholesterol 165, LDL Cholesterol Direct 101.04, VLDL Cholesterol 20, HDL Cholesterol 41, Cholesterol/HDL Ratio 4.0 H I & O for Last 24 hours: Intake & Output 02/06/22 02/07/22 02/08/22 02/09/22 23:59 23:59 23:59 23:59 Intake Total 360 / 600 240 / 240 Balance 360 / 600 240 / 240 Weight 232 lb 5 oz 236 lb 1.6 oz Microbiology Reports for the Last 24 Hours: Microbiology 02/08/22 09:25 Urine,Clean Catch Urine Culture - Preliminary Gram Negative Rods Narrative: Telemetry strip shows sinus rhythm with a heart rate in the 50s and low 60s. Echocardiogram shows: 1. Technically difficult study because of the patient factors and poor acoustic windows. 2. Mild biatrial enlargement, normal left ventricular size, mild concentric left ventricular hypertrophy, estimated ejection fraction 55% with no regional wall motion abnormality, diastolic parameters are inconclusive. 3. Trace mitral and tricuspid regurgitation. 4. No significant pericardial effusion noted. 5. Inferior vena cava is poorly visualized. - Constitutional no acute distress, morbidly obese - *Routine HEENT Exam
--- NOTE | 2022-02-09 13:10 | HMH.ACPN2 ---
Internal Medicine - PN: Subj *Date: 02/09/22 *Time: 13:10 Exam Vital signs and Labs for Last 24 Hours: Temp Pulse Resp BP Pulse Ox 98.1 F 54 L 16 112/73 98 02/09/22 12:00 02/09/22 12:00 02/09/22 12:00 02/09/22 12:00 02/09/22 12:00 Laboratory Results - last 24 hr 02/08/22 09:25: Urine Color Yellow, Urine Appearance Sl cloudy, Urine pH 7.0, Ur Specific [place] 1.020, Urine Protein Negative, Urine Glucose (UA) Negative, Urine Ketones Negative, Urine Blood Trace-i, Urine Nitrate Negative, Urine Bilirubin Negative, Urine Urobilinogen 0.2, Ur Leukocyte Esterase 1+ A, Urine RBC 3-5, Urine WBC 3-5, Ur Squamous Epith Cells 5-10, Urine Bacteria 2+ 02/08/22 12:37: SARS-CoV-2 (PCR) Not detected, Influenza A Untype (PCR) Not detected, Influenza Type B (PCR) Not detected 02/08/22 13:58: Troponin I < 0.01 02/08/22 17:50: Troponin I < 0.01 02/09/22 06:38: WBC 5.8, RBC 4.27, Hgb 12.9, Hct 40.3, MCV 94.5, MCH 30.2, MCHC 32.0, RDW 14.6, Plt Count 194, MPV 10.4, Neut % (Auto) 62.8, Lymph % (Auto) 26.6, [place] % (Auto) 5.6, Eos % (Auto) 4.2, Baso % (Auto) 0.8, Neut # (Auto) 3.6, Lymph # (Auto) 1.5, [place] # (Auto) 0.3, Eos # (Auto) 0.2, Baso # (Auto) 0.1 02/09/22 06:38: Sodium 139, Potassium 5.0, Chloride 112 H, Carbon Dioxide 21 L, Anion Gap 11.0, BUN 17, Creatinine 0.90, Estimated Creat Clear 125, Estimated GFR 66, Est GFR ( Amer) 80, Glucose 122 H, Calcium 9.3, Total Bilirubin 0.8, Direct Bilirubin 0.5 H, Conjugated Bilirubin 0.0, Indirect Bilirubin 0.3, Unconjugated Bilirubin 0.3, AST 44 H D, ALT 18, Alkaline Phosphatase 95, Total Protein 6.7, Albumin 3.6 D, Triglycerides 98, Cholesterol 165, LDL Cholesterol Direct 101.04, VLDL Cholesterol 20, HDL Cholesterol 41, Cholesterol/HDL Ratio 4.0 H I & O for Last 24 hours: Intake & Output 02/06/22 02/07/22 02/08/22 02/09/22 23:59 23:59 23:59 23:59 Intake Total 360 / 600 480 / 480 Output Total 200 / 200 Balance 360 / 600 280 / 280 Weight 232 lb 5 oz 236 lb 1.6 oz Microbiology Reports for the Last 24 Hours: Microbiology 02/08/22 09:25 Urine,Clean Catch Urine Culture - Preliminary Gram Negative Rods Assessment and Plan (1) Symptomatic bradycardia Status: Acute Category: Medical Code(s): R00.1 - Bradycardia, unspecified (2) Sick sinus syndrome Status: Acute Category: Medical Code(s): I49.5 - Sick sinus syndrome (3) Nausea and vomiting Status: Acute Category: Medical Code(s): R11.2 - Nausea with vomiting, unspecified (4) Diarrhea Status: Acute Category: Medical Code(s): R19.7 - Diarrhea, unspecified (5) Hypertension Status: Acute Category: Medical Code(s): I10 - Essential (primary) hypertension (6) Fatigue Status: Chronic Qualifiers: Fatigue type: unspecified Qualified Code(s): R53.83 - Other fatigue Category: Medical Code(s): R53.83 - Other fatigue (7) Hypothyroidism Status: Acute Category: Medical Code(s): E03.9 - Hypothyroidism, unspecified
--- NOTE | 2022-02-09 14:30 | IR_ITS ---
APPROVED REPORT Patient Location: Inpatient Protozoologist: STEFFEN Parada RT (R) PROCEDURES 1. Pocket formation for Permanent Pacemaker Placement. 2. Placement of an atrial sensing and pacing coil into the right atrial appendage. 3. Placement of a ventricular sensing and pacing coil in the right ventricular apex. 4. Permanent Pacemaker Placement. INDICATION Symptomatic Bradycardia Informed consent was obtained prior to the procedure. COMPLICATIONS After pocket formation initial stick under the left clavicle resulted in what appeared to be venous return. Wire appeared to follow the normal track and down into the superior part of the right atrium. 8 Prydeinig sheath was used initially. That 8 Prydeinig sheath was placed. I then had difficulty getting the ventricular lead down. I took venogram. It was apparent that I was in the right lower pulmonary artery. Sheath was removed and pressure was held. Before I remove the sheath I actually checked the pressure in the sheath. The pressure was not pulsatile and actually appeared to be very dark and when held up, blood went down in the side-port and did not pulsate up. Pressure was held for approximately 5 minutes. No bleeding was apparent. I then accessed again. This was slightly more lateral to my first stick. This was also under the left clavicle. Was able to then advance my wire. I advanced it further than initial and it was evident that I was in the right atrium. Therefore 8 Prydeinig sheath was placed again. Patient appeared to be hemodynamically stable during the procedure but did have some episodes of tachycardia. Blood pressure was stable and oxygen saturations were good. Post chest x-ray was obtained and we will also get a repeat echocardiogram as well as a postoperative CT of the chest for full evaluation. Estimated Blood Loss: Less than 20 cc TECHNIQUE 1% Lidocaine with epinephrine used to anesthetized the left anterior aspect of the chest. Scalpel was used to make the initial cutaneous incision while electrocautery was used to dissect down tinto the fascia. The fascia was lifted off the pectoralis muscle and digitally manipulated creating a pocket for the pacemaker. The patient was then placed in Trendelenburg position and the subclavian vein was accessed twice via the Selinger technique. This was done twice as mentioned above. 8 Prydeinig sheath was used and then double wired with 6 Prydeinig sheaths placed through each wire during the procedure. The dilator was removed from the sheath. Using fluoroscopic guidance, the ventricular lead was placed into the right ventricular apex, screwed and secured into place. Electronic interrogation proved acceptable thresholds and voltage within the lead. Using 3-0 silk, the ventricular lead was then secured into place. Lead was secured to the facia using the 3-0 silk. Following this, the sheath was pealed away. An additional 6 Prydeinig fresh sheath and dilator was placed over the existing wire. Using fluoroscopic guidance, the atrial lead was the placed into the right atrial appendage and screwed and secured in place. Electrical interrogation demonstrated acceptable thresholds and voltage number. The atrial lead was then secured into place using 3-0 silk. 1 gram of Ancef was used to flush the pocket. I also used thrombin powder to make sure there was no additional leaking in the pocket. Patient did have some slight oozing. Following the pacemaker generator being secured to the fascia and in place, Monocryl was used to close the subcutaneous layers while mayito were used to close the cutaneous layer. A pressure dressing was placed and the patient was transferred to the postop holding area in stable condition for postoperative care. IN
--- NOTE | 2022-02-09 16:40 | XR_ITS ---
PROCEDURE INFORMATION: Exam: XR Chest Exam date and time: 02/09/2022 4:45 PM Age: 51 years old Clinical indication: Patient HX: Patient's blood pressure is dropping dangerously low post pacemaker placement. TECHNIQUE: Imaging protocol: Radiologic exam of the chest. Views: 1 view. COMPARISON: CR XR CHEST PORTABLE 12/18/2021 11:25 PM FINDINGS: Tubes, catheters and devices: A pacemaker device is present, and its leads are in appropriate position. Lungs: Atelectatic changes noted within both lung bases. No focal pneumonia or pneumothorax. Pleural spaces: Left pleural effusion. Heart/Mediastinum: Heart demonstrates mild diffuse enlargement. Diaphragm: There is nonspecific elevation of the right hemidiaphragm. Bones/joints: Scoliotic curvature of the thoracic spine. IMPRESSION: 1. Mild cardiomegaly. 2. Atelectatic changes noted within both lung bases. 3. No focal pneumonia or pneumothorax. 4. Left pleural effusion.
--- NOTE | 2022-02-09 16:53 | SUR.PHASEII ---
xray at bedside to obtain portable chest.
--- NOTE | 2022-02-09 16:57 | CT_ITS ---
PROCEDURE INFORMATION: Exam: CT Chest Without Contrast; Diagnostic Exam date and time: 02/09/2022 5:16 PM Age: 51 years old Clinical indication: Device placement; Cardiac pacemaker lead placement or adjustment; Patient HX: Post pacemaker insertion complications. TECHNIQUE: Imaging protocol: Diagnostic computed tomography of the chest without contrast. Radiation optimization: All CT scans at this facility use at least one of these dose optimization techniques: automated exposure control; mA and/or kV adjustment per patient size (includes targeted exams where dose is matched to clinical indication); or iterative reconstruction. COMPARISON: [facility] CT CHEST W/ CONTRAST 06/24/2017 9:39 AM FINDINGS: Tubes, catheters and devices: A pacemaker device is present, and its leads are in appropriate position. Subcutaneous air noted within the left anterior soft tissues consistent with recent pacemaker placement. Lungs: Atelectatic changes noted within both lung bases. Pleural spaces: Left pleural effusion. There is no evidence of pneumothorax. Heart: Moderate pericardial effusion. No coronary artery calcifications. Lymph nodes: Unremarkable. No enlarged lymph nodes. Vasculature: Unremarkable. No aortic aneurysm. Gallbladder and bile ducts: There has been a cholecystectomy. Bones/joints: The thoracic spine demonstrates mild degenerative changes at multiple levels. Soft tissues: Unremarkable. Other findings: Lack of IV contrast limits the study as well as decreases sensitivity and specificity. IMPRESSION: 1. A pacemaker device is present, and its leads are in appropriate position. 2. Moderate pericardial effusion. 3. Left pleural effusion. 4. Atelectatic changes noted within both lung bases. 5. Subcutaneous air noted within the left anterior soft tissues consistent with recent pacemaker placement.
--- NOTE | 2022-02-09 17:02 | SUR.PHASEII ---
verbal order given per Dr. Lambert to start Levophed drip.
--- NOTE | 2022-02-09 17:10 | SUR.PHASEII ---
pt transported to CT scan x 2 nurses. pt on o2 mask, blood pressure, heart monitor, and pulse ox.
--- NOTE | 2022-02-09 17:10 | SUR.PHASEII ---
Levophed drip started at 30.
--- NOTE | 2022-02-09 17:28 | SUR.PHASEII ---
pt returned from CT scan at this time.
--- NOTE | 2022-02-09 18:22 | SUR.PHASEII ---
multiple attempts to obtain blood pressure per myself and other nurses. pressure of 70/palp. verbal order for Dopamin drip.
--- NOTE | 2022-02-09 18:23 | SUR.PHASEII ---
Dopamine drip started at this time.
--- NOTE | 2022-02-09 18:30 | SUR.PHASEII ---
report called to Reno Queen RN.
--- NOTE | 2022-02-09 18:30 | SUR.PHASEII ---
Levophed drip stopped.
--- NOTE | 2022-02-09 18:32 | SUR.PHASEII ---
Dr. Lambert to bedside, verbal order for Pepcid, Solumedrol, and Zofran. pt able to answer questions at this time. pt reports nausea and has dry heaving. bp 67/30, hr-119, O2-95 on O2 mask.
--- NOTE | 2022-02-09 18:50 | SUR.PHASEII ---
updated report given to Reno Queen RN at this time.
--- NOTE | 2022-02-09 19:21 | SUR.PHASEII ---
1850- pt's dopamine drip at 10.
--- NOTE | 2022-02-09 20:14 | CT_ITS ---
PROCEDURE INFORMATION: Exam: CTA Head With Contrast, Arteriography Exam date and time: 02/09/22 08:26 PM Age: 51 years old Clinical indication: Stroke-like symptoms; Left facial droop; Additional info: Left side droop TECHNIQUE: Imaging protocol: Computed tomographic angiography of the head with contrast. Exam focused on the arteries. 3D rendering (Not supervised by radiologist): MIP and/or 3D reconstructed images were created by the technologist. Radiation optimization: All CT scans at this facility use at least one of these dose optimization techniques: automated exposure control; mA and/or kV adjustment per patient size (includes targeted exams where dose is matched to clinical indication); or iterative reconstruction. Contrast material: ISOVUE; Contrast volume: 100 ml; Contrast route: INTRAVENOUS (IV); COMPARISON: CT HEAD/BRAIN WO CON 02/09/22 08:24 PM FINDINGS: ANTERIOR CIRCULATION: Right internal carotid artery: Unremarkable. Intracranial segment is patent with no significant stenosis. No aneurysm. Right middle cerebral artery: Unremarkable. No occlusion or significant stenosis. No aneurysm. Right anterior cerebral artery: Unremarkable. No occlusion or significant stenosis. No aneurysm. Left internal carotid artery: Unremarkable. Intracranial segment is patent with no significant stenosis. No aneurysm. Left middle cerebral artery: Unremarkable. No occlusion or significant stenosis. No aneurysm. Left anterior cerebral artery: Unremarkable. No occlusion or significant stenosis. No aneurysm. POSTERIOR CIRCULATION: Right vertebral artery: Unremarkable. No occlusion or significant stenosis. No aneurysm. Left vertebral artery: Unremarkable. No occlusion or significant stenosis. No aneurysm. Basilar artery: Unremarkable. No occlusion or significant stenosis. No aneurysm. Right posterior cerebral artery: Unremarkable. No occlusion or significant stenosis. No aneurysm. Left posterior cerebral artery: Unremarkable. No occlusion or significant stenosis. No aneurysm. Brain: No definite mass, mass effect, or midline shift. Cerebral ventricles: No ventriculomegaly. Bones/joints: Unremarkable. No acute fracture. Soft tissues: Large hemopericardium. IMPRESSION: 1. No large vessel stenosis or occlusion. 2. Large hemopericardium incidentally noted. Cardiology consultation recommended.
--- NOTE | 2022-02-09 20:14 | CT_ITS ---
PROCEDURE INFORMATION: Exam: CTA Neck With Contrast Exam date and time: 02/09/22 08:26 PM Age: 51 years old Clinical indication: Stroke-like symptoms; Left facial droop; Additional info: Left side droop TECHNIQUE: Imaging protocol: Computed tomographic angiography of the neck with contrast. 3D rendering (Not supervised by radiologist): MIP and/or 3D reconstructed images were created by the technologist. Radiation optimization: All CT scans at this facility use at least one of these dose optimization techniques: automated exposure control; mA and/or kV adjustment per patient size (includes targeted exams where dose is matched to clinical indication); or iterative reconstruction. Contrast material: ISOVUE; Contrast volume: 100 ml; Contrast route: INTRAVENOUS (IV); COMPARISON: CT HEAD/BRAIN WO CON 02/09/22 08:24 PM FINDINGS: Tubes, catheters and devices: Left subclavian pacemaker in place. Right common carotid artery: No stenosis. No dissection or occlusion. Right internal carotid artery: No stenosis of the extracranial segment. No dissection or occlusion. Right external carotid artery: No occlusion or stenosis of the origin. Left common carotid artery: No stenosis. No dissection or occlusion. Left internal carotid artery: No stenosis of the extracranial segment. No dissection or occlusion. Left external carotid artery: No occlusion or stenosis of the origin. Right vertebral artery: No stenosis. No dissection or occlusion. Left vertebral artery: No stenosis. No dissection or occlusion. Soft tissues: Normal. No significant soft tissue swelling. Bones/joints: No acute fracture. Pleural spaces: Small left pleural effusion. Heart: Large hemopericardium. Cardiology consultation recommended. IMPRESSION: 1. Large hemopericardium. Cardiology consultation recommended. 2. Recent pacemaker placement. 3. Small left pleural effusion. 4. No hemodynamically significant extracranial cerebrovascular stenosis. REFERENCES: NASCET CRITERIA. The degree of internal carotid artery stenosis is based on NASCET criteria. Normal is no stenosis. Mild is less than 50% stenosis. Moderate is 50-69% stenosis. Severe is 70% to 99% stenosis. Total occlusion is no detectable patent lumen.
--- NOTE | 2022-02-09 20:14 | CT_ITS ---
PROCEDURE INFORMATION: Exam: CT Head Without Contrast Exam date and time: 02/09/2022 8:24 PM Age: 51 years old Clinical indication: Stroke-like symptoms; Left facial droop; Additional info: Left side droop TECHNIQUE: Imaging protocol: Computed tomography of the head without contrast. Radiation optimization: All CT scans at this facility use at least one of these dose optimization techniques: automated exposure control; mA and/or kV adjustment per patient size (includes targeted exams where dose is matched to clinical indication); or iterative reconstruction. Other technique: STROKE PROTOCOL was implemented. COMPARISON: CT HEAD/BRAIN WO/W CON 02/10/2021 1:59 PM FINDINGS: Brain: No hemorrhage, mass effect or midline shift. Cerebral ventricles: No ventriculomegaly. Paranasal sinuses: Visualized sinuses are unremarkable. No fluid levels. Mastoid air cells: Visualized mastoid air cells are well aerated. Bones/joints: No acute fracture. Soft tissues: No acute changes IMPRESSION: No hemorrhage, mass effect or midline shift. MRI of the brain is recommended if symptoms persist. ASSESSMENT: ASPECTS (Marily Stroke Program Early CT Score) is 10.
--- NOTE | 2022-02-09 20:19 | PC.NURSE ---
patient off floor @ this time per nurse and
--- NOTE | 2022-02-09 20:40 | PC.NURSE ---
patient back up to floor @ this time per Dr. and nurses.
--- NOTE | 2022-02-09 21:09 | PC.NURSE ---
PC to transfer center re: transfer to their facility. Call transferred to [facility]
--- NOTE | 2022-02-09 21:12 | XR_ITS ---
PROCEDURE INFORMATION: Exam: XR Chest Exam date and time: 02/09/22 09:14 PM Age: 51 years old Clinical indication: Device placement; Other: Status post pacemaker placement complications. TECHNIQUE: Imaging protocol: Radiologic exam of the chest. Views: 1 view. COMPARISON: CT CHEST WO CON 02/09/22 05:16 PM FINDINGS: Tubes, catheters and devices: Left subclavian pacemaker leads overlie the right atrium and right ventricle. Lungs: Left lower lobe atelectasis. Pleural spaces: Unremarkable. No pleural effusion. No pneumothorax. Heart/Mediastinum: Unremarkable. No cardiomegaly. Bones/joints: Unremarkable. IMPRESSION: 1. Left subclavian pacemaker leads overlie the right atrium and right ventricle. 2. Left lower lobe atelectasis.
--- NOTE | 2022-02-09 22:00 | HMH.DCSUM ---
General - General Admission date:: 02/08/22 Discharge date: 02/09/22 HPI HPI: 51-year-old female patient presents to the [facility] emergency department for reports of abdominal pain, fatigue, nausea/vomiting/diarrhea starting yesterday. She denies fever/chills or body aches, and has taste/smell. she denies any blood in her emesis or stools. She denies any contact with illness. She does work a very physical job outside. In the ER EKG showed sinus bradycardia with heart rate of 44 Hospital Course Hospital Course: The patient was taken to the [facility] earlier this afternoon. A pacemaker was placed per Dr. Lambert with leads into the right atrial appendage and right ventricular apex. Patient was hypotensive in the [facility], initially placed on Levaquin, subsequently dopamine, which is currently running at 8 mcg. After arrival to the floor nursing staff noted left facial weakness, left upper extremity weakness, consistent with stroke. Patient was taken to scan, CT of the head without contrast was obtained showing no hemorrhage no mass-effect or midline shift. CTA brain showed no abnormality. CTA neck showed no occlusion of large vessels but did demonstrate large hemopericardium. Subsequent cxr suggested enlarging process rightward. Discussed with Harish Lambert/Chevy as well as cardiology service at [facility]. A CV-ICU bed was available and arrangements were made to transport patient to via helicopter. She was hemodynamically stable at time of departure. Objective Vital signs: Temp Pulse Resp BP Pulse Ox 98.6 F 138 H 18 150/95 H 96 02/09/22 20:00 02/09/22 18:45 02/09/22 18:45 02/09/22 18:45 02/09/22 18:45 somnolent - *Routine HEENT Exam Head: Present: normocephalic Eye: Absent: conjunctival icterus ENT: Present: mucous membranes moist - *Routine Neck Exam Present: supple - *Routine Respiratory Exam Present: CTA bilaterally - *Routine Cardiovascular Exam Present: RRR - *Routine Abdominal Exam Present: soft, normoactive bowel sounds. Absent: tenderness - *Routine Extremities Exam Absent: extremity cold to touch - *Routine Skin Exam Present: warm. Absent: rash - *Routine Neurological Exam Present: motor deficit, facial asymmetry. Absent: alert, oriented X3, moving all extremities, normal tone, normal speech Results Labs on day of discharge: Labs from last 24 hours 02/09/22 02/09/22 02/08/22 06:38 06:38 09:25 WBC 5.8 RBC 4.27 Hgb 12.9 Hct 40.3 MCV 94.5 MCH 30.2 MCHC 32.0 RDW 14.6 Plt Count 194 MPV 10.4 Neut % (Auto) 62.8 Lymph % (Auto) 26.6 [place] % (Auto) 5.6 Eos % (Auto) 4.2 Baso % (Auto) 0.8 Neut # (Auto) 3.6 Lymph # (Auto) 1.5 [place] # (Auto) 0.3 Eos # (Auto) 0.2 Baso # (Auto) 0.1 Sodium 139 Potassium 5.0 Chloride 112 H Carbon Dioxide 21 L Anion Gap 11.0 BUN 17 Creatinine 0.90 Estimated Creat Clear 125 Estimated GFR 66 Est GFR ( Amer) 80 Glucose 122 H Calcium 9.3 Total Bilirubin 0.8 Direct Bilirubin 0.5 H Conjugated Bilirubin 0.0 Indirect Bilirubin 0.3 Unconjugated Bilirubin 0.3 AST 44 H D ALT 18 Alkaline Phosphatase 95 Total Protein 6.7 Albumin 3.6 D Triglycerides 98 Cholesterol 165 LDL Cholesterol Direct 101.04 VLDL Cholesterol 20 HDL Cholesterol 41 Cholesterol/HDL Ratio 4.0 H Urine Color Yellow Urine Appearance Sl cloudy Urine pH 7.0 Ur Specific [place] 1.020 Urine Protein Negative Urine Glucose (UA) Negative Urine Ketones Negative Urine Blood Trace-i Urine Nitrate Negative Urine Bilirubin Negative Urine Urobilinogen 0.2 Ur Leukocyte Esterase 1+ A Urine RBC 3-5 Urine WBC 3-5 Ur Squamous Epith Cells 5-10 Urine Bacteria 2+ Preliminary micro results at discharge 02/08/22 09:25 Urine Culture - Preliminary Uri
--- NOTE | 2022-02-09 22:11 | PC.NURSE ---
patient left floor with [employer] @ this time for transfer to [facility].
[2022-02-09 23:04] LABS: Microscopic, Urine URINE MICROSCOPIC (MICROSCOPIC)
[2022-02-09 23:07] LABS: Appearance,Urine CLEAR (Clear); Bilirubin,Urine Negative (Negative); Blood, Urine Negative (Negative); Glucose,Urine (UA) 2+ (Negative); Ketones,Urine Negative (Negative); Leukocyte Esterase,Urine Negative (Negative); Nitrate,Urine Negative (Negative); Protein,Urine Negative (Negative); Specific Gravity, Urine <= 1.005 (1.005-1.030); Urobilinogen,Urine 0.2 EU/dl (0.2)
[2022-02-09 23:09] LABS: Color,Urine Straw (Yellow)
--- NOTE | 2022-02-09 23:24 | PC.NURSE ---
pt came back to floor from cathode maker around 1914, pt appeared very sedated at this time and was noted to be incontinent of bowel and bladder, pt vomiting yellowish fluid, pt cleaned up at this time, assessment done at this time as well, pacemaker site soft and no bruising noted, opened eyes to pain, no verbal response at this time at 2004 upon assessment, left side deficits noted, left eye would not open, left side of mouth was noticeably drooping, left conversion man weaker than right, senior publications specialist Dr. Mendez notified at 2007 and came immediately to floor, new orders received for head and neck CTA, head CT, FSBS 297 pt taken by ALEKSEY Us, ALEKSEY Barrera, Tyree, household appliance installer and Dr. Mendez to CT 2013 CT performed, [address] Mendez, Dr. Mendez ordered stat chest x-ray, Dr. Mendez then spoke with Dr. Lambert, Dr. Reece, MD's, [employer] put on standby, 2119 family notified of change in condition, 2134 report called to ALEKSEY Perez at , pt will be going to [facility], 10th floor, 135, accepting Dr bela Rojas 2149 [employer] arrived to floor, pt left floor at 2210
[2022-02-09 23:34] LABS: Bacteria,Urine Trace /lpf; RBC,Urine Occasional #/hpf (0-3); Squamous Epithelial Cell,Urine Occasional #/hpf (0-5)
== END 2022-02-09 22:11 | disposition short-term general hospital (02) | DRG 242 ==
LOC: ER 14:10 → 2ND 15:38
PROVIDERS: Internal Medicine Cardiovascular Disease; Nurse Practitioner Family; Admitting Provider Family Medicine; Emergency Provider Emergency Medicine; PCP Emergency Medicine; Visit Provider Family Medicine
PROC: 0JH606Z Insertion of Pacemaker, Dual Chamber into Chest Subcutaneous Tissue and Fascia, Open Approach (ICD-10-PCS; principal; 2022-02-09 15:45)
DX: I49.5 Sick sinus syndrome (principal); I63.9 Cerebral infarction, unspecified; Z87.891 Personal history of nicotine dependence; Z86.718 Personal history of other venous thrombosis and embolism; Z86.73 Personal history of transient ischemic attack (TIA), and cerebral infarction without residual deficits; E03.9 Hypothyroidism, unspecified; I95.9 Hypotension, unspecified
CPT/HCPCS: 33208; 70450; 70496; 70498; 71045; 71250; 74177; 80048; 80053; 80061; 80076; 81001; 83690; 83735; 84436; 84443; 84479; 84484; 85025; 87086; 87088; 87186; 93005; 93306; 99285; C1785; C1898; C9803; J2405; J2704; Q9967; U0003; U0005

== ENCOUNTER 2022-02-25 12:06 | Emergency (ER) | payer BC, SELFPAY ==
[2022-02-25 12:07] VITALS: BMI 36.0
--- NOTE | 2022-02-25 12:19 | XR_ITS ---
FINAL REPORT CLINICAL HISTORY: epigastric pain, recent pacemaker placement COMPARISON: 02/09/2022 FINDINGS: SINGLE VIEW CHEST Cardiomegaly is noted. A left subclass maker is noted. There is mild bibasilar atelectasis or scarring. There is no pneumothorax. The bony thorax is intact. IMPRESSION: Mild bibasilar atelectasis or scarring. Reviewed, Interpreted and Dictated by Dominguez Calderon III, MD Transcribed by Adam Farmer Authenticated and [facility]
--- NOTE | 2022-02-25 12:25 | ECG_ITS ---
APPROVED REPORT Exam: Resting ECG HR:63 bpm ECG Measurements Heart Rate 63 AXES ID 177 P 18 QRSd 97 QRS 12 QT 397 T 21 QTc 405 Conclusion SINUS RHYTHM LOW QRS VOLTAGE IN PRECORDIAL LEADS [QRS DEFLECTION < 1.0 mV IN CHEST LEADS] BORDERLINE ECG UNCONFIRMED REPORT Electronically signed by : Quan Patel MD 02/26/2022 17:04:29
--- NOTE | 2022-02-25 12:26 | PC.NURSE ---
DELMY DOS SANTOS at for patient eval
[2022-02-25 12:30] VITALS: BP 117/79; PULSE 66; O2SAT 97
--- NOTE | 2022-02-25 12:30 | CT_ITS ---
FINAL REPORT CLINICAL HISTORY: epigastric pain FINDINGS: CT OF THE ABDOMEN AND PELVIS WITH CONTRAST Axial CT images of the abdomen and pelvis were obtained after the administration of intravenous contrast. Coronal reformatted images were also obtained and reviewed.This study was performed with techniques to keep radiation doses as low as reasonably achievable (ALARA). Individualized dose reduction techniques using automated exposure control or adjustment of mA and/or kV according to the patient's size were employed. Abdomen: There is mild bibasilar atelectasis or scarring. The heart is normal in size. There is soft tissue thickening at the gastroesophageal junction of uncertain significance. There is a less than 1 cm cyst in the right liver dome. There is no biliary duct dilatation. Postoperative changes are seen from cholecystectomy. The spleen is unremarkable. There is a right adrenal nodule consistent with an adenoma. The pancreas has an unremarkable appearance. There is mild along left renal cortical thinning. The aorta is normal in caliber. There is no free fluid or adenopathy. There is a small umbilical hernia containing fat. Pelvis: The appendix is not definitely identified. There are no secondary signs suggesting appendicitis. The urinary bladder is unremarkable. No inflammatory process is seen. There is a right inguinal hernia containing fat. There has been hysterectomy. There is no evidence of bowel obstruction. IMPRESSION: Soft tissue thickening at the GE junction of uncertain significance could be inflammatory or neoplastic. Recommend upper endoscopy for further evaluation. Reviewed, Interpreted and Dictated by Dominguez Calderon III, MD Transcribed by Adam Farmer Authenticated and [facility]
--- NOTE | 2022-02-25 13:05 | HMH.EDGENADL ---
ED Disposition Clinical Impression: Gastroesophageal junction erosion, Epigastric pain Disposition: Home, Self-Care Condition on Discharge: Good Instructions: Gastritis, DI for Gastritis, DI for Peptic Ulcer Additional Instructions: You were evaluated in the emergency department today for epigastric pain. Please follow-up outpatient with general surgery. They will plan to do an endoscopy on Tuesday. You should be contacted tomorrow with guarding follow-up. administrative staff supervisor your prescription for your antacid at the pharmacy and take the medication daily as prescribed. Follow-up with your primary care provider over the next 3 days. Return to the emergency department for any new or worsening symptoms. Prescriptions: Pantoprazole Sodium 40 mg PO DAILY #30 tab Transmission Status: Received by [id number] Referrals: Will Rodriguez MD [Primary Care Provider] - Floyd Castaneda MD [Staff Physician] - - Critical Care Critical Care Time: No Attestation: On 02/25/22, the high probability of a clinically significant, sudden or life threatening deterioration of the following system(s) required my full and direct attention, intervention and personal management. The time I documented below is in addition to time spent performing reported procedures but includes the following listed in this critical care notation. Medical Decision Making - Colin Inquiry Pt receiving controlled substance: No Vital Signs: 02/25/22 12:30 02/25/22 13:15 02/25/22 13:28 Temperature Temperature Source Pulse Rate 66 60 63 Respiratory Rate 18 Blood Pressure 117/79 124/84 Blood Pressure Mean 87 97 Blood Pressure Position 02 Sat by Pulse Oximetry 97 98 97 Oxygen Delivery Method Room Air 02/25/22 13:30 02/25/22 14:00 02/25/22 16:38 Temperature 98 F Temperature Source Oral Pulse Rate 62 60 74 Respiratory Rate 18 17 16 Blood Pressure 125/81 123/83 124/74 Blood Pressure Mean 96 97 Blood Pressure Position Sitting 02 Sat by Pulse Oximetry 96 98 Oxygen Delivery Method Room Air Room Air - Lab Data Lab Results 02/25/22 13:00: WBC 4.9, RBC 3.90 L, Hgb 11.6 L, Hct 36.0 L, MCV 92.4, MCH 29.8, MCHC 32.3, RDW 14.5, Plt Count 250, MPV 9.1, Neut % (Auto) 55.2, Lymph % (Auto) 33.7, [place] % (Auto) 5.4, Eos % (Auto) 4.6, Baso % (Auto) 1.1, Neut # (Auto) 2.7, Lymph # (Auto) 1.6, [place] # (Auto) 0.3, Eos # (Auto) 0.2, Baso # (Auto) 0.1 02/25/22 13:00: Sodium 139, Potassium 3.9, Chloride 109 H, Carbon Dioxide 26, Anion Gap 7.9, BUN 20 H, Creatinine 1.00, Estimated Creat Clear 110, Estimated GFR 58 L, Est GFR ( Amer) 71, Glucose 100, Calcium 9.1, Total Bilirubin 0.2, AST 30, ALT 24, Alkaline Phosphatase 109, Troponin I < 0.01, Total Protein 7.0, Albumin 3.9, Globulin 3.1, Albumin/Globulin Ratio 1.3 02/25/22 13:00: Lipase 110 02/25/22 13:00: Lactate 1.2 Result diagrams: 02/25/22 13:00 02/25/22 13:00 Orders (Tests/Meds): ED MEDICATIONS Discontinued Medications Generic Name Dose Route Start Last Admin Trade Name Freq PRN Reason Stop Dose Admin Belladonna Alkaloids 60 ml 02/25/22 15:24 02/25/22 16:15 Gi Cocktail 60ml Udc PO 02/25/22 15:25 60 ml ONCE ONE Administration Hydromorphone HCl 0.5 mg 02/25/22 16:35 02/25/22 16:36 Hydromorphone 2mg/Ml Syringe IV 02/25/22 16:36 0.5 mg ONCE ONE Administration Lactated Ringer's 1,000 mls @ 999 mls/hr 02/25/22 12:45 02/25/22 12:54 Lactated Ringer's 1000 Ml Bag IV 02/25/22 13:45 999 mls/hr .Q1H1M JOSE RAFAEL Administration Iopamidol 75 ml 02/25/22 14:29 02/25/22 14:30 Iopamidol-370 (76%);100ml Bottle IV 02/25/22 14:30 75 ml ONCE ONE Administration Morphine Sulfate 4 mg 02/25/22 12:32 02/25/22 12:55 Morphine 4mg/Ml Syringe IV 03/27/22 12:31 4 mg Q2HP PRN Administration Moderate to Severe Pain Ondansetron HCl 4 mg 02/25/22 12:32 02/25/22 12:54 Ondansetron 4mg/2ml Vial IV 02/25/22 12:33 4 mg ONCE ONE Administr
[2022-02-25 13:15] VITALS: PULSE 60; RESP 18; O2SAT 98
[2022-02-25 13:23] LABS: Basophils # 0.1 K/mm3 (0-0.2); Basophils % 1.1 % (0.1-2.0); Eosinophils # 0.2 K/mm3 (0.0-0.4); Eosinophils % 4.6 % (0.1-12.0); Hemoglobin 11.6 g/dL (12.2-16.2); Lymphocytes # 1.6 K/mm3 (0.7-4.5); Lymphocytes % 33.7 % (10-50); Mean Corpuscular HGB Conc 32.3 g/dL (31.8-35.4); Mean Corpuscular Hemoglobin 29.8 pg (27.0-31.2); Mean Corpuscular Volume 92.4 fl (81-99); Mean Platelet Volume 9.1 fl (7.4-10.4); Monocytes # 0.3 K/mm3 (0.1-1.0); Monocytes % 5.4 % (1.7-9.3); Neutrophils # 2.7 K/mm3 (1.8-7.8); Neutrophils % 55.2 % (37.0-80.0); Platelet Count 250 K/mm3 (142-424); Red Cell Distribution Width 14.5 % (11.5-17.5); White Blood Count 4.9 K/mm3 (4.8-10.8)
[2022-02-25 13:25] LABS: Chloride 109 mmol/L (98-107); Potassium 3.9 mmoL/L (3.5-5.1); Sodium 139 mmol/L (136-145)
[2022-02-25 13:28] VITALS: BP 124/84; PULSE 63; O2SAT 97
[2022-02-25 13:28] LABS: Alanine Aminotransferase 24 U/L (12-78); Albumin Level 3.9 g/dl (3.5-5.0); Albumin/Globulin Ratio 1.3 (1.1-1.8); Alkaline Phosphatase 109 U/L (38-126); Anion Gap 7.9 mEq/L (5-15); Aspartate Amino Transferase 30 U/L (14-36); Bilirubin,Total 0.2 mg/dl (0.2-1.3); Blood Urea Nitrogen 20 mg/dl (7-17); Carbon Dioxide 26 mmol/L (22.0-30.0); Creatinine Clearance Estimated 110 mL/min (50-200); Estimated Glomerular Filt Rate 58 ml/min (>60); GFR (African American) 71 ML/MIN (>60); Globulin 3.1 g/dL (1.3-3.2); Lactic Acid 1.2 mmol/L (0.7-2.1)
[2022-02-25 13:29] LABS: Calcium 9.1 mg/dl (8.4-10.2); Glucose 100 mg/dl (74-100); Lipase 110 U/L (23-300)
[2022-02-25 13:30] VITALS: BP 125/81; PULSE 62; RESP 18; O2SAT 96
[2022-02-25 13:41] LABS: Troponin I < 0.01 ng/ml (0.00-0.034)
[2022-02-25 14:00] VITALS: BP 123/83; PULSE 60; RESP 17; O2SAT 98
--- NOTE | 2022-02-25 14:21 | PC.NURSE ---
patient in CT at this time
--- NOTE | 2022-02-25 16:03 | PC.NURSE ---
ER MD at speaking with patient regarding update on POC/results. Family at
--- NOTE | 2022-02-25 16:11 | PC.NURSE ---
DELMY DOS SANTOS speaking with dr. castillo
[2022-02-25 16:38] VITALS: BP 124/74; PULSE 74; RESP 16; TEMP 36.6; O2SAT 98
== END 2022-02-25 16:58 | disposition home or self-care (01) ==
PROVIDERS: Emergency Provider Emergency Medicine; PCP Emergency Medicine
DX: R10.13 Epigastric pain (principal); R07.9 Chest pain, unspecified; R94.31 Abnormal electrocardiogram [ECG] [EKG]; H53.8 Other visual disturbances; R11.0 Nausea; R00.1 Bradycardia, unspecified; D64.9 Anemia, unspecified; I10 Essential (primary) hypertension; K21.9 Gastro-esophageal reflux disease without esophagitis; E03.9 Hypothyroidism, unspecified; K82.9 Disease of gallbladder, unspecified; M19.90 Unspecified osteoarthritis, unspecified site; Z79.82 Long term (current) use of aspirin; Z79.899 Other long term (current) drug therapy; Z88.0 Allergy status to penicillin; Z88.1 Allergy status to other antibiotic agents; Z88.3 Allergy status to other anti-infective agents; Z88.8 Allergy status to other drugs, medicaments and biological substances; Z91.041 Radiographic dye allergy status; Z91.018 Allergy to other foods; Z91.048 Other nonmedicinal substance allergy status; Z87.891 Personal history of nicotine dependence; Z82.49 Family history of ischemic heart disease and other diseases of the circulatory system; Z80.9 Family history of malignant neoplasm, unspecified; Z83.438 Family history of other disorder of lipoprotein metabolism and other lipidemia
CPT/HCPCS: 71045; 74177; 80053; 83605; 83690; 84484; 85025; 93005; 96361; 96374; 96375; 99285; J2405; Q9967

== ENCOUNTER → 2022-02-27 10:10 | Outpatient (CLI) | payer BC, SELFPAY | PROVIDERS: PCP Emergency Medicine; Visit Provider Surgery | DX: Z01.812 Encounter for preprocedural laboratory examination (principal); Z20.822 Contact with and (suspected) exposure to COVID-19; Z13.810 Encounter for screening for upper gastrointestinal disorder | CPT/HCPCS: C9803; U0003; U0005 ==

== ENCOUNTER 2022-03-02 06:05 | Day surgery (SDC) | payer BC, SELFPAY ==
[2022-03-02] VITALS (7 sets, daily range): BP systolic 92–122; BP diastolic 58–88; PULSE 60–76; RESP 18; TEMP 36.1–36.4; O2SAT 94–99; BMI 36.0
--- NOTE | 2022-03-02 07:16 | P.PN_ITS ---
[facility] Anesthesia Checklist - Patient Identification Patient Identification: Arm Band - Structural Data Admitted From: Home Planned Operative Procedure/s: EGD Consent for Planned Operative Procedure(s) Verified: Yes - NPO Status Verified Time NPO: 00:00 - Additional verifications Anesthesia Reactions: No Hx Blood Transfusions: No Blood Transfusion Reaction: No - Airway Assessment C-Spine Mobility Assessed: Yes TMJ Mobility Assessed: Yes Dentition: Good Dentition - Neurological Assessment Level of Consciousness: Awake Hx Seizures: No Numbness or tingling in extremities: No - Anesthesia Plan Anesthesia Risk discussed: Yes Anesthesia Plan: Verified ASA Class: III Anesthesia Type: [facility] History I have reviewed the patient's past medical history: Yes Medical History: Reports:: Arrhythmia, Deep Vein Thrombosis, Gall Bladder Disease, Hypertension, Internal Pacemaker, Transient Ischemic Attacks (TIA) Denies:: Cancer, Diabetes Mellitus Type 1, Diabetes Mellitus Type 2, Lung Disease, MRSA, Seizures *Have you ever received a pneumonia vaccine?: No *Have you received a flu vaccine this season?: Yes Other Medical History: Reports: Anemia, Arthritis, Hypothyroidism, Other. Denies: Blood Transfusion Reaction Anesthesia experience/problems:: None Other Surgeries: Yes: No Previous Surgery, Appendectomy, Cardiac Catheterization, Cholecystectomy, Colonoscopy, (x 2), Hernia Repair, Hysterectomy-Total, Hysterectomy-Partial, Pacemaker, Tubal Ligation, Other Amputation: No Fractures: No - *Social History Last grade of school completed: High school graduate Smoking Status: Former smoker Tobacco Type: cigarettes # Packs/Day (cigarettes): 1 Alcohol Intake: current Alcohol Intake Frequency:: holidays/special occasions only Substance Use Type: denies use *Occupational Status:: unemployed Housing: house Household Members: family *Travel in the last 8 weeks: None Family Hx:: Cancer, Coronary Artery Disease, Diabetes, Hyperlipidemia, Hypertension, Other
--- NOTE | 2022-03-02 07:18 | HMH.SCOPE ---
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 Sedation:: Monitored anesthesia care Procedure:: After informed consent was obtained the patient was taken to the endoscopy suite. Sedation ensued after the patient was transferred to the left lateral decubitus position. Pulse, blood pressure, and oxygen saturation were monitored throughout the procedure. The endoscope was advanced beyond the duodenal bulb. Retroflexion within the gastric lumen was accomplished. The gastroscope was carefully removed and the patient was transferred to recovery in stable condition. Please see findings and specimens below for detail. Findings:: No definitive stricture or mass lesion at gastroesophageal junction Very mild patchy gastritis Bilious reflux Loose fundoplication wrap with small residual paraesophageal defect versus high arc Specimens:: Antral biopsy Recommendations:: Follow-up pathology Barium swallow in near future Complications:: No immediate Estimated blood obtained (mL): 1
== END 2022-03-02 08:20 | disposition home or self-care (01) ==
LOC: OUTP 06:06
PROVIDERS: PCP Emergency Medicine; Visit Provider Surgery
PROC: 0DJ08ZZ Inspection of Upper Intestinal Tract, Via Natural or Artificial Opening Endoscopic (ICD-10-PCS; CPT 43235; principal; 2022-03-02 07:00)
DX: R10.13 Epigastric pain (principal); K31.9 Disease of stomach and duodenum, unspecified; I10 Essential (primary) hypertension; Z95.0 Presence of cardiac pacemaker; Z79.899 Other long term (current) drug therapy
CPT/HCPCS: 43239

== ENCOUNTER → 2022-03-08 11:32 | Outpatient (CLI) | payer BC, SELFPAY ==
[2022-03-08 12:23] LABS: Basophils % 0.9 % (0.1-2.0); Eosinophils # 0.2 K/mm3 (0.0-0.4); Eosinophils % 4.5 % (0.1-12.0); Hematocrit 40.2 % (37.0-47.0); Hemoglobin 12.4 g/dL (12.2-16.2); Lymphocytes # 1.3 K/mm3 (0.7-4.5); Lymphocytes % 34.6 % (10-50); Mean Corpuscular HGB Conc 30.8 g/dL (31.8-35.4); Mean Corpuscular Hemoglobin 29.3 pg (27.0-31.2); Mean Corpuscular Volume 95.3 fl (81-99); Monocytes # 0.2 K/mm3 (0.1-1.0); Monocytes % 4.9 % (1.7-9.3); Neutrophils # 2.1 K/mm3 (1.8-7.8); Neutrophils % 55.2 % (37.0-80.0); Platelet Count 177 K/mm3 (142-424); Red Blood Count 4.22 M/mm3 (4.20-5.40); Red Cell Distribution Width 14.5 % (11.5-17.5); White Blood Count 3.7 K/mm3 (4.8-10.8)
== END ==
PROVIDERS: PCP Family Medicine; Visit Provider Internal Medicine
DX: Z01.812 Encounter for preprocedural laboratory examination (principal); Z20.822 Contact with and (suspected) exposure to COVID-19; T82.7XXA Infection and inflammatory reaction due to other cardiac and vascular devices, implants and grafts, initial encounter
CPT/HCPCS: 36415; 85025; 86140; 87070; 87077; 87186; 87205; C9803; U0003; U0005

== ENCOUNTER 2022-03-09 09:49 | Day surgery (SDC) | payer BC, SELFPAY ==
[2022-03-09] VITALS (10 sets, daily range): BP systolic 97–134; BP diastolic 56–89; PULSE 42–66; RESP 14–17; O2SAT 92–99; BMI 38.6
--- NOTE | 2022-03-09 | IR_ITS ---
APPROVED REPORT Patient Location: Outpatient [facility] Internship: STEFFEN Romo RT (R) PROCEDURES 1. Extraction of a chronic atrial sensing and pacing coil from the right atrial appendage. 2. Extraction of a chronic ventricular sensing and pacing coil from the right ventricular apex 3. Permanent Pacemaker Removal INDICATION Infection involving the pacemaker pocket Informed consent was obtained prior to the procedure. COMPLICATIONS NONE Estimated Blood Loss: LESS THAN 10 ML TECHNIQUE 1% Lidocaine with epinephrine used to anesthetized the left anterior aspect of the chest. Scalpel was used to open previous incision. Generator removed from pocket and disconnected from leads. Leads detached from wall of the heart and removed through access site. Pocket cleaned and flushed with antibiotics, packed with clean dry four by four gauze. A pressure dressing was placed and the patient was transferred to the postop holding area in stable condition for postoperative care. IMPRESSION 1. Succesful removal of an atrial sensing and pacing coil from the right atrial appendage. 2, Succesful removal of a ventricular sensing and pacing coil from the right ventricular apex. 3. Succesful permanent Pacemaker Removal PLAN 1. Refered to wound care clinic for management of infection site. 2. The incision/wound was left open with plans for daily dry packing and allowing of chronic granulation Electronically signed by : Naveed Reece MD 03/10/2022 15:31:49
--- NOTE | 2022-03-09 13:44 | SUR.PHASEII ---
Dr. Reece requested patient to have pt evaluation and treatment daily. called central scheduling and patient has an appointment for 10 am tomorrow. pt informed.
== END 2022-03-09 15:47 | disposition home or self-care (01) ==
PROVIDERS: PCP Family Medicine; Visit Provider Internal Medicine
DX: T82.7XXA Infection and inflammatory reaction due to other cardiac and vascular devices, implants and grafts, initial encounter (principal); T81.31XA Disruption of external operation (surgical) wound, not elsewhere classified, initial encounter; I10 Essential (primary) hypertension; I49.5 Sick sinus syndrome; Y83.1 Surgical operation with implant of artificial internal device as the cause of abnormal reaction of the patient, or of later complication, without mention of misadventure at the time of the procedure
CPT/HCPCS: 33233; 33235; 99152

== ENCOUNTER → 2022-03-11 09:05 | Outpatient (POV) | payer BC, SELFPAY ==
[2022-03-11 09:15] VITALS: BP 151/89; PULSE 89; RESP 18; TEMP 36.8; O2SAT 97; BMI 36.0
--- NOTE | 2022-03-11 09:35 | EXP.PAIN.SOA ---
[facility] Pain Management SOAP Note Subjective:: Patient is a pleasant 51-year-old female who presents today for follow-up from a last CT L4-L5 on 11/27/2021. We are currently treating the patient for degenerative disc disease of lumbar spine multilevels with lumbar radiculopathy symptoms. Patient states that she did get significant improvement from this last injection however it did only last for a few days. She states about 80% worth of relief. She states her first epidural she did get 4 to 5 months of relief at 80 to 90% improvement. Today she rates her pain a 9 out of 10 and states is primarily along her low back. Patient denies any new trauma or injury. Patient was scheduled to have back surgery this month however it is going to have to be rescheduled due to her pacemaker becoming infected and having it removed on Tuesday. The patient is currently on antibiotics cephalexin and is finishing up her dosage this week. Patient does use Tylenol [id number] to help with minimal improvement of her pain symptoms. Patient states that she has tried topical creams such as Biofreeze and lidocaine patches however they do not provide significant improvement. Her Colin is [id number]. It has been reviewed and appropriate. Review of Systems: General: No recent weight changes, no fever, no sleep disturbances Respiratory: No cough, no shortness of air, no recurring pulmonary infections Cardiovascular/peripheral vascular: No chest pain, no palpitations, no edema, no shortness of breath Gastrointestinal: No new onset incontinence, normal bowel movements reported Genitourinary: No new onset incontinence Musculoskeletal: Low back pain Psychiatric: [Normal mood/affect] Neurological: [Denies weakness in extremities], [denies balance issues] Objective:: Physical Exam: General: Alert and oriented x3, no acute distress, pleasant and cooperative Lungs: Respirations even and unlabored, symmetrical chest expansion Eyes: PERRL Musculoskeletal: Flexion and extension of lumbar [spine] somewhat guarded secondary to pain, [antalgic gait noted] Neurological: Speech clear, no gross sensory deficit Assessment:: Degenerative disc disease of lumbar spine multilevels with lumbar radiculopathy symptoms Plan:: Patient has significant pain along her low back at today's visit. In the past she has had significant improvement of her symptoms following lumbar epidural injections. I have discussed with the patient regarding having repeat injections after a 14-day waiting period following her antibiotic use. Risks and benefits of the procedure have been explained to the patient. Patient would like to proceed with the procedure. I will also order the patient a compounding cream at today's visit. We will schedule the patient for a LESI L4-L5 at today's visit. Patient has been instructed to contact the clinic with any concerns before the next appointment. Dr. Marie has reviewed this note and agrees with this plan of care. This note was dictated using voice recognition software and make contain errors or omissions. [facility] Medical History (Updated 03/10/22 @ 09:15 by NISH Don) Abnormal EKG Aftercare following removal/replacement pacemaker Blurry vision Chest pain Dyspnea Hx-TIA (transient ischemic attack) Visual disturbance Surgical History (Updated 03/10/22 @ 09:15 by NISH Don) History of esophagogastroduodenoscopy (EGD) Social History (Updated 03/10/22 @ 09:16 by NISH Don) Smoking Status: Former smoker second hand exposure: No alcohol intake: current substance use type: denies use current occupational status: unemployed Travel in the last 8 weeks: None household members: family housing: house current occupational exposures/hazards: No caffeine: Yes
== END ==
PROVIDERS: PCP Emergency Medicine; Visit Provider Nurse Practitioner Family
DX: M51.16 Intervertebral disc disorders with radiculopathy, lumbar region (principal)
CPT/HCPCS: 99212; G0463

== ENCOUNTER → 2022-03-17 09:00 | Outpatient (CLI) | payer BC, SELFPAY ==
--- NOTE | 2022-03-17 09:00 | CA_ITS ---
FINAL REPORT TECHNIQUE: Graded compression, spectral analysis and ultrasound images of the venous system of the left upper extremity were obtained. CLINICAL HISTORY: left arm pain, Hx pacer removal with infection FINDINGS: The jugular vein, subclavian vein, axillary vein, brachial vein, cephalic vein and basilic venous system are fully compressible and demonstrate no evidence of thrombosis. IMPRESSION: No evidence of thrombosis of the venous system of the left upper extremity. Reviewed, Interpreted and Dictated by Dominguez Calderon III, MD Transcribed by Adam Farmer Authenticated and [facility]
--- NOTE | 2022-03-17 09:38 | XR_ITS ---
FINAL REPORT CLINICAL HISTORY: left arm swelling after pacemaker was taken out COMPARISON: February 25, 2022 FINDINGS: Two views of the chest were obtained. The heart size and pulmonary vascularity are within normal limits. The mediastinum is normal. No acute pulmonary abnormality is identified. There is no pneumothorax. The bony thorax is intact. IMPRESSION: No active cardiopulmonary disease. Reviewed, Interpreted and Dictated by Dominguez Calderon III, MD Transcribed by Adam Farmer Authenticated and [facility]
== END ==
PROVIDERS: PCP Emergency Medicine; Visit Provider Nurse Practitioner Family
DX: M79.602 Pain in left arm (principal); M79.89 Other specified soft tissue disorders
CPT/HCPCS: 71046; 93971

== ENCOUNTER 2022-03-30 14:07 | Day surgery (SDC) | payer BC, SELFPAY ==
[2022-03-30 14:16] VITALS: BP 115/84; PULSE 77; RESP 18; TEMP 36.7; O2SAT 95; BMI 39.4
[2022-03-30 14:17] VITALS: BP 148/103; PULSE 66; RESP 18; O2SAT 95
[2022-03-30 14:19] VITALS: BP 148/103; PULSE 66; RESP 20; O2SAT 96
--- NOTE | 2022-03-30 14:23 | EXP.PAIN.PRO ---
Procedure Date: 03/30/22 Time: 14:23 Anesthesiologist:: Angelo Torres CRNA Complications:: None Pre-procedure Diagnosis:: Degenerative disc disease lumbar spine multilevels. Lumbar radiculopathy symptoms Post-procedure Diagnosis:: Same Indications for Procedure:: Patient is a pleasant 51-year-old female that comes our injection clinic today for third lumbar epidural steroid injection. She has had relief in terms of her low back pain and bilateral hip and leg radicular symptoms with previous injections. She rates her pain today /10. Procedure Details:: Procedure: Lumbar epidural steroid injection under fluoroscopy Informed consent was obtained and the risks and benefits of the procedure were explained to the patient. The patient was taken to the procedure room and noninvasive monitors placed, including noninvasive blood pressure cuff and pulse oximeter. The back was viewed using C-arm Fluoroscopy and prepped using Betadine as a cleansing solution and the L4-L5 interspace was palpated. Skin and subcutaneous tissues were anesthetized using lidocaine 1.5% and a 25-gauge needle. After this, an 18-gauge Touhy epidural needle was placed into the L4-L5 interspace and advanced using fluoroscopic guidance and loss of resistance to air until the epidural space was encountered. After confirmation of needle placement in the epidural space, with dye, a solution containing lidocaine 1.5%, 4 mL and Depo-Medrol 80 mg were incrementally injected into the lumbar epidural space. The patient tolerated the procedure well with no complications. The patient was observed in the Pain Clinic and then discharged home neurologically intact. Plan and Disposition:: Patient was discharged without incident.
[2022-03-30 14:40] VITALS: BP 134/81; PULSE 68; RESP 18; O2SAT 100
== END 2022-03-30 14:40 | disposition home or self-care (01) ==
PROVIDERS: PCP Emergency Medicine; Visit Provider Nurse Anesthetist, Certified Registered
DX: M51.16 Intervertebral disc disorders with radiculopathy, lumbar region (principal)
CPT/HCPCS: 62323; J1040

== ENCOUNTER → 2022-03-31 08:42 | Outpatient (CLI) | payer BC, SELFPAY ==
--- NOTE | 2022-03-31 08:47 | FL_ITS ---
FINAL REPORT CLINICAL HISTORY: epigastric pain fluoro time-1.24 FINDINGS: ESOPHAGRAM HISTORY: Abdominal pain, nausea. PROCEDURE: The patient ingested barium. Effervescent crystals were also administered. Spot and overhead films were obtained. FINDINGS: The esophagus demonstrates esophageal dysmotility. There is narrowing of the distal esophagus likely related to previous Evin fundoplication. A 13 mm barium tablet is briefly delayed in passage through the Evin defect. In the recumbent position there is a sliding-type hiatal hernia containing the Evin wrap consistent with a slipped Evin. No significant gastroesophageal reflux was identified however. IMPRESSION: Findings consistent with a slipped Evin . A 13 mm barium tablet is delayed in passage through the Evin fundoplication defect. No significant esophageal reflux was identified. There is esophageal dysmotility. Films reviewed , interpreted and dictated by Dr. Rajput. Transcribed by Severiano Gan PA-C. Reviewed, Interpreted and Dictated by Valeriano Rajput MD Transcribed by SUAD Ruby Authenticated and [facility]
== END ==
PROVIDERS: PCP Emergency Medicine; Visit Provider Surgery
DX: R10.13 Epigastric pain (principal)
CPT/HCPCS: 74220

== ENCOUNTER → 2022-04-12 10:27 | Outpatient (POV) | payer BC, SELFPAY ==
[2022-04-12 11:14] VITALS: BP 133/90; PULSE 65; RESP 18; TEMP 36.1; O2SAT 95; BMI 39.4
--- NOTE | 2022-04-12 11:38 | EXP.PAIN.SOA ---
[facility] Pain Management SOAP Note Subjective:: Patient is a pleasant 51-year-old female who presents today for follow-up of lumbar epidural steroid injection L4-L5 on 03/30/2022. We are currently treating the patient for degenerative disc disease of lumbar spine multilevels with lumbar radiculopathy symptoms. Patient states that she has had at least 40% improvement following this injection and feels like it is still helping a little. She states she did feel this injection along her left leg however her radicular symptoms are only in her right leg. Patient has had injective therapy in the past. She states her first injection provided more than 80 % to 90% relief and lasted 6 months. Today she rates her pain a 7 out of 10 and states the pain is in her low back that radiates into her right leg. Patient states this is a aching, throbbing sensation that is worse with increased activity. Patient denies any new trauma or injury to the site. Patient had previously been scheduled for back surgery however it was rescheduled to a infected pacemaker that had to be explanted. Patient does use [id number] Tylenol with some improvement of her symptoms. She is prescribed a compounding cream that she states helps provide additional improvement of her symptoms. Recently the patient had been prescribed Percocet 10 mg for [address] Reece's office during the time for her pacemaker explant. Patient's Colin is [id number]. It has been reviewed and appropriate. Review of Systems: General: No recent weight changes, no fever, no sleep disturbances Respiratory: No cough, no shortness of air, no recurring pulmonary infections Cardiovascular/peripheral vascular: No chest pain, no palpitations, no edema, no shortness of breath Gastrointestinal: No new onset incontinence, normal bowel movements reported Genitourinary: No new onset incontinence Musculoskeletal: Low back pain Psychiatric: [Normal mood/affect] Neurological: [Denies weakness in extremities], [denies balance issues] Objective:: Physical Exam: General: Alert and oriented x3, no acute distress, pleasant and cooperative Lungs: Respirations even and unlabored, symmetrical chest expansion Eyes: PERRL Musculoskeletal: Flexion and extension of lumbar [spine] somewhat guarded secondary to pain, [antalgic gait noted] Neurological: Speech clear, no gross sensory deficit Assessment:: Degenerative disc disease lumbar spine with lumbar radiculopathy symptoms Plan:: Patient did have significant improvement of her symptoms following this last injection. Today she does have limited range of motion still along her lumbar spine that radiates into her right leg. I have discussed that she might get better relief with a transforaminal epidural in the future. Risk and benefits were discussed with the patient. She would like to proceed forward with this injection. She is not currently on any blood thinners. We will schedule her for a right transforaminal epidural injection at L4-L5 and L5-S1. Patient has been instructed to contact the clinic with any concerns before the next appointment. Dr. Marie has reviewed this note and agrees with this plan of care. This note was dictated using voice recognition software and make contain errors or omissions. PFSH PFS Medical History Abnormal EKG Aftercare following removal/replacement pacemaker Blurry vision Chest pain Dyspnea Hx-TIA (transient ischemic attack) Visual disturbance Surgical History History of esophagogastroduodenoscopy (EGD) Family History Other No significant family history Social History Smoking Status: Former smoker second hand exposure: No alcohol intake: current substance use type: denies use current occup
== END ==
PROVIDERS: Visit Provider Nurse Practitioner Family
DX: M51.16 Intervertebral disc disorders with radiculopathy, lumbar region (principal); Z79.899 Other long term (current) drug therapy
CPT/HCPCS: 99212; G0463

== ENCOUNTER 2022-04-14 15:30 | Outpatient (RCR) | payer BC, SELFPAY ==
--- NOTE | 2022-03-10 10:45 | HMH.PTOPWND ---
Rehab Outpt Wound Evaluation Rehab OP Wound Evaluation Start: 03/10/22 09:41 Freq: Status: Active Protocol: Document 03/10/22 10:29 PHOCLAUDIA (Rec: 03/10/22 10:45 PHORNE [id number]) E-signed By Shady Maldonado PT Subjective/History History History Pt is 51 yowf who presents with L side anterior chest wound after pacemaker removal performed 1 day ago (03/09/22) due to poor incisional healing. She presents in considerable amt of pain at this time, rating her pain 8/ 10 at rest. She reports pacemaker was originally placed 02/09/22. After significant research into available records, it appears she suffered significant complications after the pacemaker was placed with possible large hematoma forming and symptoms of L UE weakness and facial droop requiring tranfer to higher level of care at [facility] via [employer] helicopter. She presents this date with 4x4 gauze packing the wound bed with tegaderm covering (pt noted to have prior reaction to tegaderm in hx.) Pt reports she was told PT would be performing dressing changes daily. She reports no significant PMH. Subjective Subjective Currently pain 8/10 in L michelle of chest. She reports difficulty with raising ot lifting anything with the L UE due to increased pain. It feels like it is grinding in there. Also 4/4 tenderness to palpation in xochilt-wound skin. Xochilt-wound skin also noted to have increased redness and irritation specifically in the area of tegaderm placement. Wound Eval Wound Left Anterior Chest Wound Type Incision Is This a Chronic Wound No Wound Length (cm) 1.5 Wound Width (cm)
== END 2022-04-14 15:35 | disposition home or self-care (01) ==
LOC: PT 15:30
PROVIDERS: PCP Family Medicine; Visit Provider Internal Medicine
DX: R07.89 Other chest pain (principal)
CPT/HCPCS: 97140; 97163; 97597

== ENCOUNTER 2022-04-27 08:37 | Day surgery (SDC) | payer BC, SELFPAY ==
[2022-04-27 08:43] VITALS: BP 120/91; PULSE 62; RESP 18; TEMP 36.2; O2SAT 97; BMI 39.4
[2022-04-27 09:04] VITALS: BP 124/90; PULSE 77; RESP 18; O2SAT 97
[2022-04-27 09:05] VITALS: BP 124/90; PULSE 77; RESP 18; O2SAT 97
[2022-04-27 09:12] VITALS: BP 136/94; PULSE 60; RESP 18; TEMP 36.2; O2SAT 100
--- NOTE | 2022-04-27 10:44 | EXP.PAIN.PRO ---
Procedure Date: 04/27/22 Time: 09:45 Anesthesiologist:: Angelo Torres CRNA Complications:: None Pre-procedure Diagnosis:: Degenerative disc disease lumbar spine multilevels. Lumbar radiculopathy. Disc bulge multilevel lumbar spine. Post-procedure Diagnosis:: Same. Indications for Procedure:: Patient is a pleasant 51-year-old female that comes our clinic today for transforaminal epidural steroid injection of the L4-5 and L5-S1 on the right. Patient complains of low back pain as well as right hip and leg radicular symptoms. Procedure Details:: Details of the procedure were explained to the patient. The patient was taken the procedure room placed in the prone position. The area of the lumbar spine was cleansed using chlorhexidine as a cleansing solution. At this time using fluoroscopy guidance markers were placed on the right lateral border of the L4 and L5 vertebral body. The skin and subcutaneous tissue was anesthetized using 1% lidocaine and 25-gauge needle. At this time using a 22-gauge 3-1/2 inch spinal needle the right upper one third of the L4-5 foramen was accessed. The same was done at the right L5-S1 foramen. Needle positions were confirmed and a lateral view using fluoroscopy and contrast dye. At this time 1 cc of 1% lidocaine +20 mg of Depo-Medrol was injected at each level after negative aspiration. [place] were removed. Band-Aid applied. Patient tolerated the procedure without difficulty. There are no complications. Plan and Disposition:: Patient was discharged without incident.
== END 2022-04-27 09:12 | disposition home or self-care (01) ==
LOC: SC.PAINP 08:38
PROVIDERS: PCP Emergency Medicine; Visit Provider Nurse Anesthetist, Certified Registered
DX: M51.16 Intervertebral disc disorders with radiculopathy, lumbar region (principal)
CPT/HCPCS: 64483; 64484; J1030

== ENCOUNTER → 2022-05-10 11:49 | Outpatient (POV) | payer BC, SELFPAY ==
--- NOTE | 2022-05-10 12:06 | EXP.PAIN.SOA ---
[facility] Pain Management SOAP Note Subjective:: Patient is a pleasant 51-year-old female who presents today for follow-up of transforaminal epidural steroid injection at L4-5 and L5-S1 on the right side on 04/27/2022. We are currently treating the patient for degenerative disc disease of lumbar spine multilevels with lumbar radiculopathy symptoms. Today the patient states she has had at least 80% improvement following this injection and feels like it is still continuing to help. Patient rates her pain a 3 out of 10. Patient denies any new trauma or injury. Patient denies any change to location or type of pain she experiences. Patient does use iubr-[id number] Tylenol as needed with minimal improvement of her symptoms. Patient does have a cardiac history and previously had to have a pacemaker explanted due to infection. Patient is unable to tolerate any NSAIDs. Patient is prescribed a compounding cream that she states does provide additional improvement. Patient is not currently on any other scheduled medications. Her Colin is [id number]. It has been reviewed and appropriate Review of Systems: General: No recent weight changes, no fever, no sleep disturbances Respiratory: No cough, no shortness of air, no recurring pulmonary infections Cardiovascular/peripheral vascular: No chest pain, no palpitations, no edema, no shortness of breath Gastrointestinal: No new onset incontinence, normal bowel movements reported Genitourinary: No new onset incontinence Musculoskeletal: Low back pain, right leg pain Psychiatric: [Normal mood/affect] Neurological: [Denies weakness in extremities], [denies balance issues] Objective:: Physical Exam: General: Alert and oriented x3, no acute distress, pleasant and cooperative Lungs: Respirations even and unlabored, symmetrical chest expansion Eyes: PERRL Musculoskeletal: Flexion and extension of lumbar [spine] somewhat guarded secondary to pain, [antalgic gait noted] Neurological: Speech clear, no gross sensory deficit Assessment:: Degenerative disc disease of lumbar spine with lumbar radiculopathy symptoms Plan:: Patient has had significant improvement of her low back pain and radiating symptoms following this last transforaminal epidural. At this time patient does not require any additional injective therapy. We will follow-up with the patient in 1 month. Patient will return to clinic in 1 month for reevaluation of symptoms and follow-up. Patient has been instructed to contact the clinic with any concerns before the next appointment. Dr. Marie has reviewed this note and agrees with this plan of care. This note was dictated using voice recognition software and make contain errors or omissions. [facility] PFS Medical History Abnormal EKG Aftercare following removal/replacement pacemaker Blurry vision Chest pain Dyspnea Hx-TIA (transient ischemic attack) Visual disturbance Surgical History History of esophagogastroduodenoscopy (EGD) Family History Other No significant family history Social History Smoking Status: Former smoker second hand exposure: No alcohol intake: current substance use type: denies use current occupational status: other Travel in the last 8 weeks: None household members: family housing: house current occupational exposures/hazards: No caffeine: Yes
[2022-05-10 12:21] VITALS: BP 129/94; PULSE 57; RESP 18; TEMP 37.1; O2SAT 96; BMI 38.2
--- NOTE | 2022-05-31 13:02 | PC.NURSE ---
On 2021 I spoke with patient regarding a HST and she refused at this time.
== END ==
PROVIDERS: PCP Emergency Medicine; Visit Provider Nurse Practitioner Family
DX: M51.16 Intervertebral disc disorders with radiculopathy, lumbar region (principal)
CPT/HCPCS: 99212; G0463

== ENCOUNTER → 2022-06-09 08:38 | Outpatient (POV) | payer BC, SELFPAY ==
[2022-06-09 08:52] VITALS: BP 137/82; PULSE 71; RESP 18; O2SAT 98; BMI 35.7
--- NOTE | 2022-06-09 08:52 | A.OFFVIS_ITS ---
[facility] Pain Management SOAP Note Subjective:: Patient is a pleasant 51-year-old female who presents today for follow-up. We are currently treating the patient for degenerative disc disease of lumbar spine multilevels with lumbar radiculopathy symptoms. Today the patient rates her pain a 0 out of 10. Patient states that she continues to do well following her transforaminal epidural steroid injection at L4-5 and L5-S1 along the right side on 04/27/2022. Patient denies any new trauma or injury. Patient denies any change location or type of pain she experiences. Patient does states she occasionally will get a pulling, tearing sensation when she is repositioning herself in bed at her pacemaker explantation scar but it is short-lived. Patient is unable to tolerate any NSAIDs. Patient was prescribed compounding cream that she stated she has not noticed significant improvement on but she will continue to use. Her Colin is [id number]. It has been reviewed and appropriate. Review of Systems: General: No recent weight changes, no fever, no sleep disturbances Respiratory: No cough, no shortness of air, no recurring pulmonary infections Cardiovascular/peripheral vascular: No chest pain, no palpitations, no edema, no shortness of breath Gastrointestinal: No new onset incontinence, normal bowel movements reported Genitourinary: No new onset incontinence Musculoskeletal: Low back pain Psychiatric: [Normal mood/affect] Neurological: [Denies weakness in extremities], [denies balance issues] Objective:: Physical Exam: General: Alert and oriented x3, no acute distress, pleasant and cooperative Lungs: Respirations even and unlabored, symmetrical chest expansion Eyes: PERRL Musculoskeletal: Flexion and extension of lumbar [spine] somewhat guarded secondary to pain, [antalgic gait noted] Neurological: Speech clear, no gross sensory deficit Assessment:: Degenerative disc disease of lumbar spine multilevels with lumbar radiculopathy symptoms Plan:: Patient continues to experience significant improvement of her pain symptoms following a right transforaminal epidural steroid injection. At this time the patient does not require any additional injective therapy. We will follow-up with the patient in 3 months. Patient will return to clinic in 3 months for reevaluation of symptoms and follow-up. Patient has been instructed to contact the clinic with any concerns before the next appointment. Dr. Marie has reviewed this note and agrees with this plan of care. This note was dictated using voice recognition software and make contain errors or omissions. [facility] Medical History Abnormal EKG Aftercare following removal/replacement pacemaker Blurry vision Chest pain Dyspnea Hx-TIA (transient ischemic attack) Post-op pain Visual disturbance Surgical History History of esophagogastroduodenoscopy (EGD) Family History Other No significant family history Social History Smoking Status: Former smoker second hand exposure: No alcohol intake: current substance use type: denies use current occupational status: other Travel in the last 8 weeks: None household members: family housing: house current occupational exposures/hazards: No caffeine: Yes
== END ==
PROVIDERS: PCP Emergency Medicine; Visit Provider Nurse Practitioner Family
DX: M51.16 Intervertebral disc disorders with radiculopathy, lumbar region (principal)
CPT/HCPCS: 99212; G0463

== ENCOUNTER → 2022-07-13 10:24 | Outpatient (CLI) | payer BC, SELFPAY | PROVIDERS: PCP Student in an Organized Health Care Education/Training Program; Visit Provider Student in an Organized Health Care Education/Training Program | DX: U07.1 COVID-19 (principal); R05.9 Cough, unspecified | CPT/HCPCS: C9803; U0003; U0005 ==

== ENCOUNTER → 2022-07-20 09:35 | Outpatient (CLI) | payer BC, SELFPAY ==
--- NOTE | 2022-07-20 | CA_ITS ---
APPROVED REPORT Exam: Exercise Treadmill Technologist: Krysten Medina Ht: 5 ft 5 in Wt: 231 lbs BSA: 2.10 m2 HR: 51 bpm BP: 119/50 mmHg Indications: Chest pain Medical History Medications: Levothyroxine,,,,, Lidocaine,,,,, Aspirin,,,,, Pantoprazole,,,,, DicyCLOMINE,,,,, OxYbutynin,,,,, Clolchicine,,,,, Stress Test Details Test: Manual Treadmill HR Resting HR: 71 bpm Max Heart Rate (APMHR): 169.977794 bpm Max HR Achieved: 170 bpm Target HR (85% APMHR): 143.895104 bpm % of APMHR: 100.59 Recovery HR: 100 bpm BP Resting BP: 119.0/50.0 mmHg Max BP: 170.0/80.0 mmHg Recovery BP: 128.0/80.0 mmHg ECG Resting ECG: Sinus bradycardia, rightward axis, ST-T abnormalities inferiorly and laterally. Clinical Exercise duration: 09:31 min Highest Stage Achieved: Exercise capacity: 6.3 METs Stress ECG Conclusion Patient walked a total of 9:30 on a manual protocol with maximum speed 2.7 mph and maximum incline 10%. Test stopped due to shortness of air, fatigue. Symptoms: No chest pain. Arrhythmias/Ectopy: Occasional PVC, rare junctional beat. ST-T Changes: Exaggeration of baseline ST -T abnormalities. Conclusion: Non-diagnostic GXT due to baseline EKG abnormalities. Myoview images reported separately. Test Summary REST . . . . . . . Sitting REST . . . . . . . Standing REST 04:40 0.0 0.0 71 . 119/ 50 . . Stage 1 01:00 10.0 1.7 116 . . . . Stage 1 02:00 10.0 1.7 138 . . . . Stage 1 . . . . . . . Stage held Stage 1 03:00 10.0 1.7 146 . 164/ 80 . . Stage 1 04:00 10.0 1.7 150 . 164/ 80 . . Stage 1 05:00 10.0 1.7 153 . 164/ 80 . . Stage 1 . . . . . . . Protocol changed to Manual Treadmill Stage 1 06:00 10.0 2.0 159 . 170/ 80 . . Stage 1 07:00 10.0 2.4 161 . 170/ 80 . . Stage 1 08:00 10.0 2.5 167 . 170/ 80 . . Stage 1 . . . . . . . Myoview Injected Stage 1 09:00 10.0 2.7 169 . 170/ 80 . . Stage 1 . . . . . . . Stage resumed Stage 1 09:31 10.0 2.7 170 . 170/ 80 . Stop exercise at 09:31 RECOVERY 01:00 0.0 0.0 144 . . . . RECOVERY 02:00 0.0 0.0 115 . . . . RECOVERY 03:00 0.0 0.0 105 . 121/ 76 . . RECOVERY 04:00 0.0 0.0 99 . 121/ 76 . . RECOVERY 05:00 0.0 0.0 95 . 128/ 80 . . RECOVERY 05:18 0.0 0.0 101 . 128/ 80 . . Electronically signed by : Gomez Butcher MD 07/21/2022 11:04:01
--- NOTE | 2022-07-20 11:00 | NM_ITS ---
APPROVED REPORT Exam: Nuclear Stress Test Indication: Chest pain, SOB, Family history Patient Location: Outpatient Stress Tech: Krysten Medina [place] Tech:Dasha Tanner, ARRT, RT (R)(N) Ht: 5 ft 5 in Wt: 215 lbs Bra Size: 42C HR: 71 bpm BP: 119/50 mmHg BSA: 2.04 m2 TID: 1.05 BMI: 35.7 History: Chest pain, SOB, Family history Procedure: Patient exercised on Filippo protocol 9:31 minutes and sec, resting heart rate 71 bpm, resting blood pressure 119/50 mmHg, with exercise maximum heart rate achived was 170 bpm which is 101 % of the maximum predicted heart rate and blood pressure was 170/80 mmHg. Test was stopped due to SOB. Patient denied any complaint of chest pain. Patient has Adequate exercise capacity, achieved 6.3 METs of workload on treadmill, the blood pressure response to exercise was Adequate. Electrocardiogram Resting electrocardiogram shows sinus rhythm nonspecific ST-T changes, with exercise there is additional millimeter ST segment depression noted from the baseline EKG. The EKG portion of the exercise Myoview was nondiagnostic due to baseline abnormal EKG. Cardiac Stress and Resting SPECT Images: Cardiac Stress and Resting SPECT images were obtained using technetium 99m Myoview 32.1 mCi stress and 10.13 mCi at rest. Gated SPECT for analysis of segmental wall motion and calculation of the ejection fraction also done. Prone images were also obtained. Cardiac stress and rest SPECT images showed reversible ischemia involving the anterior, anterior apical, apical and anteroseptal wall, computer derived ejection fraction 49% with mild anterior wall hypokinesis, right ventricle is normal size and contractility. Conclusion: 1. The EKG portion of the exercise Myoview was nondiagnostic due to baseline abnormal EKG, patient has adequate exercise capacity achieved 6.3 METS of workload on treadmill, the blood pressure response to exercise was adequate, there was no exercise-induced chest discomfort test was stopped due to shortness of breath. 2. Scintigraphic evidence of reversible ischemia involving the anterior, anterior apical, apical, apex and anteroseptal wall, computer the ejection fraction 49% with segmental wall motion abnormality described above, right ventricle is normal size and contractility. 3. Abnormal exercise Myoview study. Electronically signed by : Gomez Butcher MD 07/21/2022 11:06:51
--- NOTE | 2022-07-20 13:02 | HMH.ITSHM ---
Current Home Medications as stated by this patient Melanie ePrkins or group sales representative. []PANTOPRAZOLE OXYBUTYNIN ONDANSETRON LEVOTHYROXINE DICYCLOMINE COLCHICINE BENZONATATE ASA
== END ==
PROVIDERS: PCP Emergency Medicine; Visit Provider Internal Medicine
DX: R07.9 Chest pain, unspecified (principal)
CPT/HCPCS: 78452; 93017; A9502

== ENCOUNTER 2022-07-30 09:08 | Day surgery (SDC) | payer BC, SELFPAY ==
[2022-07-30] VITALS (13 sets, daily range): BP systolic 101–139; BP diastolic 42–93; PULSE 48–73; RESP 18–20; TEMP 36.3; O2SAT 93–98; BMI 38.2
--- NOTE | 2022-07-30 07:06 | IR_ITS ---
APPROVED REPORT Patient Location: Outpatient PROCEDURES Left heart catheterization Left ventriculogram Selective coronary angiogram INDICATION Abnormal Myoview, Angina pectoris Informed consent was obtained prior to the procedure. COMPLICATIONS NONE Estimated Blood Loss: LESS THAN 10 ML TECHNIQUE One percent lidocaine used to anesthetize the right anterior aspect of the wrist. The right radial artery was accessed via the Seldinger technique. A 6 Irish sheath was placed in the right radial artery. 2.5 mg of verapamil, 800 mcg of nitroglycerin, 1mg Lidocaine and 5000 U Heparin were given through the arterial sheath. The papa catheter was also used to perform left heart catheterization, left ventriculogram and selective coronary angiogram. At the end of the procedure the sheath was removed good hemostasis was achieved using Traclet band, patient was transferred to the postop holding area in stable condition. ANGIOGRAPHIC RESULTS The left main artery Normal The left anterior descending artery Normal The circumflex artery Normal The right coronary artery Dominant normal The TURENR ventriculogram reveals Normal 65% The left ventricular end-diastolic pressure 10 mmHg IMPRESSION Normal coronary arteries Normal ejection fraction Normal left ventricular end-diastolic pressure PLAN 1. Continue medical management Electronically signed by : Naveed Reece MD 07/30/2022 11:01:23
[2022-07-30 09:41] LABS: Basophils # 0.1 K/mm3 (0-0.2); Basophils % 0.8 % (0.1-2.0); Eosinophils # 0.2 K/mm3 (0.0-0.4); Eosinophils % 2.8 % (0.1-12.0); Hemoglobin 12.5 g/dL (12.2-16.2); Lymphocytes # 1.7 K/mm3 (0.7-4.5); Lymphocytes % 27.9 % (10-50); Mean Corpuscular HGB Conc 32.8 g/dL (31.8-35.4); Mean Corpuscular Hemoglobin 29.8 pg (27.0-31.2); Mean Corpuscular Volume 90.9 fl (81-99); Mean Platelet Volume 9.7 fl (7.4-10.4); Monocytes # 0.3 K/mm3 (0.1-1.0); Monocytes % 4.2 % (1.7-9.3); Neutrophils # 3.8 K/mm3 (1.8-7.8); Neutrophils % 64.4 % (37.0-80.0); Platelet Count 214 K/mm3 (142-424); Red Blood Count 4.19 M/mm3 (4.20-5.40); Red Cell Distribution Width 14.4 % (11.5-17.5); White Blood Count 5.9 K/mm3 (4.8-10.8)
[2022-07-30 09:46] LABS: Chloride 111 mmol/L (98-107); Potassium 3.8 mmoL/L (3.5-5.1); Sodium 140 mmol/L (136-145)
[2022-07-30 09:49] LABS: Anion Gap 7.8 mEq/L (5-15); Blood Urea Nitrogen 22 mg/dl (7-17); Calcium 8.4 mg/dl (8.4-10.2); Carbon Dioxide 25 mmol/L (22.0-30.0); Creatinine Clearance Estimated 78 mL/min (50-200); Estimated Glomerular Filt Rate 40 ml/min (>60); GFR (African American) 48 ML/MIN (>60); Glucose 110 mg/dl (74-100)
--- NOTE | 2022-07-30 11:15 | SUR.PHASEII ---
REPORT TO LARISSA IN POST OP, PT TRANSFERRED TO POST OP FOR RECOVERY.
== END 2022-07-30 14:45 | disposition home or self-care (01) ==
PROVIDERS: Nurse Practitioner Family; PCP Student in an Organized Health Care Education/Training Program; Visit Provider Internal Medicine
DX: I20.8 Other forms of angina pectoris (principal); I10 Essential (primary) hypertension; M79.602 Pain in left arm; R60.0 Localized edema; R94.39 Abnormal result of other cardiovascular function study; Z86.718 Personal history of other venous thrombosis and embolism; Z86.73 Personal history of transient ischemic attack (TIA), and cerebral infarction without residual deficits; E66.9 Obesity, unspecified
CPT/HCPCS: 36415; 80048; 85025; 93458; 99152; C1725; C1769; J1644; Q9967

== ENCOUNTER → 2022-08-23 08:57 | Outpatient (POV) | payer BC, SELFPAY ==
[2022-08-23 09:06] VITALS: BP 119/79; PULSE 60; RESP 18; O2SAT 98; BMI 38.9
--- NOTE | 2022-08-23 09:09 | EXP.PAIN.SOA ---
[facility] Pain Management SOAP Note Subjective:: Patient is a pleasant 51-year-old female who presents today for follow-up. We are currently treating the patient for degenerative disc disease of lumbar spine with lumbar radiculopathy symptoms. Today she rates her pain a 6 out of 10. Patient states she has had a recent fall due to her right leg giving out when she was going up her stairs at home. Patient states she did not have any significant injury from this fall. Patient denies any fractures or bruising. Patient does state her pain is a throbbing sensation with occasional pulling, tearing sensations with certain positioning. Patient does state the pain is increasing and feels like she is going back towards her baseline that she was back in April. Patient did previously have a transforaminal epidural in April that has worked well up until the last couple weeks. Patient states the pain does affect her ability to perform activities of daily living such as cooking, cleaning and doing laundry. Patient states she does use Tylenol and Motrin as needed to help with her pain symptoms. Patient is also prescribed a compounding cream that she does state that she has noticed a small difference with. Her Colin is [id number]. Its been reviewed and appropriate. Review of Systems: General: No recent weight changes, no fever, no sleep disturbances Respiratory: No cough, no shortness of air, no recurring pulmonary infections Cardiovascular/peripheral vascular: No chest pain, no palpitations, no edema, no shortness of breath Gastrointestinal: No new onset incontinence, normal bowel movements reported Genitourinary: No new onset incontinence Musculoskeletal: Low back pain, right leg pain Psychiatric: [Normal mood/affect] Neurological: [Denies weakness in extremities], [denies balance issues] Objective:: Physical Exam: General: Alert and oriented x3, no acute distress, pleasant and cooperative Lungs: Respirations even and unlabored, symmetrical chest expansion Eyes: PERRL Musculoskeletal: Flexion and extension of lumbar [spine] somewhat guarded secondary to pain, [antalgic gait noted] Neurological: Speech clear, no gross sensory deficit Assessment:: Degenerative disc disease of lumbar spine with lumbar radiculopathy symptoms Plan:: Patient is experiencing significant pain in her low back with radiating symptoms into her right lower extremity. Patient had a previous right transforaminal epidural that provided 90 to 100% relief lasting almost 4 months. Patient did have a limited range of motion of her lumbar spine during today's visit. I have discussed with the patient that she may benefit from a repeat right transforaminal epidural steroid injection. Risk and benefits were discussed with the patient. She would like to proceed forward with this plan of care. Patient is not on any blood thinners. We will schedule her for a right transforaminal epidural steroid injection L4-L5 and L5-S1. Patient has been instructed to contact the clinic with any concerns before the next appointment. Dr. Marie has reviewed this note and agrees with this plan of care. This note was dictated using voice recognition software and make contain errors or omissions. [facility] Disclaimer: The information contained in this section may have been updated after the patient was seen, as this information can be updated by other users. Medical History (Updated 08/11/22 @ 12:18 by Naveed Reece MD) Abnormal EKG Aftercare following removal/replacement pacemaker Blurry vision Chest pain Chest pain Chest pain Dyspnea Hx-TIA (transient ischemic attack) Post-op pain Visual disturbance Surgical History History of esophagogastroduodenoscopy (EGD) Family History Other No significant family history Social History Smoking Status: Elva
== END ==
PROVIDERS: PCP Emergency Medicine; Visit Provider Nurse Practitioner Family
DX: M51.16 Intervertebral disc disorders with radiculopathy, lumbar region (principal)
CPT/HCPCS: 99212; G0463

== ENCOUNTER 2022-09-14 09:08 | Day surgery (SDC) | payer BC, SELFPAY ==
[2022-09-14 09:26] VITALS: BP 132/82; PULSE 47; RESP 18; TEMP 36.3; O2SAT 100; BMI 37.4
[2022-09-14 09:42] VITALS: BP 139/90; PULSE 62; RESP 18; O2SAT 97
[2022-09-14 09:43] VITALS: BP 139/90; PULSE 62; RESP 18; O2SAT 97
--- NOTE | 2022-09-14 09:49 | P.PCN_ITS ---
Procedure Date: 09/14/22 Time: 09:40 Anesthesiologist:: Angelo Torres CRNA Complications:: None Pre-procedure Diagnosis:: Degenerative disc disease lumbar spine multilevels. Disc bulge L4-5, L5-S1. Right hip and leg radicular symptoms. Post-procedure Diagnosis:: Same. Indications for Procedure:: Patient is a very pleasant 51-year-old female that comes our clinic today for L4-5, L5-S1 right transforaminal epidural steroid injection. Patient had this procedure April 2022. She reports significant relief lasting 6 months. She is here today for repeat injection. She rates her pain today 6/10. Procedure Details:: Details of the procedure were explained to the patient. The patient was taken the procedure room placed in the prone position. The area of the lumbar spine was cleansed using chlorhexidine as a cleansing solution. At this time using fluoroscopy guidance markers were placed on the right lateral border of the L4 and L5 vertebral body. The skin and subcutaneous tissue was anesthetized using 1% lidocaine and 25-gauge needle. At this time using a 22-gauge 3-1/2 inch spinal needle the right upper one third of the L4-5 foramen was accessed. The same was done at the right L5-S1 foramen. Needle positions were confirmed and a lateral view using fluoroscopy. At this time 1 cc of 1% lidocaine +20 mg of Depo-Medrol was injected at each level after negative aspiration. [place] were removed. Band-Aid applied. Patient tolerated the procedure without difficulty. There are no complications. Plan and Disposition:: Patient was discharged without incident.
[2022-09-14 09:50] VITALS: BP 137/71; PULSE 45; RESP 18; O2SAT 100
== END 2022-09-14 09:50 | disposition home or self-care (01) ==
PROVIDERS: PCP Emergency Medicine; Visit Provider Nurse Anesthetist, Certified Registered
DX: M51.16 Intervertebral disc disorders with radiculopathy, lumbar region (principal)
CPT/HCPCS: 64483; 64484; J1040

== ENCOUNTER → 2022-10-13 08:47 | Outpatient (POV) | payer BC, SELFPAY ==
[2022-10-13 09:08] VITALS: BP 124/77; PULSE 63; RESP 18; O2SAT 97; BMI 38.9
--- NOTE | 2022-10-13 09:13 | EXP.PAIN.SOA ---
[facility] Pain Management SOAP Note Subjective:: Patient is a pleasant 51-year-old female who presents today for follow-up of right transforaminal epidural steroid injection at the L4-L5 and L5-S1 on 09/14/2022. We are currently treating the patient for degenerative disc disease of lumbar spine with lumbar radiculopathy symptoms. Today she rates her pain a 6 out of 10. She states that she only got 1 week worth of relief following this injection and rates approximately 50%. Patient previously had a prior transforaminal epidural that did provide 100% relief lasting 6 months. Patient denies any new trauma or injury. Patient denies any change to location or type of pain she experiences. Patient states she continues to have significant pain in her low back with radiating symptoms down her right hip and right leg. She does state this pain interferes with her ability to perform activities of daily living such as cooking and cleaning. She states her pain is a throbbing sensation with pulling and tearing sensations with certain movements. She does use [id number] Tylenol and Motrin as needed. Patient was given compounding cream however she states she did not notice significant improvement. Her Colin is [id number]. Its been reviewed and appropriate. Review of Systems: General: No recent weight changes, no fever, no sleep disturbances Respiratory: No cough, no shortness of air, no recurring pulmonary infections Cardiovascular/peripheral vascular: No chest pain, no palpitations, no edema, no shortness of breath Gastrointestinal: No new onset incontinence, normal bowel movements reported Genitourinary: No new onset incontinence Musculoskeletal: Low back pain, right leg pain Psychiatric: [Normal mood/affect] Neurological: [Denies weakness in extremities], [denies balance issues] Objective:: Physical Exam: General: Alert and oriented x3, no acute distress, pleasant and cooperative Lungs: Respirations even and unlabored, symmetrical chest expansion Eyes: PERRL Musculoskeletal: Flexion and extension of lumbar [spine] somewhat guarded secondary to pain, [antalgic gait noted] decreased strength noted to right leg in comparison to the left, altered sensation and diminished reflexes noted on the right leg in comparison to the left Neurological: Speech clear, no gross sensory deficit Assessment:: Degenerative disc disease of lumbar spine with lumbar radiculopathy symptoms Plan:: Patient continues to experience significant pain in her low back with radiating symptoms into her lower right leg patient had limited range of motion of her lumbar spine during today's visit along with decreased strength, altered sensation and diminished reflexes noted on her right leg in comparison to her left. I have discussed with the patient that she may benefit from repeating her transforaminal epidural. Risk and benefits were discussed with the patient and she would like to proceed forward with this plan of care. Patient's previous transforaminal epidural provided to 100% relief lasting 6 months. We will schedule her for a right transforaminal epidural steroid injection of L4-L5 and L5-S1. Patient has been instructed to contact the clinic with any concerns before the next appointment. Dr. Marie has reviewed this note and agrees with this plan of care. This note was dictated using voice recognition software and make contain errors or omissions. [facility] Disclaimer: The information contained in this section may have been updated after the patient was seen, as this information can be updated by other users. Medical History Abnormal EKG Aftercare following removal/replacement pacemaker Blurry vision Chest pain Chest pain Chest pain Dyspnea Hx-TIA (transient ischemic attack) Post-op pain Visual disturbance Surgical History History of esophagogastroduodenoscopy (EGD)
== END ==
PROVIDERS: PCP Emergency Medicine; Visit Provider Nurse Practitioner Family
DX: M51.16 Intervertebral disc disorders with radiculopathy, lumbar region (principal)
CPT/HCPCS: 99212; G0463

== ENCOUNTER 2022-10-19 11:19 | Day surgery (SDC) | payer BC, SELFPAY ==
[2022-10-19 11:33] VITALS: BP 111/79; PULSE 68; RESP 18; TEMP 36.1; O2SAT 97; BMI 38.9
[2022-10-19 11:37] VITALS: BP 138/85; PULSE 64; RESP 18; O2SAT 98
[2022-10-19 11:38] VITALS: BP 138/85; PULSE 64; RESP 19; O2SAT 97
[2022-10-19 11:46] VITALS: BP 141/90; PULSE 63; RESP 18; O2SAT 97
--- NOTE | 2022-10-19 11:46 | P.PCN_ITS ---
Procedure Date: 10/19/22 Time: 11:32 Anesthesiologist:: Angelo Torres CRNA Complications:: None Pre-procedure Diagnosis:: Degenerative disc disease lumbar spine multilevels. Lumbar radiculopathy. Lumbar facet arthropathy. Lumbar spondylosis. Lumbar spondylolisthesis. Post-procedure Diagnosis:: Same. Indications for Procedure:: Patient is a very pleasant 51-year-old female that comes our clinic today for repeat right L4-5, L5-S1 transforaminal epidural steroid injection. Patient has right hip and leg radicular symptoms. Most likely coming from spondylolisthesis L4 on L5. Patient has radiating pain she describes as constant, dull, aching. Patient reports moderate relief from previous transforaminal epidural steroid injections at the same levels. Procedure Details:: Details of the procedure were explained to the patient. The patient was taken the procedure room placed in the prone position. The area of the lumbar spine was cleansed using chlorhexidine as a cleansing solution. At this time using fluoroscopy guidance markers were placed on the right lateral border of the L4 and L5 vertebral body. The skin and subcutaneous tissue was anesthetized using 1% lidocaine and 25-gauge needle. At this time using a 22-gauge 3-1/2 inch spinal needle the right upper one third of the L4-5 foramen was accessed. The same was done at the right L5-S1 foramen. Needle positions were confirmed and a lateral view using fluoroscopy and contrast dye. At this time 1 cc of 1% lidocaine +20 mg of Depo-Medrol was injected at each level after negative aspiration. [place] were removed. Band-Aid applied. Patient tolerated the pro cedure without difficulty. There are no complications. Plan and Disposition:: Patient was discharged without incident.
== END 2022-10-19 11:46 | disposition home or self-care (01) ==
PROVIDERS: PCP Emergency Medicine; Visit Provider Nurse Anesthetist, Certified Registered
DX: M51.16 Intervertebral disc disorders with radiculopathy, lumbar region (principal); M47.26 Other spondylosis with radiculopathy, lumbar region; M43.16 Spondylolisthesis, lumbar region
CPT/HCPCS: 64483; 64484; J1030

== ENCOUNTER → 2022-11-03 13:03 | Outpatient (POV) | payer BC, SELFPAY ==
--- NOTE | 2022-11-03 13:08 | EXP.PAIN.SOA ---
[facility] Pain Management SOAP Note Subjective:: Patient is a pleasant 51-year-old female who presents today for follow-up of right transforaminal epidural steroid injection at the L4-L5 and L5-S1 on 10/19/2022.? We are currently treating the patient for degenerative disc disease of lumbar spine with lumbar radiculopathy symptoms.? Today she rates her pain a 0 out of 10.? She does state that this injection has provided 100% relief and is still continuing to do so. Her last injection only gave approximately 1 week of relief however the one prior to that gave 100% relief lasting 6 months. Patient states she is very hopeful that this 1 will do just as well. She does state that following this injection her pain has been much more bearable and that while she is working that she is having decreased pain and more function. Patient denies any new trauma or injury.? Patient denies any change to location or type of pain she experiences.? She does use [id number] Tylenol and Motrin however she states she has not had to use this following her injection.? Patient has had compounding cream in the past but did not get significant improvement. Her Colin is [id number].? Its been reviewed and appropriate. Review of Systems: General: No recent weight changes, no fever, no sleep disturbances Respiratory: No cough, no shortness of air, no recurring pulmonary infections Cardiovascular/peripheral vascular: No chest pain, no palpitations,? no edema, no shortness of breath Gastrointestinal: No new onset incontinence, normal bowel movements reported Genitourinary: No new onset incontinence Musculoskeletal: Low back pain, right leg pain Psychiatric: [Normal mood/affect] Neurological: [Denies weakness in extremities], [denies balance issues] Objective:: Physical Exam: General: Alert and oriented x3, no acute distress, pleasant and cooperative Lungs: Respirations even and unlabored, symmetrical chest expansion Eyes: PERRL Musculoskeletal: Flexion and extension of lumbar [spine] somewhat guarded secondary to pain, [antalgic gait noted] Neurological: Speech clear, no gross sensory deficit Assessment:: Degenerative disc disease of lumbar spine with lumbar radiculopathy symptoms Plan:: Patient has had significant improvement of her pain symptoms following her injection and does not require any additional injective therapy at this time. Patient will return to clinic in 3 months for reevaluation of symptoms and plan of care. Patient has been instructed to contact the clinic with any concerns before the next appointment. Dr. Marie has reviewed this note and agrees with this plan of care. This note was dictated using voice recognition software and make contain errors or omissions. [facility] Disclaimer: The information contained in this section may have been updated after the patient was seen, as this information can be updated by other users. Medical History Abnormal EKG Aftercare following removal/replacement pacemaker Blurry vision Chest pain Chest pain Chest pain Dyspnea Hx-TIA (transient ischemic attack) Post-op pain Visual disturbance Surgical History History of esophagogastroduodenoscopy (EGD) Family History Other No significant family history Social History Smoking Status: Former smoker second hand exposure: No alcohol intake: current substance use type: denies use current occupational status: other Travel in the last 8 weeks: None household members: family housing: house current occupational exposures/hazards: No caffeine: Yes
[2022-11-03 14:40] VITALS: BP 129/79; PULSE 51; RESP 18; O2SAT 98; BMI 39.2
== END ==
PROVIDERS: PCP Emergency Medicine; Visit Provider Nurse Practitioner Family
DX: M51.16 Intervertebral disc disorders with radiculopathy, lumbar region (principal)
CPT/HCPCS: 99212; G0463

== ENCOUNTER → 2022-11-29 09:56 | Outpatient (POV) | payer BC, SELFPAY ==
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
[2022-11-29 10:12] VITALS: BP 123/89; PULSE 55; RESP 18; O2SAT 98; BMI 37.8
== END ==
PROVIDERS: Visit Provider Nurse Practitioner Family
DX: M51.16 Intervertebral disc disorders with radiculopathy, lumbar region (principal); M79.18 Myalgia, other site; M25.561 Pain in right knee
CPT/HCPCS: 99212; G0463

== ENCOUNTER → 2022-12-03 09:33 | Outpatient (CLI) | payer BC, SELFPAY ==
--- NOTE | 2022-12-03 09:34 | US_ITS ---
FINAL REPORT CLINICAL HISTORY: right posterior knee pain, bakers cyst present FINDINGS: Limited sonographic images of the right knee were obtained. There is a 4.5 cm fluid collection at the posterior knee, may represent a popliteal cyst. IMPRESSION: Possible popliteal cyst. Reviewed, Interpreted and Dictated by Dominguez Calderon III, MD Transcribed by Latrice Lopes Authenticated and [facility]
--- NOTE | 2022-12-03 14:31 | CA_ITS ---
FINAL REPORT TECHNIQUE: Color Doppler, duplex Doppler and compression sonography of the right lower extremity venous system was performed. CLINICAL HISTORY: Pain and sweling x 2 weeks of R leg,x 2 days Hx previous DVT 1991 with . FINDINGS: There is no evidence of deep venous thrombosis from the level of the groin to the calf. The veins are patent and compressible. IMPRESSION: No evidence of deep venous thrombosis right lower extremity. Reviewed, Interpreted and Dictated by Dominguez Calderon III, MD Transcribed by Eugenia Borrego Authenticated and [facility]
== END ==
LOC: RAD 09:35 → RT 13:55
PROVIDERS: PCP Emergency Medicine; Visit Provider Nurse Practitioner Family
DX: M25.561 Pain in right knee (principal); M71.21 Synovial cyst of popliteal space [Baker], right knee
CPT/HCPCS: 76882; 93971

== ENCOUNTER → 2022-12-28 09:07 | Outpatient (CLI) | payer BC, SELFPAY ==
--- NOTE | 2022-12-28 09:12 | XR_ITS ---
FINAL REPORT CLINICAL HISTORY: Rt knee pain FINDINGS: 3 views of the right knee were obtained. There is no acute fracture or dislocation. There are minimal hypertrophic changes at the lateral joint margin. There is no soft tissue abnormality. IMPRESSION: No acute process. Reviewed, Interpreted and Dictated by Valeriano Rajput MD Transcribed by Adam Farmer Authenticated and [facility]
== END ==
PROVIDERS: PCP Emergency Medicine; Visit Provider Orthopaedic Surgery
DX: M25.561 Pain in right knee (principal)
CPT/HCPCS: 73562

== ENCOUNTER → 2023-01-06 15:14 | Outpatient (CLI) | payer BC, SELFPAY ==
--- NOTE | 2023-01-06 15:15 | MR_ITS ---
FINAL REPORT CLINICAL HISTORY: Rt knee pain swelling pain wraps around knee FINDINGS: Multiplanar MR imaging of the right knee was performed without contrast. A tear is seen of the posterior horn of the medial meniscus. There is also a tear of the anterior horn of the lateral meniscus with an anterior parameniscal cyst in this region. The anterior and posterior cruciate ligaments are intact. The medial collateral ligament and lateral ligamentous complex are intact. The patellar and quadriceps tendons are intact. There is no evidence of fracture. Mild degenerative changes are noted. 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 Mild to moderate chondromalacia is noted of the lateral compartment. A moderate joint effusion is seen. The musculature is intact. No soft tissue mass or cyst is identified. IMPRESSION: Tears of the posterior horn of the medial meniscus and anterior horn of the lateral meniscus. Areas of chondromalacia, worst involving the patella Authenticated and [facility]
== END ==
PROVIDERS: PCP Emergency Medicine; Visit Provider Orthopaedic Surgery
DX: M25.561 Pain in right knee (principal)
CPT/HCPCS: 73721

== ENCOUNTER → 2023-01-18 12:03 | Outpatient (CLI) | payer BC, SELFPAY ==
--- NOTE | 2023-01-18 12:12 | ECG_ITS ---
APPROVED REPORT Exam: Resting ECG HR:44 bpm ECG Measurements Heart Rate 44 AXES [place] 179 P 3 QRSd 102 QRS 7 QT 432 T 21 QTc 382 Conclusion SINUS BRADYCARDIA LOW QRS VOLTAGE IN PRECORDIAL LEADS [QRS DEFLECTION < 1.0 mV IN CHEST LEADS] BORDERLINE ECG UNCONFIRMED REPORT Electronically signed by : Quan Patel MD 01/20/2023 21:40:00
--- NOTE | 2023-01-18 12:30 | XR_ITS ---
FINAL REPORT CLINICAL HISTORY: upcoming sx , hx pacemaker, non smoker COMPARISON: 03/17/2022 FINDINGS: Two views of the chest were obtained. The heart size and pulmonary vascularity are within normal limits. The mediastinum is normal. No acute pulmonary abnormality is identified. There is no pneumothorax. The bony thorax is intact. IMPRESSION: No active cardiopulmonary disease. Reviewed, Interpreted and Dictated by Dominguez Calderon III, MD Transcribed by Matheus Lange Authenticated and [facility]
[2023-01-18 12:54] LABS: Basophils % 0.4 % (0.1-2.0); Eosinophils # 0.2 K/mm3 (0.0-0.4); Eosinophils % 3.6 % (0.1-12.0); Hematocrit 41.2 % (37.0-47.0); Lymphocytes # 1.6 K/mm3 (0.7-4.5); Lymphocytes % 33.3 % (10-50); Mean Corpuscular HGB Conc 31.5 g/dL (31.8-35.4); Mean Corpuscular Hemoglobin 28.5 pg (27.0-31.2); Mean Corpuscular Volume 90.4 fl (81-99); Mean Platelet Volume 10.1 fl (7.4-10.4); Monocytes # 0.2 K/mm3 (0.1-1.0); Neutrophils # 2.8 K/mm3 (1.8-7.8); Neutrophils % 58.6 % (37.0-80.0); Platelet Count 220 K/mm3 (142-424); Red Blood Count 4.56 M/mm3 (4.20-5.40); White Blood Count 4.8 K/mm3 (4.8-10.8)
[2023-01-18 13:23] LABS: Alanine Aminotransferase 21 U/L (12-78); Albumin/Globulin Ratio 1.3 (1.1-1.8); Alkaline Phosphatase 108 U/L (38-126); Anion Gap 9.6 mEq/L (5-15); Aspartate Amino Transferase 24 U/L (14-36); Bilirubin,Total 0.6 mg/dl (0.2-1.3); Blood Urea Nitrogen 18 mg/dl (7-17); Calcium 9.1 mg/dl (8.4-10.2); Carbon Dioxide 27 mmol/L (22.0-30.0); Chloride 107 mmol/L (98-107); Estimated Glomerular Filt Rate 52 ml/min (>60); GFR (African American) 63 ML/MIN (>60); Glucose 98 mg/dl (74-100); Potassium 4.6 mmoL/L (3.5-5.1); Sodium 139 mmol/L (136-145)
== END ==
PROVIDERS: PCP Emergency Medicine; Visit Provider Orthopaedic Surgery
DX: Z01.818 Encounter for other preprocedural examination (principal); M22.41 Chondromalacia patellae, right knee
CPT/HCPCS: 36415; 71046; 80053; 85025; 93005

== ENCOUNTER 2023-01-21 10:21 | Day surgery (SDC) | payer BC, SELFPAY ==
[2023-01-20 08:47] VITALS: BMI 34.9
[2023-01-21] VITALS (9 sets, daily range): BP systolic 116–143; BP diastolic 69–103; PULSE 48–66; RESP 16–18; TEMP 36.1–36.3; O2SAT 94–99
--- NOTE | 2023-01-21 12:48 | P.PN_ITS ---
[facility] Disclaimer: The information contained in this section may have been updated after the patient was seen, as this information can be updated by other users. Medical History Abnormal EKG Aftercare following removal/replacement pacemaker Blurry vision Chest pain Chest pain Chest pain Dyspnea Hx-TIA (transient ischemic attack) Hyperthyroidism Post-op pain Visual disturbance Surgical History History of appendectomy History of section History of cholecystectomy History of esophagogastroduodenoscopy (EGD) History of hernia repair History of hysterectomy Family History Other Family history of myocardial infarction No significant family history Social History Smoking Status: Former smoker second hand exposure: No alcohol intake: current substance use type: denies use current occupational status: other Travel in the last 8 weeks: None household members: family housing: house current occupational exposures/hazards: No caffeine: Yes [facility] Anesthesia Checklist Patient Identification Patient Identification: Arm Band Structural Data Admitted From: Home Planned Operative Procedure/s: Right Knee Arthroscopy Consent for Planned Operative Procedure(s) Verified: Yes Verified Documents: Surgical Consent and History and Physical NPO Status Verified Time NPO: 00:00 Additional verifications Anesthesia Reactions: No Hx Blood Transfusions: No Blood Transfusion Reaction: No Airway Assessment C-Spine Mobility Assessed: Yes TMJ Mobility Assessed: Yes Dentition: Good Dentition Neurological Assessment Level of Consciousness: Awake and Alert Anesthesia Plan Anesthesia Risk discussed: Yes Anesthesia Plan: Verified ASA Class: II Anesthesia Type: General
--- NOTE | 2023-01-21 13:50 | P.OP_ITS ---
Date of procedure: 01/21/23 Pre-op Diagnosis:: Right knee medial lateral meniscus tears Post-op Diagnosis:: Same with full-thickness kissing lesion lateral femoral condyle Procedure performed:: Right knee arthroscopy with partial medial lateral meniscectomies Surgeon:: Jerrod Ramsey DO BIOSTATISTICS PROFESSOR:: Other Anesthesia: GETA Estimated blood loss (mL): 0 Operative findings:: Large macerated tear of the lateral meniscus with subsequent kissing lesion and full-thickness cartilage injury lateral femoral condyle Tear of the medial meniscus body posterior and anterior horn Operative note:: Patient was identified preoperatively. Right knee marked with yes and my initials. Transported operative suite. Placed supine on the operating bed. Right lower extremity was placed in the knee junior with tourniquet. Right lower extremity prepped and draped normal sterile fashion. Once prepped and draped final operative timeout performed to identify proper patient procedure and extremity. Everyone involved the case agreed. No counter indications to beginning. Did receive preoperative antibiotics. Marking pen was used to delvis bony landmarks of the knee and standard portal sites. Esmarch was used to exsanguinate extremity pneumatic tourniquet inflated to 300 mmHg. Skin knife was used incise standard anterior lateral portal. Blunt with trocar was placed in the patellofemoral joint exchange with a camera. Diagnostic arthroscopy began. I swept directly into the medial joint line where the anterior medial portal was made under direct visualization with the help of a 18-gauge spinal needle. This was exchanged with a probe. Upon probing the medial meniscus there was some tearing of the posterior horn and body of the medial meniscus and tearing and fraying of the anterior horn of the medial meniscus. Attention was brought to the intercondylar notch the ACL was seen and intact. Tensions brought to the lateral joint line within the lateral joint line there was a large macerated tear of the body of the lateral meniscus that was incarcerated into the joint and involved the anterior horn as well. This meniscus was incarcerated in the joint with a kissing lesion on the lateral femoral condyle with the knee bent. There is fraying and full-thickness lesion which was small in the lateral femoral condyle with some mild loose chris cartilage which was debrided with a sucker shaver. Using combination of s traight biter and sucker shaver partial lateral meniscectomy was performed to stable rim to remove the incarcerated area of the lateral meniscus. Tensions brought back to the medial joint line using combination of straight biter and sucker shaver partial medial meniscectomy was performed back to stable rim. Swept into the medial and lateral gutters no further pathology was seen camera is placed in patellofemoral joint patella did track midline within the trochlea there was wear and tear and chondromalacia undersurface of the patella. Knee was then drained local anesthesia filtrated the portal sites skin closed with nylon stitch. Sterile dressing placed from toe to thigh. Patient waken anesthesia taken recovery in stable condition. Condition: stable Disposition: PACU Complications:: None apparent
--- NOTE | 2023-01-21 13:58 | EXP.ANES.I ---
[facility] Anesthesia Record Part I Anesthesia Record I Intake, IV Amount: 500 Estimated blood loss (mL): 15 Urine output (mL): 0 Blood Products used (#): none Blood Pressure: 143/103 SaO2: 96 Pulse Rate: 66 Respiratory Rate: 16 Temperature: 97.2 F Patient is:: Drowsy and Stable
[2023-01-25 07:28] VITALS: BP 116/72; PULSE 60; TEMP 36.3
--- NOTE | 2023-01-25 07:28 | EXP.ANES.II ---
[facility] Anesthesia Record Part II Anesthesia Record Part II Discharge Time: 14:30 Destination: Surgical Day Care (OP Surgery) PACU nurse assessment reviewed?: Yes Patient Condition:: Good Anesthesia Complications:: None Swallowing reflex intact?: Yes Cyanosis?: No Blood Pressure: 116/72 Pulse Rate: 60 Temperature: 97.4 F Mental Status: Alert & Oriented Pain level:: 6 Nausea and/or vomitting:: None Intake, IV Amount: 0
== END 2023-01-21 15:22 | disposition home or self-care (01) ==
PROVIDERS: PCP Emergency Medicine; Visit Provider Orthopaedic Surgery
PROC: (CPT 29870; principal; 2023-01-21 11:45)
DX: S83.231A Complex tear of medial meniscus, current injury, right knee, initial encounter (principal); S83.271A Complex tear of lateral meniscus, current injury, right knee, initial encounter; M22.40 Chondromalacia patellae, unspecified knee; Z87.891 Personal history of nicotine dependence; Z79.899 Other long term (current) drug therapy
CPT/HCPCS: 29880; J2405

== ENCOUNTER → 2023-01-31 08:49 | Outpatient (POV) | payer BC, SELFPAY ==
[2023-01-31 08:55] VITALS: BP 124/73; PULSE 69; RESP 20; O2SAT 97; BMI 37.8
--- NOTE | 2023-01-31 09:06 | EXP.PAIN.SOA ---
[facility] Pain Management SOAP Note Subjective:: Patient is a pleasant 52-year-old female who presents today for follow-up. We are currently treating the patient for degenerative disc disease of lumbar spine with lumbar radiculopathy symptoms. Today she rates her pain a 9 out of 10. Patient states it is related to her right knee procedure she had done about a week and a half ago. Patient states that Dr. Enrico Ramsey did a knee scope related to an meniscus tear. She states she is scheduled for a follow-up appointment in his office tomorrow. She does state that it is an overall achy sensation that is worse with increased activity. She does also state that she did not like using the crutches so she stopped approximately 1 day postop and is unsure if this made any difference with her continued pain. Patient is not on any scheduled medications. Her Colin is [id number]. Its been reviewed and appropriate. Review of Systems: General: No recent weight changes, no fever, no sleep disturbances Respiratory: No cough, no shortness of air, no recurring pulmonary infections Cardiovascular/peripheral vascular: No chest pain, no palpitations, no edema, no shortness of breath Gastrointestinal: No new onset incontinence, normal bowel movements reported Genitourinary: No new onset incontinence Musculoskeletal: Right knee pain Psychiatric: [Normal mood/affect] Neurological: [Denies weakness in extremities], [denies balance issues] Objective:: Physical Exam: General: Alert and oriented x3, no acute distress, pleasant and cooperative Lungs: Respirations even and unlabored, symmetrical chest expansion Eyes: PERRL Musculoskeletal: Flexion and extension of right knee somewhat guarded secondary to pain, [antalgic gait noted] Neurological: Speech clear, no gross sensory deficit Assessment:: Degenerative disc disease of lumbar spine with lumbar radiculopathy symptoms Plan:: Patient is experiencing worsening pain following a right knee scope with meniscus repair. I will send in a prescription for prednisone 20 mg twice daily for 5 days. Patient will return to clinic in 1 month for reevaluation of symptoms and plan of care. Patient has been instructed to contact the clinic with any concerns before the next appointment. Dr. Marie has reviewed this note and agrees with this plan of care. This note was dictated using voice recognition software and make contain errors or omissions. [facility] Disclaimer: The information contained in this section may have been updated after the patient was seen, as this information can be updated by other users. Medical History Abnormal EKG Aftercare following removal/replacement pacemaker Blurry vision Chest pain Chest pain Chest pain Dyspnea Hx-TIA (transient ischemic attack) Hyperthyroidism Post-op pain Visual disturbance Surgical History History of appendectomy History of section History of cholecystectomy History of esophagogastroduodenoscopy (EGD) History of hernia repair History of hysterectomy Family History Other Family history of myocardial infarction No significant family history Social History Smoking Status: Former smoker second hand exposure: No alcohol intake: current substance use type: denies use current occupational status: other Travel in the last 8 weeks: None household members: family housing: house current occupational exposures/hazards: No caffeine: Yes
== END | disposition home or self-care (01) ==
PROVIDERS: PCP Emergency Medicine; Visit Provider Nurse Practitioner Family
DX: M51.16 Intervertebral disc disorders with radiculopathy, lumbar region (principal); M25.561 Pain in right knee
CPT/HCPCS: 99212; G0463

== ENCOUNTER → 2023-02-01 09:21 | Outpatient (CLI) | payer BC, SELFPAY ==
--- NOTE | 2023-02-01 09:21 | CA_ITS ---
FINAL REPORT TECHNIQUE: Compression chen scale and Doppler evaluation CLINICAL HISTORY: Post rt knee scope pain x 2 weeks FINDINGS: Femoral and popliteal veins show normal compressibility and flow. Visualized portion of the calf veins are patent by Doppler exam. IMPRESSION: No evidence of right lower extremity deep venous thrombosis Reviewed, Interpreted and Dictated by Pippa Obrien MD Transcribed by Latrice Lopes Authenticated and [facility]
== END ==
PROVIDERS: PCP Emergency Medicine; Visit Provider Orthopaedic Surgery
DX: M25.561 Pain in right knee (principal); Z86.718 Personal history of other venous thrombosis and embolism
CPT/HCPCS: 93971

== ENCOUNTER → 2023-03-03 08:56 | Outpatient (POV) | payer BC, SELFPAY ==
--- NOTE | 2023-03-03 09:14 | A.OFFVIS_ITS ---
[facility] Pain Management SOAP Note Subjective:: Patient is a pleasant 52-year-old female who presents today for follow-up. We are currently treating the patient for degenerative disc disease lumbar spine with lumbar radiculopathy symptoms. Today she rates her pain a 0 out of 10. Patient denies any new trauma or injury. She states she is continued to do well with her previous transforaminal injection and right knee scope that was done by Dr. Ramsey here at [facility]. She states they are still working on strength training however she is done well. Patient is not on any scheduled medications currently. Her Colin is [id number]. Its been reviewed and appropriate. Review of Systems: General: No recent weight changes, no fever, no sleep disturbances Respiratory: No cough, no shortness of air, no recurring pulmonary infections Cardiovascular/peripheral vascular: No chest pain, no palpitations, no edema, no shortness of breath Gastrointestinal: No new onset incontinence, normal bowel movements reported Genitourinary: No new onset incontinence Musculoskeletal: Low back pain Psychiatric: [Normal mood/affect] Neurological: [Denies weakness in extremities], [denies balance issues] Objective:: Physical Exam: General: Alert and oriented x3, no acute distress, pleasant and cooperative Lungs: Respirations even and unlabored, symmetrical chest expansion Eyes: PERRL Musculoskeletal: Flexion and extension of lumbar [spine] somewhat guarded secondary to pain, [antalgic gait noted] Neurological: Speech clear, no gross sensory deficit Assessment:: Degenerative disc disease of lumbar spine with lumbar radiculopathy symptoms, right knee pain Plan:: Patient continues to do well from her last injection and knee scope and does not require any additional injective therapy at this time. Patient will return to clinic in 1 month for reevaluation of symptoms and plan of care. Patient has been instructed to contact the clinic with any concerns before the next appointment. Dr. Marie has reviewed this note and agrees with this plan of care. This note was dictated using voice recognition software and make contain errors or omissions. [facility] Disclaimer: The information contained in this section may have been updated after the patient was seen, as this information can be updated by other users. Medical History Abnormal EKG Aftercare following removal/replacement pacemaker Blurry vision Chest pain Chest pain Chest pain Dyspnea Hx-TIA (transient ischemic attack) Hyperthyroidism Post-op pain Visual disturbance Surgical History History of appendectomy History of section History of cholecystectomy History of esophagogastroduodenoscopy (EGD) History of hernia repair x2 History of hysterectomy Family History Other Family history of myocardial infarction No significant family history Social History Smoking Status: Former smoker second hand exposure: No alcohol intake: current substance use type: denies use current occupational status: other Travel in the last 8 weeks: None household members: family housing: house current occupational exposures/hazards: No caffeine: Yes
[2023-03-03 09:54] VITALS: BP 120/76; PULSE 57; RESP 18; O2SAT 99; BMI 35.7
== END ==
PROVIDERS: PCP Emergency Medicine; Visit Provider Nurse Practitioner Family
DX: M51.16 Intervertebral disc disorders with radiculopathy, lumbar region (principal); M25.561 Pain in right knee
CPT/HCPCS: 99212; G0463

== ENCOUNTER 2023-03-21 16:00 | Emergency (ER) | payer BC, SELFPAY ==
--- NOTE | 2023-03-21 16:21 | XR_ITS ---
PROCEDURE INFORMATION: Exam: XR Right Knee Exam date and time: 03/21/2023 4:21 PM Age: 52 years old Clinical indication: Pain; Knee; Right; Additional info: Pain and swelling after surgery TECHNIQUE: Imaging protocol: Radiologic exam of the right knee. Views: 3 views. COMPARISON: MR KNEE RT WO CON 01/06/2023 3:14 PM FINDINGS: Bones/joints: No evidence of acute fracture or malalignment. Moderate knee joint effusion, similar to 01/06/2023 MRI. 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 Mild tricompartmental degenerative osteoarthrosis with peaking of the tibial spines and minor marginal osteophytosis. No significant joint space narrowing. Soft tissues: Unremarkable. IMPRESSION: 1. No evidence of acute osseous abnormality in the right knee. 2. Moderate knee joint effusion, similar to 01/06/2023 MRI. 3. 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 4. Mild tricompartmental degenerative osteoarthrosis.
[2023-03-21 16:35] VITALS: BP 131/83; PULSE 73; RESP 19; TEMP 36.8; O2SAT 98; BMI 37.4
--- NOTE | 2023-03-21 17:13 | EXP.UTC ---
Discharge Plan Disposition Patient Disposition: Home, Self-Care Condition: Good Prescriptions Prescriptions: New diclofenac sodium 1 % gel 2 g topical QID PRN (Reason: pain) Qty: 100 0RF Rx Instructions: apply to single elbow, wrist or hand; for hand includes palm/fingers/back of hand No Action oxybutynin chloride 5 mg tablet extended release 24 hr 5 mg PO DAILY aspirin 81 mg capsule 81 mg PO DAILY dicyclomine 10 mg capsule 10 mg PO DAILY omeprazole 20 mg capsule,delayed release(DR/EC) 20 mg PO DAILY levothyroxine 25 MCG tablet 25 mcg PO DAILY ofloxacin 0.3 % drops 10 drp otic (ear) DAILY levocetirizine 5 mg tablet 5 mg PO DAILY hydrocodone-acetaminophen 5-325 mg tablet 1 tab PO Q4H PRN (Reason: Postop pain) Qty: 30 0RF Referrals Follow up/Referrals: Joan Merrill PA [Primary Care Provider] - See instructions Activity Restrictions/Add. Instructions Additional Instructions/Restrictions: *weight bearing as tolerated *RICE, Rest the extremity, Ice 15-20 minutes 3-4 times daily, Compress- wear the abilio wrap as discussed as much as possible to help reduce swelling and pain, Elevate the extremity when at rest *Abilio wrap is for support and help control swelling, use it except in the shower. Be sure that is not to tight but not to loose either *Elevate when resting? *Diclofenac topical as prescribed as needed for pain an inflammation. If need something more can take Tylenol in between doses of Ibuprofen to help Immediately follow up with your family doctor for new or worsening of symptoms, or no noticeable improvement over the next 3-5 days Clinical Impressions Clinical Impression: Knee pain Qualifiers: Chronicity: unspecified Laterality: right Qualified Code(s): M25.561 - Pain in right knee Instructions Patient Instructions: Diclofenac Topical (arthritis pain) Discharge ED Provider: Ana Maria Bragg [facility] General Stated complaint: Surgery 01/21, right knee swelling pain Mode of Arrival: Ambulatory Source of Information: Patient Limitations: No Limitations Time Seen by Provider: 03/21/23 16:45 Description of Symptoms (Recalled from Triage Doc. by RN): PATIENT C/O PAIN AND SWELLING TO RIGHT KNEE X 3 DAYS. REPORTS HAVING SURGERY ON THAT KNEE ON 7/14/23 HEENT Symptoms (Recalled from RN notes): No Resp Symptoms (Recalled from RN notes): No Skin Symptoms (Recalled from RN notes): No MS Symptoms (Recalled from RN notes): Yes Functional Status (Recalled from RN notes): WNL History of Present Illness Provider Complaint: Patient states that she had surgery on right knee in January States that she has been having pain and swelling on and off since States that today it was hurting again so she came in wanting to get something to help with the pain and it is swollen again Denies known injury Related Data Home Medications Medication Instructions Recorded Confirmed oxybutynin chloride 5 mg 5 mg PO DAILY urination 02/25/22 03/03/23 tablet,extended release 24 hr dicyclomine 10 mg capsule 10 mg PO DAILY stomach cramping 02/26/22 03/03/23 levothyroxine 25 mcg tablet 25 mcg PO DAILY thyroid 03/02/22 03/03/23 aspirin 81 mg capsule 81 mg PO DAILY Blood thinner 03/08/22 03/03/23 omeprazole 20 mg capsule,delayed 20 mg PO DAILY Acid Reflux 12/01/22 03/03/23 release levocetirizine 5 mg tablet 5 mg PO DAILY ALLERGIES 03/03/23 03/03/23 ofloxacin 0.3 % ear drops 10 drp otic (ear) DAILY Ear Pain 03/03/23 03/03/23 Previous Rx's Medication Instructions Recorded hydrocodone 5 mg-acetaminophen 325 1 tab PO Q4H PRN Postop pain #30 01/21/23 mg tablet tabs diclofenac sodium 1 % topical gel 2 g topical QID PRN pain #100 grams 03/21/23 Allergies Allergy/AdvReac Type Severity Reaction Status Date / Time azithromycin [AZITHROMYCIN] Allergy Intermediate NA-NAUSEA Verified 03/01/23 09:30 codeine [CODEINE] Allergy Intermediate S-SWELLS-OR Verified 03/01/23 09:3
[2023-03-21 17:24] VITALS: BP 131/83; PULSE 73; RESP 19; TEMP 36.8; O2SAT 98
== END 2023-03-21 17:29 | disposition home or self-care (01) ==
PROVIDERS: Emergency Provider Nurse Practitioner; PCP Student in an Organized Health Care Education/Training Program
DX: M25.561 Pain in right knee (principal); M25.461 Effusion, right knee; E03.9 Hypothyroidism, unspecified; Z87.891 Personal history of nicotine dependence
CPT/HCPCS: 73562; 99212; 99214; G0463

== ENCOUNTER 2023-04-19 16:00 | Outpatient (RCR) | payer BC, SELFPAY ==
--- NOTE | 2023-04-12 11:35 | HMH.RHREAS ---
Rehab Reassessment Rehab OP Re-assessment Start: 03/15/23 10:24 Freq: Status: Active Protocol: Document 04/12/23 10:20 KRISTI (Rec: 04/12/23 11:34 KRISTI [id number]) E-signed By Ashutosh Cerrato, PT Lower Extremity Functional Index Activities Today, do you or would you have any difficulty at all with: a.Any of your usual work, housework or A little bit of difficulty school activities b. Your usual hobbies, recreational or Moderate difficulty sporting activities c. Getting into or out of the bath No difficulty d. Walking between rooms No difficulty e. Putting on your shoes or socks Quite a bit of difficulty f. Squatting A little bit of difficulty g. Lifting an object, like a bag of No difficulty groceries from the floor h. Performing light activities around No difficulty your home i. Performing heavy activities around Moderate difficulty your home j. Getting into or out of a car No difficulty k. Walking 2 blocks A little bit of difficulty l. Walking a mile A little bit of difficulty m. Going up or down 10 stairs (about 1 A little bit of difficulty flight of stairs) n. Standing for 1 hour Moderate difficulty o. Sitting for 1 hour Moderate difficulty p. Running on even ground Quite a bit of difficulty q. Running on uneven ground Quite a bit of difficulty r. Making sharp turns while running fast Quite a bit of difficulty s. Hopping Quite a bit of difficulty t. Rolling over in bed No difficulty LEFI Score Lower Extremity Functional Index Score 52 Rehab Re-assessment Subjective Subjective Pt reports 9/10 right knee pain this am on VAS, however, reports 'I just got an injection in it this morning to help with the swelling. So it's pretty sore right now.' Objective Objective Notes AROM: RIGHT KNEE FLX 0-99 MMT: R HIP FLX 4/5, R KNEE FLX 4-/5, R KNEE EXT 4-/5, R HIP ABD,EXT 4-/5, R HIP ADD 4/5 TTP: RIGHT KNEE MEDIAL JT LINE 2-3/4, RIGHT KNEE LATERAL JT LINE 1-2/4 GAIT: MIN. ANTALGIC ON LEVEL TERRAIN EDEMA: R KNEE CIRCUM. AT JT LINE 49CM Assessment Progress Assessment Slower Than Expected Assessment Notes SLIGHT IMPROVEMENT IN ROM AND STRENGTH Patient goals met STG'S 3/ Goals Not Met STG'S 4
== END 2023-04-19 16:05 | disposition home or self-care (01) ==
LOC: PT 16:00
PROVIDERS: PCP Emergency Medicine; Visit Provider Orthopaedic Surgery
DX: S83.231D Complex tear of medial meniscus, current injury, right knee, subsequent encounter (principal); S83.271D Complex tear of lateral meniscus, current injury, right knee, subsequent encounter; M22.41 Chondromalacia patellae, right knee; Z96.651 Presence of right artificial knee joint
CPT/HCPCS: 97010; 97014; 97016; 97110; 97163; 97164; 97530; G0283

== ENCOUNTER → 2023-05-04 09:44 | Outpatient (CLI) | payer BC, SELFPAY | PROVIDERS: PCP Nurse Practitioner Family; Visit Provider Nurse Practitioner Family | DX: N39.0 Urinary tract infection, site not specified (principal); B96.89 Other specified bacterial agents as the cause of diseases classified elsewhere | CPT/HCPCS: 87086 ==

== ENCOUNTER → 2023-06-21 09:35 | Outpatient (CLI) | payer BC, SELFPAY ==
[2023-06-21 18:58] LABS: Basophils % 0.6 % (0.1-2.0); Eosinophils # 0.2 K/mm3 (0.0-0.4); Hematocrit 39.6 % (37.0-47.0); Hemoglobin 13.6 g/dL (12.2-16.2); Lymphocytes # 1.5 K/mm3 (0.7-4.5); Lymphocytes % 27.2 % (10-50); Mean Corpuscular HGB Conc 34.4 g/dL (31.8-35.4); Mean Corpuscular Hemoglobin 31.1 pg (27.0-31.2); Mean Corpuscular Volume 90.4 fl (81-99); Mean Platelet Volume 12.2 fl (7.4-10.4); Monocytes # 0.3 K/mm3 (0.1-1.0); Monocytes % 5.4 % (1.7-9.3); Neutrophils # 3.5 K/mm3 (1.8-7.8); Neutrophils % 63.7 % (37.0-80.0); Platelet Count 197 K/mm3 (142-424); Red Blood Count 4.38 M/mm3 (4.20-5.40); Red Cell Distribution Width 14.3 % (11.5-17.5); White Blood Count 5.4 K/mm3 (4.8-10.8)
[2023-06-21 19:53] LABS: Alanine Aminotransferase 20 U/L (12-78); Albumin Level 4.2 g/dl (3.5-5.0); Albumin/Globulin Ratio 1.3 (1.1-1.8); Alkaline Phosphatase 117 U/L (38-126); Anion Gap 8.2 mEq/L (5-15); Aspartate Amino Transferase 27 U/L (14-36); Bilirubin,Total 0.9 mg/dl (0.2-1.3); Blood Urea Nitrogen 22 mg/dl (7-17); Calcium 8.4 mg/dl (8.4-10.2); Carbon Dioxide 24 mmol/L (22.0-30.0); Chloride 107 mmol/L (98-107); Creatine Kinase 144 U/L (30-135); Estimated Glomerular Filt Rate 52 ml/min (>60); GFR (African American) 63 ML/MIN (>60); Globulin 3.2 g/dL (1.3-3.2); Glucose 77 mg/dl (74-100); Magnesium 1.9 mg/dl (1.6-2.3); Potassium 4.2 mmoL/L (3.5-5.1); Sodium 135 mmol/L (136-145); Total Protein,Serum 7.4 g/dl (6.3-8.2)
[2023-06-21 20:11] LABS: Free T4 (Free Thyroxine) 1.13 ng/dl (0.78-2.19)
[2023-06-21 20:23] LABS: Thyroid Stimulating Hormone 7.88 uIU/mL (0.465-4.68)
[2023-06-21 20:42] LABS: Vitamin B12 200 pg/mL (239-931)
[2023-06-21 21:55] LABS: Iron 97 ug/dL (37-170)
[2023-06-21 22:31] LABS: Total Iron Binding Capacity 388 ug/dL (265-497)
[2023-06-21 22:32] LABS: Ferritin 27.9 ng/ml (11.1-264)
== END ==
PROVIDERS: PCP Student in an Organized Health Care Education/Training Program; Visit Provider Student in an Organized Health Care Education/Training Program
DX: R25.2 Cramp and spasm (principal)
CPT/HCPCS: 80053; 82550; 82553; 82607; 82728; 83540; 83550; 83735; 84439; 84443; 85025

== ENCOUNTER 2023-06-22 22:54 | Emergency (ER) | payer BC, SELFPAY ==
[2023-06-22 23:01] VITALS: BP 128/101; BP 142/95; PULSE 108; PULSE 116; RESP 15; TEMP 37.1; O2SAT 97; O2SAT 98; BMI 38.9
--- NOTE | 2023-06-22 23:06 | PC.NURSE ---
in room talking with patient at this time.
--- NOTE | 2023-06-22 23:09 | XR_ITS ---
PROCEDURE INFORMATION: Exam: XR Chest Exam date and time: 06/22/2023 11:08 PM Age: 52 years old Clinical indication: Pain; Cough and fever; Right-sided; Additional info: Ru chest pain, cough, fever TECHNIQUE: Imaging protocol: Radiologic exam of the chest. Views: 1 view. COMPARISON: CR XR CHEST 2V 01/18/2023 12:34 PM FINDINGS: Lungs: Unremarkable. No consolidation. Pleural spaces: Unremarkable. No pleural effusion. No pneumothorax. Heart/Mediastinum: Unremarkable. No cardiomegaly. Bones/joints: Unremarkable. IMPRESSION: No acute findings. No infiltration identified.
--- NOTE | 2023-06-22 23:11 | HMH.EDGENADL ---
Discharge Plan Disposition Patient Disposition: Home, Self-Care Condition: Good Prescriptions Prescriptions: No Action oxybutynin chloride 5 mg tablet extended release 24 hr 5 mg PO DAILY aspirin 81 mg capsule 81 mg PO DAILY dicyclomine 10 mg capsule 10 mg PO DAILY omeprazole 20 mg capsule,delayed release(DR/EC) 20 mg PO DAILY benzonatate 100 mg capsule 100 mg PO BID PRN (Reason: cough) Qty: 20 0RF albuterol sulfate 90 mcg/actuation HFA aerosol inhaler 1 inh inhalation QID Qty: 6.7 2RF amoxicillin-pot clavulanate 875-125 mg tablet 1 tab PO BID 10 Days Qty: 20 0RF levothyroxine 25 MCG tablet 25 mcg PO DAILY levocetirizine 5 mg tablet 5 mg PO DAILY diclofenac sodium 1 % gel 2 g topical QID PRN (Reason: pain) Qty: 100 0RF Rx Instructions: apply to single elbow, wrist or hand; for hand includes palm/fingers/back of hand Referrals Follow up/Referrals: Joan Merrill PA [Primary Care Provider] - See instructions Activity Restrictions/Add. Instructions Additional Instructions/Restrictions: Please take Tylenol and ibuprofen as needed for fever and pain at home. Please monitor respiratory status. Please monitor hydration level. Please follow-up with your primary care provider. Please return to the emergency department if you develop any new or worsening symptoms or become concerned for your health. Clinical Impressions Clinical Impression: COVID-19, Fever, Shortness of breath Stand Alone Forms Stand Alone Forms: Work/School Release Discharge ED Provider: Arian Stephen Adult HPI General Chief complaint: Upper Respiratory Infection Stated complaint: lung pain, congestion, sore throat, chills Time Seen by Provider: 06/22/23 22:59 Mode of Arrival: Family Vehicle Source of Information: Patient Limitations: No Limitations Description of Symptoms (Recalled from ER Triage Doc. by RN): 52 yo female presents with CC of cough,congestion,chills,sore thraot and pain in right shoulder with inspiration, as well as right ear pain. Seen by PCP previously, told she had a red ear and placed on amoxicillin and tessalon perles. Patient reports that the discomfort is increasing, that she was febrile at home, and uncomfortable and brought herself in. Patient is afebrile here. History of Present Illness HPI narrative: 52-year-old female history as reported below presents with multiple complaints. She reports that she has been having cough congestion chills sore throat and right upper chest pain as well as right ear pain. Symptoms have been worsening over the last couple of days. Reports shortness of breath with ambulation. Related Data Home Medications Medication Instructions Recorded Confirmed oxybutynin chloride 5 mg 5 mg PO DAILY urination 02/25/22 06/21/23 tablet,extended release 24 hr dicyclomine 10 mg capsule 10 mg PO DAILY stomach cramping 02/26/22 06/21/23 levothyroxine 25 mcg tablet 25 mcg PO DAILY thyroid 03/02/22 06/21/23 aspirin 81 mg capsule 81 mg PO DAILY Blood thinner 03/08/22 06/21/23 omeprazole 20 mg capsule,delayed 20 mg PO DAILY Acid Reflux 12/01/22 06/21/23 release levocetirizine 5 mg tablet 5 mg PO DAILY ALLERGIES 03/03/23 06/21/23 Previous Rx's Medication Instructions Recorded diclofenac sodium 1 % topical gel 2 g topical QID PRN pain #100 grams 03/21/23 albuterol sulfate 90 mcg/actuation 1 inh inhalation QID #6.7 grams 06/20/23 aerosol inhaler amoxicillin 875 mg-potassium 1 tab PO BID 10 days #20 tabs 06/20/23 clavulanate 125 mg tablet benzonatate 100 mg capsule 100 mg PO BID PRN cough #20 caps 06/20/23 Allergies Allergy/AdvReac Type Severity Reaction Status Date / Time azithromycin [AZITHROMYCIN] Allergy Intermediate NA-NAUSEA Verified 06/21/23 11:15 codeine [CODEINE] Allergy Intermediate S-SWELLS-OR Verified 06/21/23 11:15 AL/THROAT nut - unspecified Allergy Hives Verified 06/21/23 11:15 silver Allergy Bl
--- NOTE | 2023-06-22 23:19 | PC.NURSE ---
Swabbed patient and provided blanket at this time.
[2023-06-22 23:24] LABS: Influenza A, PCR Not Detected (NotDetected); Influenza B, PCR Not Detected (NotDetected)
--- NOTE | 2023-06-22 23:28 | PC.NURSE ---
Rounded on patient; call light within reach of patient
[2023-06-22 23:30] VITALS: BP 130/86; PULSE 88; RESP 16; O2SAT 100
[2023-06-22 23:38] LABS: Basophils % 0.4 % (0.1-2.0); Eosinophils # 0.1 K/mm3 (0.0-0.4); Eosinophils % 2.1 % (0.1-12.0); Hematocrit 39.4 % (37.0-47.0); Hemoglobin 12.9 g/dL (12.2-16.2); Mean Corpuscular HGB Conc 32.6 g/dL (31.8-35.4); Mean Corpuscular Hemoglobin 29.7 pg (27.0-31.2); Mean Corpuscular Volume 90.9 fl (81-99); Mean Platelet Volume 9.7 fl (7.4-10.4); Monocytes # 0.3 K/mm3 (0.1-1.0); Monocytes % 5.2 % (1.7-9.3); Neutrophils # 5.1 K/mm3 (1.8-7.8); Neutrophils % 77.3 % (37.0-80.0); Platelet Count 177 K/mm3 (142-424); Red Blood Count 4.34 M/mm3 (4.20-5.40); Red Cell Distribution Width 14.5 % (11.5-17.5); White Blood Count 6.6 K/mm3 (4.8-10.8)
[2023-06-22 23:47] LABS: Coronavirus 19, PCR Detected (NotDetected)
[2023-06-22 23:52] LABS: D-Dimer 0.95 ug/mL (0.0-0.5)
[2023-06-22 23:58] LABS: Alanine Aminotransferase 22 U/L (12-78); Albumin Level 4.2 g/dl (3.5-5.0); Albumin/Globulin Ratio 1.2 (1.1-1.8); Alkaline Phosphatase 105 U/L (38-126); Anion Gap 7.8 mEq/L (5-15); Aspartate Amino Transferase 43 U/L (14-36); Bilirubin,Total 0.9 mg/dl (0.2-1.3); Blood Urea Nitrogen 19 mg/dl (7-17); Calcium 8.2 mg/dl (8.4-10.2); Carbon Dioxide 22 mmol/L (22.0-30.0); Chloride 108 mmol/L (98-107); Creatinine Clearance Estimated 79 mL/min (50-200); Estimated Glomerular Filt Rate 39 ml/min (>60); GFR (African American) 48 ML/MIN (>60); Globulin 3.4 g/dL (1.3-3.2); Glucose 112 mg/dl (74-100); Potassium 3.8 mmoL/L (3.5-5.1); Sodium 134 mmol/L (136-145); Total Protein,Serum 7.6 g/dl (6.3-8.2)
[2023-06-23] VITALS: BP 120/74; PULSE 87; RESP 16; O2SAT 96
[2023-06-23 00:30] VITALS: BP 119/76; PULSE 85; RESP 16; O2SAT 96
[2023-06-23 00:52] VITALS: BP 119/76; PULSE 87; RESP 16; TEMP 37.1; O2SAT 95
== END 2023-06-23 00:53 | disposition home or self-care (01) ==
PROVIDERS: Emergency Provider Emergency Medicine; PCP Student in an Organized Health Care Education/Training Program
DX: U07.1 COVID-19 (principal); R50.9 Fever, unspecified; R06.02 Shortness of breath; M25.511 Pain in right shoulder; R07.9 Chest pain, unspecified; H92.01 Otalgia, right ear; E05.80 Other thyrotoxicosis without thyrotoxic crisis or storm
CPT/HCPCS: 71045; 80053; 85025; 85378; 87636; 96361; 96374; 99285

== ENCOUNTER 2023-06-24 12:00 | Emergency (ER) | payer BC, SELFPAY ==
[2023-06-24 12:02] VITALS: BP 130/90; PULSE 70; RESP 17; TEMP 36.8; O2SAT 96; BMI 38.9
--- NOTE | 2023-06-24 12:12 | PC.NURSE ---
Dr. Novoa at BS
--- NOTE | 2023-06-24 12:21 | PC.NURSE ---
DR HURT AT BEDSIDE
--- NOTE | 2023-06-24 12:29 | XR_ITS ---
FINAL REPORT CLINICAL HISTORY: Covid positive, cough COMPARISON: 06/22/2023 FINDINGS: The heart size is normal. The mediastinum is normal. There is no focal infiltrate or edema. There are no pleural effusions. There is no pneumothorax. There is no osseous abnormality. IMPRESSION: No acute cardiopulmonary process Reviewed, Interpreted and Dictated by Valeriano Rajput MD Transcribed by Lisandra Solomon Authenticated and [facility]
--- NOTE | 2023-06-24 12:45 | PC.NURSE ---
XR AT BEDSIDE
--- NOTE | 2023-06-24 13:15 | HMH.EDGENADL ---
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) 30 mg PO Q6H PRN (Reason: nasal congestion) Qty: 30 0RF guaifenesin [Mucinex] 600 mg tablet extended release 12hr 600 mg PO BID PRN (Reason: cough) Qty: 10 0RF No Action oxybutynin chloride 5 mg tablet extended release 24 hr 5 mg PO DAILY aspirin 81 mg capsule 81 mg PO DAILY dicyclomine 10 mg capsule 10 mg PO DAILY omeprazole 20 mg capsule,delayed release(DR/EC) 20 mg PO DAILY benzonatate 100 mg capsule 100 mg PO BID PRN (Reason: cough) Qty: 20 0RF albuterol sulfate 90 mcg/actuation HFA aerosol inhaler 1 inh inhalation QID Qty: 6.7 2RF amoxicillin-pot clavulanate 875-125 mg tablet 1 tab PO BID 10 Days Qty: 20 0RF levothyroxine 37.5 mcg capsule 37.5 mcg PO DAILY Qty: 30 2RF prednisone 20 mg tablet 20 mg PO BID Qty: 10 0RF levocetirizine 5 mg tablet 5 mg PO DAILY diclofenac sodium 1 % gel 2 g topical QID PRN (Reason: pain) Qty: 100 0RF Rx Instructions: apply to single elbow, wrist or hand; for hand includes palm/fingers/back of hand Referrals Follow up/Referrals: Joan Merrill PA [Primary Care Provider] - See instructions Activity Restrictions/Add. Instructions Additional Instructions/Restrictions: Please follow-up with your primary care provider. Please return to the emergency department if you develop any new or worsening symptoms or become concerned for your health. Clinical Impressions Clinical Impression: COVID-19 virus infection Headache Qualifiers: Headache type: tension-type Headache chronicity pattern: acute headache Intractability: not intractable Qualified Code(s): G44.209 - Tension-type headache, unspecified, not intractable Discharge ED Provider: Carson Novoa I General Adult HPI General Chief complaint: Headache Stated complaint: Covid pos, headache x3 days, SOA, vomiting Time Seen by Provider: 06/24/23 12:05 Mode of Arrival: Family Vehicle Source of Information: Patient and Medical Record Limitations: No Limitations Description of Symptoms (Recalled from ER Triage Doc. by RN): Pt c/o sinus pressure, headache, SOA, and productive cough since she was dx with covid on Tuesday. She has been taking Ibuprofen and Tylenol intemittently. Denies fever, chills, or body aches. History of Present Illness HPI narrative: Patient is a 52-year-old female, history of prior TIA, hyperthyroidism presenting to the emergency department with generalized body aches, headache over the past several days since she was diagnosed COVID-positive 3 days ago. History was conducted with the patient at bedside. Patient reports that she has been symptomatic since Tuesday with cough, congestion, runny nose. She reports that she has had severe sinus pressure, resulting in the top of her head hurting which is now radiating down into her bilateral neck. She denies any associated chest pain. She does report that when she gets into a coughing fit, she has trouble catching her breath but does not have any shortness of breath at the time of my evaluation. Denies abdominal pain, nausea, vomiting. She has had some intermittent subjective fevers and chills. Denies diarrhea, constipation, dysuria, urinary urgency and frequency. Also denies paresthesias, focal weakness. Related Data Home Medications Medication Instructions Recorded Confirmed oxybutynin chloride 5 mg 5 mg PO DAILY urination 02/25/22 06/21/23 tablet,extended release 24 hr dicyclomine 10 mg capsule 10 mg PO DAILY stomach cramping 02/26/22 06/21/23 aspirin 81 mg capsule 81 mg PO DAILY Blood thinner 03/08/22 06/21/23 omeprazole 20 mg capsule,delayed 20 mg PO DAILY Acid Reflux 12/01/22 06/21/23 release levocetirizine
[2023-06-24 14:24] VITALS: BP 127/85; PULSE 72; RESP 18; TEMP 36.7; O2SAT 98
== END 2023-06-24 14:25 | disposition home or self-care (01) ==
PROVIDERS: Emergency Provider Emergency Medicine; PCP Student in an Organized Health Care Education/Training Program
DX: U07.1 COVID-19 (principal); R51.9 Headache, unspecified; R06.02 Shortness of breath; R11.10 Vomiting, unspecified; R05.9 Cough, unspecified; E05.80 Other thyrotoxicosis without thyrotoxic crisis or storm; Z86.73 Personal history of transient ischemic attack (TIA), and cerebral infarction without residual deficits
CPT/HCPCS: 71045; 99283

== ENCOUNTER → 2023-07-06 14:09 | Outpatient (CLI) | payer BC, SELFPAY ==
--- NOTE | 2023-07-06 14:17 | US_ITS ---
FINAL REPORT TECHNIQUE: Ultrasound images of the kidneys and bladder were obtained. CLINICAL HISTORY: low kidney function COMPARISON: None FINDINGS: The right kidney measures 8.5 cm in length. It is normal in echogenicity. There is no hydronephrosis. The left kidney measures 8.9 cm in length. It is normal in echogenicity. There is no hydronephrosis. The urinary bladder is unremarkable. IMPRESSION: Unremarkable renal ultrasound. Reviewed, Interpreted and Dictated by Valeriano Rajput MD Transcribed by Lisandra Solomon Authenticated and [facility]
== END ==
LOC: RAD 14:10
PROVIDERS: PCP Student in an Organized Health Care Education/Training Program; Visit Provider Student in an Organized Health Care Education/Training Program
DX: R79.89 Other specified abnormal findings of blood chemistry (principal)
CPT/HCPCS: 76770

== ENCOUNTER 2023-08-01 13:06 | Emergency (ER) | payer BC, SELFPAY ==
[2023-08-01 13:07] VITALS: BP 157/112; PULSE 63; RESP 20; TEMP 36.4; O2SAT 96; BMI 36.8
--- NOTE | 2023-08-01 13:23 | XR_ITS ---
FINAL REPORT CLINICAL HISTORY: fall, pain FINDINGS: RIGHT TIBIA AND FIBULA There is no acute fracture or dislocation. The joint spaces are intact. There is no soft tissue abnormality. IMPRESSION: No acute fracture Reviewed, Interpreted and Dictated by Valeriano Rajput MD Transcribed by Eugenia Borrego Authenticated and [facility]
--- NOTE | 2023-08-01 13:23 | XR_ITS ---
FINAL REPORT CLINICAL HISTORY: fall, pain FINDINGS: RIGHT FOOT 2 views of the right foot were obtained. There is no acute fracture or dislocation. Visualized joint spaces are normally aligned. Soft tissues are unremarkable. IMPRESSION: No acute bony abnormality. Reviewed, Interpreted and Dictated by Valeriano Rajput MD Transcribed by Eugenia Borrego Authenticated and [facility]
--- NOTE | 2023-08-01 13:23 | XR_ITS ---
FINAL REPORT CLINICAL HISTORY: fall, pain FINDINGS: LEFT HAND Three views demonstrate no acute fracture or dislocation. The visualized joint spaces are normally aligned. The soft tissues are unremarkable. IMPRESSION: No acute process. Reviewed, Interpreted and Dictated by Valeriano Rajput MD Transcribed by Eugenia Borrego Authenticated and [facility]
--- NOTE | 2023-08-01 13:23 | XR_ITS ---
FINAL REPORT CLINICAL HISTORY: fall, pain FINDINGS: RIGHT KNEE 3 views of the right knee were obtained. There is no acute fracture or dislocation. Visualized joint spaces are normally aligned. Soft tissues are unremarkable. IMPRESSION: No acute bony abnormality. Reviewed, Interpreted and Dictated by Valeriano Rajput MD Transcribed by Eugenia Borrego Authenticated and [facility]
--- NOTE | 2023-08-01 13:23 | XR_ITS ---
FINAL REPORT CLINICAL HISTORY: fall, pain FINDINGS: RIGHT ANKLE 3 views of the right ankle were obtained. There is no acute fracture or dislocation. The mortise is intact. Visualized joint spaces are normally aligned. Soft tissues are unremarkable. IMPRESSION: No acute bony abnormality. Reviewed, Interpreted and Dictated by Valeriano Rajput MD Transcribed by Eugenia Borrego Authenticated and [facility]
--- NOTE | 2023-08-01 13:24 | HMH.EDGENADL ---
Discharge Plan Disposition Patient Disposition: Home, Self-Care Condition: Good Prescriptions Prescriptions: No Action oxybutynin chloride 5 mg tablet extended release 24 hr 5 mg PO DAILY aspirin 81 mg capsule 81 mg PO DAILY dicyclomine 10 mg capsule 10 mg PO DAILY omeprazole 20 mg capsule,delayed release(DR/EC) 20 mg PO DAILY benzonatate 100 mg capsule 100 mg PO BID PRN (Reason: cough) Qty: 20 0RF albuterol sulfate 90 mcg/actuation HFA aerosol inhaler 1 inh inhalation QID Qty: 6.7 2RF prednisone 20 mg tablet 20 mg PO BID Qty: 10 0RF levothyroxine 50 mcg tablet 50 mcg PO DAILY Qty: 30 3RF levocetirizine 5 mg tablet 5 mg PO DAILY diclofenac sodium 1 % gel 2 g topical QID PRN (Reason: pain) Qty: 100 0RF Rx Instructions: apply to single elbow, wrist or hand; for hand includes palm/fingers/back of hand metoclopramide HCl 10 mg tablet 10 mg PO QID PRN (Reason: nausea and vomiting) 7 Days Qty: 28 0RF pseudoephedrine HCl 30 mg capsule (abuse-resistant) 30 mg PO Q6H PRN (Reason: nasal congestion) Qty: 30 0RF guaifenesin [Mucinex] 600 mg tablet extended release 12hr 600 mg PO BID PRN (Reason: cough) Qty: 10 0RF Referrals Follow up/Referrals: Joan Merrill PA [Primary Care Provider] - See instructions Jerrod Ramsey DO [Staff Physician] - See instructions Activity Restrictions/Add. Instructions Additional Instructions/Restrictions: You were evaluated in the emergency department today. If your pain and paresthesias continue, please follow-up with orthopedics over the next 48 hours. We are providing you with information for Dr. Ramsey. Follow-up with your primary care provider over the next 3 days as well. Take Tylenol and ibuprofen at home as needed for pain. Return to the emergency department for any new or worsening symptoms. Clinical Impressions Clinical Impression: Fall, Pain of right leg, Hand pain, left Stand Alone Forms Stand Alone Forms: Work/School Release Discharge ED Provider: Holly Carbone General Adult HPI General Chief complaint: Fall Stated complaint: AO 08/01 FELL ON RIGHT LEG Time Seen by Provider: 01/22/24 13:13 Mode of Arrival: Wheelchair Source of Information: Patient Limitations: No Limitations Description of Symptoms (Recalled from ER Triage Doc. by RN): Patient reports she slipped on ice at a car wash around 12:00 today. Patient is c/o of pain to the right knee and leg area. Patient reports she had surgery to her right knee in January 2023. History of Present Illness HPI narrative: This patient is a 52-year-old female with a history of hypothyroidism, hypertension, ROBERT, and obesity presenting to the emergency department for evaluation of right leg pain after a mechanical ground-level fall. Patient reports that she was walking at the carwash when she slipped on ice, falling onto her right leg and left hand. She also complains of some mild left hand pain, but her right lower leg is her biggest concern. She has not been able to bear weight on her right leg since the fall. She also states that the lateral aspect of her right leg feels tingly. She was well prior to this and denies taking any anticoagulation. She did not hit her head or lose consciousness and complains of no back pain, chest pain, abdominal pain, or other concerns as a result of the fall. Related Data Home Medications Medication Instructions Recorded Confirmed oxybutynin chloride 5 mg 5 mg PO DAILY urination 02/25/22 08/01/23 tablet,extended release 24 hr dicyclomine 10 mg capsule 10 mg PO DAILY stomach cramping 02/26/22 08/01/23 aspirin 81 mg capsule 81 mg PO DAILY Blood thinner 03/08/22 08/01/23 omeprazole 20 mg capsule,delayed 20 mg PO DAILY Acid Reflux 12/01/22 08/01/23 release levocetirizine 5 mg tablet 5 mg PO DAILY ALLERGIES 03/03/23 08/01/23 Previous Rx's Medication Instructions Recorded diclofenac sodium 1 % topical gel 2 g topical QID PRN pain #100 grams 03/21/23 albuterol sulfate 90 mcg/actuation 1 inh inhalation QID #6.7 grams 06/20/23 aerosol inhaler benzonatate 100 mg capsule 100 mg PO BID PRN cough #20 caps 06/20/23 guaifenesin 600 mg tablet, 600 mg PO BID PRN cough #10 tabs 06/24/23 extended release 12 hr (Mucinex) metoclopramide HCl 10 mg tablet 10 mg PO QID PRN nausea and 06/24/23 vomiting 7 days #28 tabs prednisone 20 mg tablet 20 mg PO BID #10 tabs 06/24/23 pseudoephedrine HCl 30 mg capsule 30 mg PO Q6H PRN nasal congestion 06/24/23 (abuse-resistant) #30 ea levothyroxine 50 mcg tablet 50 mcg PO DAILY #30 tabs 07/26/23 Allergies Allergy/AdvReac Type Severity Reaction Status Date / Time azithromycin [AZITHROMYCIN] Allergy Intermediate NA-NAUSEA Verified 08/01/23 08:56 codeine [CODEINE] Allergy Intermediate S-SWELLS-OR Verified 08/01/23 08:56 AL/THROAT nut - unspecified Allergy Hives Verified 08/01/23 08:56 silver Allergy Blister Verified 08/01/23 08:56 [From Tegaderm AG Mesh] Iodinated Contrast Media AdvReac Severe Verified 08/01/23 08:56 Nausea, burning pain at infusion site [facility] Disclaimer: The information contained in this section may have been updated after the patient was seen, as this information can be updated by other users. Medical History Abnormal EKG Aftercare following removal/replacement pacemaker Blurry vision Chest pain Chest pain Chest pain Dyspnea Hx-TIA (transient ischemic attack) Hyperthyroidism Muscle strain Post-op pain Visual disturbance Surgical History History of appendectomy History of section History of cholecystectomy History of esophagogastroduodenoscopy (EGD) History of hernia repair History of hysterectomy Family History Other Family history of myocardial infarction No significant family history Social History Smoking Status: Never smoker second hand exposure: No alcohol intake: current substance use type: denies use current occupational status: other Travel in the last 8 weeks: None household members: family housing: house current occupational exposures/hazards: No caffeine: Yes ROS Obtained: Yes All systems reviewed & no additional complaints except as documented Physical Exam General General appearance: alert and in no apparent distress Head Head exam: atraumatic and normocephalic Eye Eye exam: Present normal appearance, PERRL and EOMI ENT ENT exam: Present normal exam, normal oropharynx, mucous membranes moist and normal external ear exam Neck Neck exam: Present normal inspection, full ROM and trachea midline; Absent tenderness Chest Chest inspection: Present normal inspection and symmetric chest wall rise; Absent tenderness Respiratory Respiratory exam: Present normal lung sounds bilaterally; Absent respiratory distress, wheezes, stridor or accessory muscle use Cardiovascular Cardiovascular exam: Present regular rate and normal rhythm Abdominal Exam Abdominal exam: Present soft; Absent distention, tenderness or guarding Extremities Exam Extremities exam: Present full ROM, tenderness (Bruising and tenderness to the right knee and lateral lower leg. Subjective decrease in sensation to the lateral aspect of the right lower leg. Neurovascularly intact distally otherwise. Tenderness to palpation of the left hand at the base of the right thumb. NVI distally) and normal capillary refill; Absent edema or joint swelling Back Exam Back exam: Present normal inspection and full ROM; Absent tenderness Neurological Exam Neurological exam: Present alert, oriented X3, CN II-XII intact and normal gait; Absent motor sensory deficit Psychiatric Psychiatric exam: Present normal affect and normal mood Skin Skin exam: Present warm and dry Medical Decision Making Medical Records Medical records reviewed: Yes I reviewed the patient's medical records. Colin Inquiry Pt receiving controlled substance: No Vital Signs: 08/01/23 13:07 08/01/23 14:36 08/01/23 15:00 Temperature 97.5 F L Temperature Source Oral Pulse Rate 74 67 Pulse Rate [Right Brachial] 63 Respiratory Rate 20 Blood Pressure 142/90 H 133/90 Blood Pressure [Right Arm] 157/112 H Blood Pressure Mean [Right Arm] 127 Blood Pressure Source Blood Pressure Source [Right Arm] Automatic Cuff Blood Pressure Position Blood Pressure Position [Right Arm] Sitting 02 Sat by Pulse Oximetry 96 97 97 Oxygen Delivery Method Room Air Room Air Room Air 08/01/23 16:15 Temperature 98.7 F Temperature Source Oral Pulse Rate 56 L Pulse Rate [Right Brachial] Respiratory Rate 20 Blood Pressure 158/99 H Blood Pressure [Right Arm] Blood Pressure Mean [Right Arm] Blood Pressure Source Automatic Cuff Blood Pressure Source [Right Arm] Blood Pressure Position Sitting Blood Pressure Position [Right Arm] 02 Sat by Pulse Oximetry Oxygen Delivery Method Room Air Lab Data Lab results reviewed: Yes I reviewed the patient's lab results. Orders (Tests/Meds): ED MEDICATIONS Discontinued Medications Generic Name Dose Route Start Last Admin Trade Name Freq PRN Reason Stop Dose Admin Acetaminophen 1,000 mg 08/01/23 13:23 08/01/23 13:26 Acetaminophen 500mg Tab PO 08/01/23 13:24 1,000 mg ONCE ONE Administration Ibuprofen 800 mg 08/01/23 13:23 08/01/23 13:27 Ibuprofen 400 Mg Tablet PO 08/01/23 13:24 800 mg ONCE ONE Administration ORDERS Category Date Time Status XR ankle RT min 3V Stat Exams 08/01/23 13:23 Completed XR foot RT min 3V Stat Exams 08/01/23 13:23 Completed XR hand LT min 3V Stat Exams 08/01/23 13:23 Taken XR knee RT 3V Stat Exams 08/01/23 13:23 Completed XR tibia fibula RT 2V Stat Exams 08/01/23 13:23 Completed XR wrist LT min 3V Stat Exams 08/01/23 13:35 Completed Medical Decision Narrative: In summary, this patient is a 52-year-old female presenting to the Emergency Department for evaluation of left hand and right lower leg pain after a mechanical ground-level fall. Differential diagnoses considered include but are not limited to fracture, contusion, strain/sprain, neurovascular injury. Ruling out the most morbid conditions drove assessment. On exam, the patient is in no acute distress. She does have some bruising to her right lower leg without obvious significant deformity. She has subjective decrease in sensation to the lateral aspect of the lower leg without other neurovascular deficit. Workup included x-rays of the left hand and wrist as well as the right knee, tib-fib, ankle and foot. Patient was given oral Tylenol and ibuprofen for symptomatic improvement of pain. I independently interpreted x-ray prior to the radiologist read and noted no acute fracture. Please see their read for final interpretation. Patient does not have snuffbox/scaphoid tenderness that would concern me for occult scaphoid fx requiring splinting. On reassessment, she had improvement in pain after administration of medications above. She was given a walking boot because she still complains of significant pain with ambulation. At this time, feel that she is appropriate for discharge. She was offered crutches but declined. I advised her to follow-up closely with orthopedics, as she has a history of right knee surgery. She was given instructions for close a patient follow-up, strict return precautions, and instructions for supportive management. She was discharged in stable condition. Critical Care Critical Care Time Critical Care Time: No
[2023-08-01] MEDS: ACETAMINOPHEN 500MG TAB 1000 MG PO (13:26)
[2023-08-01] MEDS: IBUPROFEN 400 MG TABLET 800 MG PO (13:27)
--- NOTE | 2023-08-01 13:35 | XR_ITS ---
FINAL REPORT CLINICAL HISTORY: fall, pain FINDINGS: LEFT WRIST Three views demonstrate no acute fracture or dislocation. The visualized joint spaces are normally aligned. The soft tissues are unremarkable. IMPRESSION: No acute bony abnormality. Reviewed, Interpreted and Dictated by Valeriano Rajput MD Transcribed by Eugenia Borrego Authenticated and . [facility]
--- NOTE | 2023-08-01 13:45 | PC.NURSE ---
Pt gone to RAD via wheelchair
--- NOTE | 2023-08-01 14:24 | PC.NURSE ---
Rounded on pt. Warm blanket provided. No other needs voiced and call light within reach.
[2023-08-01 14:36] VITALS: BP 142/90; PULSE 74; O2SAT 97
[2023-08-01 15:00] VITALS: BP 133/90; PULSE 67; O2SAT 97
--- NOTE | 2023-08-01 15:17 | PC.NURSE ---
radiology called regarding reports.
[2023-08-01 16:15] VITALS: BP 158/99; PULSE 56; RESP 20; TEMP 37.1; O2SAT 98
--- NOTE | 2023-08-01 22:30 | PC.NURSE ---
chart accessed for ortho paperwork info
== END 2023-08-01 16:24 | disposition home or self-care (01) ==
PROVIDERS: Emergency Provider Emergency Medicine; PCP Student in an Organized Health Care Education/Training Program
DX: M25.561 Pain in right knee (principal); M79.642 Pain in left hand; E03.9 Hypothyroidism, unspecified; I10 Essential (primary) hypertension; G47.33 Obstructive sleep apnea (adult) (pediatric); Z86.73 Personal history of transient ischemic attack (TIA), and cerebral infarction without residual deficits; W01.0XXA Fall on same level from slipping, tripping and stumbling without subsequent striking against object, initial encounter
CPT/HCPCS: 73110; 73130; 73562; 73590; 73610; 73630; 99285

== ENCOUNTER 2023-09-29 18:52 | Outpatient (CLI) | payer BC, SELFPAY ==
[2023-09-29 18:12] LABS: Coronavirus 19, PCR Not Detected (NotDetected); Influenza A, PCR Not Detected (NotDetected); Influenza B, PCR Not Detected (NotDetected)
[2023-09-29 18:33] LABS: Basophils # 0.1 K/mm3 (0-0.2); Basophils % 1.4 % (0.1-2.0); Eosinophils # 0.2 K/mm3 (0.0-0.4); Eosinophils % 3.5 % (0.1-12.0); Hemoglobin 13.5 g/dL (12.2-16.2); Lymphocytes # 1.7 K/mm3 (0.7-4.5); Lymphocytes % 31.5 % (10-50); Mean Corpuscular HGB Conc 32.2 g/dL (31.8-35.4); Mean Corpuscular Hemoglobin 30.6 pg (27.0-31.2); Mean Corpuscular Volume 94.8 fl (81-99); Mean Platelet Volume 11.8 fl (7.4-10.4); Monocytes # 0.2 K/mm3 (0.1-1.0); Monocytes % 4.4 % (1.7-9.3); Neutrophils # 3.1 K/mm3 (1.8-7.8); Neutrophils % 59.2 % (37.0-80.0); Platelet Count 206 K/mm3 (142-424); Red Blood Count 4.43 M/mm3 (4.20-5.40); Red Cell Distribution Width 14.3 % (11.5-17.5); White Blood Count 5.3 K/mm3 (4.8-10.8)
[2023-09-29 18:57] LABS: Free T4 (Free Thyroxine) 1.42 ng/dl (0.78-2.19)
[2023-09-29 19:13] LABS: Alanine Aminotransferase 17 U/L (12-78); Albumin/Globulin Ratio 1.3 (1.1-1.8); Alkaline Phosphatase 113 U/L (38-126); Anion Gap 7.5 mEq/L (5-15); Aspartate Amino Transferase 23 U/L (14-36); Bilirubin,Total 0.7 mg/dl (0.2-1.3); Blood Urea Nitrogen 21 mg/dl (7-17); Calcium 9.1 mg/dl (8.4-10.2); Carbon Dioxide 28 mmol/L (22.0-30.0); Chloride 108 mmol/L (98-107); Estimated Glomerular Filt Rate 58 ml/min (>60); GFR (African American) 70 ML/MIN (>60); Glucose 97 mg/dl (74-100); Potassium 4.5 mmoL/L (3.5-5.1); Sodium 139 mmol/L (136-145)
[2023-09-29 19:45] LABS: Thyroid Stimulating Hormone 5.07 uIU/mL (0.465-4.68)
[2023-09-29 20:04] LABS: Vitamin B12 280 pg/mL (239-931)
== END 2023-09-29 23:59 ==
LOC: LAB.DROPOF 18:52
PROVIDERS: PCP Student in an Organized Health Care Education/Training Program; Visit Provider Student in an Organized Health Care Education/Training Program
DX: Z68.39 Body mass index [BMI] 39.0-39.9, adult (principal); E66.3 Overweight; Z79.899 Other long term (current) drug therapy; E53.8 Deficiency of other specified B group vitamins; E03.9 Hypothyroidism, unspecified; R06.02 Shortness of breath
CPT/HCPCS: 80053; 82607; 84439; 84443; 85025; 87636

== ENCOUNTER 2023-10-24 12:06 | Outpatient (CLI) | payer BC, SELFPAY | END 2023-10-24 23:59 | LOC: LAB.DROPOF 10-25 12:06 | PROVIDERS: PCP Student in an Organized Health Care Education/Training Program; Visit Provider Student in an Organized Health Care Education/Training Program | DX: N39.0 Urinary tract infection, site not specified (principal); B96.29 Other Escherichia coli [E. coli] as the cause of diseases classified elsewhere; B96.89 Other specified bacterial agents as the cause of diseases classified elsewhere | CPT/HCPCS: 87086 ==

== ENCOUNTER 2023-11-01 12:06 | Outpatient (CLI) | payer BC, SELFPAY ==
--- NOTE | 2023-11-01 13:22 | MR_ITS ---
FINAL REPORT CLINICAL HISTORY: Rt Knee Pain. KNEE SURGERY 1 YEAR AGO. TWISTED KNEE AND HEARD A POP. MEDIAL SIDED KNEE PAIN. KNEE INSTABILITY. COMPARISON: None FINDINGS: Multi planar MR imaging was performed of the right knee. The anterior and posterior cruciate ligaments are intact. The quadriceps and patellar tendons are intact. The anterior horn of the lateral meniscus is not seen on this examination, and this may be postoperative change or may be degenerative in origin. There is intrasubstance degenerative change in the posterior horn of the medial meniscus. The medial and lateral collateral ligaments appear intact. The medial and lateral retinacula appear intact. There are multiple osteochondral foci in the undersurface of the patellar lateral articular facet, and also in the lateral tibial plateau. There is a fracture line of the proximal fibula, nondisplaced, with mild associated bone marrow edema that may be acute or subacute. A moderate size joint effusion is present. No evidence of soft tissue inflammatory reaction. IMPRESSION: Fracture line through the proximal fibula, nondisplaced, with mild associated bone marrow edema, acute or subacute. Multiple osteochondral foci in the undersurface of the patella or lateral articular facet, and also in the lateral tibial plateau. Anterior horn of the lateral meniscus is not seen, postoperative versus degenerative. There is also intrasubstance degenerative change in the posterior horn of the medial meniscus. Reviewed, Interpreted and Dictated by Valeriano Rajput MD Transcribed by Aubree Ann Authenticated and [facility]
--- NOTE | 2023-11-01 15:00 | MM_ITS ---
PROCEDURE INFORMATION: Exam: MG Bilateral Screening 3D Mammography Exam date and time: 11/01/2023 2:57 PM Age: 52 years old Clinical indication: Screening mammogram TECHNIQUE: Imaging protocol: Bilateral Screening tomosynthesis and 2D mammography including computer-aided detection (CAD) when performed. COMPARISON: 1. MG MM DIG SCREENING MAMM BI W/CAD 01/01/2022 1:42 PM 2. MG MM DIG SCREENING MAMM BI W/CAD 06/28/2019 3:47 PM 3. MG SCBI MM Dig screening mamm BI w/CAD 06/15/2018 10:59 AM 4. MG DMSB DIG MAMM-SCREEN CYNTHIA 07/07/2015 2:44 PM FINDINGS: MAMMOGRAPHY: Breast composition: There are scattered areas of fibroglandular density. Mass: None. Architectural distortion: No new or suspicious architectural distortion. Calcifications: No new or suspicious calcifications are present Asymmetric density: No new or suspicious asymmetric density is present Skin thickening: None. Axillary adenopathy: None. IMPRESSION: No mammographic evidence of malignancy. Recommend annual screening mammography unless otherwise clinically indicated. ASSESSMENT: BI-RADS category 1: Negative.
== END 2023-11-01 23:59 | disposition home or self-care (01) ==
LOC: RAD 12:10
PROVIDERS: PCP Student in an Organized Health Care Education/Training Program; Visit Provider Orthopaedic Surgery
DX: Z12.31 Encounter for screening mammogram for malignant neoplasm of breast (principal); M79.604 Pain in right leg
CPT/HCPCS: 73721; 77063; 77067

== ENCOUNTER 2023-11-15 07:00 | Outpatient (CLI) | payer BC, SELFPAY ==
--- NOTE | 2023-11-15 07:09 | CT_ITS ---
FINAL REPORT TECHNIQUE: Axial images through the abdomen and pelvis were performed without contrast. This study was performed with techniques to keep radiation doses as low as reasonably achievable, (ALARA). Individualized dose reduction techniques using automated exposure control or adjustment of mA and/or kV according to the patient's size were employed. CLINICAL HISTORY: umbilical hernia COMPARISON: 02/25/2022 FINDINGS: ABDOMEN: The lung bases are clear. The heart size is normal. There is a small hiatal hernia. Patient is status post cholecystectomy. There is a stable less than 1 cm mass in the right hepatic lobe consistent with a cyst. The spleen is normal. There is a right adrenal nodule consistent with an adenoma, stable. The aorta is normal in caliber. There is no significant free fluid or adenopathy. There is no nephrolithiasis. There is no hydronephrosis. Small umbilical hernia containing fat is stable. There are also small inguinal hernias containing fat. PELVIS: The appendix is not identified. The urinary bladder is unremarkable. There is no significant free fluid or adenopathy. IMPRESSION: Hernias as above. Reviewed, Interpreted and Dictated by Dominguez Calderon III, MD Transcribed by Latrice Lopes Authenticated and [facility]
--- NOTE | 2023-11-15 07:09 | XR_ITS ---
FINAL REPORT CLINICAL HISTORY: hypertension, bradycardia COMPARISON: 06/24/2023 FINDINGS: Two views of the chest were obtained. The heart size and pulmonary vascularity are within normal limits. The mediastinum is normal. No acute pulmonary abnormality is identified. There is no pneumothorax. The bony thorax is intact. IMPRESSION: No active cardiopulmonary disease. Reviewed, Interpreted and Dictated by Dominguez Calderon III, MD Transcribed by Latrice Lopes Authenticated and [facility]
[2023-11-15 07:52] LABS: Basophils % 0.5 % (0.1-2.0); Eosinophils # 0.2 K/mm3 (0.0-0.4); Eosinophils % 3.4 % (0.1-12.0); Hematocrit 40.7 % (37.0-47.0); Hemoglobin 12.8 g/dL (12.2-16.2); Lymphocytes # 1.8 K/mm3 (0.7-4.5); Lymphocytes % 29.5 % (10-50); Mean Corpuscular HGB Conc 31.5 g/dL (31.8-35.4); Mean Corpuscular Hemoglobin 29.7 pg (27.0-31.2); Mean Corpuscular Volume 94.3 fl (81-99); Mean Platelet Volume 9.5 fl (7.4-10.4); Monocytes # 0.3 K/mm3 (0.1-1.0); Monocytes % 4.2 % (1.7-9.3); Neutrophils # 3.9 K/mm3 (1.8-7.8); Neutrophils % 62.4 % (37.0-80.0); Platelet Count 204 K/mm3 (142-424); Red Blood Count 4.32 M/mm3 (4.20-5.40); Red Cell Distribution Width 14.7 % (11.5-17.5); White Blood Count 6.2 K/mm3 (4.8-10.8)
[2023-11-15 09:18] LABS: Alanine Aminotransferase 18 U/L (12-78); Albumin Level 3.8 g/dl (3.5-5.0); Albumin/Globulin Ratio 1.4 (1.1-1.8); Alkaline Phosphatase 111 U/L (38-126); Aspartate Amino Transferase 20 U/L (14-36); Bilirubin,Total 0.5 mg/dl (0.2-1.3); Blood Urea Nitrogen 23 mg/dl (7-17); Carbon Dioxide 27 mmol/L (22.0-30.0); Chloride 105 mmol/L (98-107); Estimated Glomerular Filt Rate 52 ml/min (>60); GFR (African American) 63 ML/MIN (>60); Globulin 2.8 g/dL (1.3-3.2); Glucose 95 mg/dl (74-100); Sodium 140 mmol/L (136-145); Total Protein,Serum 6.6 g/dl (6.3-8.2)
== END 2023-11-15 23:59 | disposition home or self-care (01) ==
LOC: RAD 07:02
PROVIDERS: PCP Student in an Organized Health Care Education/Training Program; Visit Provider Student in an Organized Health Care Education/Training Program
DX: Z01.818 Encounter for other preprocedural examination (principal); K42.9 Umbilical hernia without obstruction or gangrene; R10.9 Unspecified abdominal pain
CPT/HCPCS: 36415; 71046; 74176; 80053; 85025

== ENCOUNTER 2023-11-21 19:15 | Outpatient (CLI) | payer BC, SELFPAY ==
[2023-11-21 20:40] LABS: Thyroid Stimulating Hormone 2.25 uIU/mL (0.465-4.68)
[2023-11-21 20:49] LABS: Hemoglobin A1C 5.9 % (4.0-6.0)
== END 2023-11-21 23:59 | disposition home or self-care (01) ==
LOC: LAB.DROPOF 19:19
PROVIDERS: PCP Student in an Organized Health Care Education/Training Program; Visit Provider Student in an Organized Health Care Education/Training Program
DX: E03.9 Hypothyroidism, unspecified (principal); D35.00 Benign neoplasm of unspecified adrenal gland; Z13.1 Encounter for screening for diabetes mellitus; Z79.899 Other long term (current) drug therapy
CPT/HCPCS: 82088; 83036; 84443

== ENCOUNTER 2023-11-24 09:44 | Outpatient (CLI) | payer BC, SELFPAY ==
[2023-11-25 13:04] LABS: DHEA-Sulfate 32.9 ug/dL (41.2-243.7)
[2023-11-25 15:33] LABS: Adrenocorticotropic Hormone 13.7 pg/mL (7.2-63.3)
[2023-12-01 09:29] LABS: Renin 0.682
== END 2023-11-24 23:59 | disposition home or self-care (01) ==
LOC: LAB 09:44
PROVIDERS: PCP Student in an Organized Health Care Education/Training Program; Visit Provider Student in an Organized Health Care Education/Training Program
DX: D35.00 Benign neoplasm of unspecified adrenal gland (principal)
CPT/HCPCS: 36415; 82024; 82533; 82626; 84244

== ENCOUNTER 2023-11-28 16:50 | Outpatient (CLI) | payer BC, SELFPAY ==
[2023-11-28 19:16] LABS: Amphetamine/Metha Screen,Urine Negative ng/ml (<1000)
[2023-11-28 19:17] LABS: Barbiturates Screen,Urine Negative ng/ml (<200)
[2023-11-28 19:18] LABS: Benzodiazepines Screen,Urine Negative ng/ml (<200); Cannabinoid Screen,Urine Negative ng/ml (<50)
[2023-11-28 19:19] LABS: Cocaine Screen,Urine Negative ng/ml (<300)
[2023-11-28 19:20] LABS: Methadone Screen,Urine Negative ng/ml (<300)
[2023-11-28 19:33] LABS: Opiate Screen,Urine Negative ng/ml (<300); Phencyclidine Screen,Urine Negative ng/ml (<25)
== END 2023-11-28 23:59 | disposition home or self-care (01) ==
LOC: LAB.DROPOF 16:50
PROVIDERS: PCP Obstetrics & Gynecology; Visit Provider Obstetrics & Gynecology
DX: Z01.818 Encounter for other preprocedural examination (principal)
CPT/HCPCS: 80307

== ENCOUNTER 2023-11-29 08:34 | Outpatient (CLI) | payer BC, SELFPAY ==
[2023-11-29 09:06] LABS: Basophils % 0.9 % (0.1-2.0); Eosinophils # 0.2 K/mm3 (0.0-0.4); Hematocrit 37.8 % (37.0-47.0); Hemoglobin 12.3 g/dL (12.2-16.2); Lymphocytes # 1.2 K/mm3 (0.7-4.5); Lymphocytes % 26.6 % (10-50); Mean Corpuscular HGB Conc 32.5 g/dL (31.8-35.4); Mean Corpuscular Hemoglobin 29.5 pg (27.0-31.2); Mean Corpuscular Volume 90.9 fl (81-99); Mean Platelet Volume 9.4 fl (7.4-10.4); Monocytes # 0.2 K/mm3 (0.1-1.0); Monocytes % 4.7 % (1.7-9.3); Neutrophils % 63.9 % (37.0-80.0); Platelet Count 196 K/mm3 (142-424); Red Blood Count 4.15 M/mm3 (4.20-5.40); Red Cell Distribution Width 14.9 % (11.5-17.5); White Blood Count 4.7 K/mm3 (4.8-10.8)
[2023-11-29 10:22] LABS: Alanine Aminotransferase 19 U/L (12-78); Albumin Level 3.5 g/dl (3.5-5.0); Albumin/Globulin Ratio 1.2 (1.1-1.8); Alkaline Phosphatase 103 U/L (38-126); Anion Gap 10.1 mEq/L (5-15); Aspartate Amino Transferase 21 U/L (14-36); Bilirubin,Total 0.4 mg/dl (0.2-1.3); Blood Urea Nitrogen 19 mg/dl (7-17); Calcium 8.8 mg/dl (8.4-10.2); Carbon Dioxide 26 mmol/L (22.0-30.0); Chloride 107 mmol/L (98-107); Estimated Glomerular Filt Rate 52 ml/min (>60); GFR (African American) 63 ML/MIN (>60); Globulin 2.9 g/dL (1.3-3.2); Glucose 103 mg/dl (74-100); Potassium 4.1 mmoL/L (3.5-5.1); Sodium 139 mmol/L (136-145); Total Protein,Serum 6.4 g/dl (6.3-8.2)
[2023-11-29 10:40] LABS: HCG,Quantitative 2 mIU/ml (0-5.42)
== END 2023-11-29 23:59 | disposition home or self-care (01) ==
LOC: LAB 08:34
PROVIDERS: PCP Student in an Organized Health Care Education/Training Program; Visit Provider Obstetrics & Gynecology
DX: N89.8 Other specified noninflammatory disorders of vagina (principal)
CPT/HCPCS: 36415; 80053; 84702; 85025

== ENCOUNTER 2023-11-30 07:07 | Day surgery (SDC) | payer BC, SELFPAY ==
[2023-11-28 13:03] VITALS: BMI 39.4
[2023-11-30] VITALS (10 sets, daily range): BP systolic 113–130; BP diastolic 68–93; PULSE 41–68; RESP 18–23; TEMP 35.5–36.6; O2SAT 94–100
[2023-11-30] MEDS: LACTATED RINGERS 1000ML 1,000 ML 25 ML IV (07:38)
[2023-11-30] MEDS: ACETAMINOPHEN 500MG TAB 1000 MG (07:39)
--- NOTE | 2023-11-30 08:49 | P.PNANES_ITS ---
[facility] Disclaimer: The information contained in this section may have been updated after the patient was seen, as this information can be updated by other users. Medical History Inguinal pain of both sides Complex tear of lateral meniscus of right knee Chondromalacia, patella Slipped Evin fundoplication Abnormal cardiovascular stress test Internal derangement of right knee Complex tear of medial meniscus of right knee CVA (cerebral vascular accident) Gastroesophageal junction erosion Infection of pacemaker pulse generator site Hypertension Hypothyroidism Symptomatic bradycardia Diarrhea Sinus bradycardia Epigastric pain Gastroenteritis Mass of vagina Chronic flank pain MARKIE (acute kidney injury) Degenerative disc disease Sacroiliitis Strain of lumbar region Foraminal stenosis of lumbar region Bulging lumbar disc Facet hypertrophy of lumbar region Edema of right lower extremity Obesity (BMI 30-39.9) Migraine Decreased sensation of lower extremity Acquired pes planus of both feet Numbness and tingling of both feet Posterior tibial tendon dysfunction (PTTD) of right lower extremity Daytime somnolence History of DVT (deep vein thrombosis) Vitamin D deficiency Chronic anemia Pes anserinus bursitis of right knee Chronic GERD Headache Hand pain, left Pain of right leg Fall COVID-19 virus infection Shortness of breath Fever COVID-19 Hyperthyroidism Chest pain Chest pain Post-op pain Aftercare following removal/replacement pacemaker Visual disturbance Blurry vision Dyspnea Hx-TIA (transient ischemic attack) Abnormal EKG Muscle strain Chest pain Surgical History Status post hysterectomy History of repair of hiatal hernia Status post arthroscopy of right knee History of hernia repair History of hysterectomy History of appendectomy History of cholecystectomy History of section History of esophagogastroduodenoscopy (EGD) Family History Other Family history of myocardial infarction Hyperlipidemia Hypertension Social History Smoking Status: Never smoker second hand exposure: No alcohol intake: never substance use type: denies use current occupational status: employed Travel in the last 8 weeks: None household members: family housing: house current occupational exposures/hazards: No caffeine: Yes [facility] Anesthesia Checklist Patient Identification Patient Identification: Arm Band and Verbal (Name & ) Structural Data Admitted From: Home Planned Operative Procedure/s: Excision vaginal mass Consent for Planned Operative Procedure(s) Verified: Yes Verified Documents: Surgical Consent NPO Status Verified Time NPO: 00:00 Additional verifications Anesthesia Reactions: Yes (PT STATES WITH PACEMAKER PLACEMENT SHE HAD SEVERE VOMITING, DIARRHEA, URIN) Hx Blood Transfusions: Yes Blood Transfusion Reaction: No Airway Assessment Mallampati Score:: Class II C-Spine Mobility Assessed: Yes TMJ Mobility Assessed: Yes Dentition: Good Dentition Neurological Assessment Level of Consciousness: Awake Hx Seizures: No Numbness or tingling in extremities: No Anesthesia Plan Anesthesia Risk discussed: Yes Anesthesia Plan: Verified ASA Class: III Anesthesia Type: General
--- NOTE | 2023-11-30 09:11 | EXP.ANES.I ---
[facility] Anesthesia Record Part I Anesthesia Record I Intake, IV Amount: 900 Hydration: Adequate Estimated blood loss (mL): 5 Urine output (mL): 0 Blood Pressure: 113/79 SaO2: 94 Pulse Rate: 68 Airway Patency: Patent Respiratory Rate: 23 Temperature: 97.7 F Patient is:: Drowsy and Oral/Nasal airway Stable to PACU at:: 09:08
--- NOTE | 2023-11-30 09:29 | EXP.OP.NOTE ---
Date of procedure: 11/30/23 Pre-op Diagnosis:: 1. Vaginal wall mass Post-op Diagnosis:: 1. Vaginal wall mass 2. Vaginal wall cyst Procedure performed:: Incision and drainage of vaginal wall mass with disruption of cyst wall Surgeon:: Mariel Forbes DO Crossword Puzzle Maker(s):: N/a STUDENT RECRUITER:: Renata Juarez Anesthesia: GETA Estimated blood loss (mL): 5 Clinical Note:: Mrs Melanie Perkins is a very pleasant 53 yo female who presents to [facility] for scheduled procedure. She has a persistent vaginal wall mass. Vaginal exam 12/14/21 was performed and demonstrated vaginal mass noted at opening of introitus - pale in color, smooth, oval shape with some vascularity. It feels to be attached to right vaginal side wall. Pelvic ultrasound 12/[address] scan abdomen/pelvis 01/2022 was within normal limits. She then followed up with Dr. Rodriguez and she states he said it was nothing to worry about. Vaginal mass sometimes feels like pressure. Denies pain. No bladder or bowel complaints. History of hysterectomy. Operative findings:: 1. 3 cm round vaginal wall mass proximal to introitus along right inferior portion of vaginal wall, pale color, smooth, light vascularity present. Light dubon colored fluid drained from cyst. Operative note:: Risks, benefits and alternatives were discussed with the patient. Risks include but are not limited to bleeding, infection, and VTE. Patient voiced understanding and agreed to proceed. She was wheeled back to the operating room and placed under general anesthesia without difficulty. She was placed in dorsal lithotomy position and prepped and draped in the normal sterile fashion. Straight catheter was used to drain the bladder. Right angle retractor was inserted into the vagina for better visualization of mass. Mass was grasped with Allis clamp and Bovi cautery was used to make a 1 cm incision in mass wall. Dubon color fluid drained from incision. Swab was collected to send for culture. Portion of cyst wall was removed and will be sent to pathology. Small amount of oozing noted. Surgicel powder applied into empty cyst cavity. 3-0 Vicryl suture was used to reapproximate vaginal mucosa and aid in hemostasis. Hemostasis was noted. Patient was awaken from anesthesia without difficulty. She was transported to recovery room in stable condition. Patient will be discharged home when awake and ambulating. She was also given instructions to follow-up in the office in 2 weeks. Condition: stable Disposition: same day Specimens:: 1. Wound culture 2. Portion of vaginal cyst wall Complications:: None
--- NOTE | 2023-12-02 08:20 | P.PNANES_ITS ---
[facility] Anesthesia Record Part II Anesthesia Record Part II Discharge Time: 09:38 Destination: [facility] PACU nurse assessment reviewed?: Yes Patient Condition:: Good Anesthesia Complications:: None Swallowing reflex intact?: Yes Airway Patency: Patent Cyanosis?: No Blood Pressure: 119/68 SaO2: 97 Respiratory Rate: 18 Pulse Rate: 41 Temperature: 97.8 F Mental Status: Alert & Oriented Pain level:: 0 Nausea and/or vomitting:: None Intake, IV Amount: 1,800 Hydration: Adequate
[2023-12-02 08:21] VITALS: BP 119/68; PULSE 41; RESP 18; TEMP 36.6; O2SAT 97
== END 2023-11-30 10:25 | disposition home or self-care (01) ==
PROVIDERS: PCP Student in an Organized Health Care Education/Training Program; Visit Provider Obstetrics & Gynecology
PROC: (CPT 57135; principal; 2023-11-30 08:30)
DX: N89.8 Other specified noninflammatory disorders of vagina (principal)
CPT/HCPCS: 57135; 87070; J2405

== ENCOUNTER 2023-12-07 14:12 | Outpatient (CLI) | payer BC, SELFPAY ==
--- NOTE | 2023-12-07 14:12 | CT_ITS ---
FINAL REPORT TECHNIQUE: Axial CT images were performed through the head. Coronal reformatted images were submitted. This study was performed with techniques to keep radiation doses as low as reasonably achievable (ALARA). Individualized dose reduction techniques using automated exposure control or adjustment of mA and/or kV according to the patient's size were employed. CLINICAL HISTORY: Persistent headaches, dizziness COMPARISON: 02/09/2022 FINDINGS: The ventricles are normal in size. There is no evidence of hemorrhage. There is no mass or edema identified. There is no abnormal extra-axial fluid seen. The sinuses are well aerated. IMPRESSION: No acute intracranial process. Reviewed, Interpreted and Dictated by Valeriano Rajput MD Transcribed by Juliana Amaro Authenticated and [facility]
== END 2023-12-07 23:59 | disposition home or self-care (01) ==
LOC: RAD 14:12
PROVIDERS: PCP Student in an Organized Health Care Education/Training Program; Visit Provider Student in an Organized Health Care Education/Training Program
DX: R51.9 Headache, unspecified (principal); R42 Dizziness and giddiness
CPT/HCPCS: 70450

== ENCOUNTER 2024-01-18 13:30 | Emergency (ER) | payer BC, SELFPAY ==
--- NOTE | 2024-01-18 14:12 | ED_ITS ---
Discharge Plan Disposition Patient Disposition: Home, Self-Care Condition: Good Prescriptions Prescriptions: No Action aspirin 81 mg capsule 81 mg PO DAILY oxybutynin chloride 5 mg tablet extended release 24hr 5 mg PO DAILY Qty: 30 0RF omeprazole 20 mg capsule,delayed release(DR/EC) 20 mg PO DAILY albuterol sulfate 90 mcg/actuation HFA aerosol inhaler 1 inh inhalation QID Qty: 6.7 2RF levothyroxine 75 mcg tablet 75 mcg PO DAILY Qty: 90 3RF sulfamethoxazole-trimethoprim [Bactrim DS] 800-160 mg tablet 1 tab PO BID 3 Days Qty: 6 0RF nitrofurantoin monohyd/m-cryst [Macrobid] 100 mg capsule 100 mg PO BID 7 Days Qty: 14 0RF Rx Instructions: must administer with a meal/food levocetirizine 5 mg tablet 5 mg PO DAILY Referrals Follow up/Referrals: Joan Merrill PA [Primary Care Provider] - See instructions Activity Restrictions/Add. Instructions Additional Instructions/Restrictions: Follow-up with your PCP within 48 hours for reassessment. Return to ER for any worsening signs or symptoms as needed. Clinical Impressions Clinical Impression: Unilateral headache Instructions Patient Instructions: DI for Headache Discharge ED Provider: William Moreland General Adult HPI <SUAD Dove - Last Filed: 01/18/24 15:53> General Chief complaint: Headache Stated complaint: h/a Time Seen by Provider: 01/18/24 14:09 History of Present Illness HPI narrative: Patient presents for evaluation of headache. Patient states that she has had a left-sided headache that starts at the vertex of her head for several days. She has tried [id number] treatments without success. Patient reports photophobia phonophobia and some nausea but no vomiting diarrhea visual changes [place] Coma Score 15 no neck pain chest pain shortness of breath fever chills hemoptysis hematochezia melena hematemesis hematuria. Related Data Home Medications Medication Instructions Recorded Confirmed aspirin 81 mg capsule 81 mg PO DAILY Blood thinner 03/08/22 01/11/24 omeprazole 20 mg capsule,delayed 20 mg PO DAILY Acid Reflux 12/01/22 01/11/24 release levocetirizine 5 mg tablet 5 mg PO DAILY ALLERGIES 03/03/23 01/11/24 Previous Rx's Medication Instructions Recorded albuterol sulfate 90 mcg/actuation 1 inh inhalation QID #6.7 grams 06/20/23 aerosol inhaler levothyroxine 75 mcg tablet 75 mcg PO DAILY #90 tabs 10/24/23 oxybutynin chloride 5 mg 5 mg PO DAILY urination #30 tabs 11/21/23 tablet,extended release 24 hr nitrofurantoin 100 mg PO BID 7 days #14 caps 01/17/24 monohydrate/macrocrystals 100 mg capsule (Macrobid) sulfamethoxazole 800 1 tab PO BID 3 days #6 tabs 01/17/24 mg-trimethoprim 160 mg tablet (Bactrim DS) Allergies Allergy/AdvReac Type Severity Reaction Status Date / Time azithromycin [AZITHROMYCIN] Allergy Intermediate NA-NAUSEA Verified 01/11/24 13:40 codeine [CODEINE] Allergy Intermediate S-SWELLS-OR Verified 01/11/24 13:40 AL/THROAT nut - unspecified Allergy Hives Verified 01/11/24 13:40 silver Allergy Blister Verified 01/11/24 13:40 [From Tegaderm AG Mesh] Iodinated Contrast Media AdvReac Severe Verified 01/11/24 13:40 Nausea, burning pain at infusion site [facility] <SUAD Dove - Last Filed: 01/18/24 15:53> [facility] Disclaimer: The information contained in this section may have been updated after the patient was seen, as this information can be updated by other users. Medical History Inguinal pain of both sides Complex tear of lateral meniscus of right knee Chondromalacia, patella Slipped Evin fundoplication Abnormal cardiovascular stress test Internal derangement of right knee Complex tear of medial meniscus of right knee CVA (cerebral vascular accident) Gastroesophageal junction erosion Infection of pacemaker pulse generator site Hypertension Hypothyroidism Symptomatic bradycardia Diarrhea Sinus bradycardia Epigastric pain Gastroenteritis Mass of vagina Chronic flank pain MARKIE (acute kidney injury) Degenerative disc disease Sacroiliitis Strain of lumbar region Foraminal stenosis of lumbar region Bulging lumbar disc Facet hypertrophy of lumbar region Edema of right lower extremity Obesity (BMI 30-39.9) Migraine Decreased sensation of lower extremity Acquired pes planus of both feet Numbness and tingling of both feet Posterior tibial tendon dysfunction (PTTD) of right lower extremity Daytime somnolence History of DVT (deep vein thrombosis) Vitamin D deficiency Chronic anemia Pes anserinus bursitis of right knee Chronic GERD Headache Hand pain, left Pain of right leg Fall COVID-19 virus infection Shortness of breath Fever COVID-19 Hyperthyroidism Chest pain Chest pain Post-op pain Aftercare following removal/replacement pacemaker Visual disturbance Blurry vision Dyspnea Hx-TIA (transient ischemic attack) Abnormal EKG Muscle strain Chest pain Surgical History Status post hysterectomy History of repair of hiatal hernia Status post arthroscopy of right knee Status post right knee arthroscopy with partial medial and lateral meniscectomies History of hernia repair History of hysterectomy History of appendectomy History of cholecystectomy History of section History of esophagogastroduodenoscopy (EGD) Family History Other Family history of myocardial infarction Hyperlipidemia Hypertension Social History Smoking Status: Never smoker second hand exposure: No alcohol intake: never substance use type: denies use current occupational status: employed Travel in the last 8 weeks: None household members: family housing: house current occupational exposures/hazards: No caffeine: Yes <SUAD Dove - Last Filed: 01/18/24 15:53> ROS Obtained: Yes Systems reviewed as appropriate & no additional complaints except as documented Physical Exam <SUAD Dove - Last Filed: 01/18/24 15:53> General General appearance: alert and in no apparent distress Head Head exam: atraumatic and normal inspection Eye Eye exam: Present normal appearance, PERRL and EOMI ENT ENT exam: Present normal exam and normal oropharynx Neck Neck exam: Present normal inspection and full ROM; Absent tenderness or lymphadenopathy Respiratory Respiratory exam: Present normal lung sounds bilaterally Cardiovascular Cardiovascular exam: Present regular rate and normal rhythm Extremities Exam Extremities exam: Present normal inspection and full ROM Back Exam Back exam: Present normal inspection and full ROM; Absent tenderness Neurological Exam Neurological exam: Present alert, oriented X3, CN II-XII intact, normal gait and reflexes normal; Absent motor sensory deficit Psychiatric Psychiatric exam: Present normal affect and normal mood Skin Skin exam: Present warm, dry and normal color Medical Decision Making <SUAD Dove - Last Filed: 01/18/24 15:53> Medical Records Medical records reviewed: Yes I reviewed the patient's medical records. Colin Inquiry Pt receiving controlled substance: No Vital Signs: 01/18/24 14:14 01/18/24 14:30 01/18/24 14:45 Temperature 97.6 F Temperature Source Oral Pulse Rate 47 L 55 L Pulse Rate [Left Radial] 58 L Respiratory Rate 20 Blood Pressure 110/73 110/73 Blood Pressure [Right Arm] 120/86 Blood Pressure Mean 85 Blood Pressure Mean [Right Arm] 97 02 Sat by Pulse Oximetry 100 98 100 Oxygen Delivery Method Room Air 01/18/24 15:15 01/18/24 16:14 Temperature 97.6 F Temperature Source Oral Pulse Rate 67 64 Pulse Rate [Left Radial] Respiratory Rate 20 Blood Pressure 110/73 115/80 Blood Pressure [Right Arm] Blood Pressure Mean Blood Pressure Mean [Right Arm] 02 Sat by Pulse Oximetry 99 Oxygen Delivery Method Room Air Lab Data Lab results reviewed: Yes I reviewed the patient's lab results. Lab Results 01/18/24 14:33: WBC 4.5 L, RBC 4.19 L, Hgb 12.8, Hct 40.0, MCV 95.5, MCH 30.6, MCHC 32.0, RDW 14.8, Plt Count 170, MPV 10.1, Neut % (Auto) 59.0, Lymph % (Auto) 31.9, [place] % (Auto) 4.2, Eos % (Auto) 4.1, Baso % (Auto) 0.8, Neut # (Auto) 2.7, Lymph # (Auto) 1.4, [place] # (Auto) 0.2, Eos # (Auto) 0.2, Baso # (Auto) 0.0, Sodium 140, Potassium 3.8, Chloride 110 H, Carbon Dioxide 25, Anion Gap 8.8, BUN 19 H, Creatinine 1.20 H, Estimated Creat Clear 87, Estimated GFR 47 L, Est GFR ( Amer) 57 L, Glucose 81, Calcium 8.9, Magnesium 2.1, Total Bilirubin 0.5, AST 23, ALT 22, Alkaline Phosphatase 101, Total Protein 7.0, Albumin 3.9, Globulin 3.1, Albumin/Globulin Ratio 1.3, TSH 2.99, Free T4 Index 2.6 L, Thyroxine (T4) 8.2, T3 Uptake 32 01/18/24 14:33 01/18/24 14:33 Orders (Tests/Meds): ED MEDICATIONS Discontinued Medications Generic Name Dose Route Start Last Admin Trade Name Ronald PRN Reason Stop Dose Admin Acetaminophen 1,000 mg 01/18/24 14:12 01/18/24 14:29 Acetaminophen 1,000mg/100ml Vial IV 01/18/24 14:13 1,000 mg ONCE ONE Administration Dexamethasone Sodium Phosphate 10 mg 01/18/24 14:12 01/18/24 14:30 Dexamethasone 4mg/Ml 5ml Mdv IV 01/18/24 14:13 10 mg ONCE ONE Administration Diphenhydramine HCl 50 mg 01/18/24 14:12 01/18/24 14:29 Diphenhydramine 50mg/Ml Vial IV 01/18/24 14:13 50 mg ONCE ONE Administration Lactated Ringer's 1,000 mls @ 999 mls/hr 01/18/24 14:12 01/18/24 14:30 Lactated Ringer's 1000 Ml Bag IV 01/18/24 15:12 999 mls/hr .Q1H1M ONE Administration Ketorolac Tromethamine 15 mg 01/18/24 14:12 01/18/24 14:29 Ketorolac 30mg/Ml Vial IV 01/18/24 14:13 15 mg ONCE ONE Administration Methocarbamol 500 mg 01/18/24 14:12 01/18/24 14:30 Methocarbamol 500mg Tablet PO 01/18/24 14:13 500 mg ONCE ONE Administration Prochlorperazine Edisylate 10 mg 01/18/24 14:12 01/18/24 14:30 Prochlorperazine 10mg/2ml Vial IV 01/18/24 14:13 10 mg ONCE ONE Administration ORDERS Category Date Time Status CBC w/Auto Diff [Complete Blood Count Auto Diff] Stat Lab 01/18/24 14:33 Completed CMP [Comprehensive Metabolic Panel] Stat Lab 01/18/24 14:33 Completed Magnesium Stat Lab 01/18/24 14:33 Completed Thyroid Panel Stat Lab 01/18/24 14:33 Completed Medical Decision Narrative: In summary patient is a 53-year-old female who presents to the emergency department for evaluation of headache. Patient is dynamically stable upon arrival, afebrile. Physical exam is remarkable for photophobia and phonophobia however she has a [place] Coma Score 15 with no focal neurologic deficits. She has no C-spine tenderness. She has normal gait station.. Differential diagnosis includes migraine headache versus tension headache versus cluster headache versus space-occupying lesion although as patient has no focal neurologic deficits is extremely unlikely. Initial workup will be conducted with hematologic labs. Initial interventions include acetaminophen Toradol Decadron Compazine Robaxin. More aggressive workup was considered but deferred as patient is neurologically intact with no focal deficits. Initial workup reviewed by me and her hematologic labs are nonactionable. Upon repeat evaluation patient had adequate resolution of her headache and via patient directed decision making feels comfortable going home. Given this patient is appropriate for discharge with close follow-up with her PCP. <William Moreland MD - Last Filed: 01/18/24 19:18> Vital Signs: 01/18/24 14:14 01/18/24 14:30 01/18/24 14:45 Temperature 97.6 F Temperature Source Oral Pulse Rate 47 L 55 L Pulse Rate [Left Radial] 58 L Respiratory Rate 20 Blood Pressure 110/73 110/73 Blood Pressure [Right Arm] 120/86 Blood Pressure Mean 85 Blood Pressure Mean [Right Arm] 97 02 Sat by Pulse Oximetry 100 98 100 Oxygen Delivery Method Room Air 01/18/24 15:15 01/18/24 16:14 Temperature 97.6 F Temperature Source Oral Pulse Rate 67 64 Pulse Rate [Left Radial] Respiratory Rate 20 Blood Pressure 110/73 115/80 Blood Pressure [Right Arm] Blood Pressure Mean Blood Pressure Mean [Right Arm] 02 Sat by Pulse Oximetry 99 Oxygen Delivery Method Room Air Lab Data Lab Results 01/18/24 14:33: WBC 4.5 L, RBC 4.19 L, Hgb 12.8, Hct 40.0, MCV 95.5, MCH 30.6, MCHC 32.0, RDW 14.8, Plt Count 170, MPV 10.1, Neut % (Auto) 59.0, Lymph % (Auto) 31.9, [place] % (Auto) 4.2, Eos % (Auto) 4.1, Baso % (Auto) 0.8, Neut # (Auto) 2.7, Lymph # (Auto) 1.4, [place] # (Auto) 0.2, Eos # (Auto) 0.2, Baso # (Auto) 0.0, Sodium 140, Potassium 3.8, Chloride 110 H, Carbon Dioxide 25, Anion Gap 8.8, BUN 19 H, Creatinine 1.20 H, Estimated Creat Clear 87, Estimated GFR 47 L, Est GFR ( Amer) 57 L, Glucose 81, Calcium 8.9, Magnesium 2.1, Total Bilirubin 0.5, AST 23, ALT 22, Alkaline Phosphatase 101, Total Protein 7.0, Albumin 3.9, Globulin 3.1, Albumin/Globulin Ratio 1.3, TSH 2.99, Free T4 Index 2.6 L, Thyroxine (T4) 8.2, T3 Uptake 32 Orders (Tests/Meds): ED MEDICATIONS Discontinued Medications Generic Name Dose Route Start Last Admin Trade Name Ataq PRN Reason Stop Dose Admin Acetaminophen 1,000 mg 01/18/24 14:12 01/18/24 14:29 Acetaminophen 1,000mg/100ml Vial IV 01/18/24 14:13 1,000 mg ONCE ONE Administration Dexamethasone Sodium Phosphate 10 mg 01/18/24 14:12 01/18/24 14:30 Dexamethasone 4mg/Ml 5ml Mdv IV 01/18/24 14:13 10 mg ONCE ONE Administration Diphenhydramine HCl 50 mg 01/18/24 14:12 01/18/24 14:29 Diphenhydramine 50mg/Ml Vial IV 01/18/24 14:13 50 mg ONCE ONE Administration Lactated Ringer's 1,000 mls @ 999 mls/hr 01/18/24 14:12 01/18/24 14:30 Lactated Ringer's 1000 Ml Bag IV 01/18/24 15:12 999 mls/hr .Q1H1M ONE Administration Ketorolac Tromethamine 15 mg 01/18/24 14:12 01/18/24 14:29 Ketorolac 30mg/Ml Vial IV 01/18/24 14:13 15 mg ONCE ONE Administration Methocarbamol 500 mg 01/18/24 14:12 01/18/24 14:30 Methocarbamol 500mg Tablet PO 01/18/24 14:13 500 mg ONCE ONE Administration Prochlorperazine Edisylate 10 mg 01/18/24 14:12 01/18/24 14:30 Prochlorperazine 10mg/2ml Vial IV 01/18/24 14:13 10 mg ONCE ONE Administration ORDERS Category Date Time Status CBC w/Auto Diff [Complete Blood Count Auto Diff] Stat Lab 01/18/24 14:33 Completed CMP [Comprehensive Metabolic Panel] Stat Lab 01/18/24 14:33 Completed Magnesium Stat Lab 01/18/24 14:33 Completed Thyroid Panel Stat Lab 01/18/24 14:33 Completed Medical Decision Narrative: In summary patient is a 53-year-old female who presents to the emergency department for evaluation of headache. Patient is dynamically stable upon arrival, afebrile. Physical exam is remarkable for photophobia and phonophobia however she has a [place] Coma Score 15 with no focal neurologic deficits. She has no C-spine tenderness. She has normal gait station.. Differential diagnosis includes migraine headache versus tension headache versus cluster headache versus space-occupying lesion although as patient has no focal neurologic deficits is extremely unlikely. Initial workup will be conducted with hematologic labs. Initial interventions include acetaminophen Toradol Decadron Compazine Robaxin. More aggressive workup was considered but deferred as patient is neurologically intact with no focal deficits. Initial workup reviewed by me and her hematologic labs are nonactionable. Upon repeat evaluation patient had adequate resolution of her headache and via patient directed decision making feels comfortable going home. Given this patient is appropriate for discharge with close follow-up with her PCP. I was consulted by the DOMITILA, and we discussed the complexity of the problems being addressed. I approved the treatment and management plan for this patient?s care in the Emergency Department, thus performing a substantive portion of the medical decision making. William Moreland MD Critical Care <SUAD Dove - Last Filed: 01/18/24 15:53> Critical Care Time Critical Care Time: No
[2024-01-18 14:14] VITALS: BP 120/86; PULSE 58; RESP 20; TEMP 36.4; O2SAT 100; BMI 38.6
[2024-01-18] MEDS: diphenhydrAMINE 50MG/ML VIAL 50 MG IV (14:29)
[2024-01-18] MEDS: ACETAMINOPHEN 1,000MG/100ML VIAL 1000 MG IV (14:29)
[2024-01-18] MEDS: KETOROLAC 30MG/ML VIAL 15 MG IV (14:29)
[2024-01-18 14:30] VITALS: BP 110/73; PULSE 47; O2SAT 98
[2024-01-18] MEDS: DEXAMETHASONE 4MG/ML 5ML MDV 10 MG IV (14:30)
[2024-01-18] MEDS: LACTATED RINGERS 1000ML 1,000 ML 999 ML IV (14:30)
[2024-01-18] MEDS: PROCHLORPERAZINE 10MG/2ML VIAL 10 MG IV (14:30)
[2024-01-18] MEDS: METHOCARBAMOL 500MG TABLET 500 MG PO (14:30)
[2024-01-18 14:45] VITALS: BP 110/73; PULSE 55; O2SAT 100
[2024-01-18 14:46] LABS: Basophils % 0.8 % (0.1-2.0); Eosinophils # 0.2 K/mm3 (0.0-0.4); Eosinophils % 4.1 % (0.1-12.0); Hemoglobin 12.8 g/dL (12.2-16.2); Lymphocytes # 1.4 K/mm3 (0.7-4.5); Lymphocytes % 31.9 % (10-50); Mean Corpuscular Hemoglobin 30.6 pg (27.0-31.2); Mean Corpuscular Volume 95.5 fl (81-99); Mean Platelet Volume 10.1 fl (7.4-10.4); Monocytes # 0.2 K/mm3 (0.1-1.0); Monocytes % 4.2 % (1.7-9.3); Neutrophils # 2.7 K/mm3 (1.8-7.8); Platelet Count 170 K/mm3 (142-424); Red Blood Count 4.19 M/mm3 (4.20-5.40); Red Cell Distribution Width 14.8 % (11.5-17.5); White Blood Count 4.5 K/mm3 (4.8-10.8)
[2024-01-18 14:56] LABS: Alanine Aminotransferase 22 U/L (12-78); Albumin Level 3.9 g/dl (3.5-5.0); Albumin/Globulin Ratio 1.3 (1.1-1.8); Alkaline Phosphatase 101 U/L (38-126); Anion Gap 8.8 mEq/L (5-15); Aspartate Amino Transferase 23 U/L (14-36); Bilirubin,Total 0.5 mg/dl (0.2-1.3); Blood Urea Nitrogen 19 mg/dl (7-17); Calcium 8.9 mg/dl (8.4-10.2); Carbon Dioxide 25 mmol/L (22.0-30.0); Chloride 110 mmol/L (98-107); Creatinine Clearance Estimated 87 mL/min (50-200); Estimated Glomerular Filt Rate 47 ml/min (>60); GFR (African American) 57 ML/MIN (>60); Globulin 3.1 g/dL (1.3-3.2); Glucose 81 mg/dl (74-100); Magnesium 2.1 mg/dl (1.6-2.3); Potassium 3.8 mmoL/L (3.5-5.1); Sodium 140 mmol/L (136-145)
[2024-01-18 15:13] LABS: Free Thyroxine Index 2.6 ug/dL (5.93-13.13); T4 (Thyroxine) 8.2 ug/dl (5.53-11.0); Triiodothryronine (T3) Uptake 32 % (23.5-40.5)
[2024-01-18 15:15] VITALS: BP 110/73; PULSE 67; O2SAT 99
[2024-01-18 15:27] LABS: Thyroid Stimulating Hormone 2.99 uIU/mL (0.465-4.68)
[2024-01-18 16:14] VITALS: BP 115/80; PULSE 64; RESP 20; TEMP 36.4; O2SAT 96
== END 2024-01-18 16:15 | disposition home or self-care (01) ==
PROVIDERS: Physician Assistant; Emergency Provider Emergency Medicine; PCP Student in an Organized Health Care Education/Training Program
DX: R51.9 Headache, unspecified (principal); R11.0 Nausea; H53.149 Visual discomfort, unspecified; I10 Essential (primary) hypertension; E78.5 Hyperlipidemia, unspecified; E03.9 Hypothyroidism, unspecified; K21.9 Gastro-esophageal reflux disease without esophagitis; Z86.73 Personal history of transient ischemic attack (TIA), and cerebral infarction without residual deficits
CPT/HCPCS: 80053; 83735; 84436; 84443; 84479; 85025; 96361; 96374; 96375; 99284; J0131; J1885; J7120

== ENCOUNTER 2024-04-10 13:40 | Outpatient (CLI) | payer BC, SELFPAY ==
--- NOTE | 2024-04-10 13:44 | XR_ITS ---
FINAL REPORT TECHNIQUE: Chest PA & Lateral CLINICAL HISTORY: Nonspecific cough COMPARISON: 11/15/2023 FINDINGS: 2 views of the chest were performed. The heart size is normal. The mediastinum is within normal limits. There is no acute cardiopulmonary process. There are no pleural effusions. There is no pneumothorax. The bony thorax appears intact. IMPRESSION: No acute cardiopulmonary process. Reviewed, Interpreted and Dictated by Valeriano Rajput MD Transcribed by Alisson Daly Authenticated and [facility]
[2024-04-10 19:27] LABS: Basophils % 0.9 % (0.1-2.0); Eosinophils # 0.1 K/mm3 (0.0-0.4); Hematocrit 43.9 % (37.0-47.0); Lymphocytes # 1.4 K/mm3 (0.7-4.5); Lymphocytes % 31.4 % (10-50); Mean Corpuscular HGB Conc 31.9 g/dL (31.8-35.4); Mean Corpuscular Hemoglobin 30.4 pg (27.0-31.2); Mean Corpuscular Volume 95.5 fl (81-99); Mean Platelet Volume 10.9 fl (7.4-10.4); Monocytes # 0.3 K/mm3 (0.1-1.0); Monocytes % 6.3 % (1.7-9.3); Neutrophils # 2.6 K/mm3 (1.8-7.8); Neutrophils % 58.3 % (37.0-80.0); Platelet Count 247 K/mm3 (142-424); Red Cell Distribution Width 14.7 % (11.5-17.5); White Blood Count 4.4 K/mm3 (4.8-10.8)
[2024-04-10 19:39] LABS: Alanine Aminotransferase 21 U/L (12-78); Albumin Level 4.3 g/dl (3.5-5.0); Albumin/Globulin Ratio 1.4 (1.1-1.8); Alkaline Phosphatase 107 U/L (38-126); Amylase 66 U/L (30-110); Aspartate Amino Transferase 25 U/L (14-36); Bilirubin,Total 0.8 mg/dl (0.2-1.3); Blood Urea Nitrogen 16 mg/dl (7-17); Calcium 9.5 mg/dl (8.4-10.2); Carbon Dioxide 25 mmol/L (22.0-30.0); Chloride 107 mmol/L (98-107); Chol/HDL Ratio 3.9 (1-3.5); Cholesterol 188 mg/dl (140-200); Estimated Glomerular Filt Rate 52 ml/min (>60); GFR (African American) 63 ML/MIN (>60); Glucose 90 mg/dl (74-100); HDL Cholesterol 48 mg/dl (40-60); Lipase 88 U/L (23-300); Sodium 138 mmol/L (136-145); Total Protein,Serum 7.3 g/dl (6.3-8.2); Triglycerides 168 mg/dl (30-150); VLDL Cholesterol 34 mg/dL (0-40)
[2024-04-12 05:22] LABS: HBsAg Screen Negative (Negative); HCV Ab Non Reactive (Non Reactive); Hep A Ab, IGM Negative (Negative); Hep B Core Ab, IgM Negative (Negative)
== END 2024-04-10 23:59 | disposition home or self-care (01) ==
LOC: RAD 13:41
PROVIDERS: PCP Student in an Organized Health Care Education/Training Program; Visit Provider Student in an Organized Health Care Education/Training Program
DX: R05.9 Cough, unspecified (principal); R10.9 Unspecified abdominal pain; K76.89 Other specified diseases of liver; M54.50 Low back pain, unspecified
CPT/HCPCS: 71046; 80053; 80061; 80074; 82150; 83690; 85025; 87086

== ENCOUNTER 2024-04-16 08:10 | Outpatient (CLI) | payer BC, SELFPAY ==
--- NOTE | 2024-04-16 08:10 | US_ITS ---
FINAL REPORT CLINICAL HISTORY: ruq pain, h/o hepatic cyst FINDINGS: Sonographic images of the right upper quadrant were obtained. The pancreas is partially obscured. The liver is fatty infiltrated. There is an 11 mm hepatic cyst. The common duct measures 3 mm. There is right renal cortical thinning. IMPRESSION: Fatty infiltration of the liver. 11 mm hepatic cyst. Postcholecystectomy. Reviewed, Interpreted and Dictated by Dominguez Calderon III, MD Transcribed by Eugenia Borrego Authenticated and [facility]
== END 2024-04-16 23:59 | disposition home or self-care (01) ==
LOC: RAD 08:10
PROVIDERS: PCP Student in an Organized Health Care Education/Training Program; Visit Provider Student in an Organized Health Care Education/Training Program
DX: R10.11 Right upper quadrant pain (principal); K76.89 Other specified diseases of liver
CPT/HCPCS: 76705

== ENCOUNTER 2024-08-13 12:41 | Outpatient (CLI) | payer OTHER, SELFPAY ==
--- NOTE | 2024-08-13 12:45 | XR_ITS ---
FINAL REPORT CLINICAL HISTORY: cough and chest pain COMPARISON: 04/10/2024 FINDINGS: 2 views of the chest were obtained . The heart is normal in size. The mediastinum is within normal limits. The lungs are clear. There is no pneumothorax. Osseous structures are unremarkable. IMPRESSION: No acute cardiopulmonary process. Reviewed, Interpreted and Dictated by Valeriano Rajput MD Transcribed by Eugenia Borrego Authenticated and [facility]
== END 2024-08-13 23:59 | disposition home or self-care (01) ==
LOC: RAD 12:43
PROVIDERS: PCP Student in an Organized Health Care Education/Training Program; Visit Provider Student in an Organized Health Care Education/Training Program
DX: R05.9 Cough, unspecified (principal)
CPT/HCPCS: 71046

== ENCOUNTER 2024-12-15 20:59 | Emergency (ER) | payer MEDICAID, SELFPAY ==
--- OUTSIDE RECORDS SUMMARY | 2024-12-15 10:19 | XMS_ITS | Encounter Summary ---
Author Organization [place] [address] Care Team Providers Care Accounting Lecturer Name Role Phone Unavailable Primary Care Provider Unavailabl e Reason for Visit * Reason Comments Back Pain Right flank pain sin ce this am/ history of kidney infections/ reports frequency/ +chills Encounter Details Date Type Department Care Team (Late st Contact Info) Description 12/15/2024 10:19 AM EDT - 12/15/2024 1:54 PM EDT Emergency [facility] [address] [facility] [place] [address] Leilani Barrera MD [address] [place] [address] Flank pain (Primary Dx); RUQ pain; Adrenal adenoma, right; Sinus bradycardia Discharge Disposition: Home or Self Care Social History Tobacco Use Types Packs/Day Years Used Date Smoking Tobacco: Never Smokeless Tobacco: Never Alcohol Use Standard Drinks/Week Comments Yes 0 (1 standard drink = 0.6 oz pur e alcohol) occ Comments No Sex and Gender Information Value Date Recorded Sex Assigned at Not on file Legal Sex Female 9:41 PM EDT Gender Identity Not on file Sexual Orientation Not on file documented as of this encounter Last Filed Vital Signs Vital Sign Reading Time Taken Comments Blood Pressure 117/73 12/15/2024 1:30 PM EDT Pulse 41 12/15/2024 1:51 PM EDT Temperature 36.7 C (98.1 F) 12/15/2024 10:21 AM EDT Respiratory Rate 18 12/15/2024 1:51 PM EDT Oxygen Saturation 99% 12/15/2024 12:52 PM EDT Inhaled Oxygen Concentration - - Weight 98.9 kg (218 lb) 12/15/2024 10:02 AM EDT Height 162.6 cm (5' 4 ) 12/15/2024 10:02 AM EDT Body Mass Index 37.42 12/15/2024 10:02 AM EDT documented in this encounter Functional Status * Suicide Severity Rating Answer Date of Assessment Author No Risk 12/15/2024 10:04 AM EDT Whit Baptiste RN * [place]ce Suicide Severity Rating Scale (Q shift for moderate and high) Question Answer Date of Assessment Author 1. In the past month, have y ou wished you were or wished you could go to sleep and not wake up? 0 12/15/2024 10:04 AM EDT Whit Bradshaw RN 2. In the past month, have y ou actually had any thoughts of killing yourself? (If no, skip to question 6) 0 12/15/2024 10:04 AM EDT Whit Bradshaw RN 6. Have you ever done anythi ng, started to do anything, or prepared to do anything to end your life? 0 12/15/2024 10:04 AM EDT Whit Bradshaw RN documented as of this encounter Discharge Instructions * Discharge Instructions* Leilani Barrera MD - 12/15/2024 11:54 AM EDT [place] - This is a narcotic pain medication. It contains Acetaminophen (tylenol) and you should not take more than 3000 mg of acetaminophen per day from all sources. It can cause sedation. Do not drive, operate machinery while taking this medication. It can cause addiction and should not be taken if your pain is otherwise well controlled. If you have left over pills that you do not need, you may place then in a small bag with coffee grounds and throw then in the trash. -- Return immediately if you have severe pain, worsening of symptoms such as fever, vomiting or diarrhea, difficulty urinating, pain that radiates into the legs, numbness of the legs or genitals, or if you are worse in any way -- You should be re-evaluated within the next 8-24 hours for recheck by your doctor or in the emergency department if you are no better. * Attachments The following attachments cannot be sent through Care Everywhere. * Abdominal Pain, Adult ED (Bangladeshi) * Flank Pain ED (Bangladeshi) documented in this encounter Medications at Time of Discharge aspirin 81 mg Oral Capsule 81 mg. 03/08/2022 HYDROcodone-aceta minophen (NORCO) 5-325 mg Oral Tablet Take 1 Tablet by mouth every 6 hours as needed for Acute Pain (R52) for up to 3 days. 12 Tablet 12/15/2024 12/18/2024 ibuprofen (ADVIL;MOTRIN) 600 mg Oral Tablet Take 1 Tablet by mouth every 8 hours as needed for Pain for up to 14 doses. 14 Tablet 10/08/2024 LEVOthyroxine (SYNTHROID) 75 mcg Oral Tablet Take 75 mcg by mouth daily. oxybutynin (DITROPAN) 5 mg Oral Tablet Take 5 mg by mouth daily. documented as of this encounter Ordered Prescriptions Prescription Sig Dispense Quantity Refills Last Filled Start Date End Date HYDROcodone-acetam inophen (NORCO) 5-325 mg Oral Tablet Take 1 Tablet by mouth every 6 hours as needed for Acute Pain (R52) for up to 3 days. 12 Tablet 12/15/2024 12/18/2024 documented in this encounter Discharge Disposition Disposition Code Departure Means Destination Comment s Home or Self [facility] documented in this encounter ED Notes * Leilani Barrera MD - 12/15/2024 10:00 AM EDT Images from the original note were not included. CHIEF COMPLAINT: Back Pain (Right flank pain since this am/ history of kidney infections/ reports frequency/ +chills) History provided by: patient, family member HISTORY OF PRESENT ILLNESS Melanie Perkins is a 54 y.o. female who arrives by family member who presents to the ED with right flank pain The symptoms began: yesterday - had an episode that resolved. This morning it recurred. The pain islocated: right flank. The pain radiates right upper quadrant. It is constant. The pain is moderate to severe intensity. It is alleviated by: nothing noted. It is aggravated by: nothing noted. Associated symptoms: + Chills. Denies known fevers.+ Urinary frequency yesterday, no dysuria or hematuria. Denies nausea vomiting + Chest pain-felt like heartburn, brief episode this morning. Denies URI Past Medical History: Diagnosis Date Chronic kidney disease Disorder of thyroid Stroke (HCC) Past Surgical History: Procedure Laterality Date APPENDECTOMY CARDIAC CATHETERIZATION SECTION GALLBLADDER SURGERY KNEE ARTHROSCOPY Right PACEMAKER INSERTION removed in 2021 No family history on file. Social History Socioeconomic History Marital status: Single Spouse name: Not on file Number of children: Not on file Years of education: Not on file Highest education level: Not on file Occupational History Not on file Tobacco Use Smoking status: Never Smokeless tobacco: Never Substance and Sexual Activity Alcohol use: Yes Comment: occ Drug use: Never Sexual activity: Not on file Other Topics Concern Not on file Social History Narrative Not on file Social Drivers of Health Financial Resource Strain: Not on file Food Insecurity: Not on file Transportation Needs: Not on file Physical Activity: Not on file Stress: Not on file Social Connections: Unknown (12/09/2023) Received from [facility] Family and Community Support Help with Day-to-Day Activities: Not on file Lonely or Isolated: Not on file Intimate Partner Violence: Unknown (12/09/2023) Received from [facility] Abuse Screen Unsafe at Home or Work/School: Not on file Feels Threatened by Someone?: Not on file Does Anyone Keep You from Contacting Others or Doint Things Outside the Home?: Not on file Physical Sign of Abuse Present: Not on file Housing Stability: Unknown (12/09/2023) Received from [facility] Housing Stability Current Living Arrangements: Not on file Potentially Unsafe Housing Conditions: Not on file Prior to Admission medications Medication Sig Start Date End Date Taking? Authorizing Provider aspirin 81 mg Oral Capsule 81 mg. 03/08/22 Provider, Historical ibuprofen (ADVIL;MOTRIN) 600 mg Oral Tablet Take 1 Tablet by mouth every 8 hours as needed for Painfor up to 14 doses. 10/08/24 Will Bennett MD LEVOthyroxine (SYNTHROID) 75 mcg Oral Tablet Take 75 mcg by mouth daily. Provider, Historical oxybutynin (DITROPAN) 5 mg Oral Tablet Take 5 mg by mouth daily. Provider, Historical Allergies Allergen Reactions Codeine Nausea Only Tegaderm Ag Mesh [Silver] Other (See Comments) blisters Nursing notes reviewed. PHYSICAL EXAM BP 117/73 Pulse (!) 41 Temp 98.1 ??F (36.7 ??C) (Oral) Resp 18 Ht 5' 4 (1.626 m) Wt 218 lb (98.9 kg) SpO2 99% BMI 37.42 kg/m?? GENERAL APPEARANCE: Awake, alert, well appearing, not distressed HEAD: Normocephalic. Atraumatic. EYES: EOM's grossly intact. Sclera are not icteric ENT: Mucous membranes are moist. NECK: Normal ROM. CV: Equal symmetric chest rise. RRR Normal cap refill LUNGS: Breathing is unlabored. Speaking comfortably in full sentences. Breath sounds: :CTA B ABDOMEN: Normoactive bowel sounds. Soft, not distended, right mid abdominal tenderness to palpation no guarding rebound or peritoneal signs +right CVA ttp : deferred EXTREMITIES: . Moving all 4 extremities spontaneously. All extremities neurovascularly intact. No deformities No edema SKIN: Warm and dry. NEUROLOGICAL: Alert and oriented. Grossly normal strength and power. PSYCH: Mood and affect normal. LABS Results for orders placed or performed during the hospital encounter of 12/15/24 CT ABDOMEN PELVIS WO ORAL OR IV CONTRAST Narrative CT ABDOMEN AND PELVIS WITHOUT IV OR ORAL CONTRAST, 12/15/2024 11:02 AM CLINICAL HISTORY: -right flank and abd pain. COMPARISON: 02/05/24. PROCEDURE COMMENTS: Multidetector CT examination of the abdomen and pelvis without IV or oral contrast per protocol. Multiplanar reconstructions. Dose 1 : CT DLP Total : 820.76 mGycm DLP Spiral Max : 816.27 mGycm Maximum CTDI Vol : 16.06 mGy SSDE : 12.848 mGy SSDE Diameter : 41.9 cm SSDE Source : Lat FINDINGS: LOWER THORAX: Lung bases unremarkable. ABDOMEN AND PELVIS: Liver, spleen, pancreas, and left adrenal gland unremarkable. 2.0 cm right adrenal gland adenoma. No renal stone or significant renal contour abnormality. Unremarkable biliary system. No bowel obstruction or acute inflammatory process. No evidence of appendicitis. No abnormal mass, fluid, or adenopathy in the pelvis. No acute osseous abnormality. Impression No acute abnormality of the unenhanced abdomen or pelvis. - Note: Radiology results need to be interpreted within a comprehensive clinical context. If you have questions about the radiology report, please contact the office of the ordering clinician. XR CHEST AP PORTABLE Narrative XR CHEST AP PORTABLE, 12/15/2024 11:01 AM CLINICAL HISTORY: -CP COMPARISON: None. PROCEDURE COMMENTS: AP portable technique. FINDINGS: Support devices: No visible support devices. Heart and mediastinal contours within normal limits for technique. No active failure, pneumonia, or visible effusion. No visible pneumothorax. Impression No acute finding. - Note: Radiology results need to be interpreted within a comprehensive clinical context. If you have questions about the radiology report, please contact the office of the ordering clinician. CBC WITH DIFF Result Value Ref Range WBC 5.1 3.7 - 10.3 x10(3)/mcL RBC 4.21 3.90 - 5.20 x10(6)/mcL Hgb 12.2 11.2 - 15.7 g/dL Hct 38.3 34.0 - 45.0 % MCV 91.0 80.0 - 100.0 fL MCH 29.0 26.0 - 34.0 pg MCHC 31.9 30.7 - 35.5 g/dL RDW 13.3 <=14.9 % Platelet 148 (L) 155 - 369 x10(3)/mcL MPV 11.6 8.8 - 12.5 fL Neut Percent 49.1 % Imm Gran% 0.2 % Lymph Percent 39.4 % [place]atham Percent 6.4 % Eos Percent 4.3 % Baso Percent 0.6 % Neut # 2.5 1.6 - 6.1 x10(3)/mcL IMMGRAN# 0.0 0.0 - 0.1 x10(3)/mcL Lymph # 2.0 1.2 - 3.9 x10(3)/mcL [place]atham # 0.3 0.3 - 0.9 x10(3)/mcL Eos# 0.2 0.0 - 0.5 x10(3)/mcL Baso # 0.0 0.0 - 0.1 x10(3)/mcL COMPREHENSIVE METABOLIC PANEL Result Value Ref Range Sodium 137 136 - 145 mmol/L Potassium 4.1 3.5 - 5.0 mmol/L Chloride 109 (H) 98 - 107 mmol/L Total CO2 19 (L) 22 - 29 mmol/L Anion Gap 9 7 - 16 mmol/L Calcium 8.8 8.6 - 10.4 mg/dL Glucose Lvl 97 70 - 99 mg/dL BUN 18 6 - 20 mg/dL Creatinine 1.09 0.51 - 1.30 mg/dL Albumin 3.8 3.5 - 5.2 gm/dL Total Protein 7.0 6.4 - 8.3 gm/dL Bili Total 0.4 0.2 - 1.3 mg/dL ALT 15 <=41 U/L AST 17 <=40 U/L Alk Phos 105 36 - 123 U/L eGFR (CKD-EPIcr 2020) 60 >=60 mL/min/1.73 m2 LIPASE LEVEL Result Value Ref Range Lipase Lvl 24 13 - 60 U/L UA W/REFLEX TO CULTURE Specimen: Urine, Clean Catch Narrative The following orders were created for panel order UA W/REFLEX TO CULTURE. Procedure Abnormality Status --------- ------ URINALYSIS REFLEX[[id number]] Final result EXTRA SARAH URINE CX[[id number]] Final result Please view results for these tests on the individual orders. URINALYSIS REFLEX Result Value Ref Range UA Color Yellow UA Appear Clear Clear UA Glucose Negative Negative mg/dL UA Ketones Negative Negative mg/dL UA Blood Negative Negative UA pH 7.0 5.0 - 8.0 pH UA Protein Negative Negative mg/dL UA Urobilinogen 0.2 <=1 mg/dL UA Bili Negative Negative UA Nitrite Negative Negative UA Leuk Est Negative Negative UA Spec Grav 1.015 1.001 - 1.035 no units TROPONIN-T HIGH SENSITIVITY BASELINE W/ REFLEX Result Value Ref Range uo-hIxqdkvdz-O 13 <14 ng/L Narrative Ingestion of dhaval doses of biotin (>5 mg/day) taken within 8 hours of drawing blood sample can interfere with this immunoassay test. TROPONIN-T HIGH SENSITIVITY 2HR Result Value Ref Range hv-uPvzpkivq-A 2HR 11 <14 ng/L hs-cTnT 2Hr Delta from Baseline -2 <4 ng/L Narrative Ingestion of dhaval doses of biotin (>5 mg/day) taken within 8 hours of drawing blood sample can interfere with this immunoassay test. EK EKG [address] [facility] Test Date: 2024-12-15 Pat Name: MELANIECOSME STALLWORTHCATARINA Department: DEPID Room: 09 Gender: Female Singe Winder: Jamie : 1970 Requested By: LEILANI Craig Order Number: [id number] Reading MD: Marlin Katz Measurements Intervals Coyote Rate: 42 P: 42 CO: 191 QRS: 1 QRSD: 106 T: 11 QT: 480 QTc: 402 Interpretive Statements SINUS BRADYCARDIA LOW QRS VOLTAGE IN PRECORDIAL LEADS INCOMPLETE RIGHT BUNDLE BRANCH BLOCK Electronically Signed On 12-15-2024 13:09:35 EDT by Marlin Katz RADIOLOGY CT ABDOMEN PELVIS WO ORAL OR IV CONTRAST Final Result No acute abnormality of the unenhanced abdomen or pelvis. - Note: Radiology results need to be interpreted within a comprehensive clinical context. If you have questions about the radiology report, please contact the office of the ordering clinician. XR CHEST AP PORTABLE Final Result No acute finding. - Note: Radiology results need to be interpreted within a comprehensive clinical context. If you have questions about the radiology report, please contact the office of the ordering clinician. EK EKG 12 LEAD ED Interpretation Sinus of bradycardia at a rate of 42. Coyote is normal. There is an incomplete right bundle branch block. There are nonspecific ST segment changes. There are no old tracings available for comparison. Final Result [facility] Test Date: 2024-12-15 Pat Name: MELANIE PERKINS Department: DEPID Room: 09 Gender: Female Singe Winder: Jamie : 1970 Requested By: LEILANI Craig Order Number: [id number] Reading MD: Marlin Katz Measurements Intervals Coyote Rate: 42 P: 42 CO: 191 QRS: 1 QRSD: 106 T: 11 QT: 480 QTc: 402 Interpretive Statements SINUS BRADYCARDIA LOW QRS VOLTAGE IN PRECORDIAL LEADS INCOMPLETE RIGHT BUNDLE BRANCH BLOCK Electronically Signed On 12-15-2024 13:09:35 EDT by Marlin Katz EKG The Ekg interpreted by me in the absence of a cooker soda shows. EK EKG 12 LEAD ED Interpretation by Leilani Barrera MD (12/15 1103) Sinus of bradycardia at a rate of 42. Coyote is normal. There is an incomplete right bundle branch block. There are nonspecific ST segment changes. There are no old tracings available for comparison. Tele as interpreted by me Sinus bradycardia PROCEDURES N/ Old Records reviewed Vitals from prior visits to assess HR baseline ED COURSE / MDM Melanie Perkins is a 54 y.o. female with right flank and abdominal pain. Plan for labs, UA, CT a/p NS, morphine and zofran for symptoms She does report brief chest pain for which I will obtain EKG and cardiac labs Ed Course ED Course as of 12/15/24 1348 Leilani Barrear's Documentation Sat Dec 15, 2024 1151 Patient has been a difficult IV stick. Will defer IV given primary workup thus far has been unrevealing for any acute pathology. Will give morphine IM and Zofran ODT instead. 1151 White count is normal, 1152 Hemoglobin normal, platelets mildly low and likely reactive in nature. Renal function is preserved, electrolytes are normal, LFTs and lipase are normal She is status post hysterectomy. Urine analysis shows no evidence for UTI CT imaging reveals no acute abnormalities to explain flank pain or abdominal pain. Incidental rightadrenal gland adenoma discussed with the patient, she follows with endocrine for this and it does appear to be stable. 1255 EKG shows a sinus bradycardia. Troponin on telemetry monitoring is read by me patient has normal persistent symptoms. I did review previous visits which reveal episodes of bradycardia with heartrates typically in the low 50s. All the time she has had visits in the low 70s. She has maintained a normal blood pressure and normal mental status throughout her ED course. We did discuss her low heart rate and she does report history previously of a pacemaker which has since been taken out for low heart rates. I. Patient is asymptomatic from this. Recommend prescription given the persistent bradycardia 1348 Pain is improved, not completely resolved. Repeat abdominal exam, abdomen is soft with some mild tenderness in the right upper quadrant, no guarding rebound or peritoneal signs. Patient denies need for additional medications. The patient is nontoxic with a reassuring abdominal exam. she has remained hemodynamically stable throughout her ED course. Given her overall presentation and clinical appearance, in addition to the results of her testing, noted above, I believe discharge to home with follow-up care is appropriate at this point. Ms. Melanie Perkins understands that the etiology of her symptoms is uncertain at this time and that follow-up is required. I have discussed these findings with her and I have answered all of her questions to the best of my ability. At this point, I will treat her symptomatically. I have discussed the s/s for which to return and she assures me that she will return to the ED with ANYprogression of symptoms ED Treatments Administered- Medications morphine injection 4 mg (4 mg Intramuscular Given 12/15/24 1154) ondansetron (ZOFRAN-ODT) disintegrating tablet 4 mg (4 mg Oral Given 12/15/24 1153) CLINICAL IMPRESSION 1. Flank pain 2. RUQ pain 3. Adrenal adenoma, right 4. Sinus bradycardia Amount/Complexity of Date External records: prior ECGs and prior notes Labs: ordered and interpreted as above Radiology: decision making detailed above ECG, medications and tests ordered and independently interpreted as detailed above Patient seen and evaluated. Labs and imaging reviewed and results discussed with patient and any family present at bedside DISPOSITION - Patient was discharged in stable condition If discharged, Melanie Perkins was given scripts for the following medications New Prescriptions HYDROCODONE-ACETAMINOPHEN (NORCO) 5-325 MG ORAL TABLET Take 1 Tablet by mouth every 6 hours as needed for Acute Pain (R52) for up to 3 days. DAVIN report obtained, reviewed, and made part of record. After examining available information, and risks of prescribing or dispensing controlled substances to the patient (including non-treatment or other treatment), it is considered medically appropriate for treatment to be administered or medication to be prescribed/dispensed. Discuss risks/benefits of the use of controlled substances with the patient, including the risk of tolerance and dependence Disclaimer: Portions of this note may have been completed with Downstream voice recognition program. Leilani Barrera MD 12/15/24 1346 documented in this encounter Plan of Treatment Not on file documented as of this encounter Procedures Procedure Name Priority Date/Time Associated Diagnosis Comments TROPONIN-T HIGH SENSITIVITY 2HR Timed 12/15/2024 12:56 PM EDT TROPONIN-T HIGH SENSITIVITY BASELINE W/ REFLEX Add-On 12/15/2024 11:19 AM EDT URINALYSIS REFLEX STAT 12/15/2024 11: 19 AM EDT UA W/REFLEX TO CULTURE STAT 06/07/202 5 11:19 AM EDT EXTRA SARAH URINE CX STAT 12/15/2024 1 1:19 AM EDT CBC WITH DIFF STAT 12/15/2024 11:19 AM EDT LIPASE LEVEL STAT 12/15/2024 11:19 AM EDT COMPREHENSIVE METABOLIC PANEL STAT 12/15/2024 11:[address] ABDOMEN PELVIS WO ORAL OR IV CONTRAST STAT 12/15/2024 11:02 AM EDT XR CHEST AP PORTABLE STAT 12/15/2024 11:01 AM EDT EK EKG 12 LEAD STAT 12/15/2024 10:43 AM EDT documented in this encounter Results * TROPONIN-T HIGH SENSITIVITY 2HR (12/15/2024 12:56 PM EDT) [facility] ai-cQfecgfnt-U 2HR 11 <14 ng/L 12/15/2024 1:18 PM EDT [facility] hs-cTnT 2Hr Delta from Baseline -2 <4 ng/L 12/15/2024 1:18 PM EDT [facility] Blood VENOUS BLOOD / Unknown Venipuncture / Unknown 12/15/2024 12:56 PM EDT 12/15/2024 12:59 PM EDT Narrative [facility] - 12/15/2024 1:18 PM EDT Ingestion of dhaval doses of biotin (>5 mg/day) taken within 8 hours of drawing blood sample can interfere with this immunoassay test. us Leilnai Barrera MD CHEMISTRY ORDERABLES Final R esult [facility] [address] [place] [address] * TROPONIN-T HIGH SENSITIVITY BASELINE W/ REFLEX (12/15/2024 11:19 AM EDT) [facility] am-lHgqskibb-O 13 <14 ng/L 12/15/2024 12:05 PM EDT [facility] Blood VENOUS BLOOD / Unknown Venipuncture / Unknown 12/15/2024 11:19 AM EDT 12/15/2024 11:52 AM EDT Narrative [facility] - 12/15/2024 12:05 PM EDT Ingestion of dhaval doses of biotin (>5 mg/day) taken within 8 hours of drawing blood sample can interfere with this immunoassay test. Leilani Barrera MD CHEMISTRY ORDERABLES Final R esult Performing Organization Address [facility] Co de Phone Number [facility] [address] [place] [address] * EXTRA SARAH URINE CX (12/15/2024 11:19 AM EDT) Urine STRUCTURE OF URINARY TRACT PROPER / Unknown 12/15/2024 11:19 AM EDT 12/15/2024 11:24 AM EDT Leilani Barrera MD MICROBIOLOGY - GENERAL ORDER JACQUIE Final Result Performing Organization Address [facility] Co de Phone Number [facility] [address] [place] [address] * URINALYSIS REFLEX (12/15/2024 11:19 AM EDT) UA Color Yellow 12/15/2024 11:27 AM EDT [facility] UA Appear Clear Clear 12/15/2024 11:27 AM EDT [facility] UA Glucose Negative Negative mg/dL 12/15/2024 11:27 AM EDT [facility] UA Ketones Negative Negative mg/dL 12/15/2024 11:27 AM EDT [facility] UA Blood Negative Negative 12/15/2024 11:27 AM EDT [facility] UA pH 7.0 5.0 - 8.0 pH 12/15/2024 11:27 AM EDT [facility] UA Protein Negative Negative mg/dL 12/15/2024 11:27 AM EDT [facility] UA Urobilinogen 0.2 <=1 mg/dL 11:27 AM EDT [facility] UA Bili Negative Negative 12/15/2024 11:27 AM EDT [facility] UA Nitrite Negative Negative 12/15/2024 11:27 AM EDT [facility] UA Leuk Est Negative Negative 12/15/2024 11:27 AM EDT [facility] UA Spec Grav 1.015 1.001 - 1.035 no units 12/15/2024 11:27 AM EDT [facility] Comment:Reference range maurice d for random specimens only. Urine STRUCTURE OF URINARY TRACT PROPER / Unknown 12/15/2024 11:19 AM EDT 12/15/2024 11:24 AM EDT Leilani Barrera MD URINE ORDERABLES Final Resul t Performing Organization Address [facility] de Phone Number [facility] [address] [place] [address] * LIPASE LEVEL (12/15/2024 11:19 AM EDT) Lipase Lvl 24 13 - 60 U/L 12/15/2024 11:43 AM EDT [facility] Blood VENOUS BLOOD / Unknown Venipuncture / Unknown 12/15/2024 11:19 AM EDT 12/15/2024 11:24 AM EDT Leilani Barrera MD CHEMISTRY ORDERABLES Final R esult Performing Organization Address [facility] Co de Phone Number [facility] LAB[facility]AT[facility] [address] [place] [address] * (ABNORMAL) COMPREHENSIVE METABOLIC PANEL (12/15/2024 11:19 AM EDT) Sodium 137 136 - 145 mmol/L 12/15/2024 11:43 AM EDT [facility] Potassium 4.1 3.5 - 5.0 mmol/L 12/15/2024 11:43 AM EDT [facility] Chloride 109(H) 98 - 107 mmol/L 12/15/2024 11:43 AM [facility] Total CO2 19(L) 22 - 29 mmol/L 12/15/2024 11:43 AM [facility] Anion Gap 9 7 - 16 mmol/L 12/15/2024 11:43 AM [facility] Calcium 8.8 8.6 - 10.4 mg/dL 12/15/2024 11:43 AM [facility] Glucose Lvl 97 70 - 99 mg/dL 12/15/2024 11:43 AM [facility] BUN 18 6 - 20 mg/dL 12/15/2024 11:43 AM [facility] Creatinine 1.09 0.51 - 1.30 mg/dL 12/15/2024 11:43 AM [facility] Albumin 3.8 3.5 - 5.2 gm/dL 12/15/2024 11:43 AM [facility] Total Protein 7.0 6.4 - 8.3 gm/dL 12/15/2024 11:43 AM [facility] Bili Total 0.4 0.2 - 1.3 mg/dL 12/15/2024 11:43 AM [facility] ALT 15 <=41 U/L 12/15/2024 11:43 AM [facility] AST 17 <=40 U/L 12/15/2024 11:43 AM [facility] Alk Phos 105 36 - 123 U/L 12/15/2024 11:43 AM [facility] eGFR (CKD-EPIcr 2020) 60 >=60 mL/min/1.7 3 m2 12/15/2024 11:43 AM [facility] Comment:Estimated GFR was ca lculated using the CKD-EPIcr (2020) equation refit without race. The equation is recommended by the [employer] - [place] [employer]ph[employer] Task Force. Blood VENOUS BLOOD / Unknown Venipuncture / Unknown 12/15/2024 11:19 AM EDT 12/15/2024 11:24 AM EDT Leilani Barrera MD CHEMISTRY ORDERABLES Final R esult [facility] [address] [place], [place] [id number] * (ABNORMAL) CBC WITH DIFF (12/15/2024 11:19 AM EDT) WBC 5.1 3.7 - 10.3 x10(3)/mcL 12/15/2024 11:27 AM EDT [facility] RBC 4.21 3.90 - 5.20 x10(6)/mcL 12/15/2024 11:27 AM EDT [facility] Hgb 12.2 11.2 - 15.7 g/dL 12/15/2024 11:27 AM EDT [facility] Hct 38.3 34.0 - 45.0 % 12/15/2024 11:27 AM EDT [facility] MCV 91.0 80.0 - 100.0 fL 12/15/2024 11:27 AM EDT [facility] MCH 29.0 26.0 - 34.0 pg 12/15/2024 11:27 AM EDT [facility] MCHC 31.9 30.7 - 35.5 g/dL 12/15/2024 11:27 AM EDT [facility] RDW 13.3 <=14.9 % 12/15/2024 11:27 AM EDT [facility] Platelet 148(L) 155 - 369 x10(3)/mcL 12/15/2024 11:27 AM EDT [facility] MPV 11.6 8.8 - 12.5 fL 12/15/2024 11:27 AM EDT [facility] Neut Percent 49.1 % 12/15/2024 11:27 AM EDT [facility] Comment:Neutrophils equals s egs plus bands Imm Gran% 0.2 % 12/15/2024 11:27 AM EDT [facility] Comment:Automated count of m etamyelocytes, myelocytes and promyelocytes. Lymph Percent 39.4 % 12/15/2024 11:27 AM EDT [facility] [place] Percent 6.4 % 12/15/2024 11:27 AM EDT [facility] Eos Percent 4.3 % 12/15/2024 11:27 AM EDT [facility] Baso Percent 0.6 % 12/15/2024 11:27 AM EDT [facility] Neut # 2.5 1.6 - 6.1 x10(3)/[facility] 12/15/2024 11:27 AM EDT [facility] Comment:Neutrophils equals s egs plus bands IMMGRAN# 0.0 0.0 - 0.1 x10(3)/[facility] 12/15/2024 11:27 AM EDT [facility] Comment:Automated count of m etamyelocytes, myelocytes and promyelocytes. An absolute IG <0.1 is reported as 0.0. Lymph # 2.0 1.2 - 3.9 x10(3)/[facility] 12/15/2024 11:27 AM EDT [facility] [place] # 0.3 0.3 - 0.9 x10(3)/[facility] 12/15/2024 11:27 AM EDT [facility] Eos# 0.2 0.0 - 0.5 x10(3)/[facility] 12/15/2024 11:27 AM EDT [facility] Baso # 0.0 0.0 - 0.1 x10(3)/[facility] 12/15/2024 11:27 AM EDT [facility] Blood VENOUS BLOOD / Unknown Venipuncture / Unknown 12/15/2024 11:19 AM EDT 12/15/2024 11:24 AM EDT Leilani Barrera MD HEMATOLOGY ORDERABLES Final Result Performing Organization Address City/State/[facility] Co de Phone Number [facility] [address] [place] [address] * CT ABDOMEN PELVIS WO ORAL OR IV CONTRAST (12/15/2024 11:02 AM EDT) Anatomical Region Laterality Modality Abdomen, Pelvis Computed Tomogra phy 12/15/2024 11:0 2 AM EDT Impressions 12/15/2024 11:09 AM EDT No acute abnormality of the unenhanced abdomen or pelvis. - Note: Radiology results need to be interpreted within a comprehensive clinical context. If you have questions about the radiology report, please contact the office of the ordering clinician. Narrative 12/15/2024 11:[address] ABDOMEN AND PELVIS WITHOUT IV OR ORAL CONTRAST, 12/15/2024 11:02 AM CLINICAL HISTORY: -right flank and abd pain. COMPARISON: 02/05/24. PROCEDURE COMMENTS: Multidetector CT examination of the abdomen and pelvis without IV or oral contrast per protocol. Multiplanar reconstructions. Dose 1 : CT DLP Total : 820.76 mGycm DLP Spiral Max : 816.27 mGycm Maximum CTDI Vol : 16.06 mGy SSDE : 12.848 mGy SSDE Diameter : 41.9 cm SSDE Source : Lat FINDINGS: LOWER THORAX: Lung bases unremarkable. ABDOMEN AND PELVIS: Liver, spleen, pancreas, and left adrenal gland unremarkable. 2.0 cm right adrenal gland adenoma. No renal stone or significant renal contour abnormality. Unremarkable biliary system. No bowel obstruction or acute inflammatory process. No evidence of appendicitis. No abnormal mass, fluid, or adenopathy in the pelvis. No acute osseous abnormality. Procedure Note Rosemary Stringer MD - 12/15/2024 CT ABDOMEN AND PELVIS WITHOUT IV OR ORAL CONTRAST, 12/15/2024 11:02 AM CLINICAL HISTORY: -right flank and abd pain. COMPARISON: 02/05/24. PROCEDURE COMMENTS: Multidetector CT examination of the abdomen andpelvis without IV or oral contrast per protocol. Multiplanar reconstructions. Dose 1 : CT DLP Total : 820.76 mGycm DLP Spiral Max : 816.27 mGycm Maximum CTDI Vol : 16.06 mGy SSDE : 12.848 mGy SSDE Diameter : 41.9 cm SSDE Source : Lat FINDINGS: LOWER THORAX: Lung bases unremarkable. ABDOMEN AND PELVIS: Liver, spleen, pancreas, and left adrenal gland unremarkable. 2.0 cm right adrenal gland adenoma. No renal stone orsignificant renal contour abnormality. Unremarkable biliary system. No bowel obstruction or acute inflammatory process. No evidence ofappendicitis. No abnormal mass, fluid, or adenopathy in the pelvis. No acute osseous abnormality. IMPRESSION: No acute abnormality of the unenhanced abdomen or pelvis. - Note: Radiology results need to be interpreted within a comprehensiveclinical context. If you have questions about the radiology report, please contactthe office of the ordering clinician. us Leilani RODAS CT ORDERABLES Final Resu lt * XR CHEST AP PORTABLE (12/15/2024 11:01 AM EDT) Anatomical Region Laterality Modality Chest Radiographic Jillian ging 12/15/2024 11:0 1 AM EDT Impressions 12/15/2024 11:11 AM EDT No acute finding. - Note: Radiology results need to be interpreted within a comprehensive clinical context. If you have questions about the radiology report, please contact the office of the ordering clinician. Narrative 12/15/2024 11:11 AM EDT XR CHEST AP PORTABLE, 12/15/2024 11:01 AM CLINICAL HISTORY: -CP COMPARISON: None. PROCEDURE COMMENTS: AP portable technique. FINDINGS: Support devices: No visible support devices. Heart and mediastinal contours within normal limits for technique. No active failure, pneumonia, or visible effusion. No visible pneumothorax. Procedure Note Renny Taylor MD - 12/15/2024 XR CHEST AP PORTABLE, 12/15/2024 11:01 AM CLINICAL HISTORY: -CP COMPARISON: None. PROCEDURE COMMENTS: AP portable technique. FINDINGS: Support devices: No visible support devices. Heart and mediastinal contours within normal limits for technique. Noactive failure, pneumonia, or visible effusion. No visible pneumothorax. IMPRESSION: No acute finding. - Note: Radiology results need to be interpreted within a comprehensiveclinical context. If you have questions about the radiology report, please contactthe office of the ordering clinician. us Leilani RODAS DI[facility]NOST[facility] IMAGING ORDER JACQUIE Final Result * EK EKG 12 LEAD (12/15/2024 10:43 AM EDT) Anatomical Region Laterality Modality Electrocardiogra phy 12/15/2024 10:5 2 AM EDT Impressions 12/15/2024 1:[address] [facility] Test Date: 2024-12-15 Pat Name: MELANIE STALLWORTHNANDEZ Department: DEPID Room: 09 Gender: Female Singe Winder: Jamie : 1970 Requested By: LEILANI Craig Order Number: [id number] Reading MD: Marlin Katz Measurements Intervals [place] Rate: 42 P: 42 CO: 191 QRS: 1 QRSD: 106 T: 11 QT: 480 QTc: 402 Interpretive Statements SINUS BRADYCARDIA LOW QRS VOLTAGE IN PRECORDIAL LEADS INCOMPLETE RIGHT BUNDLE BRANCH BLOCK Electronically Signed On 12-15-2024 13:09:35 EDT by Marlin Katz Narrative Procedure Note Marlin Katz MD - 12/15/[address] [facility] Test Date: 2024-12-15 Pat Name: MELANIE PERKINS Department: DEPID Room: 09 Gender: Female Singe Winder: Jamie : 1970 Requested By: LEILANI Craig Order Number: [id number] Reading MD: Marlin Katz Measurements Intervals [place] Rate: 42 P: 42 CO: 191 QRS: 1 QRSD: 106 T: 11 QT: 480 QTc: 402 Interpretive Statements SINUS BRADYCARDIA LOW QRS VOLTAGE IN PRECORDIAL LEADS INCOMPLETE RIGHT BUNDLE BRANCH BLOCK Electronically Signed On 12-15-2024 13:09:35 EDT by Marlin Katz Leilani Barrera MD IMG ECG ORDERABLES Final Res ult documented in this encounter Visit Diagnoses Diagnosis Flank pain- Primary Abdominal pain, unspecified site RUQ pain Abdominal pain, right upper quadrant Adrenal adenoma, right Sinus bradycardia Other specified cardiac dysrhythmias documented in this encounter Administered Medications Inactive Administered Medications - up to 1 most recent administrations Medication Order MAR Action Action Date Dose Rate Site morphine injection 4 mg 4 mg, Intramuscular, ONCE, 1 dose, On 12/15/24 at 1200 Given 12/15/2024 11:54 AM EDT 4 mg Left Arm ondansetron (ZOFRAN-ODT) disintegrating tablet 4 mg 4 mg, Oral, ONCE, 1 dose, On 12/15/24 at 1200, Dissolve in mouth Given 12/15/2024 11:53 AM EDT 4 mg documented in this encounter Active and Recently Administered Medications Times are shown in EDT. Scheduled Medication Order 12/13/2024 12/14/2024 12/15/2024 morphine injection 4 mg (COMPLETED) 4 mg, Intramuscular, ONCE, 1 dose, On 12/15/24 at 1200 1154 (Given - Provid er: Elina Soriano RN) ondansetron (ZOFRAN-ODT) disintegrating tablet 4 mg (COMPLETED) 4 mg, Oral, ONCE, 1 dose, On 12/15/24 at 1200, Dissolve in mouth 1153 (Given - Provid er: Elina Soriano RN) documented in this encounter Orders Medications Ordered That Brennon ht Not Have Been Administered Count Last Ordered Date First Ordered Date morphine injection 4 mg 1 12/15/2024 ondansetron (ZOFRAN) injection 4 mg 1 12/15 sodium chloride 0.9 % 1,000 mL IV bolus 1 0 12/15/2024 sodium chloride 0.9% IV line flush 50 mL 1 12/15/2024 sodium chloride 0.9% syringe 5-10 mL 1 01/2025 documented in this encounter
[2024-12-15 21:17] VITALS: BP 127/82; PULSE 64; RESP 18; TEMP 36.6; O2SAT 99; BMI 37.4
--- NOTE | 2024-12-15 21:27 | ECG_ITS ---
APPROVED REPORT Exam: Resting ECG HR:49 bpm ECG Measurements Heart Rate 49 AXES [place] 169 P 7 QRSd 109 QRS 51 QT 424 T 46 QTc 394 Conclusion SINUS BRADYCARDIA LOW QRS VOLTAGE IN PRECORDIAL LEADS [QRS DEFLECTION < 1.0 mV IN CHEST LEADS] BORDERLINE ECG UNCONFIRMED REPORT Electronically signed by : Adis Cabrera, 12/15/2024 23:20:50
--- OUTSIDE RECORDS SUMMARY | 2024-12-15 21:34 | XMS_ITS | Encounter Summary ---
Author Organization [facility] [place] [address] Care Team Providers Care Box Toe Buffer Name Role Phone Unavailable Primary Care Provider Unavailabl e Encounter Details Date Type Department Care Team (Latest Contact Info) Description 12/15/2024 Travel Social History Tobacco Use Types Packs/Day Years [...] on file documented as of this encounter Functional Status * Suicide Severity Rating Answer Date of Assessment Author No Risk 12/15/2024 10:04 AM EDT Whit Baptiste RN * [place] Suicide Severity Rating Scale (Q shift for [...] to question 6) 0 12/15/2024 10:04 AM DANIELT Whit Bradshaw RN 6. Have you ever done anythi ng, started to do anything, or prepared to do anything to end your life? 0 12/15/2024 10:04 AM DANIELT Whit Bradshaw, RN documented as of this encounter Plan of Treatment Not on file documented as of this encounter Visit Diagnoses Not on filedocumented in this encounter
--- OUTSIDE RECORDS SUMMARY | 2024-12-15 21:34 | XMS_ITS | Patient Health Record ---
Author Organization [facility] Address [address] [place] [address] Care Team Providers Care Vocational Examiner Name Role Phone Dimas Huitron Unavailable [phone] Reason For Referral No Information Medications Medication SIG (Take, Route, Frequency, Duration) Notes Start Date End Date Status Aspirin 81 mg take 1 tablet (81 mg ) by oral route once daily [facility] 04/21/2015 Active Cipro 500 mg 1 tablet by Oral rou te every 12 hours for 7 day(s) [facility] 04/24/2015 Active Ferrous Sulfate 324 mg (65 mg iron) TAKE 1 tablet by Oral route 2 times per day [facility] 04/21/2015 Active Tagamet 200 mg take 1 tablet (200 m g) by oral route 2 times per day 30 minutes before meals [facility] 04/21/2015 Active Problems Problem Type SNOMED Code ICD Code Onset Dates Problem Status W/U Status Risk Notes Problem Deficiency anemias (648925599) Unspecified deficiency anemia (281.9) Active confirmed UNSPECIFIED DEFICIENCY ANEMIA Problem Urinary tract infectious disease (92490675) Urinary tract infection, site not specified (599.0) Active confirmed UTI Problem Arthralgia of the lower leg (610554770) Pain in joint, lower leg (719.46) Active confirmed PAIN IN JOINT INVOLVING LOWER LEG Problem Chill (03288251) Chills (without fever) (780.64) Active confirmed CHILLS (WITHOUT FEVER) Problem Malaise and fatigue (463069668) Other malaise and fatigue (780.79) Active confirmed Fatigue/Malais e Problem Dysuria (52655153) Dysuria (788.1) Active confirmed Dysuria Problem Counseling (885349328) Counseling NOS (V65.40) Active confirmed EDUCATION NOS Problem Exercises teaching, guidance, and counseling (785665179) Exercise counseling (V65.41) Active confirmed EXERCISE EDUCATION Problem Iron deficiency screening (126410128) Screening for iron deficiency anemia (V78.0) Active confirmed IRON DEFICIENCY anemia screening Problem Laboratory test (84977604) Other laboratory examination (V72.69) Active confirmed URINE DIP / OTHER LABORATORY EXAMINATION Plan Of Treatment No Information
--- OUTSIDE RECORDS SUMMARY | 2024-12-15 21:34 | XMS_ITS | Clinical Summary ---
Author Organization [facility] Address [address] [place] [address] Phone Care Team Providers Care Wire Dropper Name Role Phone Unavailable Primary Care Provider Unavailabl e Allergies Active Allergy Reactions Criticality Noted Date Comments Codeine Nausea Only 02/05/2024 Silver Other (See Comments) 10/08/2024 blisters Medications oxybutynin (DITROPAN) 5 mg Oral Tablet Take 5 mg by mouth daily. Active LEVOthyroxine (SYNTHROID) 75 mcg Oral Tablet Take 75 mcg by mouth daily. Active aspirin 81 mg Oral Capsule 81 mg. 03/08/2022 Active ibuprofen (ADVIL;MOTRIN) 600 mg Oral Tablet Take 1 Tablet by mouth every 8 hours as needed for Pain for up to 14 doses. 14 Tablet 10/08/2024 Active HYDROcodone-acet aminophen (NORCO) 5-325 mg Oral Tablet Take 1 Tablet by mouth every 6 hours as needed for Acute Pain (R52) for up to 3 days. 12 Tablet 12/15/2024 Active Encounters Date Type Department Care Team Description 12/15/2024 10:19 AM EDT - 12/15/2024 1:54 PM EDT [facility] [address] [place] [address] Leilani Barrera MD Flank pain (Primary Dx); RUQ pain; Adrenal adenoma, right; Sinus bradycardia Discharge Disposition: Home or Self Care 12/15/2024 Travel 10/08/2024 8:29 PM EDT - 10/08/2024 8:58 PM EDT [facility] [address] [place] [address] Will Bennett MD Left ear pain (Primary Dx) Discharge Disposition: Home or Self Care 10/08/2024 Travel from Last 3 Months Surgical History Surgery Date Site/Laterality Comments APPENDECTOMY GALLBLADDER SURGERY SECTION PACEMAKER INSERTION removed in 2021 KNEE ARTHROSCOPY Right CARDIAC CATHETERIZATION Medical History Medical History Date Comments Disorder of thyroid Chronic kidney disease Stroke (HCC) Social History Tobacco Use Types Packs/Day Years Used Date Smoking Tobacco: Never Smokeless Tobacco: Never Tobacco Cessation:Counseling Given: Not Answered Alcohol Use Standard Drinks/Week Comments Yes 0 (1 standard drink = 0.6 oz pur e alcohol) occ Comments No Sex and Gender Information Value Date Recorded Sex Assigned at Not on file Legal Sex Female 9:41 PM EDT Gender Identity Not on file Sexual Orientation Not on file Obstetrics History Last Filed Vital Signs Vital Sign Reading [...] Mass Index 37.42 12/15/2024 10:02 AM EDT Plan of Treatment Health Maintenance Due Date Last Done Comments Annual Wellness Exam 1973 DTaP/TDaP/Td (1 - Tdap) 1989 Hepatitis B Vaccine (1 of 3 - 19+ 3-dose series) 1989 Cervical Cancer Screening 11/15/1991 Pap Smear 11/15/1991 HPV/Pap Cotest 2000 Breast Cancer Screening 2010 Cologuard 11/15/2015 Colon Cancer Screening 11/15/2015 Colonoscopy 11/15/2015 FIT 11/15/2015 Sigmoidoscopy 11/15/2015 Virtual Colonography 11/15/2015 Pneumococcal Vaccine 50+ (1 of 1 - PCV) 2020 Zoster (1 of 2) 2020 COVID-19 Vaccine (3 - 2024-25 season) 2024 03/25/2021, 03/04/2021 Influenza Vaccine Completed 08/07/2024, , 04/27/2022, Additional history exists Meningococcal B Vaccine Aged Out No l onger eligible based on patient's age to complete this topic Procedures Procedure Name Priority Date/Time Associated Diagnosis Comments TROPONIN-T HIGH SENSITIVITY 2HR Timed 12/15/2024 12:56 PM EDT TROPONIN-T HIGH SENSITIVITY BASELINE W/ REFLEX Add-On 12/15/2024 11:19 AM EDT URINALYSIS REFLEX STAT 12/15/2024 11: 19 AM EDT UA W/REFLEX TO CULTURE STAT 11:19 AM EDT LIPASE LEVEL STAT 12/15/2024 11:19 AM EDT COMPREHENSIVE METABOLIC PANEL STAT 12/15/2024 11:19 AM EDT CBC WITH DIFF STAT 12/15/2024 11:19 AM EDT EXTRA SARAH URINE CX STAT 12/15/2024 1 1:[address] ABDOMEN PELVIS WO ORAL OR IV CONTRAST STAT 12/15/2024 11:02 AM EDT XR CHEST AP PORTABLE STAT 12/15/2024 11:01 AM EDT EK EKG 12 LEAD STAT 12/15/2024 10:43 AM EDT from Last 3 Months Results * TROPONIN-T HIGH SENSITIVITY 2HR (12/15/2024 12:56 PM EDT) ds-xElbdahmq-L 2HR 11 <14 ng/L 12/15/2024 1:18 PM EDT [facility] hs-cTnT 2Hr Delta from Baseline -2 <4 ng/L 12/15/2024 1:18 PM EDT [facility] Blood VENOUS BLOOD / Unknown Venipuncture / Unknown 12/15/2024 12:56 PM EDT 12/15/2024 12:59 PM EDT Narrative [facility] - 12/15/2024 1:18 PM EDT Ingestion of dhaval doses of biotin (>5 mg/day) taken within 8 hours of drawing blood sample can interfere with this immunoassay test. us Leilani Barrera MD CHEMISTRY ORDERABLES Final R esult Performing Organization Address [facility] de Phone Number [facility] [address] [place] [address] * TROPONIN-T HIGH SENSITIVITY BASELINE W/ REFLEX (12/15/2024 11:19 AM EDT) oi-qYxdicxmw-I 13 <14 ng/L 12/15/2024 12:05 PM EDT [facility] Blood VENOUS BLOOD / Unknown Venipuncture / Unknown 12/15/2024 11:19 AM EDT 12/15/2024 11:52 AM EDT Narrative [facility] - 12/15/2024 12:05 PM EDT Ingestion of dhaval doses of biotin (>5 mg/day) taken within 8 hours of drawing blood sample can interfere with this immunoassay test. us Leilani Barrera MD CHEMISTRY ORDERABLES Final R esult Performing Organization Address [facility] de Phone Number [facility] [address] [place] [address] * URINALYSIS REFLEX (12/15/2024 11:19 AM EDT) UA Color Yellow 12/15/2024 11:27 AM EDT [facility] UA Appear Clear Clear 12/15/2024 11:27 AM EDT [facility] UA Glucose Negative Negative mg/dL 12/15/2024 11:27 AM EDT [facility] UA Ketones Negative Negative mg/dL 12/15/2024 11:27 AM EDT [facility] UA Blood Negative Negative 12/15/2024 11:27 AM EDT [facility] UA pH 7.0 5.0 - 8.0 pH 12/15/2024 11:27 AM EDT [facility] UA Protein Negative Negative mg/dL 12/15/2024 11:27 AM EDT [facility] UA Urobilinogen 0.2 <=1 mg/dL 11:27 AM EDT [facility] UA Bili Negative Negative 12/15/2024 11:27 AM EDT [facility] UA Nitrite Negative Negative 12/15/2024 11:27 AM EDT [facility] UA Leuk Est Negative Negative 12/15/2024 11:27 AM EDT [facility] UA Spec Grav 1.015 1.001 - 1.035 no units 12/15/2024 11:27 AM EDT [facility] Comment:Reference range maurice d for random specimens only. Urine STRUCTURE OF URINARY TRACT PROPER / Unknown 12/15/2024 11:19 AM EDT 12/15/2024 11:24 AM EDT us Leilani Barrera MD URINE ORDERABLES Final Resul t Performing Organization Address City/[facility] Co de Phone Number [facility] [address] [place] [address] * EXTRA SARAH URINE CX (12/15/2024 11:19 AM EDT) Urine STRUCTURE OF URINARY TRACT PROPER / Unknown 12/15/2024 11:19 AM EDT 12/15/2024 11:24 AM EDT us Leilani Barrera MD MICROBIOLOGY - GENERAL ORDER JACQUIE Final Result Performing Organization Address City/[facility] Co de Phone Number [facility] [address] [place] [address] * (ABNORMAL) CBC WITH DIFF (12/15/2024 11:19 AM EDT) WBC 5.1 3.7 - 10.3 x10(3)/mcL 12/15/2024 11:27 AM [facility] RBC 4.21 3.90 - 5.20 x10(6)/mcL 12/15/2024 11:27 AM [facility] Hgb 12.2 11.2 - 15.7 g/dL 12/15/2024 11:27 AM [facility] Hct 38.3 34.0 - 45.0 % 12/15/2024 11:27 AM [facility] MCV 91.0 80.0 - 100.0 fL 12/15/2024 11:27 AM [facility] MCH 29.0 26.0 - 34.0 pg 12/15/2024 11:27 AM [facility] MCHC 31.9 30.7 - 35.5 g/dL 12/15/2024 11:27 AM [facility] RDW 13.3 <=14.9 % 12/15/2024 11:27 AM [facility] Platelet 148(L) 155 - 369 x10(3)/mcL 12/15/2024 11:27 AM [facility] MPV 11.6 8.8 - 12.5 fL 12/15/2024 11:27 AM [facility] Neut Percent 49.1 % 12/15/2024 11:27 AM [facility] Comment:Neutrophils equals s egs plus bands Imm Gran% 0.2 % 12/15/2024 11:27 AM [facility] Comment:Automated count of m etamyelocytes, myelocytes and promyelocytes. Lymph Percent 39.4 % 12/15/2024 11:27 AM [facility] [place] Percent 6.4 % 12/15/2024 11:27 AM [facility] Eos Percent 4.3 % 12/15/2024 11:27 AM [facility] Baso Percent 0.6 % 12/15/2024 11:27 AM [facility] Neut # 2.5 1.6 - 6.1 x10(3)/mcL 12/15/2024 11:27 AM [facility] Comment:Neutrophils equals s egs plus bands IMMGRAN# 0.0 0.0 - 0.1 x10(3)/mcL 12/15/2024 11:27 AM EDT [facility] Comment:Automated count of m etamyelocytes, myelocytes and promyelocytes. An absolute IG <0.1 is reported as 0.0. Lymph # 2.0 1.2 - 3.9 x10(3)/[facility] 12/15/2024 11:27 AM EDT [facility] [place] # 0.3 0.3 - 0.9 x10(3)/[facility] 12/15/2024 11:27 AM EDT [facility] Eos# 0.2 0.0 - 0.5 x10(3)/[facility] 12/15/2024 11:27 AM EDT [facility] Baso # 0.0 0.0 - 0.1 x10(3)/[facility] 12/15/2024 11:27 AM EDT [facility] Blood VENOUS BLOOD / Unknown Venipuncture / Unknown 12/15/2024 11:19 AM EDT 12/15/2024 11:24 AM EDT Leilani Barrera MD HEMATOLOGY ORDERABLES Final Result Performing Organization Address City/[facility]/ZIP Co de Phone Number [facility] [address] [place] [address] * LIPASE LEVEL (12/15/2024 11:19 AM EDT) Pathologist [facility] Lipase Lvl 24 13 - 60 U/L 12/15/2024 11:43 AM EDT [facility] Blood VENOUS BLOOD / Unknown Venipuncture / Unknown 12/15/2024 11:19 AM EDT 12/15/2024 11:24 AM EDT Leilani Barrera MD CHEMISTRY ORDERABLES Final R esult Performing Organization Address City/[facility]/ZIP Co de Phone Number [facility] [address] [place] [address] * (ABNORMAL) COMPREHENSIVE METABOLIC PANEL (12/15/2024 11:19 AM EDT) Pathologist [facility] Sodium 137 136 - 145 mmol/L 12/15/2024 11:43 AM [facility] Potassium 4.1 3.5 - 5.0 mmol/L 12/15/2024 11:43 AM [facility] Chloride 109(H) 98 - 107 mmol/L 12/15/2024 11:43 AM [facility] Total CO2 19(L) 22 - 29 mmol/L 12/15/2024 11:43 AM [facility] Anion Gap 9 7 - 16 mmol/L 12/15/2024 11:43 AM [facility] Calcium 8.8 8.6 - 10.4 mg/dL 12/15/2024 11:43 AM [facility] Glucose Lvl 97 70 - 99 mg/dL 12/15/2024 11:43 AM [facility] BUN 18 6 - 20 mg/dL 12/15/2024 11:43 AM [facility] Creatinine 1.09 0.51 - 1.30 mg/dL 12/15/2024 11:43 AM [facility] Albumin 3.8 3.5 - 5.2 gm/dL 12/15/2024 11:43 AM [facility] Total Protein 7.0 6.4 - 8.3 gm/dL 12/15/2024 11:43 AM [facility] Bili Total 0.4 0.2 - 1.3 mg/dL 12/15/2024 11:43 AM [facility] ALT 15 <=41 U/L 12/15/2024 11:43 AM [facility] AST 17 <=40 U/L 12/15/2024 11:43 AM [facility] Alk Phos 105 36 - 123 U/L 12/15/2024 11:43 AM [facility] eGFR (CKD-EPIcr 2020) 60 >=60 mL/min/1.7 3 m2 12/15/2024 11:43 AM [facility] Comment:Estimated GFR was ca lculated using the CKD-EPIcr (2020) equation refit without race. The equation is recommended by the [employer] - [place] [employer]ph[employer] Task Force. Blood VENOUS BLOOD / Unknown Venipuncture / Unknown 12/15/2024 11:19 AM EDT 12/15/2024 11:24 AM EDT us Leilani Barrera MD CHEMISTRY ORDERABLES Final R esult [facility] [address] [place] [address] * CT ABDOMEN PELVIS WO ORAL OR [...] please contactthe office of the ordering clinician. Leilani Barrera MD IMG CT ORDERABLES Final Resu lt * XR [...] the ordering clinician. us Leilani Barrera MD IMG DIAGNOSTIC IMAGING ORDER JACQUIE Final Result * EK EKG 12 LEAD (12/15/2024 10:43 AM EDT) Anatomical Region Laterality Modality Electrocardiogra phy 12/15/2024 10:5 2 AM EDT Impressions 12/15/2024 1:[address] [facility] [facility] Test Date: 2024-12-15 Pat Name: MELANIE PERKINS Department: DEPID Room: Gender: Female [employer]: Dc : 1970 Requested By: LEILANI Craig Order Number: [id number] Reading MD: Marlin Katz Measurements Intervals [place] Rate: 42 P: 42 MT: 191 QRS: 1 QRSD: 106 T: 11 QT: 480 QTc: 402 Interpretive Statements SINUS BRADYCARDIA LOW QRS VOLTAGE IN PRECORDIAL LEADS INCOMPLETE RIGHT BUNDLE BRANCH BLOCK Electronically Signed On 12-15-2024 13:09:35 EDT by Marlin Katz Narrative Procedure Note Marlin Katz MD - 12/15/[address] [facility] Test Date: 2024-12-15 Pat Name: MELANIECOSME STALLWORTHCATARINA Department: DEPID Room: 09 Gender: Female [employer]: Dc : 1970 Requested By: LEILANI Craig Order Number: [id number] Reading MD: Marlin Katz Measurements Intervals [place] Rate: 42 P: 42 MT: 191 QRS: 1 QRSD: 106 T: 11 QT: 480 QTc: 402 Interpretive Statements SINUS BRADYCARDIA LOW QRS VOLTAGE IN PRECORDIAL LEADS INCOMPLETE RIGHT BUNDLE BRANCH BLOCK Electronically Signed On 12-15-2024 13:09:35 EDT by Marlin Katz us Leilani Barrera MD IMG ECG ORDERABLES Final Res ult from Last 3 Months Insurance [facility] BY [facility]
--- OUTSIDE RECORDS SUMMARY | 2024-12-15 21:35 | XMS_ITS | Data Portability ---
Author Organization [facility] HERMAN Pak ADMIN Address [address] [place] [id number] Care Team Providers Care Personal Lines Underwriter Name Role Phone JOAN QUINN Primary Care Provider JOAN QUINN Referring Provider Assessment Encounter Date Assessment Date Assessment LastModified by Organization Details LastModified Time 05/25/2022 05/25/2022 51-year-old female with dysphagia and epigastric discomfort. Recent esophagram indicated distal esophageal narrowing with dysmotility, delayed passage of a barium tablet, and sliding hiatal hernia containing the Evin wrap. Will schedule EGD for further evaluation. She will likely need referral back to general surgery for possible redo Evin. -Start Zofran as needed for nausea Not available 05/25/2022 16:08:06 Plan of Treatment Reminders Order Date Submit Date Provider Last Modified By Organization Details Last Modified Time Details Appointments None record ed. Lab CBC w/ auto diff 2022 023 [facility] (Registration ), [address], [place], [address], 3 11:50:23 CMP, serum or plasma 2022 023 [facility] (Registration ), [address], [place], [address], 3 12:13:26 hemogl obin A1C/he moglob in total, QN, blood 2022 023 [email or web address] [facility] (Registration ), [address] , [place], [address], 3 14:40:04 Referral None record ed. Procedures None record ed. Surgeries None record ed. Imaging None record ed. Medication Orders omepra zole 20 mg capsul isidoro arnold e 2022 023 [facility], [address], [address], 3 11:25:54 ondans etron 4 mg disint egrati ng tablet 2021 022 [facility], [address], [address], 3 11:14:55 Patient TargetsNo targets recorded. Patient InstructionsNo instructions recorded. Reason for Referral None Reported. Results Created Date Observation Date Name Description Value Unit Range Abnormal Flag Note LastModifiedBy Organization Detail LastModifiedTime 11/03/1911/02/2022 CBC AUTO W DIFF WBC 5.4 K/uL 4.0-10 .5 Not Available [facility] ([facility]) [address], [place], [address], 11/02/2022 11:50:23 11/03/19 23 11/02/2022 CBC AUTO W DIFF RBC 4.5 M/mm3 4.2-6. 4 Not Available [facility] ([facility]) [address], [place], [address], 11/02/2022 11:50:23 11/03/19 23 11/02/2022 CBC AUTO W DIFF HGB 12.9 gm/dL 12.5-1 6.0 Not Available [facility] ([facility]) [address], [place], [address], 11/02/2022 11:50:23 11/03/19 23 11/02/2022 CBC AUTO W DIFF HCT 40.7 % 37.0-4 7.0 Not Available [facility] ([facility]) [address], [place], [address], 11/02/2022 11:50:23 11/03/19 23 11/02/2022 CBC AUTO W DIFF MCV 90.2 fL 78-100 Not Available [facility] ([facility]) [address], [place], [address], 11/02/2022 11:50:23 11/03/19 23 11/02/2022 CBC AUTO W DIFF MCH 28.6 pg 27-31 Not Available [facility] ([facility]) [address] , [place], [address], 11/02/2022 11:50:23 11/03/19 23 11/02/2022 CBC AUTO W DIFF MCHC 31.7 g/dL 32-36 low Not Available [facility] ([facility]) [address], [place], [address], 11/02/2022 11:50:23 11/03/19 23 11/02/2022 CBC AUTO W DIFF RDW 14.6 % 11.5-1 4.0 high Not Available [facility] ([facility]) [address] , [place], [address], 11/02/2022 11:50:23 11/03/19 23 11/02/2022 CBC AUTO W DIFF platelet count 197 K/uL 150-45 0 Not Available [facility] ([facility]) [address], [place], [address], 11/02/2022 11:50:23 11/03/19 23 11/02/2022 CBC AUTO W DIFF neutrophil% 61.6 % 43-65 Not Available [facility] ([facility]) [address] , [place], [address], 11/02/2022 11:50:23 11/03/19 23 11/02/2022 CBC AUTO W DIFF lymphocyte% 28.2 % 20.5-4 5.5 Not Available [facility] ([facility]) [address] [facility], [place], [address], 11/02/2022 11:50:23 11/03/19 23 11/02/2022 CBC AUTO W DIFF monocyte% 7.0 % 5.5-11 .7 Not Available [facility] ([facility]) [address] [place], [address], 11/02/2022 11:50:23 11/03/19 23 11/02/2022 CBC AUTO W DIFF eosinophil% 2.8 % 0.9-2. 9 Not Available [facility] ([facility]) [address] [facility], [place], [address], 11/02/2022 11:50:23 11/03/19 23 11/02/2022 CBC AUTO W DIFF basophil% 0.4 % 0.2-1. 0 Not Available [facility] ([facility]) [address] [facility], [place], [address], 11/02/2022 11:50:23 11/03/19 23 11/02/2022 CBC AUTO W DIFF neutrophil# 3.3 K/uL 2.2-4. 8 Not Available [facility] ([facility]) [address] [place], [address], 11/02/2022 11:50:23 11/03/19 23 11/02/2022 CBC AUTO W DIFF lymphocyte# 1.5 cell/ mcL 1.3-2. 9 Not Available [facility] ([facility]) [address] [place], [address], 11/02/2022 11:50:23 11/03/19 23 11/02/2022 CBC AUTO W DIFF monocyte# 0.4 cell/ mcL 0.3-0. 8 Not Available [facility] ([facility]) [address] [place], [address], 11/02/2022 11:50:23 11/03/19 23 11/02/2022 CBC AUTO W DIFF eosinophil# 0.2 cell/ mcL 0-0.2 Not Available [facility] ([facility]) [address], [place], [address], 11/02/2022 11:50:23 11/03/19 23 11/02/2022 CBC AUTO W DIFF basophil# 0.0 cell/ mcL 0.0-1. 0 Not Available [facility] ([facility]) [address], [place], [address], 11/02/2022 11:50:23 11/03/19 23 11/02/2022 CBC AUTO W DIFF manual differential NO Not Available [facility] ([facility]) [address] , [place], [address], 11/02/2022 11:50:23 11/03/19 23 11/02/2022 HEMOG LOBIN A1C A1C 5.8 % 3.8-5. 6 high GLYCO SYLAT ED HEMOG LOBIN (A1C) EXPEC GIO RANGE S: <6.5 NON-D IABET IC 6.5-7 .5 EXCEL LENT 7.5-8 .5 GOOD >8.5 POOR Not Available [facility] ([facility]) [address] , [place], [address], 11/02/2022 11:54:03 11/03/19 23 11/02/2022 COMP METAB OLIC PANEL sodium 140 mmol/ L 136-14 5 Not Available [facility] ([facility]) [address] , [place], [address], 11/02/2022 12:13:26 11/03/19 23 11/02/2022 COMP METAB OLIC PANEL potassium 3.8 mmol/ L 3.6-5. 0 Not Available [facility] ([facility]) [address] , [place], [address], 11/02/2022 12:13:26 11/03/19 23 11/02/2022 COMP METAB OLIC PANEL chloride 105 mmol/ L 98-107 Not Available [facility] ([facility]) [address] , [place], [address], 11/02/2022 12:13:26 11/03/19 23 11/02/2022 COMP METAB OLIC PANEL carbon dioxide 28.0 mmol/ L 21.0-3 2.0 Not Available [facility] ([facility]) [address] , [place], [address], 11/02/2022 12:13:26 11/03/19 23 11/02/2022 COMP METAB OLIC PANEL anion gap 10.8 Not Available [facility] ([facility]) [address] , [place], [address], 11/02/2022 12:13:26 11/03/19 23 11/02/2022 COMP METAB OLIC PANEL glucose 90 mg/dL 70-120 Not Available [facility] ([facility]) [address] , [place], [address], 11/02/2022 12:13:26 11/03/19 23 11/02/2022 COMP METAB OLIC PANEL BUN 18 mg/dL 7-18 Not Available [facility] ([facility]) [address] , [place], [address], 11/02/2022 12:13:26 11/03/19 23 11/02/2022 COMP METAB OLIC PANEL creatinine 1.1 mg/dL 0.6-1. 3 Not Available [facility] ([facility]) [address] , [place], [address], 11/02/2022 12:13:26 11/03/19 23 11/02/2022 COMP METAB OLIC PANEL glomerular filtration rate 56 mlper min 60- low Not Available [facility] ([facility]) [address], [place], [address], 11/02/2022 12:13:26 11/03/19 23 11/02/2022 COMP METAB OLIC PANEL total protein 7.6 g/dL 6.4-8. 2 Not Available [facility] ([facility]) [address], [place], [address], 11/02/2022 12:13:26 11/03/19 23 11/02/2022 COMP METAB OLIC PANEL albumin 3.8 g/dL 3.4-5. 0 Not Available [facility] ([facility]) [address], [place], [address], 11/02/2022 12:13:26 11/03/19 23 11/02/2022 COMP METAB OLIC PANEL globulin 3.8 Not Available [facility] ([facility]) [address], [place], [address], 11/02/2022 12:13:26 11/03/19 23 11/02/2022 COMP METAB OLIC PANEL alb/glob ratio 1.0 0.7-2 Not Available [facility] ([facility]) [address], [place], [address], 11/02/2022 12:13:26 11/03/19 23 11/02/2022 COMP METAB OLIC PANEL calcium 8.9 mg/dL 8.5-10 .5 Not Available [facility] ([facility]) [address] , [place], [address], 11/02/2022 12:13:26 11/03/19 23 11/02/2022 COMP METAB OLIC PANEL bilirubin total 0.60 mg/dL 0.10-1 .00 Not Available [facility] ([facility]) [address] , [place], [address], 11/02/2022 12:13:26 11/03/19 23 11/02/2022 COMP METAB OLIC PANEL AST (SGOT) 11 U/L 0-37 Not Available [facility] ([facility]) [address], [place], [address], 11/02/2022 12:13:26 11/03/19 23 11/02/2022 COMP METAB OLIC PANEL ALT (SGPT) 20 U/L 0-65 Not Available [facility] ([facility]) [address], [place], [address], 11/02/2022 12:13:26 11/03/19 23 11/02/2022 COMP METAB OLIC PANEL alk phosphatase 108 U/L 46-116 Not Available [facility] ([facility]) [address], [place], [address], 11/02/2022 12:13:26 Result Notes None recorded. Problems Name Problem SNOMED Code Status Onset Date Resolution Date Notes Provider Name and Address Organization Details Recorded Time Esophageal dysphagia 85643192 Active 2021 Urbano Ann PA-C [address] [facility], [place], [address] , [place] - [facility] - [place] & [place] 2 16:04:44 Epigastric pain 11826309 Active 2021 Urbano Ann PA-C [address] [facility], [place], [address] , [place] - [facility] - [place] & [place] 2 16:04:50 Hiatal hernia 42400669 Active 2021 Urbano Ann PA-C [address] [facility], [place], [address] , [place] - [facility] - [place] & [place] 2 16:05:09 Nausea 224655436 Active 2021 Urbano Ann PA-C [address] [facility], [place], [address] , [place] - [facility] & [place] 2 16:05:25 Problem Notes None recorded. Procedures Surgical History Date Name Laterality Status Provider Name and Address Organization Details Recorded Time 06/17/[address], LD [address] [facility], [place], [address], [place] - [facility] & [place] 10/20/2022 13:29:43 03/22/20 22 Date of Last Colonoscopy completed KIT DHILLON RD, LD [address] [facility], [place], [address], [place] [facility] & [place] 10/20/2022 13:29:43 cardiac pacemaker procedure completed Christopher Sharp-Beckha m [place] - [facility] & [place] 10/11/2022 11:17:38 cardiac catheterization completed Christopher Sharp-Beckha m [place] - [facility] & [place] 10/11/2022 11:17:58 EGD completed Christopher Sharp-Beckha m [place] - [facility] & [place] 10/11/2022 11:18:24 Hernia Repair completed Christopher Sharp-Beckha m [place] - [facility] & [place] 10/11/2022 11:23:26 Hernia Repair completed Radha Kwan [place] - [facility] & [place] 11/24/2022 10:05:37 Imaging Results None recorded. Procedure Notes None recorded. Medical Equipment None Reported. Allergies Allergen ID Allergen Name Allergen Category Reaction Reaction Severity Criticality Documentation Date Start Date Code Code System Note Provider Name and Address Organization Details Recorded Time 22302 codeine medicatio n Not available Not available Not available 05/25/2022 2670 RxNorm Vilma gandhi, [place] - [facility] & [place] 2 14:39:53 18691 pholcodin e Not available Not available Not available Not available 10/20/[address], LD [address] [facility], [place], [address], [place] - [facility] & [place] 3 13:29:37 14735 Tegaderm medicatio n Not available Not available Not available 11/24/2022 61020 UNK CELE[facility]INO Todd [facility] & [place] 3 10:03:56 67875 peanut allergeni c extract food,medi cation Not available Not available Not available 11/24/2022 77211 8 RxNorm Radha gandhi, [facility] & [place] 3 10:04:04 Medications Name Sig Start Date Stop Date Status Note LastModified by Organization Details LastModified Time mucus er 600mg tab TAKE 1 TABLET BY MOUTH TWICE DAILY NEEDED FOR COUGH active Not Available Not Available No t Available amantadine HCl 100 mg tablet 10/11 completed Not Available Not Available Not Available hydrocodone 5 mg-acetamin ophen 325 mg tablet TAKE 1 TABLET BY MOUTH TWICE DAILY NEEDED FOR PAIN 10/11 completed Not Available Not Available Not Available sulfamethox azole 800 mg-trimetho prim 160 mg tablet TAKE 1 TABLET BY MOUTH TWICE DAILY FOR 3 DAYS active Not Available Not Available No t Available Sudogest 30 mg tablet TAKE 1 TABLET BY MOUTH EVERY 6 HOURS NEEDED FOR NASAL CONGESTIO N active Not Available Not Available No t Available ondansetron 8 mg disintegrat ing tablet DISSOLVE 1 TABLET IN MOUTH EVERY 12 HOURS 10/11 completed Not Available Not Available Not Available levothyroxi ne 25 mcg tablet TAKE 1 TABLET BY MOUTH ONCE DAILY active Not Available Not Available No t Available levothyroxi ne 75 mcg tablet TAKE 1 TABLET BY MOUTH ONCE DAILY active Not Available Not Available No t Available amoxicillin 875 mg tablet TAKE 1 TABLET BY MOUTH TWICE DAILY 10/11 completed Not Available Not Available Not Available Lidoderm 5 % topical patch 10/11 completed Not Available Not Available Not Available oxycodone-a cetaminophe n 10 mg-325 mg tablet TAKE 1 TABLET BY MOUTH THREE TIMES DAILY NEEDED FOR PAIN 10/11 completed Not Available Not Available Not Available dexamethaso ne 1 mg tablet TAKE 1 TABLET BY MOUTH AT 11PM THE NIGHT BEFORE LABS DRAW AT 8AM active Not Available Not Available No t Available benzonatate 100 mg capsule TAKE 1 CAPSULE BY MOUTH TWICE DAILY NEEDED FOR COUGH active Not Available Not Available No t Available levothyroxi ne 50 mcg tablet TAKE 1 TABLET BY MOUTH ONCE DAILY active Not Available Not Available No t Available cephalexin 500 mg capsule TAKE 1 CAPSULE BY MOUTH 4 TIMES DAILY FOR INFECTION 10/11 completed Not Available Not Available Not Available pantoprazol e 40 mg tablet,isidoro yed release TAKE 1 TABLET BY MOUTH ONCE DAILY 10/11 completed Not Available Not Available Not Available oxybutynin chloride ER 5 mg tablet,exte nded release 24 hr TAKE 1 TABLET BY MOUTH ONCE DAILY FOR BLADDER active Not Available Not Available No t Available omeprazole 20 mg capsule,del ayed release TAKE 1 CAPSULE BY MOUTH ONCE DAILY FOR 30 DAYS active Not Available Not Available No t Available diclofenac sodium 75 mg tablet,isidoro yed release TAKE 1 TABLET BY MOUTH TWICE DAILY 10/11 completed Not Available Not Available Not Available methylpredn isolone 4 mg tablets in a dose pack TAKE BY MOUTH DIRECTED ON INSIDE OF PACKAGE active Not Available Not Available No t Available albuterol sulfate HFA 90 mcg/actuati on aerosol inhaler INHALE 1 PUFF BY MOUTH 4 TIMES DAILY active Not Available Not Available No t Available colchicine 0.6 mg tablet TAKE 1 TABLET BY MOUTH ONCE DAILY 10/11 completed Not Available Not Available Not Available bromphenira mine-pseudo ephedrine-D M 2 mg-30 mg-10 mg/5 mL oral syrup TAKE 10 ML BY MOUTH EVERY 8 HOURS NEEDED FOR NASAL OR SINUS CONGESTIO N, RUNNY NOSE, COUGH, SORE THROAT/DR ALAS active Not Available Not Available No t Available ondansetron 4 mg disintegrat ing tablet Take 1 tablet by mouth as needed twice daily 10/11 completed Not Available Not Available Not Available doxycycline hyclate 100 mg tablet active Not Available Not Available No t Available dicyclomine 10 mg capsule TAKE 1 CAPSULE BY MOUTH TWICE DAILY 10/11 completed Not Available Not Available Not Available metoclopram cher 10 mg tablet TAKE 1 TABLET BY MOUTH 4 TIMES DAILY NEEDED FOR NAUSEA AND VOMITING FOR 7 DAYS active Not Available Not Available No t Available amoxicillin 875 mg-potassiu m clavulanate 125 mg tablet TAKE 1 TABLET BY MOUTH TWICE DAILY FOR 10 DAYS active Not Available Not Available No t Available nitrofurant oin monohydrate /macrocryst als 100 mg capsule TAKE 1 CAPSULE BY MOUTH TWICE DAILY FOR 7 DAYS MUST ADMINISTE R WITH A MEAL/FOOD active Not Available Not Available No t Available aspirin 81 mg capsule Take 1 capsule every day by oral route. active Not Available Not Available No t Available Tirosint 37.5 mcg capsule TAKE 1 CAPSULE BY MOUTH ONCE DAILY active Not Available Not Available No t Available Vitals Date Recorded Body height Heart rate Body temperature Body mass index (BMI) Body weight Systolic blood pressure Diastolic blood pressure Provider Name and Address Organization Details Last Updated DateTime 3 165.1 cm 72 /min 97.1 [degF] 38.9 kg/m2 245233. 61 g 123 mm[Hg] 97 mm[Hg] Christopher [facility] & [place] 3 11:21:16 Date Recorded Body height Body mass index (BMI) Body weight Body temperature Heart rate Systolic blood pressure Diastolic blood pressure Provider Name and Address Organization Details Last Updated DateTime 3 165.1 cm 38.4 kg/m2 188981. 84 g 97.5 [degF] 57 /min 131 mm[Hg] 98 mm[Hg] Christopher [facility] & [place] 3 11:08:44 Date Recorded Body height Body mass index (BMI) Body weight Body temperature Heart rate Systolic blood pressure Diastolic blood pressure Provider Name and Address Organization Details Last Updated DateTime 3 165.1 cm 37.9 kg/m2 376979. 26 g 96.9 [degF] 49 /min 131 mm[Hg] 81 mm[Hg] Radha Aquiles [facility] & [place] 3 10:05:54 Date Recorded Body weight Systolic blood pressure Diastolic blood pressure Provider Name and Address Organization Details Last Updated DateTime 05/25/2022 875715.21 g 116 mm[Hg] 100 mm[Hg] Vilma Aquiles [facility] & [place] 05/25/2022 14:39:40 Social History Question Answer Notes LastModified by Organizat ion Details LastModified Time Tobacco Smoking Status Never Smoker Christopher MedinaKylie gandhi [facility] & [place] 10/11/2022 11:16:52 Do You Have An Advance Directive? No [email or web address] Information not available 10/20/2022 Are You Blind Or Do You Have Difficulty Seeing? No Information not available 10/20/2022 Are You Passively Exposed To Smoke? No [email or web address] Information not available 10/20/2022 Sex: Unknown Functional Status Question Answer Note LastModified by Organizat ion Details LastModified Time Do you use any illicit or recreational drugs? No Information not available 10/20/2022 What is your level of alcohol consumption? Occasional [email or web address] Information not available 10/20/2022 What is your exercise level? Occasional [email or web address] Information not available 10/20/2022 Mental Status Question Answer Note LastModified by Organization D etails LastModified Time Do you feel stressed (tense, restless, nervous, or anxious, or unable to sleep at night)? [id number] Information not available 10/20/2022 Family History Nothing Reported. Medical History Condition Response Thyroid Problems Y Vision or Eye Problems Y Back Problems Y Gynecological History Statement/Question Response Menses Monthly N Abnormal Pap N Date of Last Colonoscopy 03/22/2022 06/17/2022 Obstetrics History GPAL:G 0 P 0 0 0 0 Immunizations Vaccine Type Date Status Note Provider Nam e and Address Organization Details Recorded Time COVID-19, mRNA, LNP-S, PF, 30 mcg/0.3 mL dose 03/04/[address], LD [address] [place], [address], [facility] & [place] 10/11/2022 10:04:15 COVID-19, mRNA, LNP-S, PF, 30 mcg/0.3 mL dose 03/25/[address], LD [address] [place], [address] & [place] 10/11/2022 10:04:15 Influenza, split virus, quadrivalent, PF 04/27/[address], LD [address] [facility] [address], [facility] & [place] 10/11/2022 10:04:15 Influenza, split virus, quadrivalent, PF 05/08/[address], LD [address] [place], [address], [facility] & [place] 10/11/2022 10:04:15 Influenza, split virus, quadrivalent, PF 05/18/[address], LD [address] [facility], [place], [address], [facility] - [facility] & [place] 10/11/2022 10:04:15 Influenza, split virus, quadrivalent, PF 05/22/[address], LD [address] [facility], [place], [address], [facility] - [facility] & [place] 10/11/2022 10:04:15 Influenza, split virus, quadrivalent, PF 06/10/[address], LD [address] [facility], [place], [address], [facility] - NT [facility] & [place] 10/11/2022 10:04:15 Past Encounters Encounter ID Performer Location Encounter Start Date Encounter Closed Date Diagnosis/Indication Diagnosis SNOMED-CT Code Diagnosis ICD10 Code Diagnosis Note [id number] Urbano Ann PA-C [facility] [address] [facility] [address] [place] [address] 05/25/2022 14:25:43 05/25/2022 15:48:14 Esophageal dysphagia 45447288 R13.19 Epigastric pain 12665941 R10.13 Hiatal hernia 22589662 K 44.9 Nausea 513916502 R11.0 [id number] RAY Cuevas [facility] [address] [facility] [address] [place] [address] 10/11/2022 10:59:37 10/11/2022 12:12:42 Paraesophageal hernia 2972314 K44.9 s/p 2018 Yolanda have patient return to clinic on a Tuesday to meet with Dr. Gonzales to discuss Evin fundoplica tion takedown /redo. Patient is to continue management of symptoms with medication s. diet as tolerated. She is to call for any worsening symptoms Body mass index 30+ - obesity 127289282 Z68.38 weight loss surgery options /Donna-en-Y gastric bypass discussed with patient today. Patient met with insurance coordinato r. She does not have qualify for weight loss surgery at this time. [id number] RAY Cuevas [facility] [address] [place] [address] [address] [place] [address] 10/20/2022 10:58:54 10/20/2022 12:21:20 Paraesophageal hernia 8316550 K44.9 s/p 2018 Evin, Recurrent paraesopha geal hernia found on 09/20/2022 EGDpatient seen today in clinic with Dr. Joon Gonzales to discuss plan of care. Robotic assisted Repair of slipped fundoplica tion and recurrent hiatal hernia with partial fundoplica tion and possible bio-absorb able mesh. I explained to her that her increasing weight will influence her risk of another recurrence unfortunat jazmyn right now she does not have another comorbidit y and her health insurance will not approve weight loss surgery although she does meet the new recommenda tions. All risks, complicati ons and alternativ es were explained to the patient including but not excluding bleeding, infection, recurrence , pneumothor ax, solid organ injury, esophageal and gastric injury. The risk of gas bloat syndrome was also explained to her. She agrees to proceed with the procedure. Patient will return to clinic for postoperat dave visit 2 weeks after surgery. Cardiac ray dukes in situ [id number] Z95.0 Patient will need cardiac clearance prior to procedure. [id number] [facility] [address] [place] [address] 11/24/2022 09:47:16 11/24/2022 11:05:51 Dysphagia [id number] R13.10 We will start patient on daily omeprazole . We will also have patient take Tylenol daily over the next week to help with swelling and hopefully in turn see improvemen t of dysphagia. Discussed Slow diet progressio n. Discussed upper GI patient is unable to progress diet as tolerated. Watchful waiting over the next 7-10 days. Patient is to contact the office if not progressin g diet as discussed. We will need to order upper GI at that time.Follo w-up 6 weeks History of fundoplication [id number] Z98.890 Health Concerns Section Related Observation LastModified by Organization Detai ls LastModified Time None Recorded Concern Status LastModified by Organization Details LastModified Time None Recorded Advance Directives Directive N: Payers Insurance Date Sequence Insurance Name Policy Number Policy Martinez Covered Member ID Martinez Member ID Guarantor Name 05/28/2024 1 [place] [id number] Melanie Perkins [id number] Melanie Perkins Notes Date Note Type Note Provider Name and Address Organization Details Recorded Time 2 text/html Ms. Perkins is a very pleasant 51-year-old female with history of gastric volvulus and paraesophageal hiatal hernia repair with Evin fundoplication and placement of bioabsorbable mesh in 2017 who was referred by Joan Quinn for evaluation of dysphagia and epigastric abdominal discomfort. She recently underwent esophagram recently that showed esophageal dysmotility with narrowing at the distal esophagus and delayed passage of a 13 mm barium tablet. A sliding-type hiatal hernia containing the Evin wrap was seen, likely consistent with a slipped Evin. She also reports frequent nausea. She denies heartburn. Urbano Ann PA-C [address], [place], [address], [facility] - [place] - [place] & [place] 05/25/2022 16:08:35 3 text/html 51-year-old female known previously known to our office s/p Robotic-assisted repair of paraesophageal hernia with Evin fundoplication and placement of bioabsorbable mesh 08/02/2017. patient has been referred back to us by Dr. liu for slipped Evin and recurrence paraesophageal hernia.09/20/22 EGD Case Within the esophagus, the Z-line was identified at 34 cm from incisors and was normal and symmetric in appearance. The remainder of the esophagus appeared normal. There was evidence of recurrence of a paraesophageal hernia. Remainder of the stomach appears normal. Retroflexion was performed and showed a slipped Evin and paraesophageal hernia. The first and second portions of the duodenum appeared normal.Patient reports persistent dysphagia. She has gastroesophageal reflux.Current BMI 38.9 RAY Cuevas [address], [place], [address], [place] [facility] & [place] 10/11/2022 12:24:06 3 text/html 51-year-old female known previously known to our office s/p Robotic-assisted repair of paraesophageal hernia with Evin fundoplication and placement of bioabsorbable mesh 08/02/2017. patient has been referred back to us by Dr. liu for slipped Evin and recurrence paraesophageal hernia. Dr Quinn referred to Dr Liu for dysphagia and epigastric abdominal discomfort. She underwent esophagram recently that showed esophageal dysmotility with narrowing at the distal esophagus and delayed passage of a 13 mm barium tablet. A sliding-type hiatal hernia containing the Evin wrap was seen, likely consistent with a slipped Evin. She also reports frequent nausea. She denies heartburn. 09/20/22 EGD Case Within the esophagus, the Z-line was identified at 34 cm from incisors and was normal and symmetric in appearance. The remainder of the esophagus appeared normal. There was evidence of recurrence of a paraesophageal hernia. Remainder of the stomach appears normal. Retroflexion was performed and showed a slipped Evin and paraesophageal hernia. The first and second portions of the duodenum appeared normal.Patient reports persistent dysphagia. She has gastroesophageal reflux.Current BMI 38.9 Pt does not qualify for WLS RAY Cuevas , [place], [address], [place] [facility] & [place] 10/20/2022 13:33:07 3 text/html Patient presents for Post-Op Check s/p [id number] assisted surgery Repair of recurrent hiatal hernia with partial fundoplicationpatient is doing well but reports some dysphagia and struggle to progress diet. She states she initially had significant nausea and vomiting as well as frothing. She attempted to call our office but could not get through. Nausea vomiting has improved. she is tolerating p.o. liquids well now. She does have dysphagia when swallowing pills.Denies : Fever Pain Nausea Vomiting Swelling upper extremities. Shortness of breath/Dyspnea. Change in bowel or bladder.Activity limited per postop restriction. Ambulating often.Tolerating po intake and progressing diet back to their norm. RAY Cuev[address]ton [address]ai, [place], [address], [facility] - [place] & [place] 11/24/2022 11:28:03 OBGyn Episode No OBEpisode recorded.
--- OUTSIDE RECORDS SUMMARY | 2024-12-15 21:35 | XMS_ITS | Patient Health Record ---
Author Organization [facility] Address [address] [place] [address] Care Team Providers Care Community Affairs Manager Name Role Phone [facility] Primary Care Provide r Unavailable Taylor, [id number] Grazyna Unavailable Allergies Allergen (clinical drug ingredient) Drug/Non Drug Allergy documented on EMR Reaction Allergy Type Onset Date Status codeine Codeine Unknown Drug Allergy Active Reason For Referral No Information Medications Medication SIG (Take, Route, Frequency, Duration) Notes Start Date End Date Status SUMAtriptan Succinate 50 MG 1 tablet as needed, may take second dose at least 2 hours after first dose up to 4 tablets per day as needed Orally Once a day for 30 days 09/10/2024 Active Aspirin 81 Active Ondansetron 4 MG 1 tablet on the tong ue and allow to dissolve Orally every 8 hours for 3 days 09/10/2024 Active Levothyroxine Sodium 75 MCG TAKE 1 TABLE T BY MOUTH ONCE DAILY Oral for 90 Days Active oxyBUTYnin Chloride ER 5 MG Oral for 30 Days Active Social History Tobacco Use: Social History Observation Description Date Details (start date - stop date) Never Smoker NA - NA Tobacco Control (Standard) Question Answer Notes Tobacco use: Nonsmoker Problems Problem Type SNOMED Code ICD Code Onset Dates Problem Status W/U Status Risk Notes Problem 588972407 Overactive bladd er (N32.81) Active confirmed Problem 566881723 Acquired hypothyroidism (E03.9) Active confirmed Problem [id number] Acute migraine (G43.909) Active confirmed Vital Signs Temperature 97.8 degrees Fahrenheit 09/10/2024 Respiratory Rate 16 /min 09/10/2024 Oximetry 98 09/10/2024 Blood pressure diastolic 60 mm Hg 09/10/2024 Height 64.25 in 09/10/2024 Blood pressure systolic 108 mm Hg 09/10/2024 Weight 221.6 lbs 09/10/2024 BMI 37.74 kg/m2 09/10/2024 Encounters Encounter Location Date Provider Diagnosis [id number] [address] 09/10/2024 Grazyna Vazquez Acute migraine G43.909 and Nausea R11.0 Assessments Encounter Date Diagnosis (ICD Code) Assessment Notes Treatment Notes Treatment Clinical Notes Section Notes 09/10/2024 Nausea (ICD-10 - R11.0) 09/10/2024 Acute migraine (ICD-10 - G43.909) Visit summary given to and discussed with patient and/or parent who verbalizes understanding and agreement with plan of care. Suggest alternating between Ibuprofen and Tylenol Recommend taking Sumitriptan at home not at work due to side effects Please keep F/u with Neurologist , Migraine Headache: Care Instructions material was printed Discussed s/'s of severe sudden headache, vision changes, CP, SOA and stroke like symptoms go to ER 09/10/2024 Other Sumatriptan material was printed Plan Of Treatment No Information Insurance Providers Payer Name Payer Address Payer Phone Subscriber Number Group Number Insured Name Patient Relationship to Insured Coverage Start Date Coverage End Date [facility] [address] [place] [address] [id number] Melanie De Santiago Self - patient is the insured [facility] [address] [place] [address] [id number] Melanie De Santiago Self - patient is the insured Medical (General) History Medical History History ICD Code Hypothyroidism Overactive bladder Surgical History Surgery Date(Month/Year) R Knee surgery- meniscus repair gallbladder Pacemaker 2021- removed same year partial hysterectomy hiatal hernia repair x2 c section x3 tubal
[2024-12-15 21:57] LABS: Microscopic, Urine URINE MICROSCOPIC (MICROSCOPIC)
[2024-12-15 21:59] LABS: Appearance,Urine CLEAR (Clear); Bilirubin,Urine Negative (Negative); Blood, Urine Negative (Negative); Color,Urine YELLOW (Yellow); Glucose,Urine (UA) Negative (Negative); Ketones,Urine Negative (Negative); Leukocyte Esterase,Urine Negative (Negative); Nitrate,Urine Negative (Negative); PH,Urine 6.5 (5.0-8.5); Protein,Urine Negative (Negative)
[2024-12-15 22:15] LABS: Bacteria,Urine 1+ /lpf; Mucus,Urine 4+ /lpf
--- NOTE | 2024-12-15 22:33 | CT_ITS ---
PROCEDURE INFORMATION: Exam: CT Abdomen And Pelvis Without Contrast Exam date and time: 12/15/2024 11:01 PM Age: 54 years old Clinical indication: Abdominal pain; Flank; Right; Additional info: Right flank pain TECHNIQUE: Imaging protocol: Computed tomography of the abdomen and pelvis without contrast. Total images: 334 Radiation optimization: All CT scans at this facility use at least one of these dose optimization techniques: automated exposure control; mA and/or kV adjustment per patient size (includes targeted exams where dose is matched to clinical indication); or iterative reconstruction. COMPARISON: CT ABDOMEN PELVIS WO CON 11/15/2023 7:16 AM FINDINGS: Lungs: Lung bases are clear. Heart: Trace pericardial effusion. Normal heart size. Diaphragm: Moderate hiatal hernia. Liver: Small right hepatic lobe cyst. Otherwise, unremarkable liver. Gallbladder and biliary ducts: Status post cholecystectomy. No biliary ductal dilatation. Pancreas: Normal. No ductal dilation. Spleen: Normal. No splenomegaly. Adrenal glands: 2.7 cm right adrenal adenoma. Unremarkable left adrenal gland. Kidneys and ureters: No hydronephrosis, nephrolithiasis, or renal mass. Multiple left greater than right peripelvic renal cysts. No ureteral stones. Stomach and bowel: Unremarkable stomach and duodenum. No ileus or bowel obstruction. Unremarkable small bowel. Mobile cecum projecting in the right upper quadrant. There are few scattered colonic diverticulum. No acute diverticulitis. Unremarkable rectum. Appendix: Nonvisualized appendix. Suspect prior appendectomy. Intraperitoneal space: No ascites. No free air. Vasculature: Nonaneurysmal abdominal aorta. Pelvic phleboliths. Lymph nodes: Unremarkable. No enlarged lymph nodes. Urinary bladder: Collapsed bladder. Reproductive: Status post hysterectomy. No pelvic mass. Bones/joints: Scattered moderate degenerative changes of the thoracolumbar spine. Grade 1 anterior spondylolisthesis at L4-L5. No acute osseous abnormality. Soft tissues: Fat containing bilateral inguinal hernias. Small fat containing umbilical hernia. IMPRESSION: 1. No acute intra-abdominal or pelvic process. 2. Chronic and incidental findings COMMENTS: Consistent with the [place] [employer]'s Incidental Findings Committee white paper (J Am Reyes Radiol 2017): For any incidental adrenal lesion greater than or equal to 1 cm but less than or equal to 4 cm classified in this report as benign, likely benign, or containing fat (including classification as an adenoma or myelolipoma), no follow-up imaging is recommended per consensus recommendations based on imaging criteria. Further lab evaluation could be pursued if warranted based on clinical findings.
--- NOTE | 2024-12-15 22:34 | ED_ITS ---
Discharge Plan Disposition Patient Disposition: Home, Self-Care Condition: Good Prescriptions Prescriptions: No Action aspirin 81 mg capsule 81 mg PO DAILY dicyclomine 10 mg capsule 10 mg PO QID PRN (Reason: abdominal pain) Qty: 120 2RF omeprazole 20 mg capsule,delayed release(DR/EC) 20 mg PO DAILY levothyroxine 75 mcg tablet 75 mcg PO DAILY Qty: 90 3RF albuterol sulfate 90 mcg/actuation HFA aerosol inhaler 1 inh inhalation QID Qty: 6.7 2RF prednisone 20 mg tablet 20 mg PO BID Qty: 10 0RF doxycycline hyclate 100 mg tablet 100 mg PO BID Qty: 20 0RF oxybutynin chloride 5 mg tablet extended release 24hr 5 mg PO DAILY Qty: 30 1RF Referrals Follow up/Referrals: Joan Merrill PA [Primary Care Provider, Family Practice] - See instructions Activity Restrictions/Add. Instructions Additional Instructions/Restrictions: You were evaluated in the ER and are believed to be appropriate for discharge at this time. Continue all home medications as previously prescribed. You can take Tylenol if needed for pain, do not exceed the recommended dose on the bottle. Drink water and eat a small snack each time you take this medication to avoid side effects. Increase your water intake to maintain good hydration. Make an appointment with your primary care doctor for reevaluation of your pain in a few days. Also call the cardiology office and make an appointment for reevaluation of your low heart rate. Return to the ER with any new, worsening, or otherwise concerning symptoms. Clinical Impressions Clinical Impression: Right flank pain Stand Alone Forms Stand Alone Forms: Work/School Release Instructions Patient Instructions: DI for Low Back Pain Print Language Print Language: Greek Discharge ED Provider: Fátima Cabrera General Adult HPI <Fátima Cabrera MD - Last Filed: 12/15/24 22:38> General Chief complaint: Back Pain/Injury Stated complaint: Possible Kidney Stone; L Flank Pain Time Seen by Provider: 12/15/24 22:28 Mode of Arrival: Ambulatory Source of Information: Patient Description of Symptoms (Recalled from ER Triage Doc. by RN): Pt presents with c/o bilateral flank pain that started this AM. Pt states she was seen at [facility] this AM pt states she continues to have pain. Pt states they gave her a shot for pain. Pt -states they had difficulty obtaining labs, and she had a HR was ranging from 37-43 and she had a pacemaker but it was removed in february. Pt states is concerned something is wrong History of Present Illness HPI narrative: Patient is a 54-year-old female presents today with kidney pain . She states that she has a history of kidney problems but cannot articulate whether or not it has been infections or stones etc. Has a history of gallbladder pathology and has had her gallbladder moved in the past. States she has right flank pain radiating to her right groin. Been constant since earlier today. No intermittent component no hematuria frequency or urgency no history of stones that she is aware of. She believes that may have been infections in the past. But is not sure. Denies any lower anterior abdominal discomfort. No vomiting or diarrhea etc. Related Data Home Medications ?Medication ?Instructions ?Recorded ?Confirmed aspirin 81 mg capsule 81 mg PO DAILY Blood thinner 03/08/22 08/13/24 omeprazole 20 mg capsule,delayed 20 mg PO DAILY Acid R eflux 12/01/22 08/13/24 release Previous Rx's ?Medication ?Instructions ?Recorded levothyroxine 75 mcg tablet 75 mcg PO DAILY #90 tabs 0 10/24/23 dicyclomine 10 mg capsule 10 mg PO QID PRN abdominal p ain 06/06/24 #120 caps albuterol sulfate 90 mcg/actuation 1 inh inhalation QI D #6.7 grams 08/13/24 aerosol inhaler doxycycline hyclate 100 mg tablet 100 mg PO BID #20 ta bs 08/13/24 oxybutynin chloride 5 mg 5 mg PO DAILY urination #30 tabs 08/13/24 tablet,extended release 24 hr prednisone 20 mg tablet 20 mg PO BID #10 tabs Allergies Allergy/AdvReac Type Severity Reaction Status Date / Time azithromycin (AZITHROMYCIN) Allergy Intermediate NA-NAUSEA Verified 08/13/24 11:32 codeine (CODEINE) Allergy Intermediate S-SWELLS-OR Verified 08/13/24 11:32 AL/THROAT nut - unspecified Allergy Hives Verified 08/13/24 11:32 silver (From Tegaderm [employer] Allergy Blister Verified 08/13/24 11:32 Mesh) Iodinated Contrast Media AdvReac Severe Verified 08/13/24 11:32 Nausea, burning pain at infusion site [facility] <J Cristian Cabrera MD - Last Filed: 12/15/24 22:38> [facility] Disclaimer: The information contained in this section may have been updated after the patient was seen, as this information can be updated by other users. Medical History Inguinal pain of both sides Complex tear of lateral meniscus of right knee Chondromalacia, patella Slipped Evin fundoplication Abnormal cardiovascular stress test Internal derangement of right knee Complex tear of medial meniscus of right knee CVA (cerebral vascular accident) Gastroesophageal junction erosion Infection of pacemaker pulse generator site Hypertension Hypothyroidism Symptomatic bradycardia Diarrhea Sinus bradycardia Epigastric pain Gastroenteritis Mass of vagina Chronic flank pain MARKIE (acute kidney injury) Degenerative disc disease Sacroiliitis Strain of lumbar region Foraminal stenosis of lumbar region Bulging lumbar disc Facet hypertrophy of lumbar region Edema of right lower extremity Obesity (BMI 30-39.9) Migraine Decreased sensation of lower extremity Acquired pes planus of both feet Numbness and tingling of both feet Posterior tibial tendon dysfunction (PTTD) of right lower extremity Daytime somnolence History of DVT (deep vein thrombosis) Vitamin D deficiency Chronic anemia Pes anserinus bursitis of right knee Chronic GERD Headache Hand pain, left Pain of right leg Fall COVID-19 virus infection Shortness of breath Fever COVID-19 Hyperthyroidism Chest pain Chest pain Post-op pain Aftercare following removal/replacement pacemaker Visual disturbance Blurry vision Dyspnea Hx-TIA (transient ischemic attack) Abnormal EKG Muscle strain Chest pain Surgical History Status post hysterectomy History of repair of hiatal hernia Status post arthroscopy of right knee Status post right knee arthroscopy with partial medial and lateral meniscectomies History of hernia repair History of hysterectomy History of appendectomy History of cholecystectomy History of section History of esophagogastroduodenoscopy (EGD) Family History Other Family history of myocardial infarction Hyperlipidemia Hypertension Social History Smoking Status: Never smoker second hand exposure: No alcohol intake: never substance use type: denies use current occupational status: employed Travel in the last 8 weeks?: None household members: family housing: house current occupational exposures/hazards: No caffeine: Yes Have you lived/traveled outside [place] in past 30 days?: No Contact w/someone who lives/traveled outside US past 30 days?: No Exposure to someone with infectious disease in past 14 days?: No Do you have a fever (greater than 100.4 F or 38 C)?: No Have you tested positive for COVID-19?: No Exposed to someone with COVID-19 in past 14 days?: No Do you have a sore throat?: No Do you have a cough?: No Do you have any weakness?: No Do you have any diarrhea?: No Are you experiencing any unusual bleeding?: No Do you have any muscle aches/pain?: No Do you have any abdominal pain?: No Are you experiencing loss of taste or smell?: No Other Medical History Have you received the Flu Vaccine for this season: Yes Have you received the Pneumonia Vaccine: No <Fátima Cabrera MD - Last Filed: 12/15/24 22:38> ROS Obtained: Yes All systems reviewed & no additional complaints except as documented Physical Exam <Fátima Cabrera MD - Last Filed: 12/15/24 22:38> General General appearance: alert Respiratory Respiratory exam: Present normal lung sounds bilaterally Cardiovascular Cardiovascular exam: Present regular rate Abdominal Exam Abdominal exam: Present soft; Absent distention or tenderness Back Exam Back exam: Present CVA tenderness (R) Neurological Exam Neurological exam: Present alert, oriented X3, CN II-XII intact and normal gait; Absent motor sensory deficit Medical Decision Making <Fátima Cabrera MD - Last Filed: 12/15/24 22:38> Medical Records Screening: Per USPSTF and CDC recommendations, given the prevalence of disease in our region, it is our hospital?s policy to screen for HIV and viral Hepatitis for all patients aged 18 and over and those with ongoing risk factors. Colin Inquiry Pt receiving controlled substance: No Colin was queried for this patient: No Vital Signs: 12/15/24 21:17 12/15/24 23:20 12/15/24 23:30 Temperature 98 F Temperature Source Temporal Artery Scan Pulse Rate 49 L 42 L Pulse Rate [Right] 64 Respiratory Rate 18 20 15 Blood Pressure 113/70 123/82 Blood Pressure [Right Arm] 127/82 Blood Pressure Mean 90 Blood Pressure Mean [Right Arm] 97 Blood Pressure Position 02 Sat by Pulse Oximetry 99 100 100 Oxygen Delivery Method 12/16/24 00:00 12/16/24 00:27 Temperature 98 F Temperature Source Oral Pulse Rate 41 L 40 L Pulse Rate [Right] Respiratory Rate 16 18 Blood Pressure 131/78 131/78 Blood Pressure [Right Arm] Blood Pressure Mean 95 Blood Pressure Mean [Right Arm] Blood Pressure Position Sitting 02 Sat by Pulse Oximetry 97 Oxygen Delivery Method Room Air Lab Data Lab Results 12/15/24 21:53: Urine Color Yellow, Urine Appearance Clear, Urine pH 6.5, Ur Specific [place] 1.020, Urine Protein Negative, Urine Glucose (UA) Negative, Urine Ketones Negative, Urine Blood Negative, Urine Nitrate Negative, Urine Bilirubin Negative, Urine Urobilinogen 1.0, Ur Leukocyte Esterase Negative, Urine RBC 3-5, Urine WBC 3-5, Ur Squamous Epith Cells 5-10, Urine Bacteria 1+, Urine Mucus 4+ 12/15/24 22:54: WBC 5.7, RBC 4.32, Hgb 12.9, Hct 39.0, MCV 90.3, MCH 29.9, MCHC 33.1, RDW 13.3, Plt Count 199, MPV 12.3 H, Neut % (Auto) 52.6, Lymph % (Auto) 35.8, Scott % (Auto) 6.5, Eos % (Auto) 4.2, Baso % (Auto) 0.7, Neut # (Auto) 3.0, Lymph # (Auto) 2.0, Scott # (Auto) 0.4, Eos # (Auto) 0.2, Baso # (Auto) 0.0, Sodium 139, Potassium 4.1, Chloride 111 H, Carbon Dioxide 25, Anion Gap 7.1, BUN 18 H, Creatinine 1.10 H, Estimated Creat Clear 91, Estimated GFR 52 L, Est GFR ( Amer) 63, Glucose 93, Calcium 9.2, Total Bilirubin 0.6, AST 22, ALT 19, Alkaline Phosphatase 104, Total Protein 7.6, Albumin 4.2, Globulin 3.4 H, Albumin/Globulin Ratio 1.2, Lipase 64 12/15/24 22:54 12/15/24 22:54 Orders (Tests/Meds): ED MEDICATIONS Discontinued Medications Generic Name Dose Route Start Last Admin Trade Name Freq PRN Reason Stop Dose Admin Sodium Chloride 1,000 mls @ 999 mls/hr 12/15/24 22:45 12/15/24 22:49 Sod Chlor 0.9% 1000ml Bag IV 12/15/24 23:45 999 mls/hr .Q1H1M JOSE RAFAEL Administration Ketorolac Tromethamine 15 mg 12/15/24 22:33 12/15/24 22:49 Ketorolac 30mg/Ml Vial IV 12/15/24 22:34 15 mg ONCE ONE Administration Ondansetron HCl 4 mg 12/15/24 22:33 12/15/24 22:49 Ondansetron 4mg/2ml Vial IV 12/15/24 22:34 4 mg ONCE ONE Administration ORDERS Category Date Time Status CT abdomen pelvis wo con Stat Cat Scan 12/15/24 22:33 Completed CBC w/Auto Diff [Complete Blood Count Auto Diff] Stat Lab 12/15/24 22:54 Completed CMP [Comprehensive Metabolic Panel] Stat Lab 12/15/24 22:54 Completed Lipase Stat Lab 12/15/24 22:54 Completed Urinalysis and Microscopic Stat Lab 12/15/24 21:53 Completed Medical Decision Narrative: 54-year-old with above history and physical and here with right flank pain differential includes kidney stone, musculoskeletal strain, pneumonia, hepatobiliary pathology and pancreatitis, intra-abdominal pathology including appendicitis etc. Noncontrasted CT scan will be ordered pain medicine nausea medicine will be administered and patient will be transitioned to Dr. Zepeda at 11 PM. <Chastity Zepeda MD - Last Filed: 12/16/24 07:09> Medical Records Medical records reviewed: Yes I reviewed the patient's medical records. Vital Signs: 12/15/24 21:17 12/15/24 23:20 12/15/24 23:30 Temperature 98 F Temperature Source Temporal Artery Scan Pulse Rate 49 L 42 L Pulse Rate [Right] 64 Respiratory Rate 18 20 15 Blood Pressure 113/70 123/82 Blood Pressure [Right Arm] 127/82 Blood Pressure Mean 90 Blood Pressure Mean [Right Arm] 97 Blood Pressure Position 02 Sat by Pulse Oximetry 99 100 100 Oxygen Delivery Method 12/16/24 00:00 12/16/24 00:27 Temperature 98 F Temperature Source Oral Pulse Rate 41 L 40 L Pulse Rate [Right] Respiratory Rate 16 18 Blood Pressure 131/78 131/78 Blood Pressure [Right Arm] Blood Pressure Mean 95 Blood Pressure Mean [Right Arm] Blood Pressure Position Sitting 02 Sat by Pulse Oximetry 97 Oxygen Delivery Method Room Air Lab Data Lab Results 12/15/24 21:53: Urine Color Yellow, Urine Appearance Clear, Urine pH 6.5, Ur Specific [place] 1.020, Urine Protein Negative, Urine Glucose (UA) Negative, Urine Ketones Negative, Urine Blood Negative, Urine Nitrate Negative, Urine Bilirubin Negative, Urine Urobilinogen 1.0, Ur Leukocyte Esterase Negative, Urine RBC 3-5, Urine WBC 3-5, Ur Squamous Epith Cells 5-10, Urine Bacteria 1+, Urine Mucus 4+ 12/15/24 22:54: WBC 5.7, RBC 4.32, Hgb 12.9, Hct 39.0, MCV 90.3, MCH 29.9, MCHC 33.1, RDW 13.3, Plt Count 199, MPV 12.3 H, Neut % (Auto) 52.6, Lymph % (Auto) 35.8, Scott % (Auto) 6.5, Eos % (Auto) 4.2, Baso % (Auto) 0.7, Neut # (Auto) 3.0, Lymph # (Auto) 2.0, Scott # (Auto) 0.4, Eos # (Auto) 0.2, Baso # (Auto) 0.0, Sodium 139, Potassium 4.1, Chloride 111 H, Carbon Dioxide 25, Anion Gap 7.1, BUN 18 H, Creatinine 1.10 H, Estimated Creat Clear 91, Estimated GFR 52 L, Est GFR ( Amer) 63, Glucose 93, Calcium 9.2, Total Bilirubin 0.6, AST 22, ALT 19, Alkaline Phosphatase 104, Total Protein 7.6, Albumin 4.2, Globulin 3.4 H, Albumin/Globulin Ratio 1.2, Lipase 64 Orders (Tests/Meds): ED MEDICATIONS Discontinued Medications Generic Name Dose Route Start Last Admin Trade Name Freq PRN Reason Stop Dose Admin Sodium Chloride 1,000 mls @ 999 mls/hr 12/15/24 22:45 12/15/24 22:49 Sod Chlor 0.9% 1000ml Bag IV 12/15/24 23:45 999 mls/hr .Q1H1M JOSE RAFAEL Administration Ketorolac Tromethamine 15 mg 12/15/24 22:33 12/15/24 22:49 Ketorolac 30mg/Ml Vial IV 12/15/24 22:34 15 mg ONCE ONE Administration Ondansetron HCl 4 mg 12/15/24 22:33 12/15/24 22:49 Ondansetron 4mg/2ml Vial IV 12/15/24 22:34 4 mg ONCE ONE Administration ORDERS Category Date Time Status CT abdomen pelvis wo con Stat Cat Scan 12/15/24 22:33 Completed CBC w/Auto Diff [Complete Blood Count Auto Diff] Stat Lab 12/15/24 22:54 Completed CMP [Comprehensive Metabolic Panel] Stat Lab 12/15/24 22:54 Completed Lipase Stat Lab 12/15/24 22:54 Completed Urinalysis and Microscopic Stat Lab 12/15/24 21:53 Completed Medical Decision Narrative: 54-year-old with above history and physical and here with right flank pain differential includes kidney stone, musculoskeletal strain, pneumonia, hepatobiliary pathology and pancreatitis, intra-abdominal pathology including appendicitis etc. Noncontrasted CT scan will be ordered pain medicine nausea medicine will be administered and patient will be transitioned to Dr. Zepeda at 11 PM. Zepeda: Upon my assumption of care patient is stable and resting comfortably. She does have a history of previous bradycardia and reports her pacemaker was removed a few months ago, she has been sinus bradycardia in the ER. Her heart rate was in the low 40s so repeat ECG was performed and personally interpreted demonstrating sinus bradycardia, rate 42, normal axis, normal IL and QTc, no STEMI, no dynamic changes from previous ECG. Patient is asymptomatic from this so I do not believe it requires further acute workup at this time. CT personally interpreted does not demonstrate acute intra-abdominal abnormality, see radiology read for final interpretation. I also reviewed labs which are reassuring and not acutely actionable. I encouraged patient to improve her oral hydration. UA negative for findings of infection. I believe she is appropriate for discharge at this time. Patient was given instructions on symptomatic management, follow up instructions including to see her PCP and cardiology again to reevaluate her bradycardia, and return precautions for the emergency department. Patient indicated understanding and was discharged in stable condition. Critical Care <Fátima Cabrera MD - Last Filed: 12/15/24 22:38> Critical Care Time Critical Care Time: No
[2024-12-15] MEDS: 0.9 % SODIUM CHLORIDE 1000ML 1,000 ML 999 ML IV (22:49)
[2024-12-15] MEDS: KETOROLAC 30MG/ML VIAL 15 MG IV (22:49)
[2024-12-15] MEDS: ONDANSETRON 4MG/2ML VIAL 4 MG IV (22:49)
[2024-12-15 23:08] LABS: Basophils % 0.7 % (0.1-2.0); Eosinophils # 0.2 Kmm3 (0.0-0.4); Eosinophils % 4.2 % (0.1-12.0); Hemoglobin 12.9 g/dL (12.2-16.2); Immature Granulocytes # 0.01 10^3uL; Immature Granulocytes % 0.2 %; Lymphocytes % 35.8 % (10-50); Mean Corpuscular HGB Conc 33.1 g/dL (31.8-35.4); Mean Corpuscular Hemoglobin 29.9 pg (27.0-31.2); Mean Corpuscular Volume 90.3 fl (81-99); Mean Platelet Volume 12.3 fl (7.4-10.4); Monocytes # 0.4 K/mm3 (0.1-1.0); Monocytes % 6.5 % (1.7-9.3); Neutrophils % 52.6 % (37.0-80.0); Nucleated Red Blood Cells # 0 10^3/uL; Nucleated Red Blood Cells % 0 %; Platelet Count 199 K/mm3 (142-424); Red Blood Count 4.32 M/mm3 (4.20-5.40); Red Cell Distribution Width 13.3 % (11.5-17.5); Red Cell Distribution Width-SD 43.8 fL; White Blood Count 5.7 K/mm3 (4.8-10.8)
[2024-12-15 23:09] LABS: Alanine Aminotransferase 19 U/L (12-78); Albumin Level 4.2 g/dl (3.5-5.0); Albumin/Globulin Ratio 1.2 (1.1-1.8); Alkaline Phosphatase 104 U/L (38-126); Anion Gap 7.1 mEq/L (5-15); Aspartate Amino Transferase 22 U/L (14-36); Bilirubin,Total 0.6 mg/dl (0.2-1.3); Blood Urea Nitrogen 18 mg/dl (7-17); Calcium 9.2 mg/dl (8.4-10.2); Carbon Dioxide 25 mmol/L (22.0-30.0); Chloride 111 mmol/L (98-107); Creatinine Clearance Estimated 91 mL/min (50-200); Estimated Glomerular Filt Rate 52 ml/min (>60); GFR (African American) 63 ML/MIN (>60); Globulin 3.4 g/dL (1.3-3.2); Glucose 93 mg/dl (74-100); Lipase 64 U/L (23-300); Potassium 4.1 mmoL/L (3.5-5.1); Sodium 139 mmol/L (136-145); Total Protein,Serum 7.6 g/dl (6.3-8.2)
[2024-12-15 23:20] VITALS: BP 113/70; PULSE 49; RESP 20; O2SAT 100
[2024-12-15 23:30] VITALS: BP 123/82; PULSE 42; RESP 15; O2SAT 100
--- NOTE | 2024-12-15 23:48 | ECG_ITS ---
APPROVED REPORT Exam: Resting ECG HR:42 bpm ECG Measurements Heart Rate 42 AXES VA 179 P 19 QRSd 100 QRS 32 QT 479 T 48 QTc 422 Conclusion SINUS BRADYCARDIA LOW QRS VOLTAGE IN PRECORDIAL LEADS [QRS DEFLECTION < 1.0 mV IN CHEST LEADS] BORDERLINE ECG UNCONFIRMED REPORT Electronically signed by : RIGOBERTO FLOWER, 12/20/2024 01:21:39
[2024-12-16] VITALS: BP 131/78; PULSE 41; RESP 16; O2SAT 97
[2024-12-16 00:27] VITALS: BP 131/78; PULSE 40; RESP 18; TEMP 36.6; O2SAT 98
== END 2024-12-16 00:28 | disposition home or self-care (01) ==
PROVIDERS: Emergency Provider Student in an Organized Health Care Education/Training Program; PCP Student in an Organized Health Care Education/Training Program
DX: R10.31 Right lower quadrant pain (principal); R00.1 Bradycardia, unspecified
CPT/HCPCS: 74176; 80053; 81001; 83690; 85025; 93005; 96361; 96374; 96375; 99284; J1885; J2405; J7030

== ENCOUNTER 2024-12-26 16:17 | Outpatient (CLI) | payer MEDICAID, SELFPAY ==
--- OUTSIDE RECORDS SUMMARY | 2024-12-15 10:19 | XMS_ITS | Encounter Summary ---
Author Organization [facility] [place] [address] Care Team Providers Care Lead Furnace Operator Name Role Phone Unavailable Primary Care Provider Unavailabl e Reason for Visit * Reason Comments Back Pain Right flank pain sin ce this am/ history of kidney infections/ reports frequency/ +chills Encounter Details Date Type Department Care Team (Late st Contact Info) Description 12/15/2024 10:19 AM EDT - 12/15/2024 1:54 PM EDT Emergency [facility] [address] [facility] [place] [address] Leilani Barrera MD [address] [place] [address] Flank pain (Primary Dx); RUQ pain; Adrenal [...] 10:04 AM EDT Whit Baptiste RN * [place] Suicide Severity Rating Scale (Q shift for [...] Barrera MD - 12/15/2024 11:54 AM EDT Burt - This is a narcotic pain medication. [...] Care Everywhere. * Abdominal Pain, Adult ED (Uzbek) * Flank Pain ED (Uzbek) documented in this encounter Medications at Time of Discharge aspirin 81 mg Oral Capsule 81 mg. 03/08/2022 ibuprofen (ADVIL;MOTRIN) 600 mg Oral Tablet Take 1 Tablet by mouth every 8 hours as needed for Pain for up to 14 doses. 14 Tablet 10/08/2024 LEVOthyroxine (SYNTHROID) 75 mcg Oral Tablet Take 75 mcg by mouth daily. oxybutynin (DITROPAN) 5 mg Oral Tablet Take 5 mg by mouth daily. HYDROcodone-aceta minophen (NORCO) 5-325 mg Oral Tablet Take 1 Tablet by mouth every 6 hours as needed for Acute Pain (R52) for up to 3 days. 12 Tablet 12/15/2024 12/18/2024 documented as of this encounter Ordered Prescriptions [...] Means Destination Comment s Home or Self Residential documented in this encounter ED Notes * [...] file Social Connections: Unknown (12/09/2023) Received from [facility] Family and Community Support Help with Day-to-Day Activities: Not on file Lonely or Isolated: Not on file Intimate Partner Violence: Unknown (12/09/2023) Received from [facility] Abuse Screen Unsafe at Home or Work/School: Not on file Feels Threatened by Someone?: Not on file Does Anyone Keep You from Contacting Others or Doint Things Outside the Home?: Not on file Physical Sign of Abuse Present: Not on file Housing Stability: Unknown (12/09/2023) Received from [facility] Housing Stability Current Living Arrangements: Not on [...] Gran% 0.2 % Lymph Percent 39.4 % [place] Percent 6.4 % Eos Percent 4.3 % Baso Percent 0.6 % Neut # 2.5 1.6 - 6.1 x10(3)/mcL IMMGRAN# 0.0 0.0 - 0.1 x10(3)/mcL Lymph # 2.0 1.2 - 3.9 x10(3)/mcL [place] # 0.3 0.3 - 0.9 x10(3)/mcL Eos# [...] CULTURE. Procedure Abnormality Status --------- ------ URINALYSIS REFLEX[[id number]] Final result EXTRA SARAH URINE CX[[id number]] Final result Please view results for these [...] BASELINE W/ REFLEX Result Value Ref Range hw-yWawpqmgb-C 13 <14 ng/L Narrative Ingestion of dhaval doses of biotin (>5 mg/day) taken within 8 hours of drawing blood sample can interfere with this immunoassay test. TROPONIN-T HIGH SENSITIVITY 2HR Result Value Ref Range is-tFdwdsksd-Z 2HR 11 <14 ng/L hs-cTnT 2Hr Delta from Baseline -2 <4 ng/L Narrative Ingestion of dhaval doses of biotin (>5 mg/day) taken within 8 hours of drawing blood sample can interfere with this immunoassay test. EK EKG [address] [facility] Test Date: 2024-12-15 Pat Name: MELANIECOSME STALLWORTHCATARINA Department: DEPID Room: 09 Gender: Female Tire Buffer: Jamie : 1970 Requested By: LEILANI Craig Order Number: [id number] Reading MD: Marlin Katz Measurements Intervals [place] Rate: 42 P: 42 RI: 191 QRS: 1 QRSD: 106 T: 11 [...] of bradycardia at a rate of 42. [place] is normal. There is an incomplete right bundle branch block. There are nonspecific ST segment changes. There are no old tracings available for comparison. Final Result [facility] Test Date: 2024-12-15 Pat Name: MELANIE PERKINS Department: DEPID Room: 09 Gender: Female Tire Buffer: Jamie : 1970 Requested By: LEILANI Craig Order Number: [id number] Reading MD: Marlin Katz Measurements Intervals [place] Rate: 42 P: 42 RI: 191 QRS: 1 QRSD: 106 T: 11 QT: 480 QTc: 402 Interpretive Statements SINUS BRADYCARDIA LOW QRS VOLTAGE IN PRECORDIAL LEADS INCOMPLETE RIGHT BUNDLE BRANCH BLOCK Electronically Signed On 12-15-2024 13:09:35 EDT by Marlin Katz EKG The Ekg interpreted by me in the absence of a client application support engineer shows. EK EKG 12 LEAD ED Interpretation by Leilani Barrera MD (12/15 1103) Sinus of bradycardia at a rate of 42. [place] is normal. There is an incomplete right [...] ED Course as of 12/15/24 1348 Leilani Barrera's Documentation Sat Dec 15, 2024 1151 Patient [...] this note may have been completed with [employer] voice recognition program. Leilani Barrera MD 12/15/24 1346 documented in this encounter Plan of Treatment Not on file documented as of this encounter Procedures Procedure Name Priority Date/Time Associated Diagnosis Comments SCANNED EKG 12/17/2024 9:17 AM EDT TROPONIN-T HIGH SENSITIVITY 2HR Timed 12/15/2024 12:56 PM EDT TROPONIN-T HIGH SENSITIVITY BASELINE W/ REFLEX Add-On 12/15/2024 11:19 AM EDT URINALYSIS REFLEX STAT 12/15/2024 11: 19 AM EDT UA W/REFLEX TO CULTURE STAT 11:19 AM EDT EXTRA SARAH URINE CX [...] EDT documented in this encounter Results * SCANNED EKG (12/17/2024 9:17 AM EDT) Anatomical Region Laterality Modality Other 12/17/2024 9:17 AM EDT us Unknown Provider IMG ECG ORDERABLES Final Result * TROPONIN-T HIGH SENSITIVITY 2HR (12/15/2024 12:56 PM EDT) yf-pSdbkdkrk-G 2HR 11 <14 ng/L 12/15/2024 1:18 PM EDT [facility] hs-cTnT 2Hr Delta from Baseline -2 <4 ng/L 12/15/2024 1:18 PM EDT [facility] Blood VENOUS BLOOD / Unknown Venipuncture / Unknown 12/15/2024 12:56 PM EDT 12/15/2024 12:59 PM EDT Narrative [facility] - 12/15/2024 1:18 PM EDT Ingestion of dhaval doses of biotin (>5 mg/day) taken within 8 hours of drawing blood sample can interfere with this immunoassay test. Leilani Barrera MD CHEMISTRY ORDERABLES Final R esult Performing Organization Address [facility] Co de Phone Number [facility] [address] [place] [address] * TROPONIN-T HIGH SENSITIVITY BASELINE W/ REFLEX (12/15/2024 11:19 AM EDT) cb-vPodhenjc-W 13 <14 ng/L 12/15/2024 12:05 PM EDT [facility] Blood VENOUS BLOOD / Unknown Venipuncture / Unknown 12/15/2024 11:19 AM EDT 12/15/2024 11:52 AM EDT Narrative [facility] - 12/15/2024 12:05 PM EDT Ingestion of dhaval doses of biotin (>5 mg/day) taken within 8 hours of drawing blood sample can interfere with this immunoassay test. Leilani Barrera MD CHEMISTRY ORDERABLES Final R esult Performing Organization Address [facility] Co de Phone Number [facility] [address] [place] [address] * EXTRA SARAH URINE CX (12/15/2024 11:19 AM EDT) Urine STRUCTURE OF URINARY TRACT PROPER / Unknown 12/15/2024 11:19 AM EDT 12/15/2024 11:24 AM EDT Leilani Barrera MD MICROBIOLOGY - GENERAL ORDER JACQUIE Final Result Performing Organization Address [facility] Co de Phone Number [facility] [address] [place] [address] * URINALYSIS REFLEX (12/15/2024 11:19 AM EDT) UA Color Yellow 12/15/2024 11:27 AM EDT [facility] UA Appear Clear Clear 12/15/2024 11:27 AM EDT [facility] UA Glucose Negative Negative mg/dL 12/15/2024 11:27 AM EDT [facility] UA Ketones Negative Negative mg/dL 12/15/2024 11:27 AM EDT [facility] UA Blood Negative Negative 12/15/2024 11:27 AM EDT [facility] UA pH 7.0 5.0 - 8.0 pH 12/15/2024 11:27 AM EDT [facility] UA Protein Negative Negative mg/dL 12/15/2024 11:27 AM EDT [facility] UA Urobilinogen 0.2 <=1 mg/dL 11:27 AM EDT [facility] UA Bili Negative Negative 12/15/2024 11:27 AM EDT [facility] UA Nitrite Negative Negative 12/15/2024 11:27 AM EDT [facility] UA Leuk Est Negative Negative 12/15/2024 11:27 AM EDT [facility] UA Spec Grav 1.015 1.001 - 1.035 no units 12/15/2024 11:27 AM EDT [facility] Comment:Reference range maurice d for random specimens only. Urine STRUCTURE OF URINARY TRACT PROPER / Unknown 12/15/2024 11:19 AM EDT 12/15/2024 11:24 AM EDT us Leilani Barrera MD URINE ORDERABLES Final Resul t Performing Organization Address [facility] Co de Phone Number [facility] [address] [place] [address] * LIPASE LEVEL (12/15/2024 11:19 AM EDT) Lipase Lvl 24 13 - 60 U/L 12/15/2024 11:43 AM EDT [facility] Blood VENOUS BLOOD / Unknown Venipuncture / Unknown 12/15/2024 11:19 AM EDT 12/15/2024 11:24 AM EDT us Leilani Barrera MD CHEMISTRY ORDERABLES Final R esult Performing Organization Address [facility] Co de Phone Number [facility] [address] [place] [address] * (ABNORMAL) COMPREHENSIVE METABOLIC PANEL (12/15/2024 11:19 AM ED) Sodium 137 136 - 145 mmol/L 12/15/2024 11:43 AM [facility] Potassium 4.1 3.5 - 5.0 mmol/L 12/15/2024 11:43 AM [facility] Chloride 109(H) 98 - 107 mmol/L 12/15/2024 11:43 AM [facility] Total CO2 19(L) 22 - 29 mmol/L 12/15/2024 11:43 AM [facility] Anion Gap 9 7 - 16 mmol/L 12/15/2024 11:43 AM [facility] Calcium 8.8 8.6 - 10.4 mg/dL 12/15/2024 11:43 AM [facility] Glucose Lvl 97 70 - 99 mg/dL 12/15/2024 11:43 AM [facility] BUN 18 6 - 20 mg/dL 12/15/2024 11:43 AM [facility] Creatinine 1.09 0.51 - 1.30 mg/dL 12/15/2024 11:43 AM [facility] Albumin 3.8 3.5 - 5.2 gm/dL 12/15/2024 11:43 AM [facility] Total Protein 7.0 6.4 - 8.3 gm/dL 12/15/2024 11:43 AM [facility] Bili Total 0.4 0.2 - 1.3 mg/dL 12/15/2024 11:43 AM [facility] ALT 15 <=41 U/L 12/15/2024 11:43 AM [facility] AST 17 <=40 U/L 12/15/2024 11:43 AM [facility] Alk Phos 105 36 - 123 U/L 12/15/2024 11:43 AM [facility] eGFR (CKD-EPIcr 2020) 60 >=60 mL/min/1.7 3 m2 12/15/2024 11:43 AM [facility] Comment:Estimated GFR was ca lculated using the CKD-EPIcr (2020) equation refit without race. The equation is recommended by the National Kidney Foundation - [place] [employer] of Nephrology Task Force. Blood VENOUS BLOOD / Unknown Venipuncture / Unknown 12/15/2024 11:19 AM EDT 12/15/2024 11:24 AM EDT us Leilani Barrera MD CHEMISTRY ORDERABLES Final R esult [facility] [address] [place] [address] * (ABNORMAL) CBC WITH DIFF (12/15/2024 11:19 AM EDT) WBC 5.1 3.7 - 10.3 x10(3)/mcL 12/15/2024 11:27 AM EDT [facility] RBC 4.21 3.90 - 5.20 x10(6)/mcL 12/15/2024 11:27 AM EDT [facility] Hgb 12.2 11.2 - 15.7 g/dL 12/15/2024 11:27 AM EDT [facility] Hct 38.3 34.0 - 45.0 % 12/15/2024 11:27 AM EDT [facility] MCV 91.0 80.0 - 100.0 fL 12/15/2024 11:27 AM EDT [facility] MCH 29.0 26.0 - 34.0 pg 12/15/2024 11:27 AM EDT [facility] MCHC 31.9 30.7 - 35.5 g/dL 12/15/2024 11:27 AM EDT [facility] RDW 13.3 <=14.9 % 12/15/2024 11:27 AM EDT [facility] Platelet 148(L) 155 - 369 x10(3)/mcL 12/15/2024 11:27 AM EDT [facility] MPV 11.6 8.8 - 12.5 fL 12/15/2024 11:27 AM EDT [facility] Neut Percent 49.1 % 12/15/2024 11:27 AM EDT [facility] Comment:Neutrophils equals s egs plus bands Imm Gran% 0.2 % 12/15/2024 11:27 AM EDT [facility] Comment:Automated count of m etamyelocytes, myelocytes and promyelocytes. Lymph Percent 39.4 % 12/15/2024 11:27 AM EDT [facility] [place] Percent 6.4 % 12/15/2024 11:27 AM EDT [facility] Eos Percent 4.3 % 12/15/2024 11:27 AM EDT [facility] Baso Percent 0.6 % 12/15/2024 11:27 AM EDT [facility] Neut # 2.5 1.6 - 6.1 x10(3)/[facility] 12/15/2024 11:27 AM EDT [facility] Comment:Neutrophils equals s egs plus bands IMMGRAN# 0.0 0.0 - 0.1 x10(3)/[facility] 12/15/2024 11:27 AM EDT [facility] Comment:Automated count of m etamyelocytes, myelocytes and promyelocytes. An absolute IG <0.1 is reported as 0.0. Lymph # 2.0 1.2 - 3.9 x10(3)/[facility] 12/15/2024 11:27 AM EDT [facility] [place] # 0.3 0.3 - 0.9 x10(3)/[facility] 12/15/2024 11:27 AM EDT [facility] Eos# 0.2 0.0 - 0.5 x10(3)/[facility] 12/15/2024 11:27 AM EDT [facility] Baso # 0.0 0.0 - 0.1 x10(3)/[facility] 12/15/2024 11:27 AM EDT [facility] Blood VENOUS BLOOD / Unknown Venipuncture / Unknown 12/15/2024 11:19 AM EDT 12/15/2024 11:24 AM EDT us Leilani Barrera MD HEMATOLOGY ORDERABLES Final Result [facility] [address] [place] [address] * CT ABDOMEN PELVIS WO [...] office of the ordering clinician. us Leilani Barrera MD IM CT ORDERABLES Final Resu lt * XR [...] office of the ordering clinician. us Leilani [facility] ORDER JACQUIE Final Result * EK EKG 12 LEAD (12/15/2024 10:43 AM EDT) Anatomical Region Laterality Modality Electrocardiogra phy 12/15/2024 10:5 2 AM EDT Impressions 12/15/2024 1:[address] [facility] Test Date: 2024-12-15 Pat Name: MELANIE PERKINS Department: DEPID Room: 09 Gender: Female Tire Buffer: Dc : 1970 Requested By: LEILANI Craig Order Number: [id number] Reading MD: Marlin Katz Measurements Intervals [place] Rate: 42 P: 42 RI: 191 QRS: 1 QRSD: 106 T: 11 QT: 480 QTc: 402 Interpretive Statements SINUS BRADYCARDIA LOW QRS VOLTAGE IN PRECORDIAL LEADS INCOMPLETE RIGHT BUNDLE BRANCH BLOCK Electronically Signed On 12-15-2024 13:09:35 EDT by Marlin Katz Narrative Procedure Note Marlin Katz MD - 12/15/2024 [facility]: 2024-12-15 Pat Name: MELANIE PERKINS Department: DEPID Room: 09 Gender: Female Tire Buffer: Dc : 1970 Requested By: LEILANI Craig Order Number: [id number] Reading MD: Marlin Katz Measurements Intervals [place] Rate: 42 P: 42 RI: 191 QRS: 1 QRSD: 106 T: 11 QT: 480 QTc: 402 Interpretive Statements SINUS BRADYCARDIA LOW QRS VOLTAGE IN PRECORDIAL LEADS INCOMPLETE RIGHT BUNDLE BRANCH BLOCK Electronically Signed On 12-15-2024 13:09:35 EDT by Marlin Katz us Leilani Barrera MD IMG ECG ORDERABLES Final [...] mouth 1153 (Given - Provid er: Elina Sorinao RN) documented in this encounter Orders Medications [...]
--- OUTSIDE RECORDS SUMMARY | 2024-12-26 16:19 | XMS_ITS | Encounter Summary ---
Author Organization [facility] [place] [id number] Care Team Providers Care Veterinary Laboratory Technician Name Role Phone Unavailable Primary Care Provider [...] 10:04 AM EDT Whit Baptiste RN * [place] Suicide Severity Rating Scale (Q shift for [...]
--- OUTSIDE RECORDS SUMMARY | 2024-12-26 16:19 | XMS_ITS | Clinical Summary ---
Author Organization [facility] Address [address] [place] [address] Phone Care Team Providers Care Process Development Engineer Name Role Phone Unavailable Primary Care Provider [...] to 14 doses. 14 Tablet 10/08/2024 Active HYDROcodone-tessie taminophen (NORCO) 5-325 mg Oral Tablet Take 1 Tablet by mouth every 6 hours as needed for Acute Pain (R52) for up to 3 days. 12 Tablet 12/15/2024 Encounters Date Type Department Care Team Description 12/15/2024 10:19 AM EDT - 12/15/2024 1:54 PM EDT Emergency [facility] [address] [place] [address] Leilani Barrera MD Flank pain (Primary Dx); RUQ pain; Adrenal adenoma, right; Sinus bradycardia Discharge Disposition: Home or Self Care 12/15/2024 Travel 10/08/2024 8:29 PM EDT - 10/08/2024 8:58 PM EDT Emergency [facility] [address] [place] [address] Will Bennett MD Left ear pain (Primary [...] Zoster (1 of 2) 2020 COVID-19 Vaccine ( season) 2024 03/25/2021, 03/04/2021 Influenza Vaccine Completed [...] EDT from Last 3 Months Results * SCANNED EKG (12/17/2024 9:17 AM EDT) Anatomical Region Laterality Modality Other 12/17/2024 9:17 AM EDT us Unknown Provider IMG ECG ORDERABLES Final Result * TROPONIN-T HIGH SENSITIVITY 2HR (12/15/2024 12:56 PM EDT) tz-rTcxzlorh-V 2HR 11 <14 ng/L 12/15/2024 1:18 PM EDT [facility] hs-cTnT 2Hr Delta from Baseline -2 <4 ng/L 12/15/2024 1:18 PM EDT [facility] Blood VENOUS BLOOD / Unknown Venipuncture / Unknown 12/15/2024 12:56 PM EDT 12/15/2024 12:59 PM EDT Narrative [facility] - 12/15/2024 1:18 PM EDT Ingestion of dhaval doses of biotin (>5 mg/day) taken within 8 hours of drawing blood sample can interfere with this immunoassay test. Leilani Barrera MD CHEMISTRY ORDERABLES Final R esult Performing Organization Address City/[facility]/ZIP Co de Phone Number [facility] [address] [place] [address] * TROPONIN-T HIGH SENSITIVITY BASELINE W/ REFLEX (12/15/2024 11:19 AM EDT) xg-pXfmfkwcw-M 13 <14 ng/L 12/15/2024 12:05 PM EDT [facility] Blood VENOUS BLOOD / Unknown Venipuncture / Unknown 12/15/2024 11:19 AM EDT 12/15/2024 11:52 AM EDT Narrative [facility] - 12/15/2024 12:05 PM EDT Ingestion of dhaval doses of biotin (>5 mg/day) taken within 8 hours of drawing blood sample can interfere with this immunoassay test. Leilani Barrera MD CHEMISTRY ORDERABLES Final R esult Performing Organization Address City/[facility]/ZIP Co de Phone Number [facility] [address] [place] [address] * URINALYSIS REFLEX (12/15/2024 11:19 AM EDT) UA Color Yellow 12/15/2024 11:27 AM EDT [facility] UA Appear Clear Clear 12/15/2024 11:27 AM EDT [facility] UA Glucose Negative Negative mg/dL 12/15/2024 11:27 AM EDT [facility] UA Ketones Negative Negative mg/dL 12/15/2024 11:27 AM EDT [facility] UA Blood Negative Negative 12/15/2024 11:27 AM EDT [facility] UA pH 7.0 5.0 - 8.0 pH 12/15/2024 11:27 AM EDT [facility] UA Protein Negative Negative mg/dL 12/15/2024 11:27 AM EDT [facility] UA Urobilinogen 0.2 <=1 mg/dL 11:27 AM EDT [facility] UA Bili Negative Negative 12/15/2024 11:27 AM EDT [facility] UA Nitrite Negative Negative 12/15/2024 11:27 AM EDT [facility] UA Leuk Est Negative Negative 12/15/2024 11:27 AM EDT [facility] UA Spec Grav 1.015 1.001 - 1.035 no units 12/15/2024 11:27 AM EDT [facility] Comment:Reference range maurice d for random specimens only. Urine STRUCTURE OF URINARY TRACT PROPER / Unknown 12/15/2024 11:19 AM EDT 12/15/2024 11:24 AM EDT us Leilani Barrera MD URINE ORDERABLES Final Resul t Performing Organization Address City/State/[facility] Co de Phone Number [facility] [address] [place] [phone] * EXTRA SARAH URINE CX (12/15/2024 11:19 AM EDT) Urine STRUCTURE OF URINARY TRACT PROPER / Unknown 12/15/2024 11:19 AM EDT 12/15/2024 11:24 AM EDT us Leilani Barrera MD MICROBIOLOGY - GENERAL ORDER JACQUIE Final Result [facility] [address] [place] [address] * (ABNORMAL) CBC WITH DIFF (12/15/2024 11:19 AM EDT) WBC 5.1 3.7 - 10.3 x10(3)/mcL 12/15/2024 11:27 AM EDT [facility] RBC 4.21 3.90 - 5.20 x10(6)/mcL 12/15/2024 11:27 AM EDT [facility] Hgb 12.2 11.2 - 15.7 g/dL 12/15/2024 11:27 AM EDT [facility] Hct 38.3 34.0 - 45.0 % 12/15/2024 11:27 AM EDT [facility] MCV 91.0 80.0 - 100.0 fL 12/15/2024 11:27 AM EDT [facility] MCH 29.0 26.0 - 34.0 pg 12/15/2024 11:27 AM EDT [facility] MCHC 31.9 30.7 - 35.5 g/dL 12/15/2024 11:27 AM EDT [facility] RDW 13.3 <=14.9 % 12/15/2024 11:27 AM EDT [facility] Platelet 148(L) 155 - 369 x10(3)/mcL 12/15/2024 11:27 AM EDT [facility] MPV 11.6 8.8 - 12.5 fL 12/15/2024 11:27 AM EDT [facility] Neut Percent 49.1 % 12/15/2024 11:27 AM EDT [facility] Comment:Neutrophils equals s egs plus bands Imm Gran% 0.2 % 12/15/2024 11:27 AM EDT [facility] Comment:Automated count of m etamyelocytes, myelocytes and promyelocytes. Lymph Percent 39.4 % 12/15/2024 11:27 AM EDT [facility] Galax Percent 6.4 % 12/15/2024 11:27 AM EDT [facility] Eos Percent 4.3 % 12/15/2024 11:27 AM EDT [facility] Baso Percent 0.6 % 12/15/2024 11:27 AM EDT [facility] Neut # 2.5 1.6 - 6.1 x10(3)/[facility] 12/15/2024 11:27 AM EDT [facility] Comment:Neutrophils equals s egs plus bands IMMGRAN# 0.0 0.0 - 0.1 x10(3)/[facility] 12/15/2024 11:27 AM EDT [facility] Comment:Automated count of m etamyelocytes, myelocytes and promyelocytes. An absolute IG <0.1 is reported as 0.0. Lymph # 2.0 1.2 - 3.9 x10(3)/[facility] 12/15/2024 11:27 AM EDT [facility] Galax # 0.3 0.3 - 0.9 x10(3)/[facility] 12/15/2024 11:27 AM EDT [facility] Eos# 0.2 0.0 - 0.5 x10(3)/[facility] 12/15/2024 11:27 AM EDT [facility] Baso # 0.0 0.0 - 0.1 x10(3)/[facility] 12/15/2024 11:27 AM EDT [facility] Blood VENOUS BLOOD / Unknown Venipuncture / Unknown 12/15/2024 11:19 AM EDT 12/15/2024 11:24 AM EDT us Leilani Barrera MD HEMATOLOGY ORDERABLES Final Result [facility] [address] [place] [address] * LIPASE LEVEL (12/15/2024 11:19 AM EDT) Lipase Lvl 24 13 - 60 U/L 12/15/2024 11:43 AM EDT [facility] Blood VENOUS BLOOD / Unknown Venipuncture / Unknown 12/15/2024 11:19 AM EDT 12/15/2024 11:24 AM EDT us Leilani Barrera MD CHEMISTRY ORDERABLES Final R esult [facility] [address] [place] [address] * (ABNORMAL) COMPREHENSIVE METABOLIC PANEL (12/15/2024 11:19 AM EDT) Sodium 137 136 - 145 mmol/L 12/15/2024 11:43 AM EDT [facility] Potassium 4.1 3.5 - 5.0 mmol/L 12/15/2024 11:43 AM EDT [facility] Chloride 109(H) 98 - 107 mmol/L 12/15/2024 11:43 AM T [facility] Total CO2 19(L) 22 - 29 mmol/L 12/15/2024 11:43 AM [facility] Anion Gap 9 7 - 16 mmol/L 12/15/2024 11:43 AM [facility] Calcium 8.8 8.6 - 10.4 mg/dL 12/15/2024 11:43 AM T [facility] Glucose Lvl 97 70 - 99 mg/dL 12/15/2024 11:43 AM [facility] BUN 18 6 - 20 mg/dL 12/15/2024 11:43 AM [facility] Creatinine 1.09 0.51 - 1.30 mg/dL 12/15/2024 11:43 AM [facility] Albumin 3.8 3.5 - 5.2 gm/dL 12/15/2024 11:43 AM [facility] Total Protein 7.0 6.4 - 8.3 gm/dL 12/15/2024 11:43 AM [facility] Bili Total 0.4 0.2 - 1.3 mg/dL 12/15/2024 11:43 AM [facility] ALT 15 <=41 U/L 12/15/2024 11:43 AM [facility] AST 17 <=40 U/L 12/15/2024 11:43 AM [facility] Alk Phos 105 36 - 123 U/L 12/15/2024 11:43 AM EDT [facility] eGFR (CKD-EPIcr 2020) 60 >=60 mL/min/1.7 3 m2 12/15/2024 11:43 AM EDT [facility] Comment:Estimated GFR was ca lculated using the CKD-EPIcr (2020) equation refit without race. The equation is recommended by the [employer] - [place] [employer]ph[employer] Task Force. Blood VENOUS BLOOD / Unknown Venipuncture / Unknown 12/15/2024 11:19 AM EDT 12/15/2024 11:24 AM EDT us Leilani Barrera MD CHEMISTRY ORDERABLES Final R esult [facility] [address] [place] [address] * CT ABDOMEN PELVIS WO [...] ordering clinician. us Leilani Barrera MD IMG CT ORDERABLES Final [...] AM EDT Impressions 12/15/2024 1:09 PM EDT [facility] Test Date: 2024-12-15 Pat Name: MELANIE CATARINA Department: DEPID Room: 09 Gender: Female Agricultural Equipment Salesperson: Jamie : 1970 Requested By: LEILANI Craig Order Number: [id number] Reading MD: Marlin Katz Measurements Intervals [place] Rate: 42 P: 42 MA: 191 QRS: 1 QRSD: 106 T: 11 QT: 480 QTc: 402 Interpretive Statements SINUS BRADYCARDIA LOW QRS VOLTAGE IN PRECORDIAL LEADS INCOMPLETE RIGHT BUNDLE BRANCH BLOCK Electronically Signed On 12-15-2024 13:09:35 EDT by Marlin Katz Narrative Procedure Note Marlin Katz MD - 12/15/2024 [facility]: 2024-[facility]15 Pat Name: MELANIE PERKINS Department: DEPID Room: 09 Gender: Female Agricultural Equipment Salesperson: Dc : 1970 Requested By: LEILANI Craig Order Number: [id number] Reading MD: Marlin Katz Measurements Intervals [place] Rate: 42 P: 42 MA: 191 QRS: 1 QRSD: 106 T: 11 QT: 480 QTc: 402 Interpretive Statements SINUS BRADYCARDIA LOW QRS VOLTAGE IN PRECORDIAL LEADS INCOMPLETE RIGHT BUNDLE BRANCH BLOCK Electronically Signed On 12-15-2024 13:09:35 EDT by Marlin Katz Leilani Barrera MD IMG ECG ORDERABLES Final Res ult from Last 3 Months Insurance [facility] BY [facility]
[2024-12-26 17:26] LABS: Chol/HDL Ratio 4.1 (1-3.5); Cholesterol 180 mg/dl (140-200); HDL Cholesterol 44 mg/dl (40-60); Triglycerides 142 mg/dl (30-150); VLDL Cholesterol 28 mg/dL (0-40)
[2024-12-26 17:57] LABS: Thyroid Stimulating Hormone 5.87 uIU/mL (0.465-4.68)
[2024-12-26 18:14] LABS: Free T4 (Free Thyroxine) 0.74 ng/dl (0.78-2.19)
[2024-12-26 19:06] LABS: Hemoglobin A1C 5.4 % (4.0-6.0)
== END 2024-12-26 23:59 | disposition home or self-care (01) ==
LOC: LAB.DROPOF 16:17
PROVIDERS: PCP Nurse Practitioner Family; Visit Provider Nurse Practitioner Family
DX: G47.33 Obstructive sleep apnea (adult) (pediatric) (principal); I49.5 Sick sinus syndrome; E66.9 Obesity, unspecified; E11.9 Type 2 diabetes mellitus without complications; G89.29 Other chronic pain; E03.9 Hypothyroidism, unspecified; I10 Essential (primary) hypertension; K76.89 Other specified diseases of liver; K76.0 Fatty (change of) liver, not elsewhere classified; K44.9 Diaphragmatic hernia without obstruction or gangrene; D35.00 Benign neoplasm of unspecified adrenal gland; N28.1 Cyst of kidney, acquired; K42.9 Umbilical hernia without obstruction or gangrene; R10.11 Right upper quadrant pain; Z68.39 Body mass index [BMI] 39.0-39.9, adult
CPT/HCPCS: 80061; 83036; 84439; 84443; 87086